=== PATIENT | male | born 1965 | race Caucasian/White ===

== ENCOUNTER → 2016-12-09 | Outpatient (CLI) | payer OTHER ==
[~2016-12-09] MED LIST: LISI-542 PO
--- NOTE | 2016-12-09 17:48 | REP ---
MAXILLOFACIAL CT WITHOUT CONTRAST: HISTORY: Sinusitis. COMPARISON: 05/15/2014 A right Britt cell is present. Minimal mucosal thickening is present in the left maxillary sinus. The remaining sinuses are clear. The ostiomeatal units are patent. The middle and inferior nasal turbinates are partially paradoxical. There is minimal deviation of the nasal septum to the right. The cribriform plate, medial schroeder of the orbits and optic canals are intact. The carotid canals form a segment of the posterolateral schroeder of the sphenoid sinus. The sphenoid sinus septum inserts into the right internal carotid canal wall. IMPRESSION: Minimal left ethmoid sinus mucosal thickening. Signed by Jason Pinto MD 12/09/2016 05:52 P
== END ==
LOC: M RAD 16:49
PROVIDERS: ATTEND Otolaryngology
DX: J32.0 Chronic maxillary sinusitis (principal)

== ENCOUNTER 2020-05-18 07:58 | Emergency (ER) | payer OTHER ==
[~2020-05-18] VITALS: Ht 188 cm; Wt 110.2 kg
[2020-05-18] MEDS ORDERED: INDO50CA91 (08:06)
[2020-05-18] MEDS ORDERED: HEARTAB2 (08:06)
[2020-05-18] MEDS ORDERED: HYDR12CA (08:06)
[2020-05-18] MEDS ORDERED: DOXY100C (08:06)
[2020-05-18 09:19] LABS: BASO % 0.5 % (0.0-1.0); EOS # 0.2 10^3/uL (0.0-0.5); EOS % 2.6 % (0.0-3.0); HEMATOCRIT 44.6 % (42.0-52.0); HEMOGLOBIN 15.4 g/dl (13.5-17.5); LYMPH # 1.2 10^3/uL (1.5-5.0); MEAN CORPUSCULAR HEMOGLOBIN 29.7 pg (27.0-33.0); MEAN CORPUSCULAR HGB CONC 34.5 g/dl (32.0-36.5); MEAN CORPUSCULAR VOLUME 86.1 fl (80.0-96.0); MONO # 0.7 10^3/uL (0.0-0.8); MONO % 8.6 % (0.0-5.0); NEUTROPHILS # 5.6 10^3/uL (1.5-8.5); PLATELET COUNT, AUTOMATED 203 10^3/uL (150-450); RED BLOOD COUNT 5.18 10^6/uL (4.30-6.10); WHITE BLOOD COUNT 7.7 10^3/uL (4.0-10.0)
[2020-05-18 09:41] LABS: ALBUMIN 3.7 GM/DL (3.2-5.2); ALT/SGPT 119 U/L (12-78); BILIRUBIN,DIRECT 0.2 MG/DL (0.0-0.2); BILIRUBIN,TOTAL 0.6 MG/DL (0.2-1.0); BLOOD UREA NITROGEN 15 MG/DL (7-18); C REACTIVE PROTEIN QUANTITATIV 3.45 MG/DL (0.00-0.30); CARBON DIOXIDE LEVEL 26 MEQ/L (21-32); CHLORIDE LEVEL 105 MEQ/L (98-107); CREATININE FOR GFR 0.93 MG/DL (0.70-1.30); GLOMERULAR FILTRATION RATE > 60.0 (>56); GLUCOSE, FASTING 123 MG/DL (70-100); POTASSIUM SERUM 4.1 MEQ/L (3.5-5.1); SODIUM LEVEL 138 MEQ/L (136-145); TOTAL PROTEIN 7.1 GM/DL (6.4-8.2)
[2020-05-18 09:45] LABS: ERYTHROCYTE SEDIMENTATION RATE 28 mm/hr (0-20)
[2020-05-18 09:50] LABS: URIC ACID 7.1 MG/DL (3.5-7.2)
--- NOTE | 2020-05-18 10:08 | REPVR ---
PROCEDURE INFORMATION: Exam: XR Left Foot Complete Exam date and time: 05/18/2020 9:41 AM Age: 54 years old Clinical indication: Pain; Foot; Left; Additional info: Swelling pain, deformity of 2nd toe to metatarsal TECHNIQUE: Imaging protocol: XR Left foot. Views: 3 or more views. COMPARISON: No relevant prior studies available. FINDINGS: Bones/joints: Plantar spur. Soft tissues: Normal. IMPRESSION: No acute findings. Electronically signed by: Gabe Hairston On 05/18/2020 10:07:48 AM
--- NOTE | 2020-05-18 10:09 | REPVR ---
PROCEDURE INFORMATION: Exam: XR Right Foot Complete Exam date and time: 05/18/2020 9:41 AM Age: 54 years old Clinical indication: Pain; Foot; Right; Additional info: Swollen tender big toe, medial foot TECHNIQUE: Imaging protocol: XR Right foot. Views: 3 or more views. COMPARISON: No relevant prior studies available. FINDINGS: Bones/joints: Plantar spur. Soft tissues: Normal. IMPRESSION: No acute findings. Electronically signed by: Gabe Hairston On 05/18/2020 10:08:51 AM
[2020-05-18] MEDS ORDERED: COLC1TAB13 PO (10:28)
[2020-05-18 10:35] VITALS: BP 134/84
== END 2020-05-18 10:37 | disposition home or self-care (01) ==
LOC: M ED 07:58
DX: M10.9 Gout, unspecified (principal); M72.2 Plantar fascial fibromatosis; I10 Essential (primary) hypertension; E11.9 Type 2 diabetes mellitus without complications; E78.5 Hyperlipidemia, unspecified; Z79.899 Other long term (current) drug therapy; Z79.2 Long term (current) use of antibiotics; Z88.2 Allergy status to sulfonamides; Z88.8 Allergy status to other drugs, medicaments and biological substances

== ENCOUNTER → 2020-06-26 | Outpatient (CLI) | payer SELFPAY ==
[~2020-06-26] MED LIST changes: +ALEV220T22 PO; +COLC1TAB13 PO; +DOXY100C; +HEARTAB2; +HYDR12CA; +INDO50CA91; +LOSA25TA14 PO; +VIAG100T PO
== END ==
LOC: M LABSMTC 11:56
PROVIDERS: ATTEND Pediatrics
DX: Z20.828 Contact with and (suspected) exposure to other viral communicable diseases (principal)

== ENCOUNTER 2020-07-01 15:37 | Observation (INO) | payer OTHER, SELFPAY ==
[~2020-07-01] VITALS: Ht 188 cm; Wt 103.6 kg
[~2020-07-01 15:37] MED LIST changes: -ALEV220T22 PO; -LOSA25TA14 PO; -VIAG100T PO
[2020-07-01] MEDS ORDERED: LOSA25TA14 PO (15:47)
[2020-07-01] MEDS ORDERED: VIAG100T PO (17:00)
[2020-07-01] MEDS ORDERED: COLC1TAB13 PO (17:00)
[2020-07-01] MEDS ORDERED: ALEV220T22 PO (17:00)
[2020-07-01 17:13] LABS: BASO % 0.3 % (0.0-1.0); EOS # 0.3 10^3/uL (0.0-0.5); EOS % 4.3 % (0.0-3.0); HEMATOCRIT 43.4 % (42.0-52.0); HEMOGLOBIN 14.3 g/dl (13.5-17.5); LYMPH # 1.8 10^3/uL (1.5-5.0); LYMPH % 30.1 % (24.0-44.0); MEAN CORPUSCULAR HEMOGLOBIN 28.7 pg (27.0-33.0); MEAN CORPUSCULAR HGB CONC 32.9 g/dl (32.0-36.5); MONO # 0.5 10^3/uL (0.0-0.8); MONO % 8.9 % (0.0-5.0); NEUTROPHILS # 3.3 10^3/uL (1.5-8.5); NEUTROPHILS % 56.2 % (36.0-66.0); PLATELET COUNT, AUTOMATED 169 10^3/uL (150-450); RED BLOOD COUNT 4.99 10^6/uL (4.30-6.10); WHITE BLOOD COUNT 5.8 10^3/uL (4.0-10.0)
[2020-07-01 17:26] LABS: ALT/SGPT 33 U/L (12-78); BILIRUBIN,DIRECT 0.1 MG/DL (0.0-0.2); BILIRUBIN,TOTAL 0.7 MG/DL (0.2-1.0); BLOOD UREA NITROGEN 17 MG/DL (7-18); CALCIUM LEVEL 8.9 MG/DL (8.5-10.1); CARBON DIOXIDE LEVEL 28 MEQ/L (21-32); CHLORIDE LEVEL 106 MEQ/L (98-107); CREATININE FOR GFR 1.15 MG/DL (0.70-1.30); GLOMERULAR FILTRATION RATE > 60.0 (>56); GLUCOSE, FASTING 80 MG/DL (70-100); POTASSIUM SERUM 4.3 MEQ/L (3.5-5.1); SODIUM LEVEL 140 MEQ/L (136-145)
[2020-07-01 17:37] LABS: ERYTHROCYTE SEDIMENTATION RATE 6 mm/hr (0-20)
[2020-07-01] MEDS ORDERED: cefTRIAXone SOD 2 GM in D5W MINI-BAG PLUS 50 ML IV ONE (17:45)
[2020-07-01] MEDS ORDERED: VANCOMYCIN HCL 1,000 MG, VIAL MATE ADAPTER 1 EACH in D5W 250 ML IV ONE ×2 (17:45→19:45)
[2020-07-01] MEDS ORDERED: ACETAMINOPHEN TAB 650MG DOSE (2X325MG) PO PRN (18:15)
--- NOTE | 2020-07-01 19:11 | HPEPDOC ---
[facility] Medical History & Physical Date of Admission Jul 01, 2020 Date of Service: Jul 01, 2020 Attending Physician: Lucita Escobar MD History and Physical CHIEF COMPLAINT: Bilateral foot pain HISTORY OF PRESENT ILLNESS: Patient is a 54-year-old male with recent diagnosis of bilateral foot osteomye litis, hypertension, hyperlipidemia, prediabetes and questionable COPD who presented to [facility] emergency room with a new diagnosis of bilateral foot osteomyelitis, sent in from his primary care provider's office. Patient has had a complicated course leading up to today. 05/14/2020 the patient wore tight boots out hunting and shortly after that he developed painful right toe and second left toe swelling. He was seen by urgent care, diagnosed with cellulitis and sent home with antibiotics. He was later seen in our ED for continued pain and diagnosed with gout. No treatments helped pain and swelling. His primary care provider saw him in his office multiple times and tried aspirating the righ t foot joint as there was a concern for possible septic joint versus gout. There was nothing to aspirate and the patient was referred to podiatry on . He was later referred to orthopedic surgery to help manage this issue as there was a concern for something else going on. The patient has had multiple MRIs of the feet. The first one was done of an 06/26/2020 without contrast showing questionable osteomyelitis changes in the right large toe. He was later referred to [facility] radiology and they did in MRI with contrast of the right foot on 06/29/2020. This showed infected fluid/septic arthritis in the first metatarsalphalangeal joint decreased since 06/26/2020 exam, focal area of dest ruction change of cortical bone medial aspect of the distal first metatarsal and also distal plantar aspect is stable since the previous exam. He then went for a left foot MRI with contrast on 07/01/2020 at [facility] which showed osteomyelitis of the second proximal phalanx. Due to these findings he was advised by his provider to come to our emergency room to be further evaluated. Of note, his primary care provider has referred him to Dr. Cuevas, infectious disease with whom he was supposed to have a follow-up appointment with 07/02/2020. He states Dr. Cuevas was made aware of him coming to the emergency room today. In the ER, VS were stable. Inflammatory markers and all other labs were unremarkable, ESR pending. Right foot was noticeably more swollen than the left foot, he had limited ROM of right large toe. He states pain was 2/10 on exam;however, one month prior pain was 10/10 for several weeks. He was started on IV vancomycin. He was admitted for new diagnosis of bilateral osteomyelitis, r/o infectious cause with orthopedic surgery and ID to be consulted in the AM. REVIEW OF SYSTEMS: CONSTITUTIONAL: Denies lack of energy, unexplained weight gain or weight loss, loss of appetite, fever, night sweats EYES: Denies eye drainage, eye pain, visual changes, dry/irritated eye EARS, NOSE, MOUTH, THROAT: Denies difficulty hearing, ringing in ears, mouth sores, loose teeth, sore throat, facial numbness or pain NECK: Denies swollen glands CARDIOVASCULAR: Denies irregular heartbeat, racing heart, chest pains, swelling of feet or legs, pain in legs with walking RESPIRATORY: Denies shortness of breath, night sweats, wheezing, sputum production, oxygen at home, coughing up blood, cough lasting > 1 month GASTROINTESTINAL: Denies abdominal pain, constipation, bloody stool, diarrhea, heartburn, nausea, vomiting GENITOURINARY: Denies painful urination, bloody urine, frequent urination, urgency, leaking urine, impotence MUSCULOSKELETAL: Denies muscle pain INTEGUMENTARY: Denies rash, itching, new skin lesion, change in existing skin lesion, hair loss or increase, breast changes. NEUROLOGICAL: Denies headaches, dizziness, difficulty walking, numbness or tingling PSYCHIATRIC: Denies depression, anxiety, recurrent bad thoughts, mood swings, hallucinations PAST MEDICAL HISTORY: 1. HTN 2. HLD 3. prediabetes 4. COPD? 5. Tobacco use 6. Erectile dysfunction PAST SURGICAL HISTORY: 1. [place] teeth removal 2. Appendectomy 3. Tonsillectomy 4. Cyst removal of left finger FAMILY HISTORY: Father: sudden , cause unknown. at age 48 y/o Mother: DDD. Alive SOCIAL HISTORY: History of cigarette smoking, unknown amount. Quit 5 years ago. Uses chewing to bacco. Drinks alcohol socially. Denies drug use. Employed on [employer]. Lives with family in local area. Seen by [facility] Ortho: NOHEMY Waldron, PCP . [facility] ALLERGIES: Please see below. HOME MEDICATIONS: Please see below. PHYSICAL EXAMINATION: VS: see below CONSTITUTIONAL: No acute distress, resting comfortably, AAO x 3 EYES: PERRLA, EOM intact HENT, MOUTH: Normocephalic, atraumatic, moist mucous membranes, NECK: SUPPLE, no JVD, no lymphadenopathy, no carotid bruit CV: Regular rate and rhythm, S1S2 normal, no murmurs/rubs/gallops RESPIRATORY: Clear to auscultation bilaterally, no rales/rhonchi/wheezes GI: BS positive in 4 quadrants, soft, nontender, nondistended, no rebound or guarding, no organomegaly : Deferred MUSCULOSKELETAL: Right large toe and foot swelling >L. Decreased ROM of right great toe, no pain on palpation. Left 2nd digit has no pain on palpation, no bruising or swelling. INTEGUMENTARY: Intact, no rashes, no lesions, no erythema NEUROLOGIC: Cranial Nerves II-XII are intact, no focal deficits PSYCHIATRIC: Mood and affect are normal LABORATORY DATA: Please see below IMAGING (copies of MRI's in patient's chart): MRI of right lower extremity with contrast 06/29/2020 (Done at [facility]) : Infected fluid/septic arthritis first metatarsalphalangeal joint has decreased since 06/26/2020 exam. Focal area of destructive change of cortical bone medial aspect of the distal first metatarsal and also distal plantar aspect stable since the previous exam. Because there is bone loss this is consistent with focal areas of osteomyelitis. MRI of the left lower extremity with and without contrast 07/01/2020 (Done at [facility]) : osteomyelitis of the second proximal phalanx ASSESSMENT: 54-year-old male with recent diagnosis of bilateral foot osteomyelitis, hypertension, hyperlipidemia, prediabetes and questionable COPD admitted for further evaluation, treatment of bilateral foot osteomyelitis. PLAN: 1. Bilateral foot osteomyelitis, left foot second proximal phalanx and right distal 1st metatarsal, distal plantar aspect. Cause unknown -Hx of wearing tight fitting boots prior to this occuring, no other osteomy elitis risk factors aside from prediabetes. -MRI's above -WBC wnl, inflammatory markers wnl -Blood cultures ordered, ESR -Started on IV vancomycin -To consult orthopedic surgery and Dr. Cuevas in the AM to assess. 2. HTN -Stable -C/w home meds 3. Prediabetes -F/u lipid panel, HbA1c -holding off on ISS, FS BID 4. Erectile dysfunction -Holding home med 5. DVT px -Enoxaparin DISPOSITION: Admitted under observation status. Dr. Cuevas and orthopedic surgery to be consulted in the AM. Vital Signs Vital Signs Date Time Temp Pulse Resp B/P (MAP) Pulse Ox O2 Delivery O2 Flow Rate FiO2 07/01/20 17:06 07/01/20 15:38 97.4 71 18 100 Room Air Laboratory Data Labs 24H Laboratory Tests 2 07/01/20 16:44: Immature Granulocyte % (Auto) 0.2, Neutrophils (%) (Auto) 56.2, Lymphocytes (%) (Auto) 30.1, Monocytes (%) (Auto) 8.9H, Eosinophils (%) (Auto) 4.3H, Basophils (%) (Auto) 0.3, Neutrophils # (Auto) 3.3, Lymphocytes # (Auto) 1.8, Monocytes # (Auto) 0.5, Eosinophils # (Auto) 0.3, Basophils # (Auto) 0.0, Nucleated Red Blood Cells % (auto) 0.0, Erythrocyte Sedimentation Rate 6, Anion Gap 6L, Glomerular Filtration Rate > 60.0, Calcium Level 8.9, Total Bilirubin 0.7, Direct Bilirubin 0.1, Aspartate Amino Transf (AST/SGOT) 12, Alanine Aminotransferase (ALT/SGPT) 33, Alkaline Phosphatase 72, C-Reactive Protein, Quantitative 0.30, Total Protein 7.0, Albumin 4.0, Albumin/Globulin Ratio 1.3 CBC/BMP Laboratory Tests 07/01/20 16:44 Microbiology Microbiology 07/01/20 Blood Culture, Received Pending 07/01/20 Blood Culture, Received Pending Home Medications Scheduled Colchicine (Colchicine) 0.6 Mg Tablet, 0.6 MG PO DAILY Losartan Potassium (Losartan Potassium) 25 Mg Tablet, 25 MG PO DAILY Scheduled PRN Naproxen Sodium (Aleve) 220 Mg Tablet, 220 MG PO BID PRN for PAIN Sildenafil Citrate (Viagra) 100 Mg Tablet, 100 MG PO ASDIRECTED PRN for ERECTILE DYSFUNCTION Allergies Coded Allergies: bupropion (Verified Allergy, Unknown, HIVES, FLUSHING, 07/01/20) varenicline (Verified Allergy, Unknown, HIVES, FLUSHING, 07/01/20) Sulfa (Sulfonamide Antibiotics) (Verified Adverse Reaction, Unknown, DIZZINESS, 07/01/20) A-FIB/CHADSVASC A-FIB History Current/History of A-Fib/PAF?: No Current PO Anticoag Therapy: No Age/Risk Factor Scoring CHADSVASC: CHADSVASC Response (Comments) Value Age Risk Factor Age < 65 years old 0 Gender Risk Factor Male 0 Hx of CHF No 0 Hx of Stroke/TIA/or VTE No 0 Hx of Diabetes Yes 1 Hx of Vascular Disease No 0 Total 1 Treatment Treatment ordered: Other Other anticoagulant ordered: enoxaparin Lucita Escobar MD Jul 01, 2020 19:11
[2020-07-01 21:15] VITALS: BP 150/98
[2020-07-01] MEDS: NS 1,000 ML IV SCH (21:25)
[2020-07-02] MEDS: VANCOMYCIN HCL 1,000 MG, VIAL MATE ADAPTER 1 EACH in D5W 250 ML IV SCH ×2 (03:14→11:08)
[2020-07-02 06:00] VITALS: BP 121/75
[2020-07-02 06:03] LABS: HEMATOCRIT 40.1 % (42.0-52.0); HEMOGLOBIN 13.1 g/dl (13.5-17.5); MEAN CORPUSCULAR HEMOGLOBIN 28.7 pg (27.0-33.0); MEAN CORPUSCULAR HGB CONC 32.7 g/dl (32.0-36.5); MEAN CORPUSCULAR VOLUME 87.9 fl (80.0-96.0); PLATELET COUNT, AUTOMATED 157 10^3/uL (150-450); RED BLOOD COUNT 4.56 10^6/uL (4.30-6.10); WHITE BLOOD COUNT 5.4 10^3/uL (4.0-10.0)
[2020-07-02 06:21] LABS: ALBUMIN 3.3 GM/DL (3.2-5.2); ALT/SGPT 27 U/L (12-78); BILIRUBIN,TOTAL 0.7 MG/DL (0.2-1.0); BLOOD UREA NITROGEN 14 MG/DL (7-18); CALCIUM LEVEL 8.2 MG/DL (8.5-10.1); CARBON DIOXIDE LEVEL 27 MEQ/L (21-32); CHLORIDE LEVEL 107 MEQ/L (98-107); CHOLESTEROL LEVEL 184 MG/DL (<200); CREATININE FOR GFR 0.97 MG/DL (0.70-1.30); GLOMERULAR FILTRATION RATE > 60.0 (>56); GLUCOSE, FASTING 114 MG/DL (70-100); HDL CHOLESTEROL 32 MG/DL (>40); HEMOGLOBIN A1c 5.8 %; LDL CHOLESTEROL 117 MG/DL (<100); NON-HDL-C 152 MG/DL; SODIUM LEVEL 140 MEQ/L (136-145); TOTAL PROTEIN 5.8 GM/DL (6.4-8.2); TRIGLYCERIDES LEVEL 176 MG/DL (<150)
[2020-07-02 07:43] LABS: ERYTHROCYTE SEDIMENTATION RATE 6 mm/hr (0-20)
[2020-07-02 08:14] VITALS: BP 121/75
[2020-07-02] MEDS ORDERED: LOSARTAN 25 MG TAB PO SCH (09:00)
[2020-07-02] MEDS ORDERED: ENOXAPARIN 40MG/0.4ML SYRINGE (J1650 PER 10MG) SC SCH (09:00)
[2020-07-02] MEDS: NS 1,000 ML IV SCH (12:15)
--- NOTE | 2020-07-02 14:33 | IPNPDOC ---
Date Seen The patient was seen on 07/02/20. Progress Note SUBJECTIVE: No events overnight. Discussed case with Dr. Cuevas who is coming to see today, f/u recommendations. On IV vancomycin. Denies chest pain, n/v/d, fevers, chill, worsening. OBJECTIVE PHYSICAL EXAMINATION: VS: see below CONSTITUTIONAL: No acute distress, resting comfortably, AAO x 3 EYES: PERRLA, EOM intact HENT, MOUTH: Normocephalic, atraumatic, moist mucous membranes, NECK: SUPPLE, no JVD, no lymphadenopathy, no carotid bruit CV: Regular rate and rhythm, S1S2 normal, no murmurs/rubs/gallops RESPIRATORY: Clear to auscultation bilaterally, no rales/rhonchi/wheezes GI: BS positive in 4 quadrants, soft, nontender, nondistended, no rebound or guarding, no organomegaly : Deferred MUSCULOSKELETAL: Right large toe and foot swelling >L. Decreased ROM of right great toe, no pain on palpation. Left 2nd digit has no pain on palpation, no bruising or swelling. INTEGUMENTARY: Intact, no rashes, no lesions, no erythema NEUROLOGIC: Cranial Nerves II-XII are intact, no focal deficits PSYCHIATRIC: Mood and affect are normal LABORATORY DATA: Please see below IMAGING (copies of MRI's in patient's chart): MRI of right lower extremity with contrast 06/29/2020 (Done at [facility]) : Infected fluid/septic arthritis first metatarsalphalangeal joint has decreased since 06/26/2020 exam. Focal area of destructive change of cortical bone medial aspect of the distal first metatarsal and also distal plantar aspect stable since the previous exam. Because there is bone loss this is consistent with focal areas of osteomyelitis. MRI of the left lower extremity with and without contrast 07/01/2020 (Done at [facility]) : osteomyelitis of the second proximal phalanx ASSESSMENT: 54-year-old male with recent diagnosis of bilateral foot osteomyelitis, hypertension, hyperlipidemia, prediabetes and questionable COPD admitted for further evaluation, treatment of bilateral foot osteomyelitis. PLAN: 1. Bilateral foot osteomyelitis, left foot second proximal phalanx and right distal 1st metatarsal, distal plantar aspect. Cause unknown -WBC wnl, inflammatory markers wnl -Hx of wearing tight fitting boots prior to this occuring, no other oste omyelitis risk factors aside from prediabetes. -MRI's above -Blood cultures pending -ESR, CRP wnl -C/w IV vancomycin -F/u Dr. Cuevas, infectious disease, recommendations 2. HTN -Stable -C/w home meds 3. Prediabetes -Lipid panel minimally elevated -HbA1c 5.8 -holding off on ISS, FS BID 4. Erectile dysfunction -Holding home med 5. DVT px -Enoxaparin DISPOSITION: Admitted under observation status. Dr. Cuevas consulted, f/u recommendations. Plan is home when appropriate. VS, I&O, 24H, Fishbone Vital Signs/I&O Vital Signs Date Time Temp Pulse Resp B/P (MAP) Pulse Ox O2 Delivery O2 Flow Rate FiO2 07/02/20 08:14 121/75 07/02/20 06:00 97.8 50 16 98 Room Air I&O- Last 24 Hours up to 6 AM 07/02/20 05:59 Intake Total 30 ml Balance 30 ml Laboratory Data 24H LABS Laboratory Tests 2 07/01/20 16:44: Immature Granulocyte % (Auto) 0.2, Neutrophils (%) (Auto) 56.2, Lymphocytes (%) (Auto) 30.1, Monocytes (%) (Auto) 8.9H, Eosinophils (%) (Auto) 4.3H, Basophils (%) (Auto) 0.3, Neutrophils # (Auto) 3.3, Lymphocytes # (Auto) 1.8, Monocytes # (Auto) 0.5, Eosinophils # (Auto) 0.3, Basophils # (Auto) 0.0, Nucleated Red Blood Cells % (auto) 0.0, Erythrocyte Sedimentation Rate 6, Anion Gap 6L, Glomerular Filtration Rate > 60.0, Calcium Level 8.9, Total Bilirubin 0.7, Direct Bilirubin 0.1, Aspartate Amino Transf (AST/SGOT) 12, Alanine Aminotransferase (ALT/SGPT) 33, Alkaline Phosphatase 72, C-Reactive Protein, Quantitative 0.30, Total Protein 7.0, Albumin 4.0, Albumin/Globulin Ratio 1.3 07/01/20 18:56: Coronavirus (COVID-19)(PCR) NEGATIVE 07/01/20 20:05: Bedside Glucose (Misc Panel) 92 07/02/20 00:09: Bedside Glucose (Misc Panel) 89 07/02/20 05:14: Nucleated Red Blood Cells % (auto) 0.0, Erythrocyte Sedimentation Rate 6, Anion Gap 6L, Glomerular Filtration Rate > 60.0, Estimated Mean Plasma Glucose 120H, Hemoglobin A1c 5.8, Calcium Level 8.2L, Total Bilirubin 0.7, Aspartate Amino Transf (AST/SGOT) 12, Alanine Aminotransferase (ALT/SGPT) 27, Alkaline Phosphatase 62, Total Protein 5.8L, Albumin 3.3, Albumin/Globulin Ratio 1.3, T riglycerides Level 176H, Total Cholesterol 184, LDL Cholesterol 117H, Non-HDL Cholesterol (LDL + VLDL) 152, Total HDL Cholesterol 32L, Cholesterol/HDL Ratio 5.750H 07/02/20 06:04: Bedside Glucose (Misc Panel) 119H 07/02/20 11:42: Bedside Glucose (Misc Panel) 162H CBC/BMP Laboratory Tests 07/01/20 16:44 07/02/20 05:14 Microbiology Microbiology 07/01/20 Blood Culture, Received Pending 07/01/20 Blood Culture, Received Pending Current Medications Current Medications Medications (Trade) Dose Ordered Sig/Fidel Route PRN Reason Start Time Stop Time Status Last Admin Dose Admin Acetaminophen (Tylenol Tab) 650 mg Q4H PRN PO PAIN OR FEVER 07/01/20 18:15 07/01/20 18:44 Enoxaparin Sodium (Lovenox) 40 mg DAILY SC 07/02/20 09:00 07/02/20 08:14 Home Med (Med Rec Complete!) ASDIRECTED XX 07/01/20 17:00 07/01/20 17:02 DC Losartan Potassium (Cozaar) 25 mg DAILY PO 07/02/20 09:00 07/02/20 08:14 Sodium Chloride 1,000 ml @ 60 mls/hr [id number] IV 07/01/20 20:15 07/02/20 12:15 Vancomycin HCl 1000 mg/IV Miscellaneous Supplies 1 each/ Dextrose 270 ml @ 270 mls/hr Q8H IV 07/02/20 03:00 07/02/20 11:08 Allergies Coded Allergies: bupropion (Verified Allergy, Unknown, HIVES, FLUSHING, 07/01/20) varenicline (Verified Allergy, Unknown, HIVES, FLUSHING, 07/01/20) Sulfa (Sulfonamide Antibiotics) (Verified Adverse Reaction, Unknown, DIZZINESS, 07/01/20) Lucita Escobar MD Jul 02, 2020 14:33
[2020-07-02 14:47] VITALS: BP 140/80
--- NOTE | 2020-07-02 17:37 | DS.PDOC ---
Discharge Summary General Date of Admission Jul 01, 2020 at 15:38 Date of Discharge 07/02/20 Attending Physician: Lucita Escobar MD Discharge Summary HISTORY OF PRESENT ILLNESS: Patient is a 54-year-old male with recent diagnosis of bilateral foot osteomyelitis, hypertension, hyperlipidemia, prediabetes and questionable COPD who presented to [facility] emergency room with a new diagnosis of bilateral foot osteomyelitis, sent in from his primary care provider's office. Patient has had a complicated course leading up to today. 05/14/2020 the patient wore tight boots out hunting and shortly after that he developed painful right toe and second left toe swelling. He was seen by urgent care, diagnosed with cellulitis and sent home with antibiotics. He was later seen in our ED for continued pain and diagnosed with gout. No treatments helped pain and swelling. His primary care provider saw him in his office multiple times and tried aspirating the right foot joint as there was a concern for possible septic joint versus gout. There was nothing to aspirate and the patient was referred to podiatry on . He was later referred to orthopedic surgery to help manage this issue as there was a concern for something else going on. The patient has had multiple MRIs of the feet. The first one was done of an 06/26/2020 without contrast showing questionable osteomyelitis changes in the right large toe. He was later referred to [facility] radiology and they did in MRI with contrast of the right foot on 06/29/2020. This showed infected fluid/septic arthritis in the first metatarsalphalangeal joint decreased since 06/26/2020 exam, focal area of destruction change of cortical bone medial aspect of the distal first metatarsal and also distal plantar aspect is stable since the previous exam. He then went for a left foot MRI with contrast on 07/01/2020 at [facility] which showed osteomyelitis of the second proximal phalanx. Due to these findings he was advised by his provider to come to our emergency room to be further evaluated. Of note, his primary care provider has referred him to Dr. Cuevas, infectious disease with whom he was supposed to have a follow-up appointment with 07/02/2020. He states Dr. Cuevas was made aware of him coming to the emergency room today. In the ER, VS were stable. Inflammatory markers and all other labs were unremarkable, ESR pending. Right foot was noticeably more swollen than the left foot, he had limited ROM of right large toe. He states pain was 2/10 on exam;however, one month prior pain was 10/10 for several weeks. He was started on IV vancomycin. He was admitted for new diagnosis of bilateral osteomyelitis, r/o infectious cause with orthopedic surgery and ID to be consulted in the AM. HOSPITAL COURSE: WBC remained wnl, inflammatory markers remained wnl.VS stable. Dr. Cuevas, infectious disease saw patient on 07/02/20 and suggested outpatient follow up, no antibiotic treatment. Patient will consult services as o/p. At time of discharge, patient had no increased lower ext pain, n/v/d, fevers, chills, chest pain, shortness of breath. REVIEW OF SYSTEMS: CONSTITUTIONAL: Denies lack of energy, unexplained weight gain or weight loss, loss of appetite, fever, night sweats EYES: Denies eye drainage, eye pain, visual changes, dry/irritated eye EARS, NOSE, MOUTH, THROAT: Denies difficulty hearing, ringing in ears, mouth sores, loose teeth, sore throat, facial numbness or pain NECK: Denies swollen glands CARDIOVASCULAR: Denies irregular heartbeat, racing heart, chest pains, swelling of feet or legs, pain in legs with walking RESPIRATORY: Denies shortness of breath, night sweats, wheezing, sputum production, oxygen at home, coughing up blood, cough lasting > 1 month GASTROINTESTINAL: Denies abdominal pain, constipation, bloody stool, diarrhea, heartburn, nausea, vomiting GENITOURINARY: Denies painful urination, bloody urine, frequent urination, urgency, leaking urine, impotence MUSCULOSKELETAL: Denies muscle pain INTEGUMENTARY: Denies rash, itching, new skin lesion, change in existing skin lesion, hair loss or increase, breast changes. NEUROLOGICAL: Denies headaches, dizziness, difficulty walking, numbness or tingling PSYCHIATRIC: Denies depression, anxiety, recurrent bad thoughts, mood swings, hallucinations PAST MEDICAL HISTORY: 1. HTN 2. HLD 3. prediabetes 4. COPD? 5. Tobacco use 6. Erectile dysfunction PAST SURGICAL HISTORY: 1. [place] teeth removal 2. Appendectomy 3. Tonsillectomy 4. Cyst removal of left finger FAMILY HISTORY: Father: sudden , cause unknown. at age 48 y/o Mother: DDD. Alive SOCIAL HISTORY: History of cigarette smoking, unknown amount. Quit 5 years ago. Uses chewing tobacco. Drinks alcohol socially. Denies drug use. Employed on [employer]. Lives with family in local area. Seen by [facility] Ortho: NOHEMY Waldron, PCP [facility] ALLERGIES: Please see below. HOME MEDICATIONS: Please see below. PHYSICAL EXAMINATION: VS: see below CONSTITUTIONAL: No acute distress, resting comfortably, AAO x 3 EYES: PERRLA, EOM intact HENT, MOUTH: Normocephalic, atraumatic, moist mucous membranes, NECK: SUPPLE, no JVD, no lymphadenopathy, no carotid bruit CV: Regular rate and rhythm, S1S2 normal, no murmurs/rubs/gallops RESPIRATORY: Clear to auscultation bilaterally, no rales/rhonchi/wheezes GI: BS positive in 4 quadrants, soft, nontender, nondistended, no rebound or guarding, no organomegaly : Deferred MUSCULOSKELETAL: Right large toe and foot swelling >L. Decreased ROM of right great toe, no pain on palpation. Left 2nd digit has no pain on palpation, no bruising or swelling. INTEGUMENTARY: Intact, no rashes, no lesions, no erythema NEUROLOGIC: Cranial Nerves II-XII are intact, no focal deficits PSYCHIATRIC: Mood and affect are normal LABORATORY DATA: Please see below IMAGING (copies of MRI's in patient's chart): MRI of right lower extremity with contrast 06/29/2020 (Done at [facility]) : Infected fluid/septic arthritis first metatarsalphalangeal joint has decreased since 06/26/2020 exam. Focal area of destructive change of cortical bone medial aspect of the distal first metatarsal and also distal plantar aspect stable since the previous exam. Because there is bone loss this is consistent with focal areas of osteomyelitis. MRI of the left lower extremity with and without contrast 07/01/2020 (Done at [facility]) : osteomyelitis of the second proximal phalanx ASSESSMENT: 54-year-old male with recent diagnosis of bilateral foot osteomyelitis, hypertension, hyperlipidemia, prediabetes and questionable COPD admitted for further evaluation, treatment of bilateral foot osteomyelitis. PLAN: 1. Bilateral foot osteomyelitis, left foot second proximal phalanx and right distal 1st metatarsal, distal plantar aspect. Cause unknown -WBC wnl, inflammatory markers wnl -Hx of wearing tight fitting boots prior to this occuring, no other osteomyelitis risk factors aside from prediabetes. -MRI's above -Blood cultures: NG at 24 hours. -ESR, CRP wnl -Treated this stay with IV vancomycin. Per infectious disease, no need for abx treatment. -Will need autoimmune workup after discharge. 2. HTN -Stable -C/w home meds 3. Prediabetes -Lipid panel minimally elevated -HbA1c 5.8 -F/u with PCP 4. Erectile dysfunction -Resume home med DISPOSITION: Admitted under observation status. F/u with PCP, following recommendations per Dr. Cuevas TIME SPENT ON DISCHARGE: Greater than 30 minutes. Vital Signs/I&Os Vital Signs Date Time Temp Pulse Resp B/P (MAP) Pulse Ox O2 Delivery O2 Flow Rate FiO2 07/02/20 14:47 98.9 70 16 140/80 (100) 97 07/02/20 06:00 Room Air I&O- Last 24 Hours up to 6 AM 07/02/20 06:00 Intake Total 30 ml Balance 30 ml Laboratory Data Labs 24H Laboratory Tests 2 07/01/20 18:56: Coronavirus (COVID-19)(PCR) NEGATIVE 07/01/20 20:05: Bedside Glucose (Misc Panel) 92 07/02/20 00:09: Bedside Glucose (Misc Panel) 89 07/02/20 05:14: Nucleated Red Blood Cells % (auto) 0.0, Erythrocyte Sedimentation Rate 6, Anion Gap 6L, Glomerular Filtration Rate > 60.0, Estimated Mean Plasma Glucose 120H, Hemoglobin A1c 5.8, Calcium Level 8.2L, Total Bilirubin 0.7, Aspartate Amino Transf (AST/SGOT) 12, Alanine Aminotransferase (ALT/SGPT) 27, Alkaline Ph osphatase 62, Total Protein 5.8L, Albumin 3.3, Albumin/Globulin Ratio 1.3, Triglycerides Level 176H, Total Cholesterol 184, LDL Cholesterol 117H, Non-HDL Cholesterol (LDL + VLDL) 152, Total HDL Cholesterol 32L, Cholesterol/HDL Ratio 5.750H 07/02/20 06:04: Bedside Glucose (Misc Panel) 119H 07/02/20 11:42: Bedside Glucose (Misc Panel) 162H 07/02/20 17:04: Bedside Glucose (Misc Panel) 80 CBC/BMP Laboratory Tests 07/02/20 05:14 FSBS Laboratory Tests Test 07/01/20:05 07/02/20 00:09 07/02/20 06:04 07/02/20 11:42 Range/Units Bedside Glucose (Misc Panel) 92 89 119 162 70-105 MG/DL Test 07/02/20 17:04 Range/Units Bedside Glucose (Misc Panel) 80 70-105 MG/DL Microbiology Microbiology 07/01/20 Blood Culture - Preliminary, Resulted No growth after 24 hours . All specim... 07/01/20 Blood Culture - Preliminary, Resulted No growth after 24 hours . All specim... Discharge Medications Scheduled Colchicine (Colchicine) 0.6 Mg Tablet, 0.6 MG PO DAILY, (Reported) Losartan Potassium (Losartan Potassium) 25 Mg Tablet, 25 MG PO DAILY, (Reported) Scheduled PRN Naproxen Sodium (Aleve) 220 Mg Tablet, 220 MG PO BID PRN for PAIN, (Reported) Sildenafil Citrate (Viagra) 100 Mg Tablet, 100 MG PO ASDIRECTED PRN for ERECTILE DYSFUNCTION, (Reported) Allergies Coded Allergies: bupropion (Verified Allergy, Unknown, HIVES, FLUSHING, 07/01/20) varenicline (Verified Allergy, Unknown, HIVES, FLUSHING, 07/01/20) Sulfa (Sulfonamide Antibiotics) (Verified Adverse Reaction, Unknown, DIZZINESS, 07/01/20) Lucita Escobar MD Jul 02, 2020 17:37
== END 2020-07-02 19:15 | disposition home or self-care (01) ==
LOC: M ED 15:37 → M ED INP 15:38 → ENRESERV 20:26 → M MS5PR 21:15
PROVIDERS: ADMIT Internal Medicine; ATTEND Internal Medicine
DX: M86.179 Other acute osteomyelitis, unspecified ankle and foot (principal); I10 Essential (primary) hypertension; E78.49 Other hyperlipidemia; R73.03 Prediabetes; J44.9 Chronic obstructive pulmonary disease, unspecified; N52.9 Male erectile dysfunction, unspecified; F17.220 Nicotine dependence, chewing tobacco, uncomplicated; Z79.899 Other long term (current) drug therapy; Z88.2 Allergy status to sulfonamides; Z88.8 Allergy status to other drugs, medicaments and biological substances
CPT/HCPCS: 36415; 80048; 80053; 80061; 80076; 83036; 85025; 85027; 85652; 86140; 87040; 96361; 96365; 96366; 96367; 96372; 99284; J0696; J1650; J3370; U0002

== ENCOUNTER → 2020-07-24 | Outpatient (REF) | payer OTHER ==
[~2020-07-24] MED LIST changes: +ALEV220T22 PO; +COLC0.6T47 PO; -COLC1TAB13 PO; +LOSA25TA14 PO; +VIAG100T PO
[2020-07-24 12:41] LABS: ALT/SGPT 29 U/L (12-78); BILIRUBIN,TOTAL 0.3 MG/DL (0.2-1.0); BLOOD UREA NITROGEN 13 MG/DL (7-18); CALCIUM LEVEL 9.5 MG/DL (8.5-10.1); CARBON DIOXIDE LEVEL 28 MEQ/L (21-32); CHLORIDE LEVEL 108 MEQ/L (98-107); CREATININE FOR GFR 0.99 MG/DL (0.70-1.30); GLOMERULAR FILTRATION RATE > 60.0 (>56); GLUCOSE, FASTING 91 MG/DL (70-100); POTASSIUM SERUM 4.4 MEQ/L (3.5-5.1); RHEUMATOID FACTOR QUANT < 10.0 IU/ML (<15.0); SODIUM LEVEL 139 MEQ/L (136-145); URIC ACID 7.2 MG/DL (3.5-7.2)
[2020-07-27 15:07] LABS: ANGIOTENSIN 1 CONVERTING ENZYM 32 U/L (14-82); CYCLIC CITRULLINATED PEPTIDE 5 units (0-19); IgG P18 AB Absent (.); IgG P23 AB Absent (.); IgG P28 AB Absent (.); IgG P30 AB Absent (.); IgG P39 AB Absent (.); IgG P41 AB Absent (.); IgG P45 AB Absent (.); IgG P66 AB Absent (.); IgG P93 AB Absent (.); IgM P23 AB Absent (.); IgM P39 AB Absent (.); IgM P41 AB Absent (.); LYME IgG WB INTERPRETATION Negative (.); LYME IgM WB INTERPRETATION Negative (.)
== END ==
LOC: M SFHCRHEU 09:47
PROVIDERS: ATTEND Internal Medicine
DX: M06.4 Inflammatory polyarthropathy (principal)
CPT/HCPCS: 80053; 82164; 84550; 85652; 86140; 86200; 86431; 86617; G0463

== ENCOUNTER → 2020-08-18 | Outpatient (CLI) | payer SELFPAY | LOC: M LABSMTC 14:13 | PROVIDERS: ATTEND Pediatrics | DX: Z20.822 Contact with and (suspected) exposure to COVID-19 (principal) ==

== ENCOUNTER 2020-09-24 21:41 | Inpatient (IN) | payer OTHER ==
[~2020-09-24] VITALS: Ht 188 cm; Wt 105.8 kg
[~2020-09-24 21:41] MED LIST changes: -LISI-542 PO; +LISI-898 PO
[2020-09-24 23:43] VITALS: BP 135/83
--- OUTSIDE RECORDS SUMMARY | 2020-09-24 23:50 | CCD ---
Author Author [facility] Organization [facility] Address Unknown Phone Unavailable Care Team Providers Care Development Manager Name Role Phone Karla Ritchie Unavailable PROBLEMS Type Condition ICD9-CM Code [id number] Code Onset Dates Condition S tatus SNOMED Code Notes Problem Inflammatory polyarthritis M06.4 Active 57408 3000 Problem Inflammatory arthritis M19.90 Active 8802696 Problem Erectile dysfunction due to diseases classified elsewhere N52.1 Active 892915814 Problem Essential hypertension I10 Active 61231294 Problem Plantar fascial fibromatosis M72.2 Active 133 51457 Problem Gouty arthritis of both feet M10.9 Active 160 [id number] ALLERGIES Allergen (clinical drug ingredient) Drug/Non Drug Allergy do cumented on EMR Reaction Allergy Type Onset Date Status Wellbutrin Rash/sob Drug Allergy Active Sulfa (for allergy use only) Rash/sob Drug Allergy Active ENCOUNTERS from 1965 to 2020-09-06 Encounter Location Date Provider Diagnosis [facility] Rheumatology [address] [place] [address] 15 Aug, 2020 Karla Ritchie IMMUNIZATIONS No Information SOCIAL HISTORY Tobacco Use: Social History Observation Description Date Details (start date - stop date) Never Smoker Sex Assigned At : Social History Observation Description Sex Assigned At Unknown Education: Question Answer Notes Level of Education: Finished College Language: Question Answer Notes Languages spoken: Burkinan Yazidism: Question Answer Notes Yazidism No restorationism beliefs that would impact health care. Sexual Hx: Question Answer Notes Had sex in the last 12 months (vaginal, oral, or anal)? Yes Have you ever had an STD? No Prevention Strategies discussed: Other with Women only Use protection? No Alcohol Screening: Question Answer Notes Did you have a drink containing alcohol in the past year? Ye s Points 3 Interpretation Negative How often did you have six or more drinks on one occas ion in the past year? Never (0 points) How many drinks did you have on a typica l day when you were drinking in the past year? 1 or 2 (0 points) How often did you have a drink containing alcohol in t he past year? Two to three times per week (3 points) Tobacco Use: Question Answer Notes Are you a: never smoker chews some now. has not smoke in over 30 years REASON FOR REFERRAL No Information VITAL SIGNS No information MEDICATIONS Medication SIG (Take, Route, Frequency, Duration) Notes Start Da te End Date Status Losartan Potassium 50 MG 1 tablet Orally Once a day Active Medrol 4 MG as directed Orally Daily for 6 days for 6 days Jul, Not-Taking Fluticasone Propionate 50 MCG/ACT 1 spray in each nost ril Nasally Once a day for 30 day(s) Active Medrol 4 MG as directed Orally Daily for 6 days for 6 days Aug, Active Meloxicam 15 MG (Prior Auth#:[id number]) Oral for 30 Not-Taking Viagra 100 MG 1 tablet as needed Orally as directed for 30 day (s) May, Active Plaquenil 200 MG 1 tab Orally twice daily for 30 days 2020 Active Zyrtec Allergy 10 MG 1 tablet Orally Once a day for 30 day(s) Active Heartburn Relief 10 MG 1 tablet as needed Oral Twice a day Active PROCEDURES No Information RESULTS No Results REASON FOR VISIT gout flare up MEDICAL (GENERAL) HISTORY Type Description Date Medical History HTN Medical History hyperlipidemia Medical History frequent sinus congestion Medical History tinnitus Medical History L1 and L2 DDD Medical History ED Surgical History colonoscopy Surgical History cyst removed from index finger 04/13/2016 Surgical History wisdom teeth Hospitalization History pneumonia Hospitalization History ([facility]) bilat foot infections 2020 Goals Section No Information Health Concerns No Information MEDICAL EQUIPMENT No Information MENTAL STATUS No Information FUNCTIONAL STATUS No Information ASSESSMENTS No Information PLAN OF TREATMENT Medication Medication Name Sig Start Date Stop Date Medrol 4 MG as directed Orally Daily for 6 days for 6 days 2 Aug, Plaquenil 200 MG 1 tab Orally twice daily for 30 days Aug, Next Appt Details Provider Name:Karla Ritchie, 2020-10 02:45:00 PM, [address] [place] [address], [id number], Insurance Providers Payer Name Payer Address Payer Phone Insured Name Patient Relati onship to Insured Coverage Start Date Coverage End Date [facility] [employer] [id number] [facility] [id number] DIANA BONILLA
--- OUTSIDE RECORDS SUMMARY | 2020-09-24 23:50 | CCD ---
Author Author [facility] Organization [facility] Address Unknown Phone Unavailable Care Team Providers Care Cell Liner Name Role Phone Tommy Noble Unavailable PROBLEMS Type Condition ICD9-CM Code [id number] Code Onset Dates Condition S tatus SNOMED Code Notes Problem Erectile dysfunction due to diseases classified elsewhere N52.1 Active 546905700 ALLERGIES Allergen (clinical drug ingredient) Drug/Non Drug Allergy do cumented on EMR Reaction Allergy Type Onset Date Status Wellbutrin Rash/sob Drug Allergy Active Sulfa (for allergy use only) Rash/sob Drug Allergy Active ENCOUNTERS from 1965 to 2020-07-14 Encounter Location Date Provider Diagnosis [facility] Urology [address] [place] [address] Jun Tommy Noble IMMUNIZATIONS No Information SOCIAL HISTORY Tobacco Use: Social History Observation Description Date Details (start date - stop date) Never Smoker Sex Assigned At : Social History Observation Description Sex Assigned At Unknown Language: Question Answer Notes Languages spoken: Venezuelan Jew: Question Answer Notes Jew No denominational beliefs that would impact health care. Sexual Hx: Question Answer Notes Had sex in the last 12 months (vaginal, oral, or anal)? Yes Have you ever had an STD? No Prevention Strategies discussed: Other with Women only Use protection? No Alcohol Screening: Question Answer Notes Did you have a drink containing alcohol in the past year? Ye s Points 2 Interpretation Negative How often did you have six or more drinks on one occas ion in the past year? Never (0 points) How many drinks did you have on a typica l day when you were drinking in the past year? 1 or 2 (0 points) How often did you have a drink containing alcohol in t he past year? Two to four times a month (2 points) Tobacco Use: Question Answer Notes Are you a: never smoker chews some now. has not smoke in over 30 years REASON FOR REFERRAL No Information VITAL SIGNS No information MEDICATIONS Medication SIG (Take, Route, Frequency, Duration) Notes Start Da te End Date Status PredniSONE 20 MG 1 tablet Orally bid Active Indomethacin 50 MG 1 capsule with food or milk Orally Twice a day for 30 day(s) Active Viagra 100 MG 1 tablet as needed Orally as directed for 30 day (s) May, Active Zyrtec Allergy 10 MG 1 tablet Orally Once a day for 30 day(s) Active Hydrochlorothiazide 12.5 MG 1 capsule in the morning Orally bid Not-Taking Losartan Potassium 25 MG 1 tablet Orally Once a day for 30 day(s) Active Meloxicam 15 MG 1 tablet Orally Once a day for 30 day(s) 2 3 Jun, 2020 Active Fluticasone Propionate 50 MCG/ACT 1 spray in each nost ril Nasally Once a day for 30 day(s) Active Colchicine 0.6 MG 1 tablet Orally Once a day for 30 day(s) Active PROCEDURES No Information RESULTS No Results REASON FOR VISIT appt MEDICAL (GENERAL) HISTORY Type Description Date Medical History HTN Medical History hyperlipidemia Medical History frequent sinus congestion Medical History tinnitus Medical History L1 and L2 DDD Medical History ED Surgical History colonoscopy Surgical History cyst removed from index finger 04/13/2016 Surgical History wisdom teeth Hospitalization History pneumonia Goals Section No Information Health Concerns No Information MEDICAL EQUIPMENT No Information MENTAL STATUS No Information FUNCTIONAL STATUS No Information ASSESSMENTS No Information PLAN OF TREATMENT Medication Medication Name Sig Start Date Stop Date Viagra 100 MG 1 tablet as needed Orally as directed for 30 day (s) May, Meloxicam 15 MG 1 tablet Orally Once a day for 30 day(s) Jun, Next Appt Details Provider Name:Eb Cuevas, 2019-12-0 7 11:00:00 AM, [address] [place] [address], [phone], Insurance Providers Payer Name Payer Address Payer Phone Insured Name Patient Relati onship to Insured Coverage Start Date Coverage End Date [facility] [employer] [id number] [place] [id number] DIANA BONILLA
--- OUTSIDE RECORDS SUMMARY | 2020-09-24 23:50 | CCD ---
Author Author [facility] Organization [facility] Address Unknown Phone Unavailable Care Team Providers Care Salesperson Handbags Name Role Phone Karla Ritchie Unavailable PROBLEMS Type Condition ICD9-CM Code [id number] Code Onset Dates Condition S tatus SNOMED Code Notes Problem Inflammatory polyarthritis M06.4 Active 98576 3000 Problem Inflammatory arthritis M19.90 Active 5632027 Problem Erectile dysfunction due to diseases classified elsewhere N52.1 Active 565194324 Problem Essential hypertension I10 Active 65500492 Problem Plantar fascial fibromatosis M72.2 Active 133 21833 Problem Gouty arthritis of both feet M10.9 Active 160 [id number] ALLERGIES Allergen (clinical drug ingredient) Drug/Non Drug Allergy do cumented on EMR Reaction Allergy Type Onset Date Status Wellbutrin Rash/sob Drug Allergy Active Sulfa (for allergy use only) Rash/sob Drug Allergy Active ENCOUNTERS from 1965 to 2020-08-28 Encounter Location Date Provider Diagnosis [facility] Rheumatology [address] [place] [address] Jul, Karla Chau IMMUNIZATIONS No Information SOCIAL HISTORY Tobacco Use: Social History Observation Description Date Details (start date - stop date) Never Smoker Sex Assigned At : Social History Observation Description Sex Assigned At Unknown Education: Question Answer Notes Level of Education: Finished College Language: Question Answer Notes Languages spoken: Samoan Methodist: Question Answer Notes Methodist No anabaptism beliefs that would impact health care. Sexual [...] Notes Start Da te End Date Status Medrol 4 MG as directed Orally Daily for 6 days for 6 days Jul, Not-Taking Fluticasone Propionate 50 MCG/ACT 1 spray in each nost ril Nasally Once a day for 30 day(s) Active Zyrtec Allergy 10 MG 1 tablet Orally Once a day for 30 day(s) Active Losartan Potassium 50 MG 1 tablet Orally Once a day Active Meloxicam 15 MG (Prior Auth#:[id number]) Oral for 30 Not-Taking Viagra 100 MG 1 tablet as needed Orally as directed for 30 day (s) May, Active PROCEDURES No Information RESULTS No Results REASON FOR VISIT PA Dual energy CT Feet MEDICAL (GENERAL) HISTORY Type Description Date Medical History HTN Medical History hyperlipidemia Medical History frequent sinus congestion Medical History tinnitus Medical History L1 and L2 DDD Medical History ED Surgical History colonoscopy Surgical History cyst removed from index finger 04/13/2016 Surgical History wisdom teeth Hospitalization History pneumonia Hospitalization History ([facility]) bilat foot infections 2019 Goals Section No Information Health Concerns No Information MEDICAL EQUIPMENT No Information MENTAL STATUS No Information FUNCTIONAL STATUS No Information ASSESSMENTS No Information PLAN OF TREATMENT No Information Insurance Providers Payer Name Payer Address Payer Phone Insured Name Patient Relati onship to Insured Coverage Start Date Coverage End Date [facility] [address] [facility] [id number] DIA[place] BONILLA
--- OUTSIDE RECORDS SUMMARY | 2020-09-24 23:50 | CCD ---
Author Author [facility] ems Organization [facility] ems Address Unknown Phone Unavailable Care Team Providers Care Electric Solderer Name Role Phone Karla Ritchie Unavailable PROBLEMS Type Condition ICD9-CM Code [id number] Code Onset Dates Condition S tatus W/U Status Risk SNOMED Code Notes Problem Inflammatory polyarthritis M06.4 Active confirmed 606256500 Problem Inflammatory arthritis M19.90 Active confirmed 7551649 Problem Erectile dysfunction due to diseases classified elsewhere N52.1 Active confirmed 338690634 Problem Essential hypertension I10 Active confirmed 04901568 Problem Plantar fascial fibromatosis M72.2 Active confirme d 09264902 Problem Gouty arthritis of both feet M10.9 Active con firmed [id number] ALLERGIES Allergen (clinical drug ingredient) Drug/Non Drug Allergy do cumented on EMR Reaction Allergy Type Onset Date Status Wellbutrin Rash/sob Drug Allergy Active Sulfa (for allergy use only) Rash/sob Drug Allergy Active ENCOUNTERS from 1965 to 2020-09-16 Encounter Location Date Provider Diagnosis [facility] Rheumatology [address] [place] [address] Aug, Karla Ritchie IMMUNIZATIONS No Information SOCIAL HISTORY Tobacco Use: Social History Observation Description Date Details (start date - stop date) Never Smoker Sex Assigned At : Social History Observation Description Sex Assigned At Unknown Education: Question Answer Notes Level of Education: Finished College Language: Question Answer Notes Languages spoken: Libyan Rastafari: Question Answer Notes Rastafari No taoist beliefs that would impact health care. Sexual [...] days Aug, Active Meloxicam 15 MG (Prior Auth#:[id number]) Oral for 30 Not-Taking Viagra 100 MG [...] Information RESULTS No Results REASON FOR VISIT No Information MEDICAL (GENERAL) HISTORY Type Description Date Medical History HTN Medical History hyperlipidemia Medical History frequent sinus congestion Medical History tinnitus Medical History L1 and L2 DDD Medical History ED Surgical History colonoscopy Surgical History cyst removed from index finger 04/13/2016 Surgical History wisdom teeth Hospitalization History pneumonia Hospitalization History ([facility]) bilat foot infections 2020 Goals Section No [...] Details Provider Name:Karla Ritchie, 2020-10 02:45:00 PM, [address] [place] [address], [id number], Insurance Providers Payer Name Payer Address Payer Phone Insured Name Patient Relati onship to Insured Coverage Start Date Coverage End Date [facility] [address] [facility] [id number] DIANA BONILLA
--- OUTSIDE RECORDS SUMMARY | 2020-09-24 23:50 | CCD ---
Author Author [facility]st ems Organization [facility] ems Address Unknown Phone Unavailable Care Team Providers Care Pool Player Name Role Phone Eb Cuevas Unavailable PROBLEMS Type Condition ICD9-CM Code [id number] Code Onset Dates Condition S tatus SNOMED Code Notes Problem Gouty arthritis of both feet M10.9 Active 160 [id number] Problem Inflammatory polyarthritis M06.4 Active 29631 3000 Problem Erectile dysfunction due to diseases classified elsewhere N52.1 Active 681319373 Problem Essential hypertension I10 Active 18602318 Problem Plantar fascial fibromatosis M72.2 Active 133 82882 ALLERGIES Allergen (clinical drug ingredient) Drug/Non Drug Allergy do cumented on EMR Reaction Allergy Type Onset Date Status Wellbutrin Rash/sob Drug Allergy Active Sulfa (for allergy use only) Rash/sob Drug Allergy Active ENCOUNTERS from 1965 to 2020-07-27 Encounter Location Date Provider Diagnosis [address] [address] Jul, Eb Cuevas Gouty arthritis of both feet M10.9 ; Ess ential hypertension I10 and Plantar fascial fibromatosis M72.2 IMMUNIZATIONS No Information SOCIAL HISTORY Tobacco Use: Social History Observation Description Date Details (start date - stop date) Never Smoker Sex Assigned At : Social History Observation Description Sex Assigned At Unknown Education: Question Answer Notes Level of Education: Finished College Language: Question Answer Notes Languages spoken: Finnish Episcopalian: Question Answer Notes Episcopalian No adventism beliefs that would impact health care. Sexual [...] REASON FOR REFERRAL No Information VITAL SIGNS Weight 235 lbs Jul, Height 74 in Jul, BMI 30.17 kg/m2 Jul, Heart Rate 70 /min Jul, Respiratory Rate 18 /min Jul, Temperature 97.3 degrees Fahrenheit Jul, Oximetry 99% Jul, Blood pressure systolic 136 mm Hg Jul, Blood pressure diastolic 84 mm Hg Jul, MEDICATIONS Medication SIG (Take, Route, Frequency, Duration) Notes Start Da te End Date Status Viagra 100 MG 1 tablet as needed Orally as directed for 30 day (s) May, Active Fluticasone Propionate 50 MCG/ACT 1 spray in each nost ril Nasally Once a day for 30 day(s) Active Losartan Potassium 50 MG 1 tablet Orally Once a day Active Zyrtec Allergy 10 MG 1 tablet Orally Once a day for 30 day(s) Active Medrol 4 MG as directed Orally Daily for 6 days for 6 days Jul, Active Meloxicam 15 MG (Prior Auth#:[id number]) Oral for 30 Not-Taking PROCEDURES No Information RESULTS No Results REASON FOR VISIT No Information MEDICAL (GENERAL) HISTORY Type Description Date Medical History HTN Medical History hyperlipidemia Medical History frequent sinus congestion Medical History tinnitus Medical History L1 and L2 DDD Medical History ED Surgical History colonoscopy Surgical History cyst removed from index finger 04/13/2016 Surgical History wisdom teeth Hospitalization History pneumonia Hospitalization History ([facility]) bilat foot infections 2020 Goals Section No Information Health Concerns No Information MEDICAL EQUIPMENT No Information MENTAL STATUS No Information FUNCTIONAL STATUS No Information ASSESSMENTS Encounter Date Diagnosis Assessment Notes Treatment Notes Treatm ent Clinical Notes Jul, Gouty arthritis of both feet (ICD-10 - M10.9) 05/18/20 ER x-ray of right foot shows no acute findings MRI of both feet showed.disruptive changes traumatic consistent with osteomyelitis versus gouty arthritis all would be in the differential clinically patient did not have osteomyelitis during his hospital stay his ESR and CRP were normal after he was treated with a tapering dose of prednisone for gouty arthritis. He has not been on antibiotics and there is no worsening changes. I would recommend referral to rheumatology. My suspicion frosty myelitis is very unlikely even with atypicals there should be a portal of entry patient denies any trauma to both feet except for wearing tight boots hunting. He had elevated uric acid initially why he was on hydrochlorothiazide which was discontinued . He also used meloxicam for 10 days and now has stopped using it it did help somewhat with the swelling. He is more concerned that he does not know what is the reason for his abnormal MRI finding and persistent discomfort in toes. at [facility] 05/29/2020 ESR 26 Crp 0.78 06/18/20 HLA-B27 negative uric acid 6.9 Lyme serology negative RF less than 10, Jul, Essential hypertension (ICD-10 - I10) Jul, Plantar fascial fibromatosis (ICD-10 - M72.2) Right foot x-ray consistent with inferior posterior calcaneal entesophytesno acute fractures PLAN OF TREATMENT Medication Medication Name Sig Start Date Stop Date Medrol 4 MG as directed Orally Daily for 6 days for 6 days 1 Jul, Treatment Notes Assessment Notes Clinical Notes Gouty arthritis of both feet 05/18/20 ER x-ray of right foot shows no acute findingsMRI of both feet showed.disruptive changes traumatic consistent with osteomyelitis versus gouty arthritis all would be in the differential clinically patient did not have osteomyelitis during his hospital stay his ESR and CRP were normal after he was treated with a tapering dose of prednisone for gouty arthritis.He has not been on antibiotics and there is no worsening changes. I would recommend referral to rheumatology. My suspicion frosty myelitis is very unlikely even with atypicals there should be a portal of entry patient denies any trauma to both feet except for wearing tight boots hunting.He had elevated uric acid initially why he was on hydrochlorothiazide which was discontinued .He also used meloxicam for 10 days and now has stopped using it it did help somewhat with the swelling. He is more concerned that he does not know what is the reason for his abnormal MRI finding and persistent discomfort in toes.at [facility] 05/29/2020 ESR 26 Crp 0.78 06/18/20 HLA-B27 negative uric acid 6.9 Lyme serology negative RF less than 10, Plantar fascial fibromatosis Right foot x-ray consistent with inferior posterior calcaneal entesophytesno acute fractures Next Appt Details prn Reason: Provider Name:Karla Ritchie, 2020-07 01:45:00 PM, [address] [place] [address], [id number], Insurance Providers Payer Name Payer Address Payer Phone Insured Name Patient Relati onship to Insured Coverage Start Date Coverage End Date [facility] [address] [facility] [id number] DIANA BONILLA self
--- OUTSIDE RECORDS SUMMARY | 2020-09-24 23:50 | CCD ---
Author Author [facility] ems Organization [facility] ems Address Unknown Phone Unavailable Care Team Providers Care Order Entry Technician Name Role Phone Karla Ritchie Unavailable PROBLEMS Type Condition ICD9-CM Code [id number] Code Onset Dates Condition S tatus SNOMED Code Notes Problem Inflammatory polyarthritis M06.4 Active 96210 3000 Problem Inflammatory arthritis M19.90 Active 2716884 Problem Erectile dysfunction due to diseases classified elsewhere N52.1 Active 272033647 Problem Essential hypertension I10 Active 41781700 Problem Plantar fascial fibromatosis M72.2 Active 133 70569 Problem Gouty arthritis of both feet M10.9 Active 160 16254484106834 ALLERGIES Allergen (clinical drug ingredient) Drug/Non Drug Allergy do cumented on EMR Reaction Allergy Type Onset Date Status Wellbutrin Rash/sob Drug Allergy Active Sulfa (for allergy use only) Rash/sob Drug Allergy Active ENCOUNTERS from 1965 to 2020-09-09 Encounter Location Date Provider Diagnosis [facility] Rheumatology [address] [place] [address] Aug, Karla Ritchie Inflammatory polyarthritis M06.[address] ess fracture of right calcaneus with routine healing, subsequent encounter M84.374D IMMUNIZATIONS No Information SOCIAL HISTORY Tobacco Use: Social History Observation Description Date Details (start date - stop date) Never Smoker Sex Assigned At : Social History Observation Description Sex Assigned At Unknown Education: Question Answer Notes Level of Education: Finished College Language: Question Answer Notes Languages spoken: Polish Christian: Question Answer Notes Christian No quaker beliefs that would impact health care. Sexual [...] FOR REFERRAL No Information VITAL SIGNS Weight 243.6 lbs Aug, Weight-kg 110.5 kg Aug, Height 74 in Aug, BMI 31.27 kg/m2 Aug, Heart Rate 67 /min Aug, Respiratory Rate 18 /min Aug, Temperature 97.6 degrees Fahrenheit Aug, Oximetry 98% Aug, Blood pressure systolic 132 mm Hg Aug, Blood pressure diastolic 64 mm Hg Aug, MEDICATIONS Medication SIG (Take, Route, Frequency, Duration) [...] days Aug, Active Meloxicam 15 MG (Prior Auth#:[id number]) Oral for 30 Not-Taking Viagra 100 MG [...] Information RESULTS No Results REASON FOR VISIT Follow CT results MEDICAL (GENERAL) HISTORY Type Description Date Medical History HTN Medical History hyperlipidemia Medical History frequent sinus congestion Medical History tinnitus Medical History L1 and L2 DDD Medical History ED Surgical History colonoscopy Surgical History cyst removed from index finger 04/13/2016 Surgical History wisdom teeth Hospitalization History pneumonia Hospitalization History ([facility]) bilat foot infections 2020 Goals Section No Information Health Concerns No Information MEDICAL EQUIPMENT No Information MENTAL STATUS No Information FUNCTIONAL STATUS No Information ASSESSMENTS Encounter Date Diagnosis Assessment Notes Treatment Notes Treatm ent Clinical Notes Aug, Inflammatory polyarthritis (ICD-10 - M06.4) I reviewed the dual-energy CT findings with the patient, based on the fact that there is no monosodium urate crystal deposition, I don't think his ongoing foot pain is related to gout. I can't state that he never had gout, but I don't think that is an ongoing problem. My suspicion is that he has an inflammatory arthritis, likely reactive arthritis but I can't rule out seronegative RA. I suggested that he try treating that with regular therapy i.e. a disease modifying drug. He is sulfa allergic therefore cannot take sulfasalazine. We reviewed Plaquenil versus methotrexate, and he is willing to try Plaquenil. We discussed risks, benefits, side effects of Plaquenil including the need for an eye exam if he stays on this medication. He will start taking 200 mg twice a day. He can keep a Medrol pack at home to use on an as-needed basis for flares. Follow-up visit in early October. Aug, Stress fracture of right anton caneus with routine healing, subsequent encounter (ICD-10 - M84.374D) We reviewed the issue of possible prior stress fracture. The history of jumping off a truck and then experiencing acute onset heel pain sounds consistent with that. I gave him a copy of the dual-energy CT in case he wants to discuss that further with podiatry. Aug, Other Patient instructions : Start Plaquenil 200 mg twice daily Keep Medrol nell on hand for flares Follow up second week october PLAN OF TREATMENT Medication Medication Name Sig Start Date Stop Date Medrol 4 MG as directed Orally Daily for 6 days for 6 days 2 2 Aug, 2020 Plaquenil 200 MG 1 tab Orally twice daily for 30 days Aug, Treatment Notes Assessment Notes Clinical Notes Inflammatory polyarthritis I reviewed the dual-energy CT findings with the patient, based on the fact that there is no monosodium urate crystal deposition, I don't think his ongoing foot pain is related to gout.I can't state that he never had gout, but I don't think that is an ongoing problem.My suspicion is that he has an inflammatory arthritis, likely reactive arthritis but I can't rule out seronegative RA.I suggested that he try treating that with regular therapy i.e. a disease modifying drug.He is sulfa allergic therefore cannot take sulfasalazine.We reviewed Plaquenil versus methotrexate, and he is willing to try Plaquenil.We discussed risks, benefits, side effects of Plaquenil including the need for an eye exam if he stays on this medication.He will start taking 200 mg twice a day.He can keep a Medrol pack at home to use on an as-needed basis for flares.Follow-up visit in early October. Stress fracture of right calcaneus with routine healin g, subsequent encounter We reviewed the issue of possible prior stress fracture.The history of jumping off a truck and then experiencing acute onset heel pain sounds consistent with that.I gave him a copy of the dual-energy CT in case he wants to discuss that further with podiatry. Next Appt Details early October Reason: Provider Name:Karla Ritchie, 2020-10 02:45:00 PM, [address] [place] [address], [address], Insurance Providers Payer Name Payer Address Payer Phone Insured Name Patient Relati onship to Insured Coverage Start Date Coverage End Date [facility] [address] [facility] [id number] DIANA BONILLA
--- OUTSIDE RECORDS SUMMARY | 2020-09-24 23:50 | CCD ---
Author Author [facility] Syst ems Organization [facility] ems Address Unknown Phone Unavailable Care Team Providers Care Social And Human Services Assistant Name Role Phone Eb Cuevas Unavailable PROBLEMS Type Condition ICD9-CM Code [id number] Code Onset Dates Condition S tatus SNOMED Code Notes Problem Erectile dysfunction due to diseases classified elsewhere N52.1 Active 999227914 ALLERGIES Allergen (clinical drug ingredient) Drug/Non Drug Allergy do cumented on EMR Reaction Allergy Type Onset Date Status Wellbutrin Rash/sob Drug Allergy Active Sulfa (for allergy use only) Rash/sob Drug Allergy Active ENCOUNTERS from 1965 to 2020-07-06 Encounter Location Date Provider Diagnosis [address] [address] Jun, Eb Cuevas IMMUNIZATIONS No Information SOCIAL HISTORY Tobacco Use: Social History Observation Description Date Details (start date - stop date) Never Smoker Sex Assigned At : Social History Observation Description Sex Assigned At Unknown Language: Question Answer Notes Languages spoken: Italian Adventism: Question Answer Notes Adventism No orthodox beliefs that would impact health care. Sexual [...] 30 day(s) Jun, Next Appt Details Provider Name:Tommy Noble, 2020-07-13 02:00:00 PM, [address], [place], [address], Provider Name:Eb Cuevas, 7 11:00:00 AM, [address] [place], [address], Insurance Providers Payer Name Payer Address Payer Phone Insured Name Patient Relati onship to Insured Coverage Start Date Coverage End Date [facility] INS[facility] [address] [place] [address] DIANA BONILLA
--- OUTSIDE RECORDS SUMMARY | 2020-09-24 23:50 | CCD | Continuity of Care Document ---
Author Author [facility] Organization Unknown Address [address] [place] [address], [facility] [address] [place] [address] Phone [phone] Care Team Providers Care Boxing Instructor Name Role Phone Kennedy Fitzgerald DO AUTM [phone] Problems Active Problems Provider Date Essential hypertension RAQUEL Barroso Onset: 06/30/2020 Pure hypercholesterolemia RAQUEL Barroso Onset: 020 Social History Type Date Description Comments Sex Unknown ETOH Use Occasionally consumes alcohol Tobacco Use Start: Unknown End: Unknown Patient is a former smoker 1 pack a day. Allergies, Adverse Reactions, Alerts Active Allergies Reaction Severity Comments Date sulfa drugs 06/30/2020 Wellbutrin 06/30/2020 Medications Active Medications SIG Qnty Indications Ordering Provide r Date Colchicine 0.6mg Tablets Unknown Losartan Potassium 25mg Tablets Unknown Immunizations Description No Information Available Vital Signs Date Vital Result Comment 06/30/2020 1:39pm Body Temperature 96.9 F Height 74 inches 6'2" Weight 235.00 lb BMI (Body Mass Index) 30.2 kg/m2 Results Description No Information Available Procedures Description No Information Available Medical Devices Description No Information Available Encounters Type Date Location Provider Dx Diagnosis Office Visit 06/30/2020 1:30p [place] RAQUEL Barroso M25.571 Pain in right ankle and joints of right foot Assessments Date Code Description Provider 06/30/2020 M25.571 Pain in right ankle and joints o f right foot RAQUEL Barroso 06/30/2020 M25.571 Pain in right ankle and joints o f right foot RAQUEL Barroso Plan of Treatment 06/30/2020 - RAQUEL Barroso* M25.571 Pain in right ankle and joints of right foot* New Orders:* Referral, Ordered: 06/30/20 * Follow up:* prn. * M25.571 Pain in right ankle and joints of right foot* New Orders:* Referral, Ordered: 06/30/20 * Follow up:* prn. Functional Status Description No Information Available Mental Status Description No Information Available Referrals Refer to Dr Reason for Referral Status Appt Date Winston Waldron [employer], Pac DME PER [employer] NO AUTH R EQUIRED FOR JOAN [employer] ([id number]) TO SANG NT Created [address] [place] [phone] Winston Waldron [facility], [facility] PAIN IN RIGHT FOOT Created [address] [place] [phone] Winston Waldron I Pac PAIN IN RIGHT FOOT Created [address] [place] [phone]
--- OUTSIDE RECORDS SUMMARY | 2020-09-24 23:50 | CCD ---
Author Author [facility] Sy[facility] ems Organization [facility] ems Address Unknown Phone Unavailable Care Team Providers Care Lace Pinner Name Role Phone Karla Ritchie Unavailable PROBLEMS Type Condition ICD9-CM Code [id number] Code Onset Dates Condition S tatus SNOMED Code Notes Problem Inflammatory polyarthritis M06.4 Active 57223 3000 Problem Inflammatory arthritis M19.90 Active 8204715 Problem Erectile dysfunction due to diseases classified elsewhere N52.1 Active 958840907 Problem Essential hypertension I10 Active 58067935 Problem Plantar fascial fibromatosis M72.2 Active 133 37722 Problem Gouty arthritis of both feet M10.9 Active 160 12889800545603 ALLERGIES Allergen (clinical drug ingredient) Drug/Non Drug Allergy do cumented on EMR Reaction Allergy Type Onset Date Status Wellbutrin Rash/sob Drug Allergy Active Sulfa (for allergy use only) Rash/sob Drug Allergy Active ENCOUNTERS from 1965 to 2020-09-04 Encounter Location Date Provider Diagnosis [facility] Rheumatology [address] [place] [address] Aug, Karla Ritchie IMMUNIZATIONS No Information SOCIAL HISTORY Tobacco Use: Social History Observation Description Date Details (start date - stop date) Never Smoker Sex Assigned At : Social History Observation Description Sex Assigned At Unknown Education: Question Answer Notes Level of Education: Finished College Language: Question Answer Notes Languages spoken: Icelandic Druze: Question Answer Notes Druze No buddhist beliefs that would impact health care. Sexual [...] days Aug, Active Meloxicam 15 MG (Prior Auth#:[id number]) Oral for 30 Not-Taking Viagra 100 MG [...] wisdom teeth Hospitalization History pneumonia Hospitalization History ([facility]) bilat foot infections 2020 Goals Section [...] Details Provider Name:Karla Ritchie, 2020-10 02:45:00 PM, [address] [place] [address], [id number], Insurance Providers Payer Name Payer Address Payer Phone Insured Name Patient Relati onship to Insured Coverage Start Date Coverage End Date [facility] [address] [facility] [address] DIANA BONILLA self
--- OUTSIDE RECORDS SUMMARY | 2020-09-24 23:50 | CCD ---
Author Author [facility] Organization [facility] Address Unknown Phone Unavailable Care Team Providers Care Burr Sander Name Role Phone Karla Ritchie Unavailable PROBLEMS Type Condition ICD9-CM Code [id number] Code Onset Dates Condition S tatus SNOMED Code Notes Problem Inflammatory polyarthritis M06.4 Active 04512 3000 Problem Inflammatory arthritis M19.90 Active 8695989 Problem Erectile dysfunction due to diseases classified elsewhere N52.1 Active 179583991 Problem Essential hypertension I10 Active 05044718 Problem Plantar fascial fibromatosis M72.2 Active 133 89648 Problem Gouty arthritis of both feet M10.9 Active 160 39863731130075 ALLERGIES Allergen (clinical drug ingredient) Drug/Non Drug Allergy do cumented on EMR Reaction Allergy Type Onset Date Status Wellbutrin Rash/sob Drug Allergy Active Sulfa (for allergy use only) Rash/sob Drug Allergy Active ENCOUNTERS from 1965 to 2020-08-12 Encounter Location Date Provider Diagnosis [facility] Rheumatology [address] [place] [address] Jul, Karla Ritchie Inflammatory polyarthritis M06.4 IMMUNIZATIONS No Information SOCIAL HISTORY Tobacco Use: Social History Observation Description Date Details (start date - stop date) Never Smoker Sex Assigned At : Social History Observation Description Sex Assigned At Unknown Education: Question Answer Notes Level of Education: Finished College Language: Question Answer Notes Languages spoken: Paraguayan Tenriism: Question Answer Notes Tenriism No zoroastrian beliefs that would impact health care. Sexual [...] FOR REFERRAL No Information VITAL SIGNS Weight 244.6 lbs Jul, Weight-kg 110.9 kg Jul, Height 74 in Jul, BMI 31.40 kg/m2 Jul, Heart Rate 66 /min Jul, Respiratory Rate 18 /min Jul, Temperature 97.4 degrees Fahrenheit Jul, Oximetry 100% Jul, Blood pressure systolic 122 mm Hg Jul, Blood pressure diastolic 66 mm Hg Jul, MEDICATIONS Medication SIG (Take, [...] a day Active Meloxicam 15 MG (Prior Auth#:[id number]) Oral for 30 Not-Taking Viagra 100 MG 1 tablet as needed Orally as directed for 30 day (s) May, Active PROCEDURES No Information RESULTS No Results REASON FOR VISIT 7-10 day follow up MEDICAL (GENERAL) HISTORY Type Description Date Medical History HTN Medical History hyperlipidemia Medical History frequent sinus congestion Medical History tinnitus Medical History L1 and L2 DDD Medical History ED Surgical History colonoscopy Surgical History cyst removed from index finger 04/13/2016 Surgical History wisdom teeth Hospitalization History pneumonia Hospitalization History ([facility]) bilat foot infections 2020 Goals Section No Information Health Concerns No Information MEDICAL EQUIPMENT No Information MENTAL STATUS No Information FUNCTIONAL STATUS No Information ASSESSMENTS Encounter Date Diagnosis Assessment Notes Treatment Notes Treatm ent Clinical Notes Jul, Inflammatory polyarthritis (ICD-10 - M06.4) We had an extensive discussion about his joint symptoms. I tend to favor a diagnosis of reactive arthritis but I can't rule out chronic gout in multiple areas. He would be reluctant to empirically take medication for reactive arthritis without being more certain of the diagnosis. I suggested that we could try to get a dual energy CT scan of both feet, but he would have to go to [place] to have that done. This test would be important to see if there is any monosodium urate crystal deposition in his tissues which would suggest that this is a chronic gouty arthritis issue. He will follow-up after the study or sooner if needed. Jul, Other Patient instructions : We will try to get Dual Energy CT of the feet in [place]. Follow up after to review results. If you don't hear anything about the test in 2 weeks - call us. PLAN OF TREATMENT Treatment Notes Assessment Notes Clinical Notes Inflammatory polyarthritis We had an extensive discuss ion about his joint symptoms.I tend to favor a diagnosis of reactive arthritis but I can't rule out chronic gout in multiple areas.He would be reluctant to empirically take me dication for reactive arthritis without being more certain of the diagnosis.I suggested that we could try to get a dual energy CT scan of both feet, but he would have to go to [place] to have that done. This test would be important to see if there is any monosodium urate crystal deposition in his tissues which would suggest that this is a chronic gouty arthritis issue.He will follow-up after the study or sooner if needed. Next Appt Details after dual-energy CT scan of the feet. Vlad mendoza: Insurance Providers Payer Name Payer Address Payer Phone Insured Name Patient Relati onship to Insured Coverage Start Date Coverage End Date [facility] [address] [facility] [id number] DIANA BONILLA
--- OUTSIDE RECORDS SUMMARY | 2020-09-24 23:50 | CCD | Continuity of Care Document ---
Author Author Everett WALDRON Organization Unknown Address [address] [place] [address], [facility] [address] [place] [address] Phone [phone] Care Team Providers Care Senior Mainframe Programmer Analyst Name Role Phone Kennedy Fitzgerald DO AUTM [phone] Problems Active Problems Provider Date Essential hypertension [...] Provider Dx Diagnosis Office Visit 06/30/2020 1:30p [place] RAQUEL Barroso M25.571 Pain in right ankle [...] Date Winston Waldron I, Pac DME PER [employer] WEB NO AUTH R EQUIRED FOR JOAN SHELL AIR WALKER ([id number]) TO SANG NT Created [address] [place] [phone] Winston Waldron I, Pac PAIN IN RIGHT FOOT Created [address] [place] [phone] Winston Waldron I Pac PAIN IN RIGHT FOOT Created [address] [place] [phone]
--- OUTSIDE RECORDS SUMMARY | 2020-09-24 23:50 | CCD ---
Author Author [facility] Organization [facility] Address Unknown Phone Unavailable Care Team Providers Care Tube Washer Name Role Phone Karla Ritchie Unavailable PROBLEMS Type Condition ICD9-CM Code [id number] Code Onset Dates Condition S tatus SNOMED Code Notes Problem Gouty arthritis of both feet M10.9 Active 160 24901480473505 Problem Inflammatory polyarthritis M06.4 Active 67542 3000 Problem Erectile dysfunction due to diseases classified elsewhere N52.1 Active 950658257 Problem Essential hypertension I10 Active 87197695 Problem Plantar fascial fibromatosis M72.2 Active 133 02149 ALLERGIES Allergen (clinical drug ingredient) Drug/Non Drug Allergy do cumented on EMR Reaction Allergy Type Onset Date Status Wellbutrin Rash/sob Drug Allergy Active Sulfa (for allergy use only) Rash/sob Drug Allergy Active ENCOUNTERS from 1965 to 2020-07-28 Encounter Location Date Provider Diagnosis [facility] Rheumatology [address] [place] [address] Jul, Karla Ritchie Inflammatory polyarthritis M06.4 IMMUNIZATIONS No Information SOCIAL HISTORY Tobacco Use: Social History Observation Description Date Details (start date - stop date) Never Smoker Sex Assigned At : Social History Observation Description Sex Assigned At Unknown Education: Question Answer Notes Level of Education: Finished College Language: Question Answer Notes Languages spoken: Syriac Rastafarian: Question Answer Notes Rastafarian No buddhist beliefs that would impact health [...] FOR REFERRAL No Information VITAL SIGNS Weight 238.6 lbs Jul, Weight-kg 108.2 kg Jul, Height 74 in Jul, BMI 30.63 kg/m2 Jul, Heart Rate 67 /min Jul, Respiratory Rate 18 /min Jul, Temperature 97.3 degrees Fahrenheit Jul, Oximetry 97% Jul, Blood pressure systolic 142 mm Hg Jul, Blood pressure diastolic 78 mm Hg Jul, MEDICATIONS Medication SIG (Take, [...] days Jul, Active Meloxicam 15 MG (Prior Auth#:[id number]) Oral for 30 Not-Taking PROCEDURES No Information RESULTS Component Value Reference Range Comprehensive Metabolic Profile (CMP) Reviewed date:07/24/2020 13:54:26 Interpretation: Performing Lab:[facility], [facility] [address] [facility] [id number] , ,[place] [id number] GLUCOSE, FASTING 91 70-100 BLOOD UREA NITROGEN 13 7-18 CREATININE FOR GFR 0.99 0.70-1.30 GLOMERULAR FILTRATION RATE > 60.0 >56 SODIUM LEVEL 139 136-145 POTASSIUM SERUM 4.4 3.5-5.1 CHLORIDE LEVEL 108 98-107 CARBON DIOXIDE LEVEL 28 21-32 CALCIUM LEVEL 9.5 8.5-10.1 AST/SGOT 14 7-37 ALT/SGPT 29 12-78 ALKALINE PHOSPHATASE 73 45-117 BILIRUBIN,TOTAL 0.3 0.2-1.0 TOTAL PROTEIN 7.0 6.4-8.2 ALBUMIN 4.0 3.2-5.2 ALBUMIN/GLOBULIN RATIO 1.3 C REACTIVE PROTEIN QUANTITATIV (At [facility] L ab) Reviewed date:07/24/2020 13:54:26 Interpretation: Performing Lab:[facility] [address] [facility] [address] , ,[place] [address] C REACTIVE PROTEIN QUANTITATIV 0.30 0.00-0.30 ERYTHROCYTE SEDIMENTATION RATE Reviewed date:07/24/2020 13:54:26 Interpretation: Performing Lab:[facility] [address] [facility] [address] , ,[place] [address] ERYTHROCYTE SEDIMENTATION RATE 5 0-20 URIC ACID Reviewed date:07/24/2020 13:54:26 Interpretation: Performing Lab:[facility] [address] [facility] [address] , ,[place] [address] URIC ACID 7.2 3.5-7.2 RHEUMATOID FACTOR QUANT Reviewed date:07/24/2020 13:54:26 Interpretation: Performing Lab:[facility] [address] [facility] [address] , ,[place] [address] RHEUMATOID FACTOR QUANT < 10.0 <15.0 ANGIOTENSIN 1 CONVERTING ENZYM Reviewed date:07/28/2020 10:59:20 Interpretation: Performing Lab:[facility], [facility] [address] [place] [address] , ,[place] [address] ANGIOTENSIN 1 CONVERTING ENZYM 32 14-82 LYME WESTERN BLOT SERUM Reviewed date:07/28/2020 10:59:20 Interpretation: Performing Lab:[facility], [facility] [address] [place] [address] , ,[place] [address] CYCLIC CITRULLINATED PEPTIDE Reviewed date:07/28/2020 10:59:20 Interpretation: Performing Lab:[facility], [facility] [address] [place] [address] , ,[place] [address] CYCLIC CITRULLINATED PEPTIDE 5 0-19 REASON FOR VISIT Unspecified foot pain MEDICAL (GENERAL) HISTORY Type Description Date Medical History HTN Medical History hyperlipidemia Medical History frequent sinus congestion Medical History tinnitus Medical History L1 and L2 DDD Medical History ED Surgical History colonoscopy Surgical History cyst removed from index finger 04/13/2016 Surgical History wisdom teeth Hospitalization History pneumonia Hospitalization History ([facility]) bilat foot infections 2019 Goals Section No Information Health Concerns No Information MEDICAL EQUIPMENT No Information MENTAL STATUS No Information FUNCTIONAL STATUS No Information ASSESSMENTS Encounter Date Diagnosis Assessment Notes Treatment Notes Treatm ent Clinical Notes Jul, Inflammatory polyarthritis (ICD-10 - M06.4) This patient has an inflammatory polyarthritis; this may be polyarticular gout, but I also wonder about other inflammatory diseases like rheumatoid arthritis or reactive arthritis. I agree with Dr. Cuevas that the clinical picture is not consistent with osteomyelitis. To evaluate further, I need to obtain a few additional lab tests today. If there is any concern about whether or not this represents polyarticular gout, I might try to refer him for a dual energy CT scan. Unfortunately, the nearest machine is in [place] and when I previously tried to get this set up for another patient there were many logistic hurdles. Hopefully the laboratory results will be informative and will point the way forward to whether this patient needs a urate lowering agent versus a DMARD. Clinically, I'm inclined to think that this is not gout. Would be rather unusual for gout to involve so many joints with a relatively low uric acid level of around 7. His clinical picture including plantar fasciitis sounds more consistent with reactive arthritis. I'm giving him a Medrol pack to hold onto in case he has a significant flare that worsens his symptoms. I don't think he needs to use this now and he agrees. He will follow up in 7-10 days to review lab results. Jul, Other Patient instructions: You have an inflammatory polyarthritis, but at this time I'm not certain if this is related to gout or a different autoimmune disorder. I think both issues will be treatable. I don't have any concerns about this being an issue with infection. Lab tests today. If you have a severe flare, try Medrol Ant for 6 days. Follow-up visit in 7-10 days to review test results and determine additional treatment. PLAN OF TREATMENT Medication Medication Name Sig Start Date Stop Date Medrol 4 MG as directed Orally Daily for 6 days for 6 days 1 Jul, Treatment Notes Assessment Notes Clinical Notes Inflammatory polyarthritis This patient has an inflamm atory polyarthritis; this may be polyarticular gout, but I also wonder about other inflammatory diseases like rheumatoid arthritis or reactive arthritis.I agree with Dr. Cuevas that the clinical picture is not consistent with osteomyelitis.To evaluate further, I need to obtain a few additional lab tests today.If there is any concern about whether or not this represents polyarticular gout, I might try to refer him for a dual energy CT scan. Unfortunately, the nearest machine is in [place] and when I previously tried to get this set up for another patient there were many l ogistic hurdles.Hopefully the laboratory results will be informative and will point the way forward to whether this patient needs a urate lowering agent versus a DMARD.Clinically, I'm inclined to think that this is not gout. Would be rather unusual for gout to involve so many joints with a relatively low uric acid level of around 7. His clinical picture including plantar fasciitis sounds more consistent with reactive arthritis.I'm giving him a Medrol pack to hold onto in case he has a significant flare that worsens his symptoms. I don't think he needs to use this now and he agrees.He will follow up in 7-10 days to review lab results. Next Appt Details 7-10 days Reason: Provider Name:Karla Ritchie, 2020-07 01:45:00 PM, [address] [place] [address], [id number], Insurance Providers Payer Name Payer Address Payer Phone Insured Name Patient Relati onship to Insured Coverage Start Date Coverage End Date [facility] [address] [facility] [id number] DIANA BONILLA
--- OUTSIDE RECORDS SUMMARY | 2020-09-24 23:50 | CCD ---
Author Author [facility] Organization [facility] Address Unknown Phone Unavailable Care Team Providers Care Supervisor Maintenance And Custodians Name Role Phone Karla Ritchie Unavailable PROBLEMS Type Condition ICD9-CM Code [id number] Code Onset Dates Condition S tatus SNOMED Code Notes Problem Essential hypertension I10 Active 38324482 Problem Plantar fascial fibromatosis M72.2 Active 133 32335 Problem Erectile dysfunction due to diseases classified elsewhere N52.1 Active 986412888 Problem Gouty arthritis of both feet M10.9 Active 160 36856713883228 ALLERGIES Allergen (clinical drug ingredient) Drug/Non Drug Allergy do cumented on EMR Reaction Allergy Type Onset Date Status Wellbutrin Rash/sob Drug Allergy Active Sulfa (for allergy use only) Rash/sob Drug Allergy Active ENCOUNTERS from 1965 to 2020-07-23 Encounter Location Date Provider Diagnosis [address] [address] Jul, Karla Ritchie IMMUNIZATIONS No Information SOCIAL HISTORY Tobacco Use: Social History Observation Description Date Details (start date - stop date) Never Smoker Sex Assigned At : Social History Observation Description Sex Assigned At Unknown Education: Question Answer Notes Level of Education: Finished College Language: Question Answer Notes Languages spoken: Mohawk Cheondoism: Question Answer Notes Cheondoism No zoroastrian beliefs that would impact health [...] Once a day for 30 day(s) Active Viagra [...] wisdom teeth Hospitalization History pneumonia Hospitalization History bilat foor infections 2020 Goals Section No Information Health Concerns No Information MEDICAL EQUIPMENT No Information MENTAL STATUS No Information FUNCTIONAL STATUS No Information ASSESSMENTS No Information PLAN OF TREATMENT Medication Medication Name Sig Start Date Stop Date Losartan Potassium 50 MG 1 tablet Orally Once a day Next Appt Details Provider Name:Karla Ritcihe, 2020-07 09:00:00 AM, [address] [place] [address], [id number], Insurance Providers Payer Name Payer Address Payer Phone Insured Name Patient Relati onship to Insured Coverage Start Date Coverage End Date [facility] INSURANCE [address] [place] [id number] DIANA BONILLA
--- OUTSIDE RECORDS SUMMARY | 2020-09-24 23:50 | CCD ---
Author Author [facility] Organization [facility] Address Unknown Phone Unavailable Care Team Providers Care Attendant Coin Operated Laundry Name Role Phone Karla Ritchie Unavailable PROBLEMS Type Condition ICD9-CM Code [id number] Code Onset Dates Condition S tatus SNOMED Code Notes Problem Gouty arthritis of both feet M10.9 Active 160 70697083268882 Problem Inflammatory polyarthritis M06.4 Active 81862 3000 Problem Erectile dysfunction due to diseases classified elsewhere N52.1 Active 762013295 Problem Essential hypertension I10 Active 38591425 Problem Plantar fascial fibromatosis M72.2 Active 133 88540 ALLERGIES Allergen (clinical drug ingredient) Drug/Non Drug Allergy do cumented on EMR Reaction Allergy Type Onset Date Status Wellbutrin Rash/sob Drug Allergy Active Sulfa (for allergy use only) Rash/sob Drug Allergy Active ENCOUNTERS from 1965 to 2020-07-28 Encounter Location Date Provider Diagnosis [facility] Rheumatology [address] [place] [address] Jul, Karla Chau IMMUNIZATIONS No Information SOCIAL HISTORY Tobacco Use: Social History Observation Description Date Details (start date - stop date) Never Smoker Sex Assigned At : Social History Observation Description Sex Assigned At Unknown Education: Question Answer Notes Level of Education: Finished College Language: Question Answer Notes Languages spoken: South African Yarsanism: Question Answer Notes Yarsanism No uatsdin beliefs that would impact health care. Sexual [...] days Jul, Active Meloxicam 15 MG (Prior Auth#:[id number]) Oral for 30 Not-Taking PROCEDURES No Information [...] wisdom teeth Hospitalization History pneumonia Hospitalization History ([facility]) bilat foot infections 2019 Goals Section No Information Health Concerns No Information MEDICAL EQUIPMENT No Information MENTAL STATUS No Information FUNCTIONAL STATUS No Information ASSESSMENTS No Information PLAN OF TREATMENT Medication Medication Name Sig Start Date Stop Date Medrol 4 MG as directed Orally Daily for 6 days for 6 days 1 Jul, Next Appt Details Provider Name:Kalra Ritchie, 2020-07 01:45:00 PM, [address] [place] [address], [id number], Insurance Providers Payer Name Payer Address Payer Phone Insured Name Patient Relati onship to Insured Coverage Start Date Coverage End Date [facility] [address] [place] [id number] DIANA BONILLA
--- OUTSIDE RECORDS SUMMARY | 2020-09-24 23:51 | CCD | Continuity of Care Document ---
Author Author Everett WALDRON Organization Unknown Address [address] [place] [address], [facility] [address] [place] [address] Phone [phone] Care Team Providers Care Air Defense Specialist Name Role Phone Kennedy Fitzgerald DO AUTM [phone] Problems Active Problems Provider Date Essential hypertension [...] Medical Devices Description No Information Available Encounters Description No Information Available Assessments Date Code Description Provider 06/30/2020 G04.91 Myelitis, unspecified RAQUEL [address] Dr 06/30/2020 M79.671 Pain in right foot RAQUEL Rain Plan of Treatment 06/30/2020 - RAQUEL Barroso* G04.91 Myelitis, unspecified* New Orders:* Referral, Ordered: 06/30/20 * Follow up:* prn. * M79.671 Pain in right foot Functional Status Description No Information Available Mental Status Description No Information Available Referrals Refer to Dr Reason for Referral Status Appt Date Winston Waldron I, Pac DME PER [employer] WEB NO AUTH R EQUIRED FOR JOAN SHELL AIR WALKER ([id number]) TO SANG NT Created [address] [place] [address] [phone] Winston Waldron I, Pac PAIN IN RIGHT FOOT Created [address] [place] [phone] Winston Waldron I, Pac PAIN IN RIGHT FOOT Created [address] [place] [phone]
--- OUTSIDE RECORDS SUMMARY | 2020-09-24 23:51 | CCD ---
Author Author [facility] Organization [facility] Address Unknown Phone Unavailable Care Team Providers Care Center Consultant Name Role Phone RAQUELJOHN Unavailable Unavailable Shalonda PEDROZA MD Unavailable Unavailable Shalonda PEDROZA MD Unavailable Unavailable Shalonda PEDROZA MD Unavailable Unavailable Shalonda PEDROZA MD Unavailable Unavailable Shalonda PEDROZA MD Unavailable Unavailable Shalonda PEDROZA MD Unavailable Unavailable Shalonda PEDROZA MD Unavailable Unavailable Shalonda PEDROZA MD Unavailable Unavailable Shalonda PEDROZA MD Unavailable Unavailable Shalonda PEDROZA MD Unavailable Unavailable Shalonda PEDROZA MD Unavailable Unavailable Shalonda PEDROZA MD Unavailable Unavailable Shalonda PEDROZA MD Unavailable Unavailable Shalonda PEDROZA MD Unavailable Unavailable Shalonda PEDROZA MD Unavailable Unavailable Shalonda PEDROZA MD Unavailable Unavailable Shalonda PEDROZA MD Unavailable Unavailable Shalonda PEDROZA MD Unavailable Unavailable Shalonda PEDROZA MD Unavailable Unavailable Shalonda PEDROZA MD Unavailable Unavailable Shalonda PEDROZA MD Unavailable Unavailable Shalonda PEDROZA MD Unavailable Unavailable Shalonda PEDROZA MD Unavailable Unavailable Shalonda PEDROZA MD Unavailable Unavailable Shalonda PEDROZA MD Unavailable Unavailable Shalonda PEDROZA MD Unavailable Unavailable Shalonda PEDROZA MD Unavailable Unavailable Shalonda PEDROZA MD Unavailable Unavailable Shalonda PEDROZA MD Unavailable Unavailable Shalonda PEDROZA MD Unavailable Unavailable Shalonda PEDROZA MD Unavailable Unavailable Shalonda PEDROZA MD Unavailable Unavailable Shalonda PEDROZA MD Unavailable Unavailable Shalonda PEDROZA MD Unavailable Unavailable Shalonda PEDROZA MD Unavailable Unavailable Shalonda PEDROZA MD Unavailable Unavailable Shalonda PEDROZA MD Unavailable Unavailable UNKNOWN, [facility] Unavailable Unavailable Kermit VILLALBA PA Unavailable Unavailable Kermit VILLALBA PA Unavailable Unavailable DRAZEK, I DEWAYNE PA Unavailable Unavailable DRAZEK, I DEWAYNE PA Unavailable Unavailable DRAZEK, I DEWAYNE PA Unavailable Unavailable DRAZEK, I DEWAYNE PA Unavailable Unavailable DRAZEK, I DEWAYNE PA Unavailable Unavailable DRAZEK, I DEWAYNE PA Unavailable Unavailable DRAZEK, I DEWAYNE PA Unavailable Unavailable DRAZEK, I DEWAYNE PA Unavailable Unavailable DRAZEK, I DEWAYNE PA Unavailable Unavailable DRAZEK, I DEWAYNE PA Unavailable Unavailable DRAZEK, I DEWAYNE PA Unavailable Unavailable DRAZEK, I DEWAYNE PA Unavailable Unavailable DRAZEK, I DEWAYNE PA Unavailable Unavailable DRAZEK, I DEWAYNE PA Unavailable Unavailable DRAZEK, I DEWAYNE PA Unavailable Unavailable DRAZEK, I DEWAYNE PA Unavailable Unavailable DRAZEK, I DEWAYNE PA Unavailable Unavailable DRAZEK, I DEWAYNE PA Unavailable Unavailable DRAZEK, I DEWAYNE PA Unavailable Unavailable DRAZEK, I DEWAYNE PA Unavailable Unavailable DRAZEK, I DEWAYNE PA Unavailable Unavailable DRAZEK, I DEWAYNE PA Unavailable Unavailable DRAZEK, I DEWAYNE PA Unavailable Unavailable DRAZEK, I DEWAYNE PA Unavailable Unavailable DRAZEK, I DEWAYNE PA Unavailable Unavailable DRAZEK, I DEWAYNE PA Unavailable Unavailable DRAZEK, I DEWAYNE PA Unavailable Unavailable DRAZEK, I DEWAYNE PA Unavailable Unavailable SONAM HUGHES Unavailable Unavailable Meng CONRAD MD Unavailable Unavailable Meng CONRAD MD Unavailable Unavailable Meng CONRAD MD Unavailable Unavailable Meng CONRAD MD Unavailable Unavailable Meng CONRAD MD Unavailable Unavailable Meng CONRAD MD Unavailable Unavailable Meng CONRAD MD Unavailable Unavailable Meng CONRAD MD Unavailable Unavailable Meng CONRAD MD Unavailable Unavailable Meng CONRAD MD Unavailable Unavailable Meng CONRAD MD Unavailable Unavailable Meng CONRAD MD Unavailable Unavailable Meng CONRAD MD Unavailable Unavailable Meng CONRAD MD Unavailable Unavailable Meng CONRAD MD Unavailable Unavailable Meng CONRAD MD Unavailable Unavailable Meng CONRAD MD Unavailable Unavailable Meng CONRAD MD Unavailable Unavailable Meng CONRAD MD Unavailable Unavailable Meng CONRAD MD Unavailable Unavailable Meng CONRAD MD Unavailable Unavailable Meng CONRAD MD Unavailable Unavailable Meng CONRAD MD Unavailable Unavailable Re-disclosure Warning The records that you are about to access may contain information from federally-assisted alcohol or drug abuse programs. If such information is present, then the following federally mandated warning applies: This information has been disclosed to you from records protected by federal confidentiality rules (42 CFR part 2). The federal rules prohibit you from making any further disclosure of this information unless further disclosure is expressly permitted by the written consent of the person to whom it pertains or as otherwise permitted by 42 CFR part 2. A general authorization for the release of medical or other information is NOT sufficient for this purpose. The Federal rules restrict any use of the information to criminally investigate or prosecute any alcohol or drug abuse patient.The records that you are about to access may contain highly sensitive health information, the redisclosure of which is protected by Article 27-F of the [facility] Public Health law. If you continue you may have access to information: Regarding HIV / AIDS; Provided by facilities licensed or operated by the [facility] Office of Mental Health; or Provided by the [facility] Office for People With Developmental Disabilities. If such information is present, then the following [facility] mandated warning applies: This information has been disclosed to you from confidential records which are protected by state law. State law prohibits you from making any further disclosure of this information without the specific written consent of the person to whom it pertains, or as otherwise permitted by law. Any unauthorized further disclosure in violation of state law may result in a fine or half-way sentence or both. A general authorization for the release of medical or other information is NOT sufficient authorization for further disc losure. Family History Family Member Name Family Member Gender Family Member Status Date o f Status Description Data Source(s) Unknown Male Problem MEDENT ([facility]) Unknown Unknown Problem [facility] ([facility] Unknown Unknown Problem [facility] ([facility]) Unknown Unknown Problem [facility] ([facility] Encounters Encounter Providers Location Date Indications Data Source(s ) Emergency Attender: THEO ALCANTARAonsultant: EMILOI MANDUJANO NOWN 09/24/2020 07:05:00 PM EST - 09/24/2020 11:01:00 PM [facility] Patient discharged. Outpatient Attender: SONAM Ramsayultant: EMILIO KINGSTON 09/24/2020 03:58:00 PM EST - 09/24/2020 04:58:00 PM EST [facility] [place] [address] [facility] [address] 09/04/2020 12:00:00 AM EST eCW1 ([facility]) [place] [address] [facility] [address] 09/04/2020 12:00:00 AM EST eCW1 ([facility]) [place] [address] [facility] [address] 09/02/2020 12:00:00 AM EST eCW1 ([facility]) [place] [address] [facility] [address] 08/28/2020 12:00:00 AM EST eCW1 ([facility]) [place] [address] [facility] [address] 08/11/2020 12:00:00 AM EST eCW1 ([facility]) [place] [address] [facility] [address] 08/11/2020 12:00:00 AM EST eCW1 ([facility]) [place] [address] [facility] [address] 07/24/2020 12:00:00 AM EST eCW1 ([facility]) [place] [address] [facility] [address] 07/24/2020 12:00:00 AM EST eCW1 ([facility]) [place] [address] [facility] [address] 07/20/2020 12:00:00 AM EST eCW1 ([facility]) [place] [address] [facility] [address] 07/20/2020 12:00:00 AM EST eCW1 ([facility]) [place] [address] [facility] [address] 07/13/2020 12:00:00 AM EST eCW1 ([facility]) [place] [address] [facility] [place] [address] 07/06/2020 12:00:00 AM EST eCW1 ([facility]) Outpatient Attender: JOHN Hernandezender: SHAW PEDROZA MD 07/01/2020 10:56:00 AM EST - 07/01/2020 11:56:00 AM EST [facility] Outpatient Attender: DEWAYNE GARCÍA Physical Therapy 06/30/2020 1 2:30:00 PM EST MED[facility] ([facility]) [place] [address] [facility] [address] 06/30/2020 12:00:00 AM EST eCW1 ([facility]) Out[place] [address] [facility] [address] 06/11/2020 12:00:00 AM EDT eCW1 ([facility]) Medications Medication Brand Name Start Date Product Form Dose Route Admi nistrative Instructions Pharmacy Instructions Status Indications Reaction Description Data Source(s) Medrol 4 MG Medrol 4 MG 09/04/2020 12:00:00 AM EST active Medrol 4 MG eCW1 ([facility]) Hydroxychloroquine Sulfate 200 MG Oral Tablet [Plaquen il] Plaquenil 200 MG Plaquenil 200 MG 09/04/2020 12:00:00 AM EST a ctive Plaquenil 200 MG eCW1 ([facility]) Medrol 4 MG Medrol 4 MG 09/04/2020 12:00:00 AM EST active Medrol 4 MG eCW1 ([facility]) Hydroxychloroquine Sulfate 200 MG Oral Tablet [Plaquen il] Plaquenil 200 MG Plaquenil 200 MG 09/04/2020 12:00:00 AM EST a ctive Plaquenil 200 MG eCW1 ([facility]) Hydroxychloroquine Sulfate 200 MG Oral Tablet [Plaquen il] Plaquenil 200 MG Plaquenil 200 MG 09/04/2020 12:00:00 AM EST a ctive Plaquenil 200 MG eCW1 ([facility]) Medrol 4 MG Medrol 4 MG 09/04/2020 12:00:00 AM EST active Medrol 4 MG eCW1 ([facility]) Hydroxychloroquine Sulfate 200 MG Oral Tablet [Plaquen il] Plaquenil 200 MG Plaquenil 200 MG 09/04/2020 12:00:00 AM EST a ctive Plaquenil 200 MG eCW1 ([facility]) Medrol 4 MG Medrol 4 MG 09/04/2020 12:00:00 AM EST active Medrol 4 MG eCW1 ([facility]) Medrol 4 MG Medrol 4 MG 07/24/2020 12:00:00 AM EST suspended Medrol 4 MG eCW1 ([facility]) Medrol 4 MG Medrol 4 MG 07/24/2020 12:00:00 AM EST active Medrol 4 MG eCW1 ([facility]) Medrol 4 MG Medrol 4 MG 07/24/2020 12:00:00 AM EST suspended Medrol 4 MG eCW1 ([facility]) Medrol 4 MG Medrol 4 MG 07/24/2020 12:00:00 AM EST suspended Medrol 4 MG eCW1 ([facility]) Medrol 4 MG Medrol 4 MG 07/24/2020 12:00:00 AM EST suspended Medrol 4 MG eCW1 ([facility]) Medrol 4 MG Medrol 4 MG 07/24/2020 12:00:00 AM EST active Medrol 4 MG eCW1 ([facility]) Medrol 4 MG Medrol 4 MG 07/24/2020 12:00:00 AM EST suspended Medrol 4 MG eCW1 ([facility]) Medrol 4 MG Medrol 4 MG 07/24/2020 12:00:00 AM EST active Medrol 4 MG eCW1 ([facility]) Medrol 4 MG Medrol 4 MG 07/24/2020 12:00:00 AM EST suspended Medrol 4 MG eCW1 ([facility]) meloxicam 15 MG Oral Tablet Meloxicam 15 MG Meloxicam 15 MG 07/06/2020 12:00:00 AM EST 1.0 {tablet} active Meloxicam 1 5 MG eCW1 ([facility]) meloxicam 15 MG Oral Tablet Meloxicam 15 MG Meloxicam 15 MG 07/06/2020 12:00:00 AM EST 1.0 {tablet} active Meloxicam 1 5 MG eCW1 ([facility]) sildenafil 100 MG Oral Tablet [Viagra] Viagra 100 MG Viagra 100 MG 06/11/2020 12:00:00 AM EDT 1.0 {tablet_as_needed} active Viagra 100 MG eCW1 ([facility]) sildenafil 100 MG Oral Tablet [Viagra] Viagra 100 MG Viagra 100 MG 06/11/2020 12:00:00 AM EDT 1.0 {tablet_as_needed} active Viagra 100 MG eCW1 ([facility]) sildenafil 100 MG Oral Tablet [Viagra] Viagra 100 MG Viagra 100 MG 06/11/2020 12:00:00 AM EDT 1.0 {tablet_as_needed} active Viagra 100 MG eCW1 ([facility]) sildenafil 100 MG Oral Tablet [Viagra] Viagra 100 MG Viagra 100 MG 06/11/2020 12:00:00 AM EDT 1.0 {tablet_as_needed} active Viagra 100 MG eCW1 ([facility]) sildenafil 100 MG Oral Tablet [Viagra] Viagra 100 MG Viagra 100 MG 06/11/2020 12:00:00 AM EDT 1.0 {tablet_as_needed} active Viagra 100 MG eCW1 ([facility]) sildenafil 100 MG Oral Tablet [Viagra] Viagra 100 MG Viagra 100 MG 06/11/2020 12:00:00 AM EDT 1.0 {tablet_as_needed} active Viagra 100 MG eCW1 ([facility]) sildenafil 100 MG Oral Tablet [Viagra] Viagra 100 MG Viagra 100 MG 06/11/2020 12:00:00 AM EDT 1.0 {tablet_as_needed} active Viagra 100 MG eCW1 ([facility]) sildenafil 100 MG Oral Tablet [Viagra] Viagra 100 MG Viagra 100 MG 06/11/2020 12:00:00 AM EDT 1.0 {tablet_as_needed} active Viagra 100 MG eCW1 ([facility]) sildenafil 100 MG Oral Tablet [Viagra] Viagra 100 MG Viagra 100 MG 06/11/2020 12:00:00 AM EDT 1.0 {tablet_as_needed} active Viagra 100 MG eCW1 ([facility]) sildenafil 100 MG Oral Tablet [Viagra] Viagra 100 MG Viagra 100 MG 06/11/2020 12:00:00 AM EDT 1.0 {tablet_as_needed} active Viagra 100 MG eCW1 ([facility]) sildenafil 100 MG Oral Tablet [Viagra] Viagra 100 MG Viagra 100 MG 06/11/2020 12:00:00 AM EDT 1.0 {tablet_as_needed} active Viagra 100 MG eCW1 ([facility]) sildenafil 100 MG Oral Tablet [Viagra] Viagra 100 MG Viagra 100 MG 06/11/2020 12:00:00 AM EDT 1.0 {tablet_as_needed} active Viagra 100 MG eCW1 ([facility]) sildenafil 100 MG Oral Tablet [Viagra] Viagra 100 MG Viagra 100 MG 06/11/2020 12:00:00 AM EDT 1.0 {tablet_as_needed} active Viagra 100 MG eCW1 ([facility]) sildenafil 100 MG Oral Tablet [Viagra] Viagra 100 MG Viagra 100 MG 06/11/2020 12:00:00 AM EDT 1.0 {tablet_as_needed} active Viagra 100 MG eCW1 ([facility]) 0.6 mg 05/18/2020 12:00:00 AM EDT tablet 30 TAKE ONE TABLET BY MOUTH EVERY DAY FOR GOUT PAIN TAKE ONE TABLET BY MOUTH EVERY DAY FOR GOUT PAIN SOLD: 05/18/2020 [facility] 50 mg 05/15/2020 12:00:00 AM EDT capsule 15 TAKE ONE CAPSULE BY MOUTH THREE TIMES A DAY FOR 5 DAYS TAKE ONE CAPSULE BY MOUTH THREE TIMES A DAY FOR 5 DAYS SOLD: 05/15/2020 [facility] doxycycline hyclate 100 MG Oral Capsule DOXYCYCLINE HYCLATE 05/15/2020 12:00:00 AM EDT capsule 20 TAKE ONE CAPSULE BY MOUTH TW ICE A DAY FOR 10 DAYS TAKE ONE CAPSULE BY MOUTH TWICE A DAY FOR 10 DAYS SOLD: 05/15/2020 [facility] Insurance Providers Payer name Policy type / Coverage type Policy ID Covered green party ID Covered green party's relationship to guy Policy Guy Plan Information [employer] [id number] SP [id number] [employer] - O/P [id number] 18 [id number] SELF PAY ONLY [id number] SP [id number] [employer] [id number] SP [id number] [employer] O [id number] S [id number] [facility] [id number] SP [id number] [employer] Health Maintenance Organization (HMO) [id number] Self [id number] [employer] Health Maintenance Organization (HMO) [id number] Self [id number] [facility] Commercial [id number] Self [id number] [facility] [id number] SP [id number] [place] [facility] Prime Commercial Self [employer] Commercial Self ACTIVE DUTY [id number] SP [id number] Problems, Conditions, and Diagnoses Code Display Name Description Problem Type Effective Dates Data Source(s) M19.90 [id number] Inflammatory arthritis Problem 08/12/2020 12 :00:00 AM EST eCW1 ([facility]) M06.4 [id number] Inflammatory polyarthritis Problem 0 12:00:00 AM EST eCW1 ([facility]) M10.9 [id number] Gouty arthritis of both feet Problem 07/20/2020 12:00:00 AM EST eCW1 ([facility]) M72.2 [id number] Plantar fascial fibromatosis Problem 020 12:00:00 AM EST eCW1 ([facility]) I10 [id number] Essential hypertension Problem 07/20/2020 12 :00:00 AM EST eCW1 ([facility]) [id number] Pure hypercholesterolemia Pure hypercholesterolemia Pr oblem 06/30/2020 12:00:00 AM EST MEDENT ([facility]) [id number] Essential hypertension Essential hypertension Problem 06/30/2020 12:00:00 AM EST MEDENT ([facility]) 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 Problem 06/11/2020 12:00:00 AM EDT eCW1 ([facility]) R936 Abnormal findings on diagnostic imaging of limbs Abnormal findings on diagnostic imaging of limbs Diagnosis 07/01/2020 10:56:00 AM [facility] R2232 Localized swelling, mass and lump, left upper limb Localized swelling, mass and lump, left upper limb Diagnosis 07/01/2020 10:56:00 AM [facility] [id number] Pain in left toe(s) Pain in left toe(s) Diagnosis 1 08/31/2019 10:56:00 AM [facility] Results ID Date Data Source [id number] 09/24/2020 08:38:00 PM [facility] NOT DETECTEDNOT DETECTED{ PROC EDURAL CONTROL VALID KIT LOT # _[id number] 09/24/20.KIM. KIT EXP DATE _05-98-25 09/24/20.KIM. NORMAL RANGE IS NOT DETECTEDNEGATIVE RESULTS SHOULD BE TREATED PRESUMPTIVE AND, IF INCONSISTENT WITHCLINICAL SIGNS AND SYMPTOMS OR NECESSARY FOR PATIENT MANAGEMENT, SHOULD BETESTED WITH DIFFERENT AUTHORIZED OR CLEARED MOLECULAR TESTS. NEGATIVE RESULTSDO NOT PRECLUDE SARS-CoV-2 INFECTION AND SHOULD NOT BE USED THE SOLE BASISFOR PATIENT MANAGEMENT DECISIONS. Name Value Range Interpretation Code Description Data [facility] rce(s) Supporting Document(s) ID Date Data Source [id number] 09/24/2020 08:27:00 PM [facility] Name Value Range Interpretation Code Description Data [facility] rce(s) Supporting Document(s) Prothrombin time (PT) 13.7 SECONDS 11.0 - 15.5 [facility] INR in Platelet poor plasma by Coagulation assay 1.00 0.93 - 1. 23 [facility] aPTT in Blood by Coagulation assay 25.5 SECONDS 24.8 - 36.7 [facility] \\BLDo\\INR INTERPRETATION\\BLDx\\ Therapeutic range for Coumadin and related oral anticoagulants. - International Normalized Ratio (INR): 2.0 - 3.0 for Venous Thrombosis, Pulmonary Embolus, Tissue heart valves, Acute HI Atrial Fibrillation, Valvular heart disease and recurrent Systemic Embolism. - International Normalized Ratio (INR): 2.5 - 3.5 for Mechanical Prosthetic valve. ID Date Data Source [id number] 09/24/2020 08:18:00 PM [facility] Name Value Range Interpretation Code Description Data [facility] rce(s) Supporting Document(s) TROPONIN T <0.01 NG/ML 0.00 - 0.10 [facility] ospital TROPONIN T0.1 ng/ml Recommended as the c linical threshold value forTroponin T. ID Date Data Source [id number] 09/24/2020 08:11:00 PM [facility] Name Value Range Interpretation Code Description Data [facility] rce(s) Supporting Document(s) Magnesium [Mass/volume] in Serum or Plasma 2.2 MG/DL 1.7 - 2.2 [facility] ID Date Data Source [id number] 09/24/2020 08:11:00 PM [facility] Name Value Range Interpretation Code Description Data [facility] rce(s) Supporting Document(s) COMPREHENSIVE METABOLIC PANEL [facility] COMPREHENSIVE METABOLIC PANEL Sodium [Moles/volume] in Serum or Plasma 137 mEq/L 134 - 153 [facility] Potassium [Moles/volume] in Serum or Plasma 4.4 mEq/L 3.6 - 5.0 [facility] Chloride [Moles/volume] in Serum or Plasma 102 mEq/L 98 - 107 [facility] Carbon dioxide, total [Moles/volume] in Serum or Plasma 25 MEQ/L 22 - 30 [facility] Glucose [Mass/volume] in Serum or Plasma 86 MG/DL 70 - 99 [facility] BUN 15 MG/DL 7 - 21 [facility] Creatinine [Mass/volume] in Serum or Plasma 1.0 MG/DL 0.7 - 1.5 [facility] BUN/CREAT 15 8 - 27 [facility] Protein [Mass/volume] in Serum or Plasma 7.0 G/DL 6.3 - 8.2 [facility] Albumin [Mass/volume] in Serum or Plasma 4.3 G/DL 3.9 - 5.0 [facility] Globulin [Mass/volume] in Serum by calculation 2.7 GM/DL 2.4 - 3.2 [facility] A/G RATIO 1.6 0.8 - 2.0 [facility] Calcium [Mass/volume] in Serum or Plasma 9.0 MG/DL 8.4 - 10.2 [facility] Bilirubin.total [Mass/volume] in Serum or Plasma <0.7 MG/DL 0.2 - 1.3 [facility] Alkaline phosphatase [Enzymatic activity/volume] in Serum or Plasma 73 U/L 38 - 126 [facility] Aspartate aminotransferase [Enzymatic activity/volume] in Serum or Plasma 18 U/L 5 - 40 [facility] Alanine aminotransferase [Enzymatic activity/volume] in Seru m or Plasma 19 U/L 7 - 56 [facility] Anion gap 3 in Serum or Plasma 10.0 mmol/L 8.0 - 16.0 [facility] AGE 54 yrs [facility] NON-AA GFR >60 mL/min [facility] ital AFR AMER GFR >60 mL/min [facility] spital Male GFR In terprentation 20-49 yrs >60 mL/min Normal 50-59 yrs >56 mL/min Normal 60-69 yrs >49 mL/min Normal 70-79yrs >42 mL/min Normal 80 and above >35 mL/min Normal Female GFR Interpretation 20-39 yrs >60 mL/min Normal 40-49 yrs >58 mL/min Normal 50-59 yrs >51 mL/min Normal 60-69 yrs >45 mL/min Normal 70-79 yrs >39 mL/min Normal 80 and above >32 mL/min Normal ID Date Data Source [id number] 09/24/2020 08:05:00 PM EST [facility] Name Value Range Interpretation Code Description Data [facility] rce(s) Supporting Document(s) CBC W/AUTOMATED DIFF [facility] COMPLETE BLOOD COUNT Leukocytes [#/volume] in Blood by Automated count 7.0 10^3/uL 4.2 - 1 1.0 [facility] Erythrocytes [#/volume] in Blood by Automated count 5.10 10^6/uL 4. 50 - 6.30 [facility] Hemoglobin [Mass/volume] in Blood 15.1 g/dL 14.0 - 16.0 [facility] Hematocrit [Volume Fraction] of Blood by Automated count 44.1 % 4 1.0 - 51.0 [facility] Erythrocyte mean corpuscular volume [Entitic volume] by Auto mated count 86.5 fL 80.0 - 94.0 [facility] Erythrocyte mean corpuscular hemoglobin [Entitic mass] by Automated count 29.6 pg 27.0 - 34.0 [facility] Erythrocyte mean corpuscular hemoglobin concentration [Mass/volume] by Automated count 34.2 g/dL 31.0 - 36.0 [facility] Erythrocyte distribution width [Ratio] by Automated count 12.8 % 11.5 - 14.8 [facility] Platelets [#/volume] in Blood by Automated count 130 10^3/uL 150 - 45 0 L [facility] Platelet mean volume [Entitic volume] in Blood by Automated count 11.0 fL 7.4 - 10.4 H [facility] Neutrophils/100 leukocytes in Blood by Automated count 57.1 % 37. 0 - 80.0 [facility] Lymphocytes/100 leukocytes in Blood by Manual count 30.5 % 25.0 - 40.0 [facility] Monocytes/100 leukocytes in Blood by Automated count 8.1 % 3.0 - 8.0 H [facility] Eosinophils/100 leukocytes in Blood by Automated count 3.6 % 0.0 - 7.0 [facility] Basophils/100 leukocytes in Blood by Automated count 0.6 % 0.0 - 2.0 [facility] %IG 0.1 % 0.0 - [facility].0 [facility] 0.0 % 0.0 - 0.0 [facility] Neutrophils [#/volume] in Blood by Automated count 4.02 10^3/uL 2.00 - 6.90 [facility] Lymphocytes [#/volume] in Blood by Automated count 2.15 10^3/uL 0.60 - 3.40 [facility] Monocytes [#/volume] in Blood by Automated count 0.57 10^3/uL 0.00 - 0.90 [facility] Eosinophils [#/volume] in Blood by Automated count 0.25 10^3/uL 0.00 - 0.70 [facility] Basophils [#/volume] in Blood by Automated count 0.04 10^3/uL 0.00 - 0.20 [facility] #IG 0.01 10^3/uL 0.00 - 0.10 [facility] #NRBC 0.00 10^3/uL 0.00 - 0.00 [facility] MANUAL DIFF NOT INDICATED [facility] RBC MORPH NOT INDICATED [facility] spital ID Date Data Source [id number] 09/24/2020 06:02:00 PM EST [facility] Name Value Range Interpretation Code Description Data Princess rce(s) Supporting Document(s) COMPREHENSIVE METABOLIC PANEL [facility] COMPREHENSIVE METABOLIC PANEL Sodium [Moles/volume] in Serum or Plasma 138 mEq/L 134 - 153 [facility] Potassium [Moles/volume] in Serum or Plasma 4.9 mEq/L 3.6 - 5.0 [facility] Chloride [Moles/volume] in Serum or Plasma 103 mEq/L 98 - 107 [facility] Carbon dioxide, total [Moles/volume] in Serum or Plasma 22 MEQ/L 22 - 30 [facility] Glucose [Mass/volume] in Serum or Plasma 86 MG/DL 70 - 99 [facility] BUN 15 MG/DL 7 - 21 [facility] Creatinine [Mass/volume] in Serum or Plasma 1.0 MG/DL 0.7 - 1.5 [facility] BUN/CREAT 15 8 - 27 [facility] Protein [Mass/volume] in Serum or Plasma 7.5 G/DL 6.3 - 8.2 [facility] Albumin [Mass/volume] in Serum or Plasma 4.6 G/DL 3.9 - 5.0 [facility] Globulin [Mass/volume] in Serum by calculation 2.9 GM/DL 2.4 - 3.2 [facility] A/G RATIO 1.6 0.8 - 2.0 [facility] Calcium [Mass/volume] in Serum or Plasma 9.2 MG/DL 8.4 - 10.2 [facility] Bilirubin.total [Mass/volume] in Serum or Plasma <0.7 MG/DL 0.2 - 1.3 [facility] Alkaline phosphatase [Enzymatic activity/volume] in Serum or Plasma 80 U/L 38 - 126 [facility] Aspartate aminotransferase [Enzymatic activity/volume] in Serum or Plasma 23 U/L 5 - 40 [facility] Alanine aminotransferase [Enzymatic activity/volume] in Seru m or Plasma 22 U/L 7 - 56 [facility] Anion gap 3 in Serum or Plasma 13.0 mmol/L 8.0 - 16.0 [facility] AGE 54 yrs [facility] NON-AA GFR >60 mL/min [facility] AFR AMER GFR >60 mL/min [facility] Male GFR In terprentation 20-49 yrs >60 mL/min Normal 50-59 yrs >56 mL/min Normal 60-69 yrs >49 mL/min Normal 70-79yrs >42 mL/min Normal 80 and above >35 mL/min Normal Female GFR Interpretation 20-39 yrs >60 mL/min Normal 40-49 yrs >58 mL/min Normal 50-59 yrs >51 mL/min Normal 60-69 yrs >45 mL/min Normal 70-79 yrs >39 mL/min Normal 80 and above >32 mL/min Normal ID Date Data Source [id number] 08/18/2020 12:00:00 AM EST [facility] Name Value Range Interpretation Code Description Data Princess rce(s) Supporting Document(s) SARS-CoV-2 (COVID-19) RNA [Presence] in Respiratory specimen by KALEN with probe detection Not Detected [facility] This lab was ordered by [facility] and reported by [employer] ID Date Data Source CYCLIC CITRULLINATED PEPTIDE 07/24/2020 12:00:00 AM EST eCW1 ([facility]) Name Value Range Interpretation Code Description Data Princess rce(s) Supporting Document(s) 5 0-19 CYCLIC CITRULLINATED PEPTIDE e CW1 ([facility]) ID Date Data Source LYME WESTERN BLOT SERUM 07/24/2020 12:00:00 AM EST eCW1 ([facility]) Name Value Range Interpretation Code Description Data Princess rce(s) Supporting Document(s) LYME WESTERN BLOT SERUM eCW1 ( [facility]) ID Date Data Source ANGIOTENSIN 1 CONVERTING ENZYM 07/24/2020 12:00:00 AM EST eC W1 ([facility]) Name Value Range Interpretation Code Description Data Princess rce(s) Supporting Document(s) 32 14-82 ANGIOTENSIN 1 CONVERTING ENZYM eCW1 ([facility]) ID Date Data Source RHEUMATOID FACTOR QUANT 07/24/2020 12:00:00 AM EST eCW1 ([facility]) Name Value Range Interpretation Code Description Data Princess rce(s) Supporting Document(s) < 10.0 <15.0 RHEUMATOID FACTOR QUANT eCW1 ( [facility]) ID Date Data Source URIC ACID 07/24/2020 12:00:00 AM EST eCW1 ([facility]) Name Value Range Interpretation Code Description Data Princess rce(s) Supporting Document(s) 7.2 3.5-7.2 URIC ACID eCW1 ([facility]) ID Date Data Source ERYTHROCYTE SEDIMENTATION RATE 07/24/2020 12:00:00 AM EST eC W1 ([facility]) Name Value Range Interpretation Code Description Data Princess rce(s) Supporting Document(s) 5 0-20 ERYTHROCYTE SEDIMENTATION RATE eCW1 ([facility]) ID Date Data Source C REACTIVE PROTEIN QUANTITATIV (At [facility]) 07/24/2020 12:00 :00 AM EST eCW1 ([facility]) Name Value Range Interpretation Code Description Data Princess rce(s) Supporting Document(s) 0.30 0.00-0.30 C REACTIVE PROTEIN QUANTI TATIV eCW1 ([facility]) ID Date Data Source Comprehensive Metabolic Profile (CMP) 07/24/2020 12:00:00 AM EST eCW1 ([facility]) Name Value Range Interpretation Code Description Data Princess rce(s) Supporting Document(s) 91 70-100 GLUCOSE, FASTING eCW1 ([facility]) 13 7-18 BLOOD UREA NITROGEN eCW1 ([facility]) 0.99 0.70-1.30 CREATININE FOR GFR eCW1 ([facility]) > 60.0 >56 GLOMERULAR FILTRATION RATE eCW 1 ([facility]) 139 136-145 SODIUM LEVEL eCW1 ([facility]) 4.4 3.5-5.1 POTASSIUM SERUM eCW1 ([facility]) 108 98-107 CHLORIDE LEVEL eCW1 ([facility]) 28 21-32 CARBON DIOXIDE LEVEL eCW1 ([facility]) 9.5 8.5-10.1 CALCIUM LEVEL eCW1 ([facility]) 14 7-37 AST/SGOT eCW1 ([facility]) 73 45-117 ALKALINE PHOSPHATASE eCW1 ([facility]) 29 12-78 ALT/SGPT eCW1 ([facility]) 0.3 0.2-1.0 BILIRUBIN,TOTAL eCW1 ([facility]) 7.0 6.4-8.2 TOTAL PROTEIN eCW1 ([facility]) 4.0 3.2-5.2 ALBUMIN eCW1 ([facility]) 1.3 ALBUMIN/GLOBULIN RATIO eCW1 ([facility]) ID Date Data Source [id number] 07/02/2020 01:55:00 PM [facility] [address] [place] [address] PHONE: [phone] FAX: [phone] Name .................. : BONILLAFADI ORTIZ Acct Number.................. : [id number] ROOM. ................. : Number ................... : [id number] Stay type ............. : O/P Discharge Date......... ... : 07/01/20 Admit Date ......... : 07/01/20 Admit Phys .................... : RAQUEL GUERRERO Date of ....... : 1965 Family Phys ................... : UNKNOWN Phone .................. : [phone] Age ................................ : 54 Film# .................. .:[id number] Sex ................................. : M Unsigned transcriptions are preliminary reports and do not represent a medical or legal document MRI LOW EXT NO JT W/WO CON LT [id number] COMPLETE:07/01/20 12:05 [facility] [id number] (REASON FOR PROCESS: OSTEOMYELITIS SECOND DIGIT, MRI OF THE LEFT FOOT WITH AND WITHOUT CONTRAST: TECHNIQUE: Imaging was performed prior to and following intravenous Gadolinium administration. FINDINGS: Extensive edematous changes are noted in the left second proximal phalanx with adjacent soft tissue edema that is most suggestive of osteomyelitis. A less likely differential consideration would be a stress fracture, however cortical disruption typically seen with stress fracture is not identified. There is no harleen abscess collection. The remaining osseous structures are unremarkable. Solid or cystic mass is not identified. IMPRESSION : Marked edematous changes left second proximal phalanx most consistent with osteomyelitis. Soft tissue edema adjacent to suspected osteomyelitis is likely cellulitis. Stress fracture of the left second proximal phalanx is a differential consideration that cannot be definitively excluded. Electronically Reviewed and Signed By Madie Farias MD , 07/02/20 13:55, KGAndriy Transcribe Initials: ISELA , Transcribe Date: 07/02/20 01:10, Dictation Date: Copy for: RAQUEL LOPEZ via fax Copy for: [address] [place] [address] REC Page 1 of 1 Name Value Range Interpretation Code Description Data Princess rce(s) Supporting Document(s) ID Date Data Source [id number] 06/29/2020 12:00:00 AM EST [facility] John Aranda Patient Name: DIANA BONILLA[address] [place] [address] [facility] Date [facility] : 1965[facility] ADELINA Esparza [address]- Date of Exam: 06/29/2020#: Fax: [phone] EXAM: MRI FOOT WITH CONTRASTAddendum created by Jamaal Moreno MD on 07/01/2020 6:07 PM Eastern Time ([place]& [place]): Since the areas of destructive change of bone distal 1stmetatarsal are focal the possibility of gouty arthritis with focal areas oferosion would be a definite consideration. Edema/reactive change of boneinvolves the distal 1st metatarsal very similar to the exam of 06/26/2020.Because there are areas of focal loss of bone distal 1st metatarsal thepossibility of osteomyelitis continues to be a concern. However, withosteomyelitis the destructive change of bone is generally more diffuse thanfocal. These areas as mentioned are more focal and this is why erosivechange with gouty arthritis or focal areas of osteomyelitis are bothdifferential considerations. Initial Report created on 07/01/2020 5:49 PMEastern Time ([place] & [place]):PROCEDURE INFORMATION:Exam: MR Right Lower Extremity With Contrast; Forefoot Exam date and time:06/29/2020 11:42 AM Age: 54 years old Clinical indication: Pain; Foot; LeftTECHNIQUE: Imaging protocol: MR of the Right lower extremity with contrast.Exam focused on the forefoot. Contrast material: PROHANCE; Contrast volume:21 ml; Contrast route: INTRAVENOUS (IV); COMPARISON: MRI, FOOT (RT) WO GAD06/26/2020 2:04 PMFINDINGS:Bones and cartilage: There is a focal area of destructive change of bonealong the medial side of the distal 1st metatarsal and also a focal area ofdestructive change of bone plantar surface near the sesamoids. This isstable since previous examination but consistent with changes ofosteomyelitis. There is severe sclerosis of the medial sesamoid which isprobably the result of chronic changes of osteomyelitis or arthriticchange.Joint spaces: Fluid within the 1st metatarsal phalangeal joint hasdecreased since 06/26/2020 exam. Soft tissues: There is soft tissueswelling of the 1st digit but especially at the 1st metatarsophalangealjoint.IMPRESSION:Infected fluid/septic arthritis 1st metatarsal-phalangeal joint hasdecreased since 06/26/2020 exam. Focal area of destructive change ofcortical bone medial aspect of the distal 1st metatarsal and also distalplantar aspect stable since the previous exam. Because there is bone lossthis is consistent with focal areas of osteomyelitis.Thank you for allowing us to participate in the care of your patient.Dictated and Authenticated by: Jamaal Moreno MD 07/01/2020 5:49 PM [place] ([place])VradV/jmAshlyn you for referring DIANA BONILLA to our office. Electronically Signed - ELANA 07/02/20 16:04 Name Value Range Interpretation Code Description Data Princess rce(s) Supporting Document(s) ID Date Data Source [id number] 06/26/2020 12:00:00 AM EST [facility] Name Value Range Interpretation Code Description Data Princess rce(s) Supporting Document(s) 2019-nCoV RNA XXX KALEN+probe-Imp [facility] This lab was ordered by [facility] and reported by [employer] Procedure Social History Code Duration Value Status Description Data Source(s ) Smoking 09/04/2020 12:00:00 AM EST Never Smoker completed Never S moker eCW1 ([facility]) Smoking 09/04/2020 12:00:00 AM EST Never Smoker completed Never S moker eCW1 ([facility]) Smoking 09/04/2020 12:00:00 AM EST Never Smoker completed Never S moker eCW1 ([facility]) Smoking 09/04/2020 12:00:00 AM EST Never Smoker completed Never S moker eCW1 ([facility]) Smoking 08/11/2020 12:00:00 AM EST Never Smoker completed Never S moker eCW1 ([facility]) Smoking 08/11/2020 12:00:00 AM EST Never Smoker completed Never S moker eCW1 ([facility]) Smoking 07/24/2020 12:00:00 AM EST Never Smoker completed Never S moker eCW1 ([facility]) Smoking 07/24/2020 12:00:00 AM EST Never Smoker completed Never S moker eCW1 ([facility]) Smoking 07/24/2020 12:00:00 AM EST Never Smoker completed Never S moker eCW1 ([facility]) Smoking 07/20/2020 12:00:00 AM EST Never Smoker completed Never S moker eCW1 ([facility]) Smoking 06/11/2020 12:00:00 AM EDT Never Smoker completed Never S moker eCW1 ([facility]) Smoking 06/11/2020 12:00:00 AM EDT Never Smoker completed Never S moker eCW1 ([facility]) Smoking 06/11/2020 12:00:00 AM EDT Never Smoker completed Never S moker eCW1 ([facility]) Smoking 06/11/2020 12:00:00 AM EDT Never Smoker completed Never S moker eCW1 ([facility]) Vital Signs ID Date Data Source UNK Name Value Range Interpretation Code Description Data Source(s) Diastolic blood pressure 64 mm[Hg] 64 mm[Hg] eCW1 ([facility]) Systolic blood pressure 132 mm[Hg] 132 mm[Hg] e CW1 ([facility]) Body temperature 97.6 [degF] 97.6 [degF] eCW1 ( [facility]) Respiratory rate 18 /min 18 /min eCW1 ([facility]) Heart rate 67 /min 67 /min eCW1 ([facility]) Body mass index (BMI) [Ratio] 31.27 kg/m2 31.27 kg/m2 eCW1 ([facility]) Body height 74 [in_i] 74 [in_i] eCW1 ([facility]) Body weight 110.5 kg 110.5 kg eCW1 ([facility]) Body weight 243.6 [lb_av] 243.6 [lb_av] eCW1 ([facility]) Body height 74 [in_i] 74 [in_i] eCW1 ([facility]) Body weight 110.9 kg 110.9 kg eCW1 ([facility]) Body weight 244.6 [lb_av] 244.6 [lb_av] eCW1 ([facility]) Diastolic blood pressure 66 mm[Hg] 66 mm[Hg] eCW1 ([facility]) Systolic blood pressure 122 mm[Hg] 122 mm[Hg] e CW1 ([facility]) Body temperature 97.4 [degF] 97.4 [degF] eCW1 ( [facility]) Respiratory rate 18 /min 18 /min eCW1 ([facility]) Heart rate 66 /min 66 /min eCW1 ([facility]) Body mass index (BMI) [Ratio] 31.40 kg/m2 31.40 kg/m2 eCW1 ([facility]) Diastolic blood pressure 78 mm[Hg] 78 mm[Hg] eCW1 ([facility]) Systolic blood pressure 142 mm[Hg] 142 mm[Hg] e CW1 ([facility]) Body temperature 97.3 [degF] 97.3 [degF] eCW1 ( [facility]) Respiratory rate 18 /min 18 /min eCW1 ([facility]) Heart rate 67 /min 67 /min eCW1 ([facility]) Body mass index (BMI) [Ratio] 30.63 kg/m2 30.63 kg/m2 eCW1 ([facility]) Body height 74 [in_i] 74 [in_i] eCW1 ([facility]) Body weight 108.2 kg 108.2 kg eCW1 ([facility]) Body weight 238.6 [lb_av] 238.6 [lb_av] eCW1 ([facility]) Diastolic blood pressure 84 mm[Hg] 84 mm[Hg] eCW1 ([facility]) Systolic blood pressure 136 mm[Hg] 136 mm[Hg] e CW1 ([facility]) Body temperature 97.3 [degF] 97.3 [degF] eCW1 ( [facility]) Respiratory rate 18 /min 18 /min eCW1 ([facility]) Heart rate 70 /min 70 /min eCW1 ([facility]) Body mass index (BMI) [Ratio] 30.17 kg/m2 30.17 kg/m2 W1 ([facility]) Body height 74 [in_i] 74 [in_i] eCW1 ([facility]) Body weight 235 [lb_av] 235 [lb_av] eCW1 ([facility]) Body height 74 [in_i] 74 [in_i] MEDENT ([facility]) 6'2" Body temperature 96.9 [degF] 96.9 [degF] MEDENT ([facility]) Body mass index (BMI) [Ratio] 30.2 kg/m2 30.2 k g/m2 MEDENT ([facility]) Body weight 235.00 [lb_av] 235.00 [lb_av] MEDEN T ([facility]) Diastolic blood pressure 84 mm[Hg] 84 mm[Hg] eCW1 ([facility]) Systolic blood pressure 132 mm[Hg] 132 mm[Hg] e CW1 ([facility]) Body temperature 95.4 [degF] 95.4 [degF] eCW1 ( [facility]) Respiratory rate 18 /min 18 /min eCW1 ([facility]) Heart rate 78 /min 78 /min eCW1 ([facility]) Body mass index (BMI) [Ratio] 30.81 kg/m2 30.81 kg/m2 eCW1 ([facility]) Body height 74 [in_i] 74 [in_i] eCW1 ([facility]) Body weight 240 [lb_av] 240 [lb_av] eCW1 ([facility]) Patient Treatment Plan of Care Planned Activity Planned Date Details Description Data Source (s) Hydroxychloroquine Sulfate 200 MG Oral Tablet [[place]] 09/04/2020 12:00:00 AM EST eCW1 ([facility]) Medrol 4 MG 09/04/2020 12:00:00 AM EST e CW1 ([facility]) Hydroxychloroquine Sulfate 200 MG Oral Tablet [[place]] 09/04/2020 12:00:00 AM EST eCW1 ([facility]) Medrol 4 MG 09/04/2020 12:00:00 AM EST e CW1 ([facility]) Hydroxychloroquine Sulfate 200 MG Oral Tablet [[place]] 09/04/2020 12:00:00 AM EST eCW1 ([facility]) Medrol 4 MG 09/04/2020 12:00:00 AM EST e CW1 ([facility]) Hydroxychloroquine Sulfate 200 MG Oral Tablet [[place]] 09/04/2020 12:00:00 AM EST eCW1 ([facility]) Medrol 4 MG 09/04/2020 12:00:00 AM EST e CW1 ([facility]) Medrol 4 MG 07/24/2020 12:00:00 AM EST e CW1 ([facility]) Medrol 4 MG 07/24/2020 12:00:00 AM EST e CW1 ([facility]) Medrol 4 MG 07/24/2020 12:00:00 AM EST e CW1 ([facility]) meloxicam 15 MG Oral Tablet 07/06/2020 12:00:00 AM EST eCW1 ([facility]) meloxicam 15 MG Oral Tablet 07/06/2020 12:00:00 AM EST eCW1 ([facility]) sildenafil 100 MG Oral Tablet [Viagra] 06/11/2020 12:00:00 AM EDT eCW1 ([facility]) sildenafil 100 MG Oral Tablet [Viagra] 06/11/2020 12:00:00 AM EDT eCW1 ([facility]) sildenafil 100 MG Oral Tablet [Viagra] 06/11/2020 12:00:00 AM EDT eCW1 ([facility]) sildenafil 100 MG Oral Tablet [Viagra] 06/11/2020 12:00:00 AM EDT eCW1 ([facility])
--- OUTSIDE RECORDS SUMMARY | 2020-09-24 23:51 | CCD ---
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 Name Role Phone Eb Cuevas Unavailable PROBLEMS Type Condition ICD9-CM Code [id number] Code Onset Dates Condition S tatus SNOMED Code Notes Problem Erectile dysfunction due to diseases classified elsewhere N52.1 Active 546207113 ALLERGIES Allergen (clinical drug ingredient) Drug/Non Drug Allergy do cumented on EMR Reaction Allergy Type Onset Date Status Wellbutrin Rash/sob Drug Allergy Active Sulfa (for allergy use only) Rash/sob Drug Allergy Active ENCOUNTERS from 1965 to 2020-07-01 Encounter Location Date Provider Diagnosis [address] [address] Jun, Eb Cuevas IMMUNIZATIONS No Information SOCIAL HISTORY Tobacco Use: Social History Observation Description Date Details (start date - stop date) Never Smoker Sex Assigned At : Social History Observation Description Sex Assigned At Unknown Language: Question Answer Notes Languages spoken: Maori Gnosticist: Question Answer Notes Gnosticist No adventist beliefs that would impact health care. Sexual [...] Da te End Date Status Losartan Potassium 25 MG 1 tablet Orally Once a day for 30 day(s) Active Colchicine 0.6 MG 1 tablet Orally Once a day for 30 day(s) Active Viagra 100 MG 1 tablet as needed Orally as directed for 30 day (s) May, Active Indomethacin 50 MG 1 capsule with food or milk Orally Twice a day for 30 day(s) Active Fluticasone Propionate 50 MCG/ACT 1 spray in each nost ril Nasally Once a day for 30 day(s) Active PredniSONE 20 MG 1 tablet Orally bid Active Zyrtec Allergy 10 MG 1 tablet Orally Once a day for 30 day(s) Active Hydrochlorothiazide 12.5 MG 1 capsule in the morning Orally bid Not-Taking PROCEDURES No Information RESULTS No Results REASON FOR VISIT [facility] referral MEDICAL (GENERAL) HISTORY Type Description Date Medical [...] as directed for 30 day (s) May, Next Appt Details Provider Name:Lynncalinladonna Shalonda Cuevas, 2020-06-14 9 08:00:00 AM, [address] [place], [address], Provider Name:Tommy Noble, 2020-07-13 02:00:00 PM, [address], [place], [address], Insurance Providers Payer Name Payer Address Payer Phone Insured Name Patient Relati onship to Insured Coverage Start Date Coverage End Date [facility] [employer] [address] [place] [address] DIANA BONILLA
[2020-09-24] MEDS ORDERED: LOSA50TA88 PO (23:54)
[2020-09-24] MEDS ORDERED: HEARTAB2 PO (23:54)
[2020-09-25] MEDS ORDERED: HEPARIN SOD (PORCINE) 5000UNITS/ML 1ML VIAL/SYRINGE IV PRN (00:30)
[2020-09-25 00:36] LABS: HEMATOCRIT 42.4 % (42.0-52.0); MEAN CORPUSCULAR HEMOGLOBIN 28.6 pg (27.0-33.0); MEAN CORPUSCULAR VOLUME 86.7 fl (80.0-96.0); PLATELET COUNT, AUTOMATED 124 10^3/uL (150-450); RED BLOOD COUNT 4.89 10^6/uL (4.30-6.10); WHITE BLOOD COUNT 6.1 10^3/uL (4.0-10.0)
[2020-09-25 00:48] LABS: INR 1.07; PROTHROMBIN TIME 14.1 SECONDS (12.5-14.3)
[2020-09-25 00:49] LABS: PARTIAL THROMBOPLASTIN TIME 39.3 SECONDS (24.2-38.5)
[2020-09-25 01:09] LABS: ALBUMIN 3.5 GM/DL (3.2-5.2); ALT/SGPT 27 U/L (12-78); BILIRUBIN,TOTAL 0.4 MG/DL (0.2-1.0); BLOOD UREA NITROGEN 15 MG/DL (7-18); CALCIUM LEVEL 8.8 MG/DL (8.5-10.1); CARBON DIOXIDE LEVEL 28 MEQ/L (21-32); CHLORIDE LEVEL 106 MEQ/L (98-107); CREATININE FOR GFR 1.17 MG/DL (0.70-1.30); GLOMERULAR FILTRATION RATE > 60.0 (>56); GLUCOSE, FASTING 137 MG/DL (70-100); POTASSIUM SERUM 3.9 MEQ/L (3.5-5.1); SODIUM LEVEL 141 MEQ/L (136-145); TOTAL PROTEIN 6.3 GM/DL (6.4-8.2)
[2020-09-25] MEDS: HEPARIN DRIP 25,000 UNITS in IV 1 EA IV SCH ×2 (01:46→15:16)
[2020-09-25 06:00] VITALS: BP 130/73
--- NOTE | 2020-09-25 06:30 | HPEPDOC ---
General Date of Admission Sep 25, 2020 Date of Service: Sep 25, 2020 Chief Complaint The patient is a 54-year-old male admitted with a reason for visit of Pulmonary Embolism. Source: Patient History of Present Illness is a 54 year old male with hypertension who was transferred here from [place] for acute saddle pulmonary embolus. At the time of transfer [place] was on divergence. 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 About 3 months ago, he was having on and off dyspnea. About a week ago, he noted a worsening of dyspnea. When he climbed the stairs or exerted himself, he would become dyspneic. He would recover with rest. His PCP ordered him a CT chest with angio which was positive for saddle embolus. While at [place], his vitals were stable. Blood pressure was 143/92 and pulse ox 99% at room air. I spoke with IR, Dr. Soni. She recommended heparin drip and echocardiogram. Patient will be admitted for acute saddle pulmonary embolus. Home Medications Scheduled Losartan Potassium (Losartan Potassium) 50 Mg Tablet, 50 MG PO DAILY, (Reported) Allergies Coded Allergies: bupropion (Verified Allergy, Unknown, HIVES, FLUSHING, 07/01/20) varenicline (Verified Allergy, Unknown, HIVES, FLUSHING, 07/01/20) Sulfa (Sulfonamide Antibiotics) (Verified Adverse Reaction, Unknown, DIZ ZINESS, 07/01/20) Past Medical History Medical History 1. Hypertension 2. HLD 3. Prediabetes 4. History of tobacco use 5. Erectile dysfunction Surgical History 1. Stanley teeth removal 2. Appendectomy 3. Tonsillectomy 4. Cyst removal of left finger Family History Father: at 48 years old. Sudden , suspected to be from [place] Mother: alive at 74 years old. DDD Social History * Smoker: former Smoker (Quit 9 years ago, smoked for 30 years 1ppd) Alcohol: occationally Drugs: denies A-FIB/CHADSVASC A-FIB History Current/History of A-Fib/PAF?: No Review of Systems Constitutional: Denies: Chills, Fever Eyes: Denies: Vision change ENT: Denies: Sore Throat Skin: Denies: Rash Pulmonary: Reports: Dyspnea (on exertion) Cardiovascular: Reports: Chest Pain (Occasional chest twinges) Gastrointestinal: Denies: Nausea, Abdominal Pain Genitourinary: Denies: Dysuria Hematologic: Denies: Bruising Musculoskeletal: Reports: Leg Pain (left leg) Neurological: Reports: Other Symptoms (Paresthesia in left leg) Psych: Denies: Anxiety, Depression Physical Examination General Exam: Positive: Alert, Cooperative Eye Exam: Positive: EOMI; Negative: Sclera icteric ENT Exam: Positive: Atraumatic Neck Exam: Positive: Supple Chest Exam: Positive: Clear to auscultation; Negative: Rales, Rhonchi, Wheezing Heart Exam: Positive: Rate Normal, Regular Rhythm Abdomen Exam: Positive: Normal bowel sounds, Soft; Negative: Tenderness Extremity Exam: Positive: Edema (bilateral pitting) Neuro Exam: Negative: Cranial Nerves 3-12 NL Psych Exam: Positive: Mental status NL, Mood NL Vital Signs Vital Signs Date Time Temp Pulse Resp B/P (MAP) Pulse Ox O2 Delivery O2 Flow Rate FiO2 09/25/20 06:00 98.0 68 18 130/73 (92) 97 Room Air Laboratory Data Labs 24H Laboratory Tests 2 09/25/20 00:27: Nucleated Red Blood Cells % (auto) 0.0, Prothrombin Time 14.1H, Prothromb Time International Ratio 1.07, Activated Partial Thromboplast Time 39.3H, Anion Gap 7L, Glomerular Filtration Rate > 60.0, Calcium Level 8.8, Total Bilirubin 0.4, Aspartate Amino Transf (AST/SGOT) 14, Alanine Aminotransferase (ALT/SGPT) 27, Alkaline Phosphatase 74, Total Protein 6.3L, Albumin 3.5, Albumin/Globulin Ratio 1.3 CBC/BMP Laboratory Tests 09/25/20 00:27 Assessment/Plan is a 54 year old male with hypertension who was transferred here from [place] for acute saddle pulmonary embolus. Patient is hemodynamically stable and not hypoxic. Only has dyspnea on exertion. Spoke with IR, recommending heparin drip and echocardiogram. Also had ordered for US LE for DVT Plan / VTE VTE Prophylaxis Ordered?: Yes Plan Plan 1. Saddle pulmonary embolus -Dyspnea on exertion -Otherwise, hemodynamically stable without hypoxia -Possibly provoked from sedentary job. He reports having problems with left leg since last year -Heparin drip -Echocardiogram -US LE for DVT 2. Hypertension -Continue losartan 3. DVT ppx -On heparin drip for PE ALDO JARRELL DO Sep 25, 2020 06:30
--- NOTE | 2020-09-25 07:14 | REPVR ---
PROCEDURE INFORMATION: Exam: US Duplex Lower Extremity Veins, Bilateral Exam date and time: 09/25/2020 6:51 AM Age: 54 years old Clinical indication: Edema, localized and other: Pe; Lower extremity, bilateral; Additional info: Pulmonary embolus TECHNIQUE: Imaging protocol: Real-time duplex ultrasound of the extremities with 2-D cardona scale, color Doppler flow and spectral waveform analysis with image documentation. Complete exam focused on the bilateral lower extremity veins. COMPARISON: No relevant prior studies available. FINDINGS: Right deep veins: Unremarkable. The common femoral, duplicated femoral, proximal profunda femoral and popliteal veins are patent without thrombus. Normal Doppler waveforms. Normal compressibility and/or augmentation response. Right superficial veins: Saphenofemoral junction is patent without thrombus. Left deep veins: Unremarkable. The common femoral, femoral and proximal profunda femoral veins are patent without thrombus. Normal Doppler waveforms. Normal compressibility and/or augmentation response. There is occlusive, noncompressible thrombus in the popliteal vein extending to the trifurcation in the calf. Left superficial veins: Saphenofemoral junction is patent without thrombus. Soft tissues: Unremarkable. IMPRESSION: 1. No deep venous thrombus demonstrated in the right lower extremity. 2. Occlusive deep venous thrombus in the left popliteal vein. Electronically signed by: Familia Martin On 09/25/2020 07:13:47 AM
[2020-09-25 09:05] VITALS: BP 111/72
[2020-09-25] MEDS: LOSARTAN 50MG TABLET PO SCH (09:11)
[2020-09-25 14:00] VITALS: BP 136/80
[2020-09-25 21:45] VITALS: BP 124/83
[2020-09-25 22:00] VITALS: BP 122/82
[2020-09-26] MEDS: HEPARIN DRIP 25,000 UNITS in IV 1 EA IV SCH (05:43)
[2020-09-26 06:00] VITALS: BP 114/65
[2020-09-26 06:29] LABS: HEMATOCRIT 41.6 % (42.0-52.0); HEMOGLOBIN 13.9 g/dl (13.5-17.5); MEAN CORPUSCULAR HEMOGLOBIN 28.8 pg (27.0-33.0); MEAN CORPUSCULAR HGB CONC 33.4 g/dl (32.0-36.5); MEAN CORPUSCULAR VOLUME 86.3 fl (80.0-96.0); PLATELET COUNT, AUTOMATED 122 10^3/uL (150-450); RED BLOOD COUNT 4.82 10^6/uL (4.30-6.10); WHITE BLOOD COUNT 5.5 10^3/uL (4.0-10.0)
[2020-09-26 06:49] LABS: BLOOD UREA NITROGEN 14 MG/DL (7-18); CALCIUM LEVEL 8.3 MG/DL (8.5-10.1); CARBON DIOXIDE LEVEL 24 MEQ/L (21-32); CHLORIDE LEVEL 108 MEQ/L (98-107); GLOMERULAR FILTRATION RATE > 60.0 (>56); GLUCOSE, FASTING 114 MG/DL (70-100); POTASSIUM SERUM 4.1 MEQ/L (3.5-5.1); SODIUM LEVEL 140 MEQ/L (136-145)
[2020-09-26 08:25] VITALS: BP 128/85
[2020-09-26] MEDS: LOSARTAN 50MG TABLET PO SCH (08:25)
[2020-09-26 14:00] VITALS: BP 135/76
--- NOTE | 2020-09-26 14:35 | DS.PDOC ---
Discharge Summary General Date of Admission Sep 24, 2020 at 23:43 Date of Discharge 09/26/2020 Discharge Summary PROCEDURES PERFORMED DURING STAY: [None]. ADMITTING DIAGNOSES: 1. Saddle pulmonary embolism DISCHARGE DIAGNOSES: 1. Saddle pulmonary embolism 2. Left lower extremity DVT 3. Right heart strain with elevated troponin COMPLICATIONS/CHIEF COMPLAINT: Pulmonary Embolism. HISTORY OF PRESENT ILLNESS: From admitting attending H&P: is a 54 year old male with hypertension who was transferred here from [place] for acute saddle pulmonary embolus. At the time of transfer [place] was on divergence. 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 About 3 months ago, he was having on and off dyspnea. About a week ago, he noted a worsening of dyspnea. When he climbed the stairs or exerted himself, he would become dyspneic. He would recover with rest. His PCP ordered him a CT chest with angio which was positive for saddle embolus. While at [place], his vitals were stable. Blood pressure was 143/92 and pulse ox 99% at room air. I spoke with IR, Dr. Soni. She recommended heparin drip and echocardiogram. Patient admitted for acute saddle pulmonary embolus. HOSPITAL COURSE: Patient was transferred to us from [facility] for saddle pulmonary embolism patient was on a heparin drip during his hospital stay. Patient complained of dyspnea on exertion but was hemodynamically stable on room oxygen without hypoxia. It is suspected that patient incurred this due to his sedentary lifestyle. Duplex lower extremities revealed a left occlusive popliteal DVT. Patient is otherwise relatively healthy was just a history of hypertension on losartan. A stat echo was ordered I discussed the results with her learning developer Dr. Bautista, it reveals mild right heart strain. Patient also did complain to me of chest discomfort overnight and a troponin was measured to be elevated at 0.15. I discussed these results with our critical care attending Dr. Box who recommended patient might be a good candidate for catheter directe d thrombolysis given his elevated troponin and right heart strain. Unfortunately we did not have vascular surgery at a hospital to consult and I reached out to [facility] and was able to speak with Dr. Briceno vascular surgeon who reviewed the CT chest angiography results from [facility] and agreed to accept the patient for further workup and evaluation. Patient was transferred to [facility] on 09/26/2020. I communicated all results and findings as well as plan with the patient who agrees for possible procedure and agrees to be transferred. DISCHARGE MEDICATIONS: Please see below. ALLERGIES: Please see below. PHYSICAL EXAMINATION ON DISCHARGE: At bedside this morning patient reports to me that overnight he was having chest discomfort. Troponin was slightly elevated 0.15. VITAL SIGNS: Please see below. Constitutional: Awake and alert, in no apparent distress ENT: Sclera are clear. Mucosa is moist. Respiratory: Lungs CTA bilaterally. No respiratory distress. No use of accessory muscles. On room air Cardiovascular: regular rhythm, rate 56. S1 and S2 are normal, no murmur Gastrointestinal: Abdomen is soft, non distended, non tender, BS present. Musculoskeletal: No peripheral edema. No joint deformities. RUE 5/5, LUE 5/5, BLE 5/5 Neurologic: No focal neurological deficit. Mental Status: A&O x3, normal affect Skin: Warm, dry LABORATORY DATA: Please see below. IMAGING: CT done at [facility] showing saddle pulmonary embolism. Lower extremity duplex showing left complete occlusion of the popliteal vein PROGNOSIS: Fair ACTIVITY: [As tolerated]. DIET: Nothing by mouth for possible procedure at transfer hospital DISCHARGE PLAN: Transfer to [facility] by ambulance while on heparin drip DISPOSITION: Transfer to [facility] for evaluation by vascular surgery. DISCHARGE CONDITION: [Stable]. TIME SPENT ON DISCHARGE: 45 minutes. Vital Signs/I&Os Vital Signs Date Time Temp Pulse Resp B/P (MAP) Pulse Ox O2 Delivery O2 Flow Rate FiO2 09/26/20 08:25 128/85 09/26/20 06:00 97.5 60 17 97 09/25/20 22:00 Room Air 09/25/20 14:00 95 I&O- Last 24 Hours up to 6 AM 09/26/20 06:00 Intake Total 3761 ml Output Total 575 ml Balance 3186 ml Laboratory Data Labs 24H Laboratory Tests 2 09/25/20 15:11: Activated Partial Thromboplast Time 99.7H 09/25/20 21:12: Activated Partial Thromboplast Time 74.8H 09/26/20 06:08: Activated Partial Thromboplast Time 76.5H, Nucleated Red Blood Cells % (auto) 0.0, Anion Gap 8, Glomerular Filtration Rate > 60.0, Calcium Level 8.3L 09/26/20 10:40: Troponin I 0.15H CBC/BMP Laboratory Tests 09/26/20 06:08 Microbiology Microbiology 09/26/20 Stool Occult Blood (QUANG) - Final, Complete 09/25/20 Stool Occult Blood (QUANG) - Final, Complete Discharge Medications Scheduled Losartan Potassium (Losartan Potassium) 50 Mg Tablet, 50 MG PO DAILY, (Reported) Allergies Coded Allergies: bupropion (Verified Allergy, Unknown, HIVES, FLUSHING, 07/01/20) varenicline (Verified Allergy, Unknown, HIVES, FLUSHING, 07/01/20) Sulfa (Sulfonamide Antibiotics) (Verified Adverse Reaction, Unknown, DIZZINESS, 07/01/20) ANTHONY HENDRICKSON MD Sep 26, 2020 14:26
[2020-09-26 16:19] VITALS: BP 149/91
--- NOTE | 2020-09-27 12:46 | ECGEPIP ---
[facility] Test Date: 2020-09-26 Pat Name: DIANA BONILLA Department: Room: [place] [address] Gender: Male Drafter Structural: SERAFIN : 1965 Requested By: ANTHONY Dawson Order Number: [id number] Reading MD: Elliott Randall Measurements Intervals [place] Rate: 56 P: 62 SD: 176 QRS: -37 QRSD: 94 T: 22 QT: 456 QTc: 440 Interpretive Statements Sinus bradycardia Left axis deviation Comparison tracing not on file Electronically Signed on 09-27-2020 12:46:45 EST by Elliott Randall
--- NOTE | 2020-09-28 10:56 | ECHO ---
DATE OF PROCEDURE: 09/25/2020 Age: 54 Gender: Male Height: 188 cm Weight: 101 kg REFERRING PHYSICIAN: Doyle Moralez MD INDICATION: Pulmonary embolism (saddle embolism). MEASUREMENTS: 2D Measurements: Left atrium 4.1 cm Aortic root 3.7 cm Intraventricular septum 1.34 cm Posterior wall 1.35 cm Left ventricle diastole 4.5 cm Inferior vena cava 1.9 cm with normal respiratory variation suggestive of normal CVP. Doppler Measurements: No aortic stenosis No aortic regurgitation Aortic valve velocity 129 cm/s LVOT velocity 78.3 cm/s LVOT VTI 16.7 cm No mitral stenosis No mitral regurgitation Mitral E velocity 50.1 cm/s Mitral A velocity 60.8 cm/s Mitral deceleration time 357 msec Trace tricuspid regurgitation Trace pulmonic regurgitation Pulmonary artery acceleration time 90 msec Pulmonary artery systolic pressure 39 mmHg MITRAL ANNULAR TISSUE DOPPLER E prime septal 5.2 cm/s, E prime lateral 11.5 cm/s DESCRIPTION: Rhythm was sinus. Image quality was adequate. No pericardial effusion. This was a 2D, M-mode, color flow Doppler, and pulsed wave Doppler examination including mitral annular tissue Doppler. CONCLUSIONS: 1. Suggestive of mild elevation of pulmonary artery systolic pressure (39 mmHg). Normal right ventricle size and systolic function. Suggestive of normal central venous pressure. 2. Mild concentric left ventricular hypertrophy. Normal regional LV wall motion and wall thickening. Normal LV systolic function. LVEF 60% by visual estimate. Grade 1 LV diastolic dysfunction (impaired relaxation filling pattern). 3. Mild left atrial dilatation. 4. Mild aortic valve sclerosis of a 3-cuspid aortic valve. No aortic regurgitation. 5. Otherwise normal appearing echocardiogram Doppler findings. [facility]
== END 2020-09-26 16:26 | disposition short-term general hospital (02) | DRG 176 ==
LOC: M MSPAV 23:43
PROVIDERS: ADMIT Internal Medicine; ATTEND Family Medicine
DX: I26.92 Saddle embolus of pulmonary artery without acute cor pulmonale (principal); I82.432 Acute embolism and thrombosis of left popliteal vein; I11.9 Hypertensive heart disease without heart failure; E78.5 Hyperlipidemia, unspecified; R73.03 Prediabetes; R77.8 Other specified abnormalities of plasma proteins; N52.9 Male erectile dysfunction, unspecified; Z87.891 Personal history of nicotine dependence; Z90.49 Acquired absence of other specified parts of digestive tract; Z79.899 Other long term (current) drug therapy; Z88.2 Allergy status to sulfonamides; Z88.8 Allergy status to other drugs, medicaments and biological substances

== ENCOUNTER 2020-09-30 18:34 | Observation (INO) | payer OTHER ==
[~2020-09-30] VITALS: Ht 188 cm; Wt 108.1 kg
[~2020-09-30 18:34] MED LIST changes: +HEARTAB2 PO; +LOSA50TA88 PO
--- OUTSIDE RECORDS SUMMARY | 2020-09-30 18:39 | CCD | Summary of Care ---
Author Author [facility] Organization [facility] Address Unknown Phone Unavailable Care Team Providers Care Dust Mill Operator Name Role Phone Mini Mccullough PCP Reason for Visit * Auth/Cert Referred By Contact Referred To Contact Status Reason Specialty Diagnoses / Procedures Diagnoses Bilateral pulmonary embolism PE (pulmonary thromboembolism) saddle PE, LLE DVT Encounter Details Care Team Description Date Type Department Familia Briceno MD [address] [facility] [address] [place], [place] [id number] Clot 09/26/2020 Hospital 10G GENERAL MEDICIN E - Encounter [address] 09/28/2020 [facility] [place], [place] [address] Allergies Comments Active Allergy Reactions Severity Noted Date Sulfa Antibiotics Hives High 09/26/2020 Bupropion Rash High 09/26/2020 documented as of this encounter (statuses as of 09/28/2020) Medications End Date Status Medication Sig Dispensed Refills Start Date 10/08/2020 Active Acetaminophen 325 MG Oral Take 2 30 tablet 0 Tablet tablets by 1 mouth every 4 (four) hours as needed for up to 10 days 10/08/2020 Active Docusate Sodium 100 MG Take 1 20 capsule 0 Oral Capsule (COLACE) capsule by 1 mouth Two Times Daily for 10 days 09/28/2021 Active Losartan Potassium 50 MG Take 1 tablet 30 tablet 0 Oral Tablet (COZAAR) by mouth 1 daily 10/26/2020 Active Xarelto Starter Pack 15 & Take 15 mg by 1 each 0 20 MG Oral Tablet Therapy mouth Two 1 Pack (Rivaroxaban) Times Daily for 21 days, THEN 20 mg every evening for 7 days.. 11/25/2020 Active Rivaroxaban 20 MG Oral Take 1 tablet 30 tablet 0 0 Tablet (Xarelto) by mouth 1 daily with dinner 09/28/2020 Discontinued (Reorder) Xarelto Starter Pack 15 & Take 15 mg by 1 each 0 20 MG Oral Tablet Therapy mouth Two 1 Pack (Rivaroxaban) Times Daily for 21 days, THEN 20 mg every evening for 7 days.. 09/28/2020 Discontinued (Stop Taking at Discharge) Rivaroxaban 15 MG Oral Take 1 tablet 60 tablet 11 0 Tablet (XARELTO) by mouth Two 1 Times Daily 09/28/2020 Discontinued (Stop Taking at Discharge) Rivaroxaban 20 MG Oral Take 1 tablet 30 tablet 11 0 Tablet (XARELTO) by mouth 1 daily with dinner 09/28/2020 Discontinued (Reorder) Losartan Potassium 50 MG Take 1 tablet 30 tablet 11 Oral Tablet (COZAAR) by mouth 1 daily documented as of this encounter (statuses as of 09/28/2020) Active Problems Problem Noted Date Bilateral pulmonary embolism 09/26/2020 PE (pulmonary thromboembolism) 09/26/2020 documented as of this encounter (statuses as of 09/28/2020) Social History Date Tobacco Use Types Packs/Day Years Used Quit: 09/26/2011 Former Smoker Drinks/Week oz/Week Comments Alcohol Use 5 Glasses of wine 5.0 Yes Social Isolation Answer Date Recorded In a typical week, how many times do you talk on More than three times a week 09/26/2020 the phone with family, friends, or neig hbors? How often do you get together with friends or Not as ked relatives? How often do you attend hinduism or yazidi Not aske d services? Do you belong to any clubs or organizations such Not asked as hinduism groups, unions, fraternal or athletic groups, or school groups? How often do you attend meetings of the clubs or Not asked organizations you belong to? Are you now , , , , N ot asked never or living with a partner? Physical Activity Answer Date Recorded On average, how many days per week do you engage 4 days 09/26/2020 in moderate to strenuous exercise (like walking fast, running, jogging, dancing, swimmi ng, biking, or other activities that cause a light or heavy sweat)? On average, how many minutes do you engage in 30 min 09/26/2020 exercise at this level? Stress Answer Date Recorded Do you feel stress - tense, restless, nervous, or Not at a ll 09/26/2020 anxious, or unable to sleep at night be cause your mind is troubled all the time - these d ays? Financial Resource Strain Answer Date Recorde d How hard is it for you to pay for the very basics Not hard at all 09/26/2020 like food, housing, medical care, and h eating? Food Insecurity Answer Date Recorded Within the past 12 months, you worried that your Never azul e 09/26/2020 food would run out before you got money to buy more. Within the past 12 months, the food you bought Never true 09/26/2020 just didn't last and you didn't have mo giuliano to get more. Transportation Needs Answer Date Recorded In the past 12 months, has lack of transportation No 09/26/2020 kept you from medical appointments or f rom getting medications? In the past 12 months, has lack of transportation No 09/26/2020 kept you from meetings, work, or gettin g things needed for daily living? Sex Assigned at Date Recorded Not on file Date Recorded COVID-19 Exposure Response 09/26/2020 6:13 PM EST In the last month, have you been in contact with No / Unsure someone who was confirmed or suspected to have Coronavirus / COVID-19? documented as of this encounter Last Filed Vital Signs Reading Time Taken Comments Vital Sign 120/74 09/28/2020 12:16 PM EST Blood Pressure 69 09/28/2020 12:16 PM EST Pulse 36.8 C (98.2 F) 09/28/2020 12:16 PM EST Temperature 18 09/28/2020 12:16 PM EST Respiratory Rate 98% 09/28/2020 12:16 PM EST Oxygen Saturation - - Inhaled Oxygen Concentration 106.6 kg (235 lb) 09/27/2020 8:00 AM EST Weight 188 cm (6' 2") 09/26/2020 7:00 PM EST Height 30.17 09/26/2020 7:00 PM EST Body Mass Index documented in this encounter Discharge Instructions * Instructions* Jerilyn James NP - 09/28/2020 9:26 AM EST Follow up with Dr. Briceno on: 10/20/2020 10:45 Monday at 10:[address], [facility] [phone] Please Call your PCP for a follow up appointment in 1-2 weeks Mechanical Embolectomy home instructions: 1. NO driving for one day. 2. Relax and take it easy for the next 3 days. No heavy lifting (more than a gal mercedes of milk), straining, or yard work (mowing, plowing, shoveling, snow blowing etc.) for 5 days. Do not begin/resume an exercise program for at least 7 days. 3. Remove and replace the bandaid daily for 3 days. Use Tylenol for discomfort a s directed and an ice pack over the puncture site 3-5 times daily for 30 minutes each time for discomfort over the next 3-4 days. 4. Shower and wash the puncture sites with soap and water daily. (with the myles id off) 5. It is normal to have some swelling, tenderness and bruising at the puncture sites. 6. If you notice an enlarging lump where the puncture site is please call the of lauren to be examined. 7. If you begin to bleed from the puncture site lay down and have a friend or fa marcelo member apply finger pressure directly over the bandaid with two hands for t en full minutes without breaks. If the bleeding has stopped after 10 minutes lie still for an hour then take it easy for the rest of the day. Call the office to be examined or 911 if the bleeding doesn't stop. If you are alone call 911 and lie down and apply pressure to the area yourself. 8. Do not strain when you have a bowel movement. This may cause bleeding from th e area where you had the embolectomy. Ask your healthcare provider if you need m edicine to help make your bowel movements easier. 9. Resume your pre -embolectomy diet and continue taking your Medications as you did before -- see 10 10. Drink plenty of fluids at least 40 ounces over the next 24 hours (five 8-oun ce glasses of water, milk, juice or soda). This is to help flush the contrast dy e through your kidneys. If you are a dialysis patient drink only your normal france unt. 11. Call the office if you develop a fever greater than 102 degrees, a rash, hiv es or itching or you cannot keep down solid food. 12. If you have questions or problems at home or you need to make or change a fo llow up appointment: [facility] [phone] [facility] [phone] Any satellite office: [phone] ([place], [facility], [facility], [place]) Rivaroxaban Pronunciation (herman a FRANKLIN a ban) Brand Names: [place] Xarelto; Xarelto Starter Pack Brand Names: Fatuma Xarelto; Xarelto Starter Pack [DSC] Warning Do not stop taking this drug without talking to your doctor. Stopping this drug before you are supposed to may raise the chance of blood clots. If you need to s top this drug, your doctor will tell you how. People who have any type of spinal or epidural procedure are more likely to have bleeding problems around the spine when already on this drug. This bleeding rar jaymie happens, but can lead to not being able to move body (paralysis) long-term o r paralysis that will not go away. The risk is raised in people who have problem s with their spine, a certain type of epidural catheter, or have had spinal surg bella. The risk is also raised in people who take any other drugs that may affect blood clotting, like blood-thinner drugs (like warfarin), aspirin, or nonsteroid al anti-inflammatory drugs (NSAIDs) like ibuprofen or naproxen. Tell your doctor you use this drug before you have a spinal or epidural procedur e. Call your doctor right away if you have any signs of nerve problems like back pain, numbness or tingling, muscle weakness, paralysis, or loss of bladder or b owel control. Talk with your doctor if you have recently had or will be having a spinal or epi dural procedure. Some time may need to pass between the use of this drug and you r procedure. Talk with your doctor. What is this drug used for? It is used to thin the blood so that clots will not form. It is used to treat blood clots. It is used to lower the chance of heart attack, stroke, and in some people . What do I need to tell my doctor BEFORE I take this drug? If you are allergic to this drug; any part of this drug; or any other drugs, aviva ds, or substances. Tell your doctor about the allergy and what signs you had. If you have bleeding problems. If you have any of these health problems: Kidney disease or liver disease. If you have had a heart valve replaced. If you have antiphospholipid syndrome (APS). If you take any drugs (prescription or OTC, natural products, vitamins) that mus t not be taken with this drug, like certain drugs that are used for HIV, infecti ons, or seizures. There are many drugs that must not be taken with this drug. This is not a list of all drugs or health problems that interact with this drug. Tell your doctor and pharmacist about all of your drugs (prescription or OTC, na tural products, vitamins) and health problems. You must check to make sure that it is safe for you to take this drug with all of your drugs and health problems. Do not start, stop, or change the dose of any drug without checking with your d octor. What are some things I need to know or do while I take this drug? Tell all of your health care providers that you take this drug. This includes yo doctors, nurses, pharmacists, and dentists. This drug may need to be stopped before certain types of surgery as your doctor has told you. If this drug is sto pped, your doctor will tell you when to start taking this drug again after your surgery or procedure. You may bleed more easily. Be careful and avoid injury. Use a soft toothbrush an d an electric razor. Rarely, some bleeding problems have been deadly. If you fall or hurt yourself, or if you hit your head, call your doctor right aw ay. Talk with your doctor even if you feel fine. Have blood work checked as you have been told by the doctor. Talk with the docto r. If you are 65 or older, use this drug with care. You could have more side effect s. Tell your doctor if you are , plan on getting , or are breast-fe eding. You will need to talk about the benefits and risks to you and the baby. What are some side effects that I need to call my doctor about right away? WARNING/CAUTION: Even though it may be rare, some people may have very bad and s ometimes deadly side effects when taking a drug. Tell your doctor or get medical help right away if you have any of the following signs or symptoms that may be related to a very bad side effect: Signs of an allergic reaction, like rash; hives; itching; red, swollen, blistere d, or peeling skin with or without fever; wheezing; tightness in the chest or th roat; trouble breathing, swallowing, or talking; unusual hoarseness; or swelling of the mouth, face, lips, tongue, or throat. Signs of bleeding like throwing up or coughing up blood; vomit that looks like c offee grounds; blood in the urine; black, red, or tarry stools; bleeding from th e gums; abnormal vaginal bleeding; bruises without a cause or that get bigger; o r bleeding you cannot stop. Weakness on 1 side of the body, trouble speaking or thinking, change in balance, drooping on one side of the face, or blurred eyesight. Dizziness or passing out. Very bad headache. Feeling very tired or weak. Pain, swelling, or new drainage at wound sites. What are some other side effects of this drug? All drugs may cause side effects. However, many people have no side effects or o nly have minor side effects. Call your doctor or get medical help if you have an y side effects that bother you or do not go away. These are not all of the side effects that may occur. If you have questions abou t side effects, call your doctor. Call your doctor for medical advice about side effects. You may report side effects to your national health agency. How is this drug best taken? Use this drug as ordered by your doctor. Read all information given to you. Foll ow all instructions closely. 2.5 mg and 10 mg doses: Take with or without food. 15 mg and 20 mg doses: Take with food. All doses: Keep taking this drug as you have been told by your doctor or other health care provider, even if you feel well. If you cannot swallow tablets, the tablet may be crushed and mixed with applesau ce. Take within 4 hours of mixing. If your dose is 15 mg or 20 mg, eat some food right after taking a crushed table t. Those who have feeding tubes may use this drug. Use as you have been told. Flush the feeding tube after this drug is given. What do I do if I miss a dose? 15 mg twice daily dosing: Take missed dose right away to make sure you get 30 mg in one day. You may take 2 tablets at the same time. Then go back to your normal times the next day. If you do not think about the missed dose until the next day, skip the missed do se and go back to your normal time. 2.5 mg twice daily dosing: Skip the missed dose and go back to your normal time. Do not take 2 doses at the same time or extra doses. All other dosing: Take a missed dose as soon as you think about it on the same day you missed the dose. If you do not think about the missed dose until the next day, skip the missed do se and go back to your normal time. Do not take 2 doses at the same time or extra doses. For all patients taking this drug: If you are not sure what to do if you miss a dose, call your doctor. How do I store and/or throw out this drug? Store at room temperature in a dry place. Do not store in a bathroom. Keep all drugs in a safe place. Keep all drugs out of the reach of children and pets. Throw away unused or drugs. Do not flush down a toilet or pour down a dr ain unless you are told to do so. Check with your pharmacist if you have questio ns about the best way to throw out drugs. There may be drug take-back programs i n your area. General drug facts If your symptoms or health problems do not get better or if they become worse, c all your doctor. Do not share your drugs with others and do not take anyone else's drugs. Some drugs may have another patient information leaflet. If you have any questio ns about this drug, please talk with your doctor, nurse, pharmacist, or other [facility] care provider. If you think there has been an overdose, call your poison control center or get medical care right away. Be ready to tell or show what was taken, how much, and when it happened. Consumer Information Use and Disclaimer: This information should not be used to decide whether or not to take this medicine or any other medicine. Only the [facility] provider has the knowledge and training to decide which medicines are rig ht for a specific patient. This information does not endorse any medicine as saf e, effective, or approved for treating any patient or health condition. This is only a brief summary of general information about this medicine. It does NOT inc lude all information about the possible uses, directions, warnings, precautions, interactions, adverse effects, or risks that may apply to this medicine. This i nformation is not specific medical advice and does not replace information you r eceive from the healthcare provider. You must talk with the healthcare provider for complete information about the risks and benefits of using this medicine. documented in this encounter Progress Notes * Zoey Gong RN - 09/28/2020 1:33 PM EST Read and reviewed discharge teaching and paperwork with patient. Patient has no questions or concerns at this time. Awaiting meds to beds to be delivered. * Delores Mullen RN - 09/28/2020 11:21 AM EST Case Management Screen & Assessment Patient Name: Everett Hanna Gender: male Date of : 1965 Admission Dx: Bilateral pulmonary embolism [I26.99] PE (pulmonary thromboembolism) [I26.99] Age: 54 y.o. Admission: 09/26/2020 5:48 PM Attending Provider: Familia Briceno MD High Risk Criteria - Prior to Admission/Upon Arrival BOILER/CHILLER TECHNICIAN-Type of Residence: Private Residence BOILER/CHILLER TECHNICIAN- Home Care Services: No Limited Home Supports/Lives Alone?: No Multi trauma/Critical care/Step down admit?: No Head/Spinal cord injury?: No Self Pay: No Multiple ED visits?: No Related/Unplanned readmission within 30 days?: No Complex/New medical issues: saddle PE, DVT Relevant comorbidities: HTN Screening Outcome Social Work Consult Needed?: No Further Case Management Needs?: No Case Management Needs Chart Review PCP Verified?: Patient has PCP Prior to Admission: Functional/Environmental Assessment Bathing: Independent Dressing: Independent Toileting: Independent Medication administration: Independent Transfers: Independent Ambulation: Independent Meal preparation: Independent Durable Medical Equipment (DME): (none) Case Management Re-Review Case Management Re-Review Needed?: Yes Discharge Planning Living Arrangements: Spouse/significant other Support Systems: Spouse/significant other Type of Residence: Private residence Is this patient appropriate [facility] to [facility] No Patient/family informed of need for discharge planning?: Yes Patient expects to be discharged to:: home Patient/Agent informed of choice and given written list?: Patient/agent declined list Does the patient need discharge transport arranged?: No Note: Pt is s/p pulmonary angiogram with mechanical embolectomy. DX DVT and PE. Pt will be dc today on xaralto, used the coupon for starter pack. [facility]. Case managment role explained. Patient was independe nt in their care prior to admission. Supportive family at home. No anticipated s killed needs at time of discharge. Pt in agreement with d/c plan to home with [facility] supports once medically ready. CM available if discharge needs arise. Delores Mullen * Leda Dean RN - 09/28/2020 11:19 AM EST Patient noted to farzad down to 40s on personnel monitor. When in to assess pt wh o was alert and oriented, vital signs obtained and WNL. Bedside RN notified. * Da Briones MD - 09/27/2020 9:35 PM EST Brief Progress Note Patient was seen and examined to follow-up on right thigh bruising/ecchymosis. Upon my encounter with Mr. Hanna, he still reported minimal shortness of breat h that is improving but no longer has blood in sputum. Patient was started on X arelto. In regards to his right thigh, he states the bruising/ecchymosis starte d around 1 PM. The stopcock was removed around around 10 AM but the bruising on ly started after patient went for a walk. As noted in image below, the area was delineated and since has not grown much in size. Patient has minimal pain arou nd the area, which has not increased in intensity and has been tolerable. On ex am, the bruising seemed well delineated, without much increase in size since ear lier today. There is no extension of the bruising in the groin. Vitals signs ar e stable. Visit Vitals BP 127/81 Pulse 65 Temp 36.9 C (98.4 F) Resp 18 Ht 1.88 m Wt 106.6 kg (235 lb) SpO2 95% BMI 30.17 kg/m Da Briones MD * Eleazar Meek RN - 09/27/2020 5:23 PM EST Patient at 17:00 stated to this screenplay writer that right groin procedure site feels mor e swollen and has increased bruising. Bilat lower extremities equally warm to to uch with equal pedal pulses. 2x2 dressing to site intact but bruising noted medi ally and laterally to 2x2. Vascular surgery MD made aware and assessed patient s hortly after. Bedside CHEYANNE Escalante made aware. * Daniel Sanchez RN - 09/27/2020 2:54 AM EST Pt HR rate is between 43-51 on the heart monitor. Pt asymptomatic at this time. Otherwise VSS, see (flow sheet). Pt Rt groin surgical dsg is dry, and intact. Shalonda Harmon MD aware. Will continue to monitor. * Da Briones MD - 09/27/2020 2:32 AM EST Vascular Surgery Post-op Check Subjective: Everett Hanna was seen and examined at the bedside after undergoing thr ombectomy for pulmonary embolism. The patient states that they are not short of breath and are saturating well (95 %) on room air.The patient denies fever, chills, lightheadedness, dizziness, charlene st pain, nausea, vomiting, or abdominal pain. Objective: Vitals: 09/26/20 1912 09/26/20 2222 09/26/20 2325 09/27/20 0000 BP: (!) 165/102 121/73 113/74 Pulse: 62 (!) 54 (!) 53 Resp: 18 18 18 Temp: 37 C (98.6 F) 36.9 C (98.4 F) 36.5 C (97.7 F) SpO2: 97% 96% 96% 96% Physical Exam Gen: Patient is lying comfortably in bed in no acute distress. CV: hemodynamically stable, bradycardic ~50s (at baseline) Resp: breathing comfortably Abd: Soft, non-distended, appropriately tender to palpation in all 4 abdominal q uadrants. Extremities: Warm and well perfused x4. Right groin dressed. Stopcock in place. Neuro: Grossly intact to motor and sensory in the upper and lower extremities bi laterally. Recent Labs 09/26/20 1905 WBC 5.3 HGB 14.1 HCT 40.4* PLT 118* No results for input(s): NA, K, CL, BICARBONATE, BUN, CREATININE, GLUCOSE in the last 72 hours. I/O this shift: In: 146.3 [I.V.:146.3] Out: - Assessment: Everett Hanna is a 54 y.o. male who is status post Procedure(s): PULMONARY ANGIOGRAM WITH LYSIS AND/OR MECHANICAL EMBOLECTOMY for PE Plan: - Pain control with acetaminophen - Diet: regular - On heparin drip for PE management, monitoring with antiXa levels - GI: colace, dulcolax, senna PRN. Zofran PRN - To remove catheter later today Da Briones MD PGY1, Department of Surgery * Daniel Sanchez RN - 09/26/2020 10:35 PM EST Associated attestation - Familia Briceno MD - 09/27/2020 8:36 AM EST . * Cyndie Edwards RN - 09/26/2020 6:31 PM EST If wound was present on admission, this documentation was sent to attending prov ider for cosignature. documented in this encounter H&P Notes * Siddhartha Stratton MD - 09/26/2020 6:05 PM EST Vascular Surgery H&P Subjective: History of Present Illness: Everett Hanna is a 54 y.o. male with hypertension who was transferred t [facility] from [place] due to saddle pulmonary embolism. About 3 months ago he was having on and off dyspnea. About a week ago, he noted worsening of dyspnea. When he climbed the stairs or exerted himself, he would b ecome dyspneic, but would recover with rest. His PCP ordered a CT Thorax angiog kayla 09/24 which was positive for saddle pulmonary embolism, so he was told to go to the Hospital. His vital signs remained within normal limits and he was satura ting 99% on room air. He was started on a heparin drip which reached therapeutic levels and echocardiogram was obtained. At [facility], 09/25 duplex lower extremities revealed left occlusi ve popliteal DVT. A stat echocardiogram was ordered. The results were not avail able for our review, but reportedly revealed mild heart right heart strain. He d id report chest discomfort overnight and troponin was elevated at 0.15. Decision was made to contact vascular surgery at [facility] for possible surgical intervent ion and the patient was subsequently transferred to [facility] for further manageme nt. At time of bedside examination, patient was resting comfortably and saturating 9 9% on room air. He did report chest discomfort which remained stable from the pa st several days. He had bilateral left lower extremity swelling, left > right, which had improved as compared to a few days ago. He otherwise denied any recent fevers, chills, abdominal pain, constipation, or dysuria. Patient is a former smoker, 30 pack year smoking history, but quit in 2011. He d rinks 5 to 6 glasses of wine a week with 1 drink per night. He otherwise denied any other drug use. 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 He does have a sedentary job. However, he reports occasional exercise with stationary bike. Patient believes that he was infected with Covid in September 2019, but he was ne steven formally diagnosed with COVID. He denied any recent travel or hospitalizatio ns. He has no known family history of clotting disorders. His father when he was 47 from heart failure, but reportedly had a hard partying lifestyle. He h as no known trauma to his lower extremities. He has no known personal history of malignancy. He stated that he had a colonoscopy several years ago which identi fied polyps that were removed and pathology was benign. These records were not a vailable for our review. Surgical consent was obtained for mechanical thrombectomy, possible thrombolysis catheter placement. Indication, risks, benefits and alternatives for this proce dure were discussed including but not limited to infection, bleeding, injury to other structures, risk of re-operation, and serious complications such as stroke , heart attack, or . Less common complications were also discussed. Blood c onsent was also obtained. All questions were answered. Past Medical History: Past Medical History: Diagnosis Date Hypertension Past Surgical History: Patient denied any abdominal surgeries. Allergies: Allergies Allergen Reactions Sulfa Antibiotics Hives Wellbutrin [Bupropion] Rash Current Medications: Current Facility-Administered Medications Medication Dose Route Frequency Provider Last Rate Last Admin heparin in NaCl 0.45 % HIGH DOSE WITH BOLUS infusion 50 units/mL 700-3,0 00 Units/hr Intravenous Continuous Siddhartha Stratton MD And heparin (porcine) BOLUS ORDER HIGH DOSE 1000 units/mL injection 2,650 Uni ts 25 Units/kg Intravenous PRN Siddhartha Stratton MD Family History: Father of heart failure at age 47, reportedly hard partying lifestyle. Social History: Social History Socioeconomic History Marital status: Spouse name: Not on file Number of children: 1 Years of education: Not on file Highest education level: Not on file Occupational History Not on file Social Needs Financial resource strain: Not hard at all Food insecurity Worry: Never true Inability: Never true Transportation needs Medical: No Non-medical: No Tobacco Use Smoking status: Former Smoker Quit date: 09/26/2011 Years since quittin.0 Substance and Sexual Activity Alcohol use: Yes Alcohol/week: 5.0 standard drinks Types: 5 Glasses of wine per week Drug use: Never Sexual activity: Yes Lifestyle Physical activity Days per week: 4 days Minutes per session: 30 min Stress: Not at all Relationships Social connections Talks on phone: More than three times a week Gets together: Not on file Attends yazidi service: Not on file Active member of club or organization: Not on file Attends meetings of clubs or organizations: Not on file Relationship status: Not on file Intimate partner violence Fear of current or ex partner: Not on file Emotionally abused: Not on file Physically abused: Not on file Forced sexual activity: Not on file Other Topics Concern Not on file Social History Narrative Not on file REVIEW OF SYSTEMS Complete ROS performed. Pertinent positives in HPI. Objective: Vitals: 09/26/20 1754 09/26/20 1900 09/26/20 1912 BP: (!) 159/92 (!) 165/102 BP Location: Right arm Patient Position: Sitting Pulse: 67 62 Resp: 18 18 Temp: 36.8 C (98.2 F) 37 C (98.6 F) TempSrc: Oral SpO2: 99% 97% Weight: 106.9 kg (235 lb 9.6 oz) Height: 1.88 m General: Alert, cooperative, no distress Head: Normocephalic, atraumatic Neck: Supple, symmetrical, trachea midline Lungs: Breathing comfortably on room air Heart: Regular rate Abdomen: Soft, non-tender, non-distended Neurologic: Extremities: Grossly intact, no focal deficits Palpable femoral, popliteal, DP/PT pulses bilaterally. Bilateral lower extremi ty pitting edema. LLE > RLE. Diagnostic Data Review/Ordered: IMAGING 09/25/2020 Venous Duplex BLE 09/25/2020 CTA Thorax INDICATION: Elevated D-dimer. FINDINGS: The neck base is clear. The lungs demonstrate mild dependent atelectasis. There is extensive pulmonary embolism with saddle pulmonary embolism and severe bilateral main stem and segme ntal pulmonary emboli. Mild right heart strain is noted. The visualized upper ab domen demonstrates no acute abnormality. No acute osseous abnormality. IMPRESSION: There is extensive pulmonary embolism with mild right heart strain. Findings are discussed with Lyle Mendez. This patient is an outpatient and wi ll be immediately transferred to the emergency room. Assessment: Everett Hanna is a 54 y.o. male with hypertension who was transferred [facility] from [place] due to saddle pulmonary embolism. Plan: - Surgical and blood consent obtained - Plan for OR tonight for mechanical thrombectomy, possible thrombolysis cathete r placement - COVID swab obtained, results pending Patient examined with fellow Dr. Colmenares and discussed with attending. Please r efer to any addendums for final plan/recommendation. Siddhartha Stratton, PGY-2 Department of Surgery Pager: [phone] Associated attestation - Familia Briceno MD - 09/26/2020 7:36 PM EST Vascular Surgery Attending: I saw and evaluated the patient. I discussed with e resident and agree with the resident's findings and plans as written, along wi any supplemental dictated and/or attending documentation in the patient recor d by myself. Saddle pulmonary embolism with evidence of right heart strain. Plan for percutaneous mechanical pulmonary artery thrombectomy. documented in this encounter Miscellaneous Notes * Plan of Care - Daniel Sanchez RN - 09/27/2020 9:03 PM EST Problem: Risk for Falls Goal: No falls during hospitalization Description: Patient will not fall during hospitalization. Outcome: Progressing Problem: Knowledge Deficit Goal: Knowledge - personal safety Description: Patient will verbalize understanding of fall prevention. Outcome: Progressing Problem: Hemodynamic Status Goal: Patient will remain hemodynamically stable Description: Patient's vital signs, oxygenation, and labs will be monitored and deviations addressed. Outcome: Progressing Problem: Pain Goal: Pain is controlled to patient's desired goal Outcome: Progressing Problem: Risk for impaired skin integrity Goal: Skin integrity is maintained or improved Outcome: Progressing Problem: Fall Prevention Goal: No fall during Hospitalization Outcome: Progressing Problem: Impaired Physical Mobility Goal: Patient will maintain maximum physical mobility within prescribed activity and weight bearing restrictions Outcome: Progressing Problem: Risk for Infection Goal: The patient will receive immunization screening as indicated Outcome: Progressing Goal: Patient will remain free of infection in operative site Outcome: Progressing Goal: The patient will not develop pneumonia post-operatively Outcome: Progressing Goal: The patient will not develop Catheter Acquired Urinary Tract Infection (CA UTI) Outcome: Progressing Problem: Risk for DVT/PE Goal: Patient will not develop a DVT/PE Outcome: Progressing Problem: Risk for Gastrointestinal Complications Goal: Patient will not develop gastrointestinal complications Description: Nausea/vomiting, constipation, dehydration Outcome: Progressing Problem: Self Care Deficit Goal: Patient will perform Activities of Daily Living at optimal level Outcome: Progressing Problem: Psychosocial Needs Goal: Psychosocial needs will be met during this hospitalization Outcome: Progressing Problem: Discharge Needs Goal: Patient discharge needs are met Description: Collaborate with interdisciplinary team and initiate plans and inte rventions as needed Outcome: Progressing * Plan of Care - Daniel Sanchez RN - 09/27/2020 2:51 AM EST Problem: Risk for Falls Goal: No falls during hospitalization Description: Patient will not fall during hospitalization. Outcome: Progressing Problem: Knowledge Deficit Goal: Knowledge - personal safety Description: Patient will verbalize understanding of fall prevention. Outcome: Progressing Problem: Hemodynamic Status Goal: Patient will remain hemodynamically stable Description: Patient's vital signs, oxygenation, and labs will be monitored and deviations addressed. Outcome: Progressing Problem: Pain Goal: Pain is controlled to patient's desired goal Outcome: Progressing Problem: Risk for impaired skin integrity Goal: Skin integrity is maintained or improved Outcome: Progressing Problem: Fall Prevention Goal: No fall during Hospitalization Outcome: Progressing Problem: Impaired Physical Mobility Goal: Patient will maintain maximum physical mobility within prescribed activity and weight bearing restrictions Outcome: Progressing Problem: Risk for Infection Goal: The patient will receive immunization screening as indicated Outcome: Progressing Goal: Patient will remain free of infection in operative site Outcome: Progressing Goal: The patient will not develop pneumonia post-operatively Outcome: Progressing Goal: The patient will not develop Catheter Acquired Urinary Tract Infection (CA UTI) Outcome: Progressing Problem: Risk for DVT/PE Goal: Patient will not develop a DVT/PE Outcome: Progressing Problem: Risk for Gastrointestinal Complications Goal: Patient will not develop gastrointestinal complications Description: Nausea/vomiting, constipation, dehydration Outcome: Progressing Problem: Self Care Deficit Goal: Patient will perform Activities of Daily Living at optimal level Outcome: Progressing Problem: Psychosocial Needs Goal: Psychosocial needs will be met during this hospitalization Outcome: Progressing Problem: Discharge Needs Goal: Patient discharge needs are met Description: Collaborate with interdisciplinary team and initiate plans and inte rventions as needed Outcome: Progressing * Brief Op Note - Shravan Colmenares MD - 09/26/2020 10:15 PM EST Brief Procedure/Operative Note Date of operation/procedure: 09/26/2020 Surgical Lo Pre-Op Diagnosis: PE Post-Op Diagnosis: PE Procedure(s): PULMONARY ANGIOGRAM WITH LYSIS AND/OR MECHANICAL EMBOLECTOMY Surgeon(s): MD Shravan Peña MD Primary: Familia Briceno MD Assisting: Shravan Colmenares MD Anesthesia Type: Moderate Sedation No anesthesia staff entered. Procedure Start and End Times: For time of surgery refer to operative nursing te mplate. Est. Blood loss: 300 Blood Administered: none Fluids Given: 700mL Grafts / Implants: * No implants in log * Specimens Removed: * No orders in the log * Comments: minimal PE removed. No obvious large filling defects noted on pulmonar y angiogram. Complications: None Noted Cancer staging: N/A documented in this encounter Plan of Treatment Order Schedule Name Type Priority Associated Diag noses Continuous for only 4 [address] arting 09/26/2020 until 09/30/2020 Oximetry Continuous Respiratory Routine Care Respiratory use only - Every 2 hours whi le awake for 4 Days starting 09/27/2020 until 09/30/2020 Incentive Spirometry RT Respiratory Routine Teach Care AM Draw for 30 Occurrences starting 09/14 until 10/26/2020, 2 completed Phosphorus Level Lab Routine Health Maintenance Due Date Last Done Comments MMR Vaccines (1 of - 1966 Standard series) Varicella Vaccines (1 of 1966 2 - 2-dose childhood series) DTaP,Tdap,and Td Vaccines 1972 (1 - Tdap) HIV Screening 1978 Colon Cancer Screening 10 10/18/2015 yrs Influenza Vaccine 05/14/2020 Pneumococcal Vaccine: 65+ 2030 Years (1 of 1 - PPSV23) HIB Vaccines Aged Out No longer eligible based on patient's age to complete this topic Hepatitis A Vaccines Aged Out No longer eligibl e based on patient's age to complete this topic Hepatitis B Vaccines Aged Out No longer eligibl e based on patient's age to complete this topic IPV Vaccines Aged Out No longer eligible based on patient's age to complete this topic Pneumococcal Vaccine: Aged Out No longer eligib le based on patient's age to Pediatrics (0 to 5 Years) complete this topic and At-Risk Patients (6 to 64 Years) documented as of this encounter Procedures Comments Procedure Name Priority Date/Time Associated Diag nosis CBC AND DIFFERENTIAL Routine 09/28/2020 4:06 AM EST PHOSPHORUS LEVEL Routine 09/28/2020 4:06 AM EST BASIC METABOLIC PANEL Routine 09/28/2020 4:06 AM EST EKG 12-LEAD - CMAXX 09/27/2020 REPORT 12:26 PM EST EKG 12-LEAD - CMAXX 09/27/2020 REPORT 12:26 PM EST EKG 12-LEAD Routine 09/27/2020 12:26 PM EST TROPONIN T Routine 09/27/2020 11:46 AM EST ANTI-XA UNFRACTIONATED Routine 09/27/2020 HEPARIN LEVEL 8:30 AM EST ANTI-XA UNFRACTIONATED Routine 09/27/2020 HEPARIN LEVEL 3:55 AM EST PROTIME INR Routine 09/27/2020 3:55 AM EST CBC Routine 09/27/2020 3:55 AM EST PHOSPHORUS LEVEL Routine 09/27/2020 3:55 AM EST MAGNESIUM LEVEL Routine 09/27/2020 3:55 AM EST IR PULMONARY ARTERIOGRAM Routine 09/26/2020 Clot 10:01 PM EST POCT ISTAT ACT Routine 09/26/2020 9:54 PM EST POCT ISTAT ACT Routine 09/26/2020 8:37 PM EST PULMONARY ANGIOGRAM WITH 09/26/2020 PE LYSIS AND/OR MECHANICAL 8:03 PM EST EMBOLECTOMY TYPE AND SCREEN STAT 09/26/2020 7:57 PM EST OPERATIVE AND PROCEDURE 09/26/2020 NOTE 7:39 PM EST ANTI-XA UNFRACTIONATED Routine 09/26/2020 HEPARIN LEVEL 7:05 PM EST PROTIME INR Routine 09/26/2020 7:05 PM EST CBC Timed 09/26/2020 7:05 PM EST RESPIRATORY PATHOGEN Routine 09/26/2020 PANEL 7:03 PM EST COVID-19 PCR Routine 09/26/2020 7:03 PM EST documented in this encounter Results * CBC and Differential (09/28/2020 4:06 AM EST) White Blood 5.4 4 - 10 10*3/uL [facility] Clin Pathology Red Blood Cell 4.27 (L) 4.6 - 6.1 10*6/uL [facility] Clin Pathology Hemoglobin 12.8 (L) 13.5 - 18 g/dL [facility]ology Hematocrit 37.0 (L) 41 - 53 % [facility] Clin Pathology Mean Cell 86.8 80 - 96 fL [facility] Volume [facility] Clin Pathology Mean Cell 29.9 27 - 33 pg [facility] Clin Pathology Mean Cell Hgb 34.5 32.0 - 36.0 g/dL [facility] Univ Clin Pathology Red Cell Dist 13.1 11.5 - 14.5 % [facility] Width [facility] Clin Pathology Platelet Count 125 (L) 150 - 400 10*3/uL [facility] Clin Pathology Differential Automated Diff [facility] Type [facility] Clin Pathology Neutrophil 55 % [facility] Clin Pathology Lymphocyte 30 % [facility] Clin Pathology Monocyte 9 % [facility] Clin Pathology Eosinophil 5 % [facility] Clin Pathology Basophil 1 % [facility]ology Abs Neutrophil 3.03 1.8 - 7.0 10*3/uL [facility] Pathology Abs Lymphocyte 1.61 1.2 - 4.0 10*3/uL [facility] Pathology Abs Monocyte 0.49 0 - 0.8 10*3/uL [facility]ology Abs Eosinophil 0.25 0 - 0.5 10*3/uL [facility] Pathology Abs Basophil 0.03 0 - 0.2 10*3/uL [facility] Clin Pathology Nucleated Red 0 0 - 0 /100{WBCs} [facility] Blood Cells [facility] Clin Pathology Specimen EDTA Whole Blood Performing Organization Address [facility] one Number [facility] [address], [place] [address] [address] Clin Pathology * Phosphorus Level (09/28/2020 4:06 AM EST) Phosphorus 3.8 2.5 - 4.5 mg/dL [facility] Clin Pathology Specimen Plasma Performing Organization Address [facility] one Number [facility] [address], [place] [address] [address] Clin Pathology * Basic Metabolic Panel (09/28/2020 4:06 AM EST) Bicarbonate 21 (L) 22 - 29 mmol/L [facility]ology Chloride 104 98 - 107 mmol/L [facility]ology Creatinine 0.93 0.70 - 1.20 mg/dL [facility]ology Glucose 93 70 - 140 mg/dL [facility]ology Potassium 4.2Comment: Hemolyzed 3.4 - 5.1 mmol/L [facility] Clin Pathology Sodium 137 136 - 145 mmol/L [facility] Pathology Blood Urea 12 6 - 20 mg/dL [facility] Clin Pathology Anion Gap 12 8 - 15 mmol/L [facility] Pathology Osmolality, Randall 284 275 - 300 mosm/kg [facility] Clin Pathology BUN/Cre Ratio 13 [facility] Pathology Calcium 8.8 8.6 - 10.0 mg/dL [facility] Clin Pathology GFR Non >90 >60 mL/min/1.73m2 [facility] 2008 Med [facility] Clin CDK-EPI Pathology GFR >90 >60 mL/min/1.73m2 [facility] 2008 Med [facility] Clin CKD-EPI Pathology Specimen Plasma Performing Organization Address [facility] one Number [facility] [address], [place] [address] [address] Clin Pathology * EKG 12-LEAD - CMAXX REPORT (09/27/2020 12:26 PM EST) Narrative Performed At This result has an attachment that is n ot available. * EKG 12-LEAD - CMAXX REPORT (09/27/2020 12:26 PM EST) Narrative Performed At This result has an attachment that is n ot available. * EKG 12 Lead (09/27/2020 12:26 PM EST) Specimen Narrative Performed At Ventricular Rate: [facility] EKG 58 BPM Atrial Rate: 58 BPM P-R Interval: 154 ms QRS Duration: 90 ms Q-T Interval: 444 ms QTC Calculation(Bazett): 435 ms P [place]: 47 degrees R [place]: -17 degrees T [place]: 6 degrees : POOR DATA QUALITY, INTERPRETATION MAY BE ADVERSELY : AFFECTED : SINUS BRADYCARDIA WITH SINUS ARRHYTHM IA : NONSPECIFIC T WAVE ABNORMALITY : NO PREVIOUS ECGS AVAILABLE : Confirmed by Eleazar Taylor ([id number]) on 09/28/2020 7:55:22 AM Procedure Note Interface, Received Via [employer] - 09/28/2020 7:55 AM EST Ventricular Rate: 58 BPM Atrial Rate: 58 BPM P-R Interval: 154 ms QRS Duration: 90 ms Q-T Interval: 444 ms QTC Calculation(Bazett): 435 ms P [place]: 47 degrees R [place]: -17 degrees T [place]: 6 degrees : POOR DATA QUALITY, INTERPRETATION MAY BE ADVERSELY : AFFECTED : SINUS BRADYCARDIA WITH SINUS ARRHYTHMIA : NONSPECIFIC T WAVE ABNORMALITY : NO PREVIOUS ECGS AVAILABLE : Confirmed by Eleazar Taylor ([id number]) on 09/28/2020 7:55:22 AM Performing Organization Address City/State/[facility] one Number [facility] EKG * Troponin T (09/27/2020 11:46 AM EST) Troponin T 0.03 (H) <0.01 ng/mL [facility] Clin Pathology Specimen Plasma Performing Organization Address City/[facility] Ph one Number [facility] [address], [place] [address] PATHOLOGY [facility] [address] [place], [place] [address] Clin Pathology * anti-Xa unfractionated heparin level (09/27/2020 8:30 AM EST) Heparin 0.25 U/ml [facility] Unfractionated [facility] Clin Pathology Specimen Plasma Performing Organization Address [facility] one Number [facility] [address], [place] [address] [address] Clin Pathology * Protime-INR (09/27/2020 3:55 AM EST) PT Patient 14.7 12.5 - 14.9 s [facility] Clin Pathology Int'l 1.14Comment: Routine intensity TASIA U pstate Normalized oral anticoagulation INR is [facility] Clin Ratio typically 2.0-3.0. Target INR Patholo gy must be clinically individualized. Specimen Plasma Performing Organization Address [facility] one Number [address] [address] Clin Pathology * anti-Xa unfractionated heparin level (09/27/2020 3:55 AM EST) Heparin 1.52 (HH) U/ml [facility] Unfractionated Comment: [facility] Clin Confirmed Pathology Called to and read back by Cristopher James RN ON 10G AT 0545 BY 2050 Specimen Plasma Performing Organization Address [facility] one Number [address] [address] Clin Pathology * Phosphorus Level (09/27/2020 3:55 AM EST) Phosphorus 4.2 2.5 - 4.5 mg/dL [facility] Clin Pathology Specimen Plasma Performing Organization Address [facility] one Number [address] [address] Clin Pathology * CBC (09/27/2020 3:55 AM EST) White Blood 5.6 4 - 10 10*3/uL [facility] Clin Pathology Red Blood Cell 4.27 (L) 4.6 - 6.1 10*6/uL [facility] Clin Pathology Hemoglobin 12.4 (L) 13.5 - 18 g/dL [facility] Clin Pathology Hematocrit 37.3 (L) 41 - 53 % [facility] Clin Pathology Mean Cell 87.3 80 - 96 fL [facility] Volume [facility] Clin Pathology Mean Cell 29.0 27 - 33 pg [facility] Hemoglobin [facility] Clin Pathology Mean Cell Hgb 33.2 32.0 - 36.0 g/dL [facility] Clin Pathology Red Cell Dist 13.4 11.5 - 14.5 % [facility] Width [facility] Clin Pathology Platelet Count 121 (L) 150 - 400 10*3/uL [facility] Clin Pathology Specimen EDTA Whole Blood Performing Organization Address [facility] Ph one Number [facility] [address] [place] [address] [address] [address] Clin Pathology * Magnesium Level (09/27/2020 3:55 AM EST) Magnesium 2.0 1.6 - 2.6 mg/dL [facility] Clin Pathology Specimen Plasma Performing Organization Address [facility] Ph one Number [address] [address] Clin Pathology * IR Arteriogram Pulmonary (09/26/2020 10:01 PM EST) Specimen Impressions Performed At IMPRESSION: Bilateral pulmonary emboli. Successful percutaneous pulmonary artery [facility] thrombectomy. SEDATION: The patient received Versed a nd fentanyl as part of his moderate sedation. He was sedated for approximat jaymie 1.5 hours. Narrative Performed At 1. Pulmonary arteriogram [facility] 2. Percutaneous pulmonary artery thromb ectomy PREPROCEDURE DIAGNOSIS: Acute pulmonary embolism POSTPROCEDURE DIAGNOSIS: Acute pulmonar y embolism HISTORY AND INDICATIONS: This is a 54-y ear-old man who has acute bilateral pulmonary emboli. He has significant pu lmonary compromise and evidence of right heart strain on echocardiogram and CT s can. He now presents for a pulmonary arteriogram and possible pulmonary ronald ry thrombectomy. The risks, benefits, and complications of the procedure were exp lained to the patient. He expressed understanding and agreed to proceed. PROCEDURE: The patient's right groin wa s prepped and draped in usual sterile fashion. A micropuncture needle was use d to cannulate the right common femoral vein under ultrasound guidance. This wa s exchanged over a wire for an 8 Stateless sheath. An inferior venacavogram was th en performed. The 7 Stateless [place] catheter was then used to selectively c annulate the main pulmonary artery. Pulmonary artery pressures were also me asured. The 8 Stateless sheath was then exchanged over wire for a 24 Stateless coa xial sheath. This was placed in the superior part of the inferior vena cava . The wire was then advanced into the right lower pulmonary artery. The flowt reiver 24 thrombectomy catheter was then advanced over the wire. A percutaneous thrombectomy of the right main pulmonary artery was then performed. The catheter was then redirected into the right middle and upper pulmonary artery. A pe rcutaneous thrombectomy of the right middle and upper pulmonary arteries was then performed. The wire was then redirected to the left main pulmonary a rtery. A percutaneous thrombectomy of the left upper and lower pulmonary arteries was then performed. A completion pulmonary arteriogram was then performe d which was satisfactory. The pulmonary artery pressures were then recheck. FINDINGS: The initial pulmonary artery pressure was 43 mmHg. The final pulmonary artery pressure was 38 mmHg. A small am ount of clot was retrieved from the right pulmonary mechanical thrombectomy. The completion pulmonary arteriogram did not show any obvious filling defects. Procedure Note Interface, Received Via [employer] System - 09/26/2020 10:10 PM EST 1. Pulmonary arteriogram 2. Percutaneous pulmonary artery thrombe ctomy PREPROCEDURE DIAGNOSIS: Acute pulmonary embolism POSTPROCEDURE DIAGNOSIS: Acute pulmonary embolism HISTORY AND INDICATIONS: This is a 54-year-old man who has acute bilateral pulmonary emboli. He has significant pulmonary compromise and evidence of right heart strain on echocardiogram and CT scan. He now presents for a pulmonary arteriogram and possible pulmonary artery thrombectomy. The risks, benefits, and complications of the procedure were explained to the patient. He expressed understanding and agreed to proceed. PROCEDURE: The patient's right groin was prepped and draped in usual sterile fashion. A micropuncture needle was used to cannulate the right common femoral vein under ultrasound guidance. This was exchanged over a wire for an 8 Stateless sheath. An inferior venacavogram was then performed. The 7 Stateless [place] catheter was then used to selectively cannulate the main pulmonary artery. Pulmonary artery pressures were also measured. The 8 Stateless sheath was then exchanged over wire for a 24 Stateless coaxial sheath. This was placed in the superior part of the inferior vena cava. The wire was then advanced into the right lower pulmonary artery. The flowtreiver 24 thrombectomy catheter was then advanced over the wire. A percutaneous thrombectomy of the right main pulmonary artery was then performed. The catheter was then redirected into the right middle and upper pulmonary artery. A percutaneous thrombectomy of the right middle and upper pulmonary arteries was then performed. The wire was then redirected to the left main pulmonary artery. A percutaneous thrombectomy of the left upper and lower pulmonary arteries was then performed. A completion pulmonary arteriogram was then performed which was satisfactory. The pulmonary artery pressures were then recheck. FINDINGS: The initial pulmonary artery pressure was 43 mmHg. The final pulmonary artery pressure was 38 mmHg. A small amount of clot was retrieved from the right pulmonary mechanical thrombectomy. The completion pulmonary arteriogram did not show any obvious filling defects. IMPRESSION: Bilateral pulmonary emboli. Successful percutaneous pulmonary artery thrombectomy. SEDATION: The patient received Versed and fentanyl as part of his moderate sedation. He was sedated for approximately 1.5 hours. Performing Organization Address [facility] Ph one Number [facility] [address] [place] [address] * POCT i-STAT ACT (09/26/2020 9:54 PM EST) i-Stat ACT 208 [facility] POC Specimen Whole Blood Performing Organization Address [facility] Ph one Number POINT OF CARE TEST [address] [place], [place] [id number] [place] [address] POC [address] [place] [address] * POCT i-STAT ACT (09/26/2020 8:37 PM EST) i-Stat ACT 136 [facility] POC Specimen Whole Blood Performing Organization Address [facility] Ph one Number POINT OF CARE TEST [address] [place] [address] [facility] POC [address] [place] [address] * Type and Screen (09/26/2020 7:57 PM EST) ABO/RH(D) A POS [facility] Clin Pathology Gel Antibody NEG [facility] Screen [facility] Pathology Site Performed at [facility] Clin Pathology Specimen EDTA Whole Blood Performing Organization Address [facility] Ph one Number [facility] [address] [place], [place] [address] [address] Clin Pathology * Protime-INR (09/26/2020 7:05 PM EST) PT Patient 13.6 12.5 - 14.9 s [facility] Pathology Int'l 1.03Comment: Routine intensity TASIA U pstate Normalized oral anticoagulation INR is Med Univ Clin Ratio typically 2.0-3.0. Target INR Patholo gy must be clinically individualized. Specimen Plasma Performing Organization Address [facility] Ph one Number [facility] [address] [place], [place] [address] [address] Clin Pathology * CBC (09/26/2020 7:05 PM EST) White Blood 5.3 4 - 10 10*3/uL [facility] Clin Pathology Red Blood Cell 4.68 4.6 - 6.1 10*6/uL [facility] Clin Pathology Hemoglobin 14.1 13.5 - 18 g/dL [facility] Pathology Hematocrit 40.4 (L) 41 - 53 % [facility] Clin Pathology Mean Cell 86.2 80 - 96 fL [facility] Volume [facility] Clin Pathology Mean Cell 30.1 27 - 33 pg [facility] Hemoglobin [facility] Clin Pathology Mean Cell Hgb 34.9 32.0 - 36.0 g/dL [facility] Clin Pathology Red Cell Dist 13.6 11.5 - 14.5 % [facility] Width [facility] Clin Pathology Platelet Count 118 (L) 150 - 400 10*3/uL [facility] Pathology Specimen EDTA Whole Blood Performing Organization Address [facility] Ph one Number [facility] [address] [place], [place] [address] PATHOLOGY [facility] [address] [place], [place] [address] Clin Pathology * anti-Xa unfractionated heparin level (09/26/2020 7:05 PM EST) Heparin 0.39 U/ml [facility] Unfractionated [facility] Clin Pathology Specimen Plasma Performing Organization Address [facility] Ph one Number [facility] [address] [place], [place] [address] PATHOLOGY [facility] [address] [place], [place] [address] Clin Pathology * Respiratory Pathogen Panel (09/26/2020 7:03 PM EST) Special Request None [facility] Pathology Respiratory PCR PCR Results [facility] Clin Pathology Culture/Results See Labs Tab for 2019 nCoV [facility] te RT-PCR results [facility] Pathology Adenovirus Not Detected [facility] Clin Pathology Coronavirus Not Detected [facility] [address] [facility] Clin Pathology Coronavirus Not Detected [facility] HKU1 [facility] Pathology Coronavirus Not Detected [facility] NL63 [facility] Pathology Coronavirus Not Detected [facility] OC43 [facility] Clin Pathology Human Not Detected [facility] Metapneumovirus [facility] Pathology Rhinovirus/ Not Detected [facility] Enterovirus [facility] Pathology Influenza A Not Detected [facility] Pathology Influenza B Not Detected [facility] Pathology Parainfluenza Not Detected [facility] virus 1 [facility] Pathology Parainfluenza Not Detected [facility] virus 2 [facility] Pathology Parainfluenza Not Detected [facility] virus 3 [facility] Pathology Parainfluenza Not Detected [facility] virus 4 [facility] Pathology RSV Not Detected [facility] Pathology Bordetella Not Detected [facility] pertussis [facility] Pathology Chlamydia Not Detected [facility] pneumoniae [facility] Pathology Mycoplasma Not Detected [facility] pneumoniae [facility] Clin Pathology Bordetella Not Detected [facility] parapertussis [facility] Pathology Specimen Nasopharyngeal Swab Performing Organization Address [facility] Ph [facility] Number [facility] [address] [place], [place] [address] PATHOLOGY [facility] [address] [place], [place] [address] Clin Pathology * COVID-19 PCR (09/26/2020 7:03 PM EST) Specimen Nasopharyngeal Swab [facility] Description CLINICAL PATHOLOGY SARS CoV-2 2019 nCoV Real-Time RT-PCR: 2019 nCoV Real-G[facility] NOT DETECTED RT-PCR: NOT DETECTED [facility] Clin Pathology Assay performed Test performed using Smart [employer] Respiratory Panel. This test [facility] is only for use under Food and Pathology Drug Administration's Emergency Use Authorization. Additional information is available on the following FDA websites for healthcare providers and patients. https://www.fda.gov/media/2362 20/download, https://www.fda.gov/media/8225 21/download First COVID-19 UNKNOWN [facility] Test? CLINICAL PATHOLOGY Employed in [facility] CLINICAL setting? PATHOLOGY Symptomatic for NO [facility] COVID-19 as CLINICAL defined by CDC? PATHOLOGY Date of symptom UNKNOWN [facility] onset? CLINICAL ([id number]) PATHOLOGY Hospitalized UNKNOWN [facility] for COVID-19? CLINICAL PATHOLOGY Admitted to ICU UNKNOWN [facility] for COVID-19? CLINICAL PATHOLOGY Resident in a [facility] CLINICAL (group) care PATHOLOGY setting? ? UNKNOWN [facility] CLINICAL PATHOLOGY Specimen Nasopharyngeal Swab Performing Organization Address [facility] Ph one Number [facility] [address] [place], [place] [address] PATHOLOGY [facility] [address] [place], [place] [address] Clin Pathology documented in this encounter Visit Diagnoses Diagnosis Clot Embolism and thrombosis of unspecified site Bilateral pulmonary embolism Other pulmonary embolism and infarction PE (pulmonary thromboembolism) Chronic pulmonary embolism documented in this encounter Administered Medications Action Date Dose Rate Site Medication Order MAR Action 09/27/2020 8:41 PM EST 100 mg docusate sodium (COLACE) capsule 100 mg Given 100 mg, Oral, 2 Times Daily, First dose on 09/27/20 at 0900, For 30 days 09/28/2020 9:19 AM EST 50 mg losartan (COZAAR) tablet 50 mg Given 50 mg, Oral, Daily Standard, First dos e on 09/28/20 at 0900, For 30 days, Check vital signs before administering, ondansetron (ZOFRAN) injection 4 mg 4 mg, Intravenous, Every 8 hours PRN, Nausea, Vomiting, Starting 09/26/20 at 2306, For 7 days, Administer if unable to tolerate PO., ondansetron (ZOFRAN) tablet 4 mg 4 mg, Oral, Every 8 hours PRN, Nausea , Vomiting, Starting 09/26/20 at 2306, For 7 days, Administer if able to tolerate PO., 09/28/2020 9:19 AM EST 15 mg rivaroxaban (XARELTO) tablet 15 mg Given 15 mg, Oral, 2 Times Daily, First dose on 09/27/20 at 1030, For 21 days 15 mg Given 09/27/2020 8:41 PM EST 15 mg Given 09/27/2020 11:36 AM EST rivaroxaban (XARELTO) tablet 20 mg 20 mg, Oral, Daily with Dinner, First dose on 10/18/20 at 1800, For 30 days senna (SENOKOT) syrup 10 mL 10 mL, Oral, Nightly PRN, Constipation , Starting 09/26/20 at 2305, For 30 days, Use NG tube nightly as needed if no BM on the third day., senna tablet 2 tablet 2 tablet, Oral, Nightly PRN, Constipation, Starting 09/26/20 at 2305, For 30 days Action Date Dose Rate Site Medication Order MAR Action 09/27/2020 2:00 AM EST 1,800 Units/hr 36 mL/hr heparin in NaCl 0.45 % HIGH DOSE WITH Rate/Dose BOLUS infusion 50 units/mL Verify 700-3,000 Units/hr (14-60 mL/hr), Intravenous, at 14-60 mL/hr, Continuous , Starting 09/26/20 at 1900, For 30 days, MUST Maintain current rate from Outside Facility. Adult Transfer to [facility] h Dose With Bolus Heparin Protocol., Patient Weight for Order: 107, High Dos e Initial Dose (units/kg/hr): 15, High Dose Maximum Initial Dose (units/hr): 1800, High Dose Initial Bolus Dose (units/kg): 60, High Dose Maximum Bolus Dose (units): 83569, High Dose Anti-Xa <0.20 Maintenance Dose Adjustment (units/hr): 250, High Dose Anti-Xa <0.2 0 Bolus Dose (units/kg): 25, High Dose Anti-Xa <0.20 Additional Instructions: 25 units/kg bolus (Comment: then increase by 5 mL/hr (250 units/hr)), High Dose Anti-Xa <0.20 Instructions (cont.): Next anti-Xa unfractionated heparin level 6 hrs after dose adjustment, High Dose Anti-Xa 0.20-0.29 Maintenance Dose Adjustment (units/hr): 150, High Dose Anti-Xa 0.20-0.29 Bolus Dose (units/kg): 0, High Dose Anti-Xa 0.20-0.29 Additional Instructions: Increase by 3 mL/hr (150 units/hr), Hig h Dose Anti-Xa 0.20-0.29 Instructions (cont.): Next anti-Xa unfractionated heparin level 6 hrs after dose adjustment, High Dose Anti-Xa 0.3-0.7 Maintenance Dose Adjustment (units/hr): 0, High Dose Anti-Xa 0.3-0.7 Bolus Dose (units/kg): 0, High Dose Anti-Xa 0.3-0. 7 Additional Instructions: Next anti-Xa unfractionated heparin level 6 hrs afte r dose adjustment for 2 measurements, Hig h Dose Anti-Xa 0.3-0.7 Instructions (cont.): then monitor every morning if still in target range, High Dose Anti-X a 0.71-0.80 Maintenance Dose Adjustment (units/hr): -100, High Dose Anti-Xa 0.71-0.80 Bolus Dose (units/kg): 0, Hig h Dose Anti-Xa 0.71-0.80 Additional Instructions: Decrease by 2 mL/hr (100 units/hr), High Dose Anti-Xa 0.71-0.80 Instructions (cont.): Next anti-Xa unfractionated heparin level 6 hrs afte r dose adjustment, High Dose Anti-Xa 0.81-0.99 Maintenance Dose Adjustment (units/hr): -150, High Dose Anti-Xa 0.81-0.99 Bolus Dose (units/kg): 0, Hig h Dose Anti-Xa 0.81-0.99 Additional Instructions: Decrease by 3 mL/hr (150 units/hr), High Dose Anti-Xa 0.81-0.99 Instructions (cont.): Next anti-Xa unfractionated heparin level 6 hrs afte r dose adjustment, High Dose Anti-Xa 1.0-1.40 Maintenance Dose Adjustment (units/hr): -200, High Dose Anti-Xa 1.0-1.40 Bolus Dose (units/kg): 0, High Dose Anti-Xa 1.0-1.40 Additional Instructions: Stop infusion for 1 hour (Comment: then decrease by 4 mL/hr (200 units/hr)), High Dose Anti-Xa 1.0-1.40 Instructions (cont.): Next anti-Xa unfractionated heparin level 6 hrs afte r dose adjustment, High Dose Anti-Xa >1.4 0 Maintenance Dose Adjustment (units/hr): -300, High Dose Anti-Xa >1.40 Bolus Dos e (units/kg): 0, High Dose Anti-Xa >1.40 Additional Instructions: Stop infusion for at least 2 hours and notify HO. Obtain Heparin AntiXa level every 2 hours until level is less than 0.70, High Dose Anti-Xa >1.40 Instructions (cont.): Resume infusion after decreasing the dose by 6 mL/hr (300 units/hr) 1,800 Units/hr 36 mL/hr Rate/Dose Verify 09/27/2020 12:00 AM EST 1,800 Units/hr 36 mL/hr Rate/Dose Verify 09/26/2020 10:01 PM EST documented in this encounter Additional Health Concerns Last Indicated Resolved Time Infection Onset Date 09/26/2020 09/26/2020 8:48 PM EST Respiratory Rule-Out 09/26/2020 documented as of this encounter
--- OUTSIDE RECORDS SUMMARY | 2020-09-30 18:39 | CCD ---
Author Author [facility] Organization [facility] Address Unknown Phone Unavailable Care Team Providers [employer] Fabricator Name Role Phone RAQUELDAMIAN Unavailable Unavailable Shalonda PEDROZA MD Unavailable Unavailable [...] Unavailable Unavailable Shalonda PEDROZA MD Unavailable Unavailable Shalnoda PEDROZA MD Unavailable Unavailable Shalonda PEDROZA MD [...] PA Unavailable Unavailable SONAM HUGHES Unavailable Unavailable Shalonda PHIPPS MD Unavailable Unavailable Shalonda PHIPPS MD Unavailable Unavailable Shalonda PHIPPS MD Unavailable Unavailable Shalonda PHIPPS MD Unavailable Unavailable Shalonda PHIPPS MD Unavailable Unavailable Shalonda PHIPPS MD Unavailable Unavailable Shalonda PHIPPS MD Unavailable Unavailable Shalonda PHIPPS MD Unavailable Unavailable Shalonda PHIPPS MD Unavailable Unavailable Shalonda PHIPPS MD Unavailable Unavailable Shalonda PHIPPS MD Unavailable Unavailable Shalonda PHIPPS MD Unavailable Unavailable Shalonda PHIPPS MD Unavailable Unavailable Shalonda PHIPPS MD Unavailable Unavailable Shalonda PHIPPS MD Unavailable Unavailable Shalonda PHIPPS MD Unavailable Unavailable Shalonda PHIPPS MD Unavailable Unavailable Shalonda PHIPPS MD Unavailable Unavailable Shalonda PHIPPS MD Unavailable Unavailable Shalonda PHIPPS MD Unavailable Unavailable Shalonda PHIPPS MD Unavailable Unavailable Shalonda PHIPPS MD Unavailable Unavailable Shalonda PHIPPS MD Unavailable Unavailable Shalonda PHIPPS MD Unavailable Unavailable Shalonda PHIPPS MD Unavailable Unavailable Shalonda PHIPPS MD Unavailable Unavailable Shalonda PHIPPS MD Unavailable Unavailable Shalonda PHIPPS MD Unavailable Unavailable Shalonda PHIPPS MD Unavailable Unavailable Shalonda PHIPPS MD Unavailable Unavailable Shalonda PHIPPS MD Unavailable Unavailable Shalonda PHIPPS MD Unavailable Unavailable Shalonda PHIPPS MD Unavailable Unavailable Shalonda PHIPPS MD Unavailable Unavailable Shalonda PHIPPS MD Unavailable Unavailable Shalonda PHIPPS MD Unavailable Unavailable Shalonda PHIPPS MD Unavailable Unavailable Shalonda PHIPPS MD Unavailable Unavailable Shalonda PHIPPS MD Unavailable Unavailable Shalonda PHIPPS MD Unavailable Unavailable Shalonda PHIPPS MD Unavailable Unavailable Shalonda PHIPPS MD Unavailable Unavailable Shalonda PHIPPS MD Unavailable Unavailable Shalonda PHIPPS MD Unavailable Unavailable Shalonda PHIPPS MD Unavailable Unavailable Shalonda PHIPPS MD Unavailable Unavailable Shalonda PHIPPS MD Unavailable Unavailable Shalonda PHIPPS MD Unavailable Unavailable Shalonda PHIPPS MD Unavailable Unavailable Shalonda PHIPPS MD Unavailable Unavailable Shalonda PHIPPS MD Unavailable Unavailable Shalonda PHIPPS MD Unavailable Unavailable Shalonda PHIPPS MD Unavailable Unavailable Shalonda PHIPPS MD Unavailable Unavailable Shalonda PHIPPS MD Unavailable Unavailable Shalonda PHIPPS MD Unavailable Unavailable Shalonda PHIPPS MD Unavailable Unavailable Shalonda PHIPPS MD Unavailable Unavailable Shalonda PHIPPS MD Unavailable Unavailable Shalonda PHIPPS MD Unavailable Unavailable Shalonda PHIPPS MD Unavailable Unavailable Shalonda PHIPPS MD Unavailable Unavailable Shalonda PHIPPS MD Unavailable Unavailable Shalonda PHIPPS MD Unavailable Unavailable Shalonda PHIPPS MD Unavailable Unavailable Shalonda PHIPPS MD Unavailable Unavailable Meng CONRAD MD Unavailable [...] Unavailable Unavailable Meng CONRAD MD Unavailable Unavailable MELISSA, L EVITA MD Unavailable Unavailable MELISSA, L EVITA MD Unavailable Unavailable MELISSA, L EVITA MD Unavailable Unavailable MELISSA, L EVITA MD Unavailable Unavailable MELISSA, L EVITA MD Unavailable Unavailable MELISSA, L EVITA MD Unavailable Unavailable MELISSA, L EVITA MD Unavailable Unavailable MELISSA, L EVITA MD Unavailable Unavailable MELISSA, L EVITA MD Unavailable Unavailable MELISSA, L EVITA MD Unavailable Unavailable SYSTEM IN, NOT IN PROVIDER Unavailable Unavailable Re-disclosure Warning The records that [...] is protected by Article 27-F of the [facility] Public Health law. If you continue you may have access to information: Regarding HIV / AIDS; Provided by facilities licensed or operated by the [facility] Office of Mental Health; or Provided by the [facility] Office for People With Developmental Disabilities. If such information is present, then the following [facility] mandated warning applies: This information has been [...] law may result in a fine or care home sentence or both. A general authorization for the release of medical or other information is NOT sufficient authorization for further disc losure. Allergies and Adverse Reactions Type Description Substance Reaction Status Data Source(s ) DRUG INGREDI BUPROPION BUPROPION Rash [facility] Drug Class SULFA ANTIBIOTICS SULFA ANTIBIOTICS Hives [facility] Family History Family Member Name Family Member Gender Family Member Status Date o f Status Description Data Source(s) Unknown Male Problem [facility] ([facility]) Unknown Unknown Problem MED[facility] ([facility]) Unknown Unknown Problem [facility] ([facility]) Unknown Unknown Problem [facility]ENT ([facility] Encounters Encounter Providers Location Date Indications Data Source(s ) Inpatient Attender: RACHEL Roberson DAdmitter: RACHEL PHIPPS MDReferrer: PROVIDER SYSTEM IN 09/26/2020 05:48:00 PM EST - 09/28/2020 02:37:00 PM EST Acute embolism and thrombosis of unspecified vein [facility] Acute embolism and thrombosis of unspeci fied vein Patient discharged. Emergency Attender: EVITA CONRAD MDConsultant: EMILIO MANDUJANO NOWN 09/24/2020 07:05:00 PM EST - 09/24/2020 11:01:00 PM EST [facility] Patient discharged. Outpatient Attender: SONAM Ramsayultant: EMILIO UNKNOWN 09/24/2020 03:58:00 PM EST - 09/24/2020 04:58:00 PM EST [facility] [place] [address] [facility] [address] 09/04/2020 12:00:00 AM EST [facility] [place] [address] [facility] [address] 09/04/2020 12:00:00 AM EST [facility] [place] [address] [facility] [place] [address] 09/02/2020 12:00:00 AM EST eCW1 ([facility]) [place] [address] [facility] [address] 08/28/2020 12:00:00 AM EST eCW1 ([facility]) [place] [address] [facility] [address] 08/11/2020 12:00:00 AM EST eCW1 ([facility]) [place]patient [address] [facility] [address] 08/11/2020 12:00:00 AM EST eCW1 ([facility]placed by [facility]) [place] [address] [facility] [address] 07/24/2020 12:00:00 AM EST eCW1 (Replaced by [facility]) [place] [address] [facility] [address] 07/24/2020 12:00:00 AM EST eCW1 (Replaced by [facility]) [place] [address] [facility] [address] 07/20/2020 12:00:00 AM EST eCW1 (Replaced by [facility]) Unknown [address] [facility] [place] [address] 07/20/2020 12:00:00 AM EST eCW1 (Replaced by [facility]) Unknown [address] [facility] [address] 07/13/2020 12:00:00 AM EST eCW1 (Replaced by [facility]) Unknown [address] [facility] [address] 07/06/2020 12:00:00 AM EST eCW1 (Replaced by [facility]) Outpatient Attender: DAMIAN ARANDAAttender: SHAW PEDROZA MD 07/01/2020 10:56:00 AM EST - 07/01/2020 11:56:00 AM EST [facility] Outpatient Attender: DEWAYNE GARCÍA Physical Therapy 06/30/2020 1 2:30:00 PM EST [facility]ENT ([facility]) [place] [address] [facility] [address] 06/30/2020 12:00:00 AM EST eCW1 (Replaced by [facility]) Outpatient [address] [facility] [place] [address] 06/11/2020 12:00:00 AM EDT eCW1 (Replaced by [facility]) Medications Medication Brand Name Start Date Product Form Dose Route Admi nistrative Instructions Pharmacy Instructions Status Indications Reaction Description Data Source(s) rivaroxaban 20 MG Oral Tablet Rivaroxaban 20 MG Oral T ablet (XARELTO) Rivaroxaban 20 MG Oral Tablet (XARELTO) 10/18/2020 12:00:00 AM EST 20 mg Oral aborted Take 1 tablet by mouth jocelin urrutia with dinner [facility] Losartan Potassium 50 MG Oral Tablet [place] Potassium 50 MG Oral Tablet (COZAAR) Losartan Potassium 50 MG Oral Tablet (COZAAR) 09/29/19 12:00:00 AM EST 50 mg Oral active Take 1 tablet by mouth daily [facility] Losartan Potassium 50 MG Oral Tablet [place] Potassium 50 MG Oral Tablet (COZAAR) Losartan Potassium 50 MG Oral Tablet (COZAAR) 09/29/19 12:00:00 AM EST 50 mg Oral aborted Take 1 tablet by mouth daily [facility] Losartan Potassium 50 MG Oral Tablet losartan (COZAAR) tablet 50 mg losartan (COZAAR) tablet 50 mg 09/28/2020 09:00:00 AM EST 50 mg Oral active 50 mg, Oral, Daily Standard, First dose on Mon09/28/20 at 0900, For 30 days
Check vital signs before administering
[facility] Medication administered onsite Docusate Sodium 100 MG Oral Capsule Docu sate Sodium 100 MG Oral Capsule (COLACE) Docusate Sodium 100 MG Oral Capsule (COLACE) 09/28/2020 12:00:00 AM EST 100 mg Oral active Take 1 capsule by mouth Two Times Daily for 10 days [facility] rivaroxaban 15 MG Oral Tablet Rivaroxaban 15 MG Oral T ablet (XARELTO) Rivaroxaban 15 MG Oral Tablet (XARELTO) 09/28/2020 12:00:00 AM EST 15 mg Oral aborted Take 1 tablet by mouth Tw o Times Daily [facility] Acetaminophen 325 MG Oral Tablet Acetaminophen 325 MG Oral T ablet 09/28/2020 12:00:00 AM EST 650 mg Oral active Take 2 tablets by mouth every 4 (four) hours as needed for up to 10 days [facility] Xarelto Starter Pack 15 & 20 MG Oral Tablet [facility] (Rivaroxaban) 11435-493-45 09/28/2020 12:00:00 AM EST Oral activ e Take 15 mg by mouth Two Times Daily for 21 days, THEN 20 mg every evening for 7 days.. [facility] rivaroxaban (XARELTO) tablet 15 mg 09/27/2020 10:30:00 AM EST 15 mg Oral active [Order 1 Start] Name: rivaroxaban (XARELTO) tablet 15 mg Signed Summary: 15 mg, Oral, 2 Times Daily, First dose on 09/27/20 at 1030, For 21 days [Order 1 End] [Order 2 Start] Name: rivaroxaban (XARELTO) tablet 20 mg Signed Summary: 20 mg, Oral, Daily with Dinner, First dose on 10/18/20 at 1800, For 30 days [Order 2 End] [facility] Medication administered onsite Docusate Sodium 100 MG Oral Capsule docusate sodium (C OLACE) capsule 100 mg docusate sodium (COLACE) capsule 100 mg 09/27/2020 09:00:00 AM EST 100 mg Oral active 100 mg, Oral, 2 Times Daily, First dose on 09/27/20 at 0900, For 30 days [facility] Medication administered onsite Xarelto Starter Pack 15 & 20 MG Oral Tablet [facility] (Rivaroxaban) 16090-528-23 09/27/2020 12:00:00 AM EST Oral abort ed Take 15 mg by mouth Two Times Daily for 21 days, THEN 20 mg every evening for 7 days.. [facility] ondansetron (ZOFRAN) injection 4 mg 09/26/2020 11:06:35 PM EST 4 mg Intravenous active [Order 1 Star t] Name: ondansetron (ZOFRAN) injection 4 mg Signed Summary: 4 mg, Intravenous, Every 8 hours PRN, Nausea, Vomiting, Starting 09/26/20 at 2306, For 7 days
Administer if unable to tolerate PO.
[Order 1 End] [Order 2 Start] Name: ondansetron (ZOFRAN) tablet 4 mg Signed Summary: 4 mg, Oral, Every 8 hours PRN, Nausea, Vomiting, Starting 09/26/20 at 2306, For 7 days
Administer if able to tolerate PO.
[Order 2 End] [facility] Medication administered onsite Acetaminophen 325 MG Oral Tablet acetaminophen (TYLENO L) tablet 650 mg acetaminophen (TYLENOL) tablet 650 mg 09/26/2020 11:06:34 PM EST 65 0 mg Oral active 650 mg, Oral, E very 4 hours PRN, Mild Pain (Pain Scale Score 1- 3), Starting 09/26/20 at 2306, For 30 days
Maximum daily dose of acetaminophen is 3,000 mg from all sources in 24 hours.
[facility] Medication administered onsite senna tablet 2 tablet 09/26/2020 11:05:33 PM EST 2 {tbl} Oral active [Order 1 Start] Name: senna tablet 2 tab let Signed Summary: 2 tablet, Oral, Nightly PRN, Constipation, Starting 09/26/20 at 2305, For 30 days [Order 1 End] [Order 2 Start] Name: senna (SENOKOT) syrup 10 mL Signed Summary: 10 mL, Oral, Nightly PRN, Constipation, Starting 09/26/20 at 2305, For 30 days
Use NG tube nightly as needed if no BM on the third day.
[Order 2 End] [facility] Medication administered onsite Bisacodyl 10 MG Rectal Suppository bisacodyl (DULCOLAX ) suppository 10 mg bisacodyl (DULCOLAX) suppository 10 mg 09/26/2020 11:05:32 PM EST 10 mg Rectal active 10 mg, Rectal, Every 72 hours PRN, Constipation, Starting 09/26/20 at 2305, For 30 days
Hold if patient has had BM within the past 2 days.
[facility] Medication administered onsite Medrol 4 MG Medrol 4 MG 09/04/2020 12:00:00 AM EST active Medrol 4 MG [facility] Hydroxychloroquine Sulfate 200 MG Oral Tablet [Plaquen il] Plaquenil 200 MG Plaquenil 200 MG 09/04/2020 12:00:00 AM EST a ctive Plaquenil 200 MG eCW1 ([facility]) Medrol 4 MG Medrol 4 MG 09/04/2020 12:00:00 AM EST active Medrol 4 MG eCW1 ([facility]) Hydroxychloroquine Sulfate 200 MG Oral Tablet [Plaquen il] Plaquenil 200 MG Plaquenil 200 MG 09/04/2020 12:00:00 AM EST a ctive Plaquenil 200 MG eCW1 ([facility]) Medrol 4 MG Medrol 4 MG 09/04/2020 12:00:00 AM EST active Medrol 4 MG eCW1 ([facility]) Medrol 4 MG Medrol 4 MG 09/04/2020 12:00:00 AM EST active Medrol 4 MG eCW1 ([facility]) Hydroxychloroquine Sulfate 200 MG Oral Tablet [Plaquen il] Plaquenil 200 MG Plaquenil 200 MG 09/04/2020 12:00:00 AM EST a ctive Plaquenil 200 MG eCW1 ([facility]) Hydroxychloroquine Sulfate 200 MG Oral Tablet [Plaquen il] Plaquenil 200 MG Plaquenil 200 MG 09/04/2020 12:00:00 AM EST a ctive Plaquenil 200 MG eCW1 ([facility]) Medrol 4 MG Medrol 4 MG 07/24/2020 12:00:00 AM EST suspended Medrol 4 MG eCW1 ([facility]) Medrol 4 MG Medrol 4 MG 07/24/2020 12:00:00 AM EST suspended Medrol 4 MG eCW1 ([facility]) Medrol 4 MG Medrol 4 MG 07/24/2020 12:00:00 AM EST active Medrol 4 MG eCW1 ([facility]) Medrol 4 MG Medrol 4 MG 07/24/2020 12:00:00 AM EST suspended Medrol 4 MG eCW1 ([facility]) Medrol 4 MG Medrol 4 MG 07/24/2020 12:00:00 AM EST suspended Medrol 4 MG eCW1 ([facility]) Medrol 4 MG Medrol 4 MG 07/24/2020 12:00:00 AM EST active Medrol 4 MG eCW1 ([facility]) Medrol 4 MG Medrol 4 MG 07/24/2020 12:00:00 AM EST suspended Medrol 4 MG eCW1 ([facility]) Medrol 4 MG Medrol 4 MG 07/24/2020 12:00:00 AM EST active Medrol 4 MG eCW1 ([facility]) Medrol 4 MG Medrol 4 MG 07/24/2020 12:00:00 AM EST suspended Medrol 4 MG eCW1 ([facility]) meloxicam 15 MG Oral Tablet Meloxicam 15 MG Meloxicam 15 MG 07/06/2020 12:00:00 AM EST 1.0 {tablet} active Meloxicam 1 5 MG eCW1 ([facility]) meloxicam 15 MG Oral Tablet Meloxicam 15 MG Meloxicam 15 MG 07/06/2020 12:00:00 AM EST 1.0 {tablet} active Meloxicam 1 5 MG eCW1 ([facility]) sildenafil 100 MG Oral Tablet [Viagra] Viagra 100 MG Viagra 100 MG 06/11/2020 12:00:00 AM EDT 1.0 {tablet_as_needed} active Viagra 100 MG eCW1 ([facility]) sildenafil 100 MG Oral Tablet [Viagra] Viagra 100 MG Viagra 100 MG 06/11/2020 12:00:00 AM EDT 1.0 {tablet_as_needed} active Viagra 100 MG eCW1 ([facility]) sildenafil 100 MG Oral Tablet [Viagra] Viagra 100 MG Viagra 100 MG 06/11/2020 12:00:00 AM EDT 1.0 {tablet_as_needed} active Viagra 100 MG eCW1 ([facility]) sildenafil 100 MG Oral Tablet [Viagra] Viagra 100 MG Viagra 100 MG 06/11/2020 12:00:00 AM EDT 1.0 {tablet_as_needed} active Viagra 100 MG eCW1 ([facility]) sildenafil 100 MG Oral Tablet [Viagra] Viagra 100 MG Viagra 100 MG 06/11/2020 12:00:00 AM EDT 1.0 {tablet_as_needed} active Viagra 100 MG eCW1 ([facility]) sildenafil 100 MG Oral Tablet [Viagra] Viagra 100 MG Viagra 100 MG 06/11/2020 12:00:00 AM EDT 1.0 {tablet_as_needed} active Viagra 100 MG eCW1 ([facility]) sildenafil 100 MG Oral Tablet [Viagra] Viagra 100 MG Viagra 100 MG 06/11/2020 12:00:00 AM EDT 1.0 {tablet_as_needed} active Viagra 100 MG eCW1 ([facility]) sildenafil 100 MG Oral Tablet [Viagra] Viagra 100 MG Viagra 100 MG 06/11/2020 12:00:00 AM EDT 1.0 {tablet_as_needed} active Viagra 100 MG eCW1 ([facility]) sildenafil 100 MG Oral Tablet [Viagra] Viagra 100 MG Viagra 100 MG 06/11/2020 12:00:00 AM EDT 1.0 {tablet_as_needed} active Viagra 100 MG eCW1 ([facility]) sildenafil 100 MG Oral Tablet [Viagra] Viagra 100 MG Viagra 100 MG 06/11/2020 12:00:00 AM EDT 1.0 {tablet_as_needed} active Viagra 100 MG eCW1 ([facility]) sildenafil 100 MG Oral Tablet [Viagra] Viagra 100 MG Viagra 100 MG 06/11/2020 12:00:00 AM EDT 1.0 {tablet_as_needed} active Viagra 100 MG eCW1 ([facility]) sildenafil 100 MG Oral Tablet [Viagra] Viagra 100 MG Viagra 100 MG 06/11/2020 12:00:00 AM EDT 1.0 {tablet_as_needed} active Viagra 100 MG eCW1 ([facility]) sildenafil 100 MG Oral Tablet [Viagra] Viagra 100 MG Viagra 100 MG 06/11/2020 12:00:00 AM EDT 1.0 {tablet_as_needed} active Viagra 100 MG eCW1 ([facility]) sildenafil 100 MG Oral Tablet [Viagra] Viagra 100 MG Viagra 100 MG 06/11/2020 12:00:00 AM EDT 1.0 {tablet_as_needed} active Viagra 100 MG eCW1 [facility]) 0.6 mg 05/18/2020 12:00:00 AM EDT tablet 30 TAKE ONE TABLET BY MOUTH EVERY DAY FOR GOUT PAIN TAKE ONE TABLET BY MOUTH EVERY DAY FOR GOUT PAIN SOLD: 05/18/2020 [facility] doxycycline hyclate 100 MG Oral Capsule DOXYCYCLINE HYCLATE 05/15/2020 12:00:00 AM EDT capsule 20 TAKE ONE CAPSULE BY MOUTH TW ICE A DAY FOR 10 DAYS TAKE ONE CAPSULE BY MOUTH TWICE A DAY FOR 10 DAYS SOLD: 05/15/2020 [facility] 50 mg 05/15/2020 12:00:00 AM EDT capsule 15 TAKE ONE CAPSULE BY MOUTH THREE TIMES A DAY FOR 5 DAYS TAKE ONE CAPSULE BY MOUTH THREE TIMES A DAY FOR 5 DAYS SOLD: 05/15/2020 [facility] Insurance Providers Payer name Policy type / Coverage type Policy ID Covered alliance party ID Covered alliance party's relationship to guy Policy Guy Plan Information [facility] [id number] SP [id number] [facility] HUMANA - O/P [id number] 18 [id number] U [id number] Self [id number] Self [id number] SELF PAY ONLY [id number] SP [id number] [facility] [id number] SP [id number] [facility] O [id number] S [id number] [facility] [id number] SP [id number] Prime - [employer] (HMO) [id number] Self [id number] [employer] (HMO) [id number] Self [id number] [facility] [id number] Self [id number] [facility] [id number] SP [id number] Region 1 Prime Commercial Self [employer] Commercial Self ACTIVE DUTY [id number] SP [id number] Problems, Conditions, and Diagnoses Code Display Name Description Problem Type Effective Dates Data Source(s) M19.90 [id number] Inflammatory arthritis Problem 08/12/2020 12 :00:00 AM EST [facility] M06.4 [id number] Inflammatory polyarthritis Problem 0 12:00:00 AM EST eCW1 ([facility]) M10.9 [id number] Gouty arthritis of both feet Problem 07/20/2020 12:00:00 AM EST eCW1 [facility]) M72.2 [id number] Plantar fascial fibromatosis Problem 020 12:00:00 AM EST eCW1 ([facility]) I10 [id number] Essential hypertension Problem 07/20/2020 12 :00:00 AM EST eCW1 ([facility]) [id number] Pure hypercholesterolemia Pure hypercholesterolemia Pr oblem 06/30/2020 12:00:00 AM EST [facility] ([facility]) [id number] Essential hypertension Essential hypertension Problem 06/30/2020 12:00:00 AM EST [facility] ([facility]) 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 Problem 06/11/2020 12:00:00 AM EDT eCW1 ([facility]) I82.90 Acute embolism and thrombosis of unspeci fied vein Acute embolism and thrombosis of unspecified vein Diagnosis 09/26/2020 05:48:00 PM EST [facility] saddle PE, LLE DVT saddle PE, LLE DVT Diagnosis 05:48:00 PM [facility] [id number] CONTACT WITH AND SUSPECTED EXPOSURE TO C OVID-19 CONTACT WITH AND SUSPECTED EXPOSURE TO COVID-19 Diagnosis 09/24/2020 07:05:00 PM EST [facility] I10 Essential (primary) hypertension Essential (primary) h ypertension Diagnosis 09/24/2020 07:05:00 PM [facility] I2692 Saddle embolus of pulmonary artery witho ut acute cor pulmonale Saddle embolus of pulmonary artery without acute cor pulmonale Diagnosis 09/24/2020 07:05:00 PM [facility] R0600 Dyspnea, unspecified Dyspnea, unspecified Diagnosis 09/24/2020 07:05:00 PM [facility] [id number] Nicotine dependence, cigarettes, uncompl icated Nicotine dependence, cigarettes, uncomplicated Diagnosis 09/24/2020 03:58:00 PM [facility] I2699 Other pulmonary embolism without acute c or pulmonale Other pulmonary embolism without acute cor pulmonale Diagnosis 09/24/2020 03:58:00 PM [facility] R936 Abnormal findings on diagnostic imaging of limbs Abnormal findings on diagnostic imaging of limbs Diagnosis 07/01/2020 10:56:00 AM [facility] R2232 Localized swelling, mass and lump, left upper limb Localized swelling, mass and lump, left upper limb Diagnosis 07/01/2020 10:56:00 AM [facility] [id number] Pain in left toe(s) Pain in left toe(s) Diagnosis 1 08/31/2019 10:56:00 AM [facility] Surgeries/Procedures Procedure Description Date Indications Data Source(s) BLOOD COUNT COMPLETE AUTO&AUTO DIFRNTL WBC COUNT CBC AND DIFFER ENTIAL Routine 09/28/2020 4:06 AM EST 09/28/2020 04:06:00 AM [facility] PHOSPHORUS INORGANIC PHOSPHORUS LEVEL Routine 09/28/2020 4:[address] 09/28/2020 04:06:00 AM [facility] BASIC METABOLIC PANEL CALCIUM TOTAL BASIC METABOLIC PANEL Routi ne 09/28/2020 4:06 AM EST 09/28/2020 04:06:00 AM [facility] EKG 12-LEAD - CMAXX REPORT EKG 12-LEAD - CMAXX REPORT 09/27/2020 12:26 PM EST 09/27/2020 12:26:07 PM [facility] EKG 12-LEAD - CMAXX REPORT EKG 12-LEAD - CMAXX REPORT 09/27/2020 12:26 PM EST 09/27/2020 12:26:07 PM [facility] EKG 12-LEAD EKG 12-LEAD Routine 09/27/2020 12:26 PM EST 09/27/2020 12:26:07 PM [facility] TROPONIN QUANTITATIVE TROPONIN T Routine 09/27/2020 11:46 AM EST 09/27/2020 11:46:00 AM [facility] HEPARIN ASSAY ANTI-XA UNFRACTIONATED HEPARIN LEVEL Routine 09/27/2020 8:30 AM EST 09/27/2020 08:30:00 AM [facility] HEPARIN ASSAY ANTI-XA UNFRACTIONATED HEPARIN LEVEL Routine 09/27/2020 3:55 AM EST 09/27/2020 03:55:00 AM [facility] PROTHROMBIN TIME PROTIME INR Routine 09/27/2020 3:55 AM EST 09/27/2020 03:55:00 AM [facility] BLOOD COUNT COMPLETE AUTOMATED CBC Routine 09/27/2020 3:55 A M EST 09/27/2020 03:55:00 AM [facility] PHOSPHORUS INORGANIC PHOSPHORUS LEVEL Routine 09/27/2020 3:[address] 09/27/2020 03:55:00 AM [facility] MAGNESIUM MAGNESIUM LEVEL Routine 09/27/2020 3:55 AM EST 09/27/2020 03:55:00 AM [facility] ANGIOGRAPHY PULMONARY BILATERAL SLCTV RS&I IR PULMONARY ARTERIO GRAM Routine 09/26/2020 10:01 PM EST Clot 09/26/2020 10:01:23 PM [facility] COAGULATION TIME ACTIVATED POCT ISTAT ACT Routine 09/26/2020 9:54 PM EST 09/26/2020 09:54:00 PM [facility] COAGULATION TIME ACTIVATED POCT ISTAT ACT Routine 09/26/2020 8:37 PM EST 09/26/2020 08:37:00 PM [facility] PULMONARY ANGIOGRAM WITH LYSIS AND/OR MECHANICAL EMBOL ECTOMY PULMONARY ANGIOGRAM WITH LYSIS AND/OR MECHANICAL EMBOLECTOMY 8:03 PM EST PE 09/26/2020 08:03:00 PM EST - 09/26/2020 10:24:00 PM [facility] BLOOD TYPING ABO TYPE AND SCREEN STAT 09/26/2020 7:57 PM EST 09/26/2020 07:57:00 PM [facility] OPERATIVE AND PROCEDURE NOTE OPERATIVE AND PROCEDURE NOTE 09/26/2020 7:39 PM EST 09/26/2020 07:39:16 PM [facility] HEPARIN ASSAY ANTI-XA UNFRACTIONATED HEPARIN LEVEL Routine 09/26/2020 7:05 PM EST 09/26/2020 07:05:00 PM [facility] PROTHROMBIN TIME PROTIME INR Routine 09/26/2020 7:05 PM EST 09/26/2020 07:05:00 PM [facility] BLOOD COUNT COMPLETE AUTOMATED CBC Timed 09/26/2020 7:05 P M EST 09/26/2020 07:05:00 PM [facility] RESPIRATORY PATHOGEN PANEL RESPIRATORY PATHOGEN PANEL Routine 09/26/2020 7:03 PM EST 09/26/2020 07:03:00 PM [facility] COVID-19 PCR COVID-19 PCR Routine 09/26/2020 7:03 PM EST 09/26/2020 07:03:00 PM [facility] Results ID Date Data Source [id number] 09/28/2020 06:05:11 PM [facility] Name Value Range Interpretation Code Description Data Princess rce(s) Supporting Document(s) Discharge Summary [facility] YBWWSd6mUfGVLaYm96/BPOghCKFxm2ZySUhaNHj2ACrlASKjK3VvRIQ3gK1bSCF8VXrPKbKnZzZsQcW5 lbm [file] Je0eDPXTYb2+DFkhqVFxtCdyKLVOGjDwGCzeRVufPDEQOf3D ID Date Data Source [id number] 09/28/2020 07:55:28 AM [facility] Name Value Range Interpretation Code Description Data Princess e(s) Supporting Document(s) [facility] TQQRVs1pXhCHPtHvb9LpLvDaSJCgUG4xqpo0Q8E9dMSzO8LkkMAtf5viQ7UiJ5IrOUQtEKHWVL5WlQEy jb2 [file] b1+9+93bp+/f3n1+1+I7c392x/dP//T+s4/curb setter helper/8vcr6/0bfTZ6e090/yXt2q1jOxgfrsn+thyQx9di6+ /votkt99+RTx59908AbruSziipjjrb+/+frb37z/7I t/+yTnw95j//Ufj3yOSu45pf1w3Ca+/KLf7lshtPzM/jrkwsoR4R6d//2z9wi8A8d75uOg8/4LH10X7m 7osz//+O9/+Epmdtx4f//xn2/f/eGPf/z+L3/54fs//sPb59//+Icf/vj2r/+t2b/+5mtux0yml6kgx/ 9d3VQPT9q/e/fV3+h+nz+6c+3ypz/14e9GdTmtkO7k +E/fAR+2tPB5/fr/Atw/SA/o/7q5F3dSIj1KEotvo7LPD22S6Znc2bc1qdUHb68p/frt+rz4umwf+4YP P/z7Dy/97Ph78T3u5A++++Lz9x/lgy8ior/ff/KF5q7nRWfj/vR+HRNe0mec+0a2xgCGo7GCu8lLCeMr dihLQy0fOm/+9R/f/vL9X3/4Se6vT+ZbRQ06i/oTX9 JOLazJ/HnuB/zNh7c//PjXH/7yv/+z4hI8YjkVb4+6P+/x+nnuB/vnD9++/dv/etX9D3/+0tfMl4trX9 s+sniwf/74q3/++Hu+vo698Cfmh13W/Ys128iKw2B8KXp2v/7DNtmp47/kLASn/rxWB/vNLz/88uPb9/ /nh//426HzvLdr/fKrdx9+dQy7yR1+V87/+Zd//buf 8V0sm5aw//En79d/gn72/f/6/ff/8Yfvf/wV08mAGt/w48+pf0kNwU/+u6803uGbbf//+U+ftOvq/rNb Tnu//GJfR7bk/Wrtv8wKA/cNH3/4/f/88Q+/c4Wxo0fro66E/+grKeLa2k6Bv0120n070b2p/+cPf/nb Fbp43E7+5quv3n/98dtP+P26P4r//8rin0F2LRFg/c 33/88Pb+3tz//+1qiebTR/5otv7/ltW8Pc250Wc0y1h416eVL4KIwpfm8Q65f2QXRbVyhpef++/v7fff bZN7/9+eYwnXY0F7kw/vb/HvppE16WPT1ax7TwHSIqNfMyEF9bmhggQLJnSW8mqup2V4DyfZxhUGiBHS XvDs8fnFBwZQ5ZPWN1NJaeXJDaDBYhQ3SrqU5iE09w nFErSqWkUUQAGF7HokL8MYO0SER2PPQmPjAbEWGlOI96MKBsQKPARr0nxuNzUlpIEyRqJB6tggi8O9Y9 hOUuJ574yIkyjtZwJD4Ei3YocKIkYP6QxBDmaLLxBZKhFZLkP6eyz4MzETlbXQFREm3uncFsAbmNOjBv SA9khji4O9B1zMbmneWgMIWBFRsrVnnsGL8mqQgyqj lqM5CwhTHkDXMhC1CmHELbx14DFQSnKMgQYzOwItQdOwE0ROy7YZroPdOfZBTvRCLqSHOmJU2SbHWvBT CqLBQAGQiwOhonFGByaG8bsFFGt8PgPlTXYXaONgwnNv5SVPCHJHZ9GOjkGBtbMT1IpOLoUUX9UVpBPA ADOFrFXFzbYeHmw7Q8LVQsU6WgYMTsrlUeCVRPMXpo GtzfAY8yzKwhrenbB1QygMEtRCFCBWUhTIDfFFAkKMNnA6Ehp3V8I5SxZDmBQPDGPPvXACnlTcS2u78a ayBTZXJpZXMpID4+OO6dz0NnDl7TPQYqQI3ydau1ZH0YeGNeMV4HNDebmoJnO3ebivYuFlOsLCVUNP5l J7YbuK05WDT+WwXqMD6ysap5qfHoOaZtABWcNWVnYN YdYMisYHBnWGVvZEYbRYI4EOO2UWWhQlPjZQVaNtX3VzsuRRBfSVJcpsMCWLPnBYT6FsFsAsYpNZAcNQ YiTPcpVSBqEUD8KErvHDZrCMYiFL1pMzVmYRVbECUpTYFwGoU8UdBkIoZFKRDbDYEyAAQkCzMuJVByGO BaVGooVZCkSKPjBJt5GLGoDFPcBP6kFvHcHQEgTHYt XNGwMZThRDSgiwRKIJEhCPDjJTD2ECTwPALlAKKvSUroZLPhJNYcYOM0XHOcBVYoIZ1mHhOmGPKkCMF4 KgDcWDNtAGRlrwHRRXZcWYRaBSZ9PVPfYCGpAFUtGLmbFOHgPTRxYbE9CORaMKDfHB6eTcAeANEqMKR8 IMKjXVDvKOOaqmMLRCNcPMKlUOx7XqZjOFLwQPHrVG wlMBEyQSZaVDxbLVZeOJOhWX2iMyCfTTFqHIDqLIMzYXHhHGOikuJYZUGgRJItJVN6BzIsFNRuJWXuOJ hpNLOqAOQzAVC6MJDkKFAuVI0lBuAoLUKaYpLcYJLgAUEsIIQiwqTLBKRaYIZpHTAuCOOfVKUwTWCmTO olRYXlOYNsDzW7LESlTZKpBD3uWnLaJTYhFAW1BFQi JERyOUAavuNHHANlWILpBSBuREM3PWGwNNNrJMu8glVcdIVeEsq7We0OaHaiOJM0Vj0LsiSnABAkQWLV Bs0Gn459BCNpPNQDKwb+NdxpbNQqjWmzEOEKUmL4ZXPAKODOJ6W= ID Date Data Source [id number] 09/28/2020 05:39:45 AM [facility] Name Value Range Interpretation Code Description Data Princess rce(s) Supporting Document(s) Leukocytes [#/volume] in Blood by Automated count 5.4 10*3/uL 4-10 [facility] Erythrocytes [#/volume] in Blood by Automated count 4.27 10*6/uL 4.6- 6.1 L [facility] Hemoglobin [Mass/volume] in Blood 12.8 g/dL 13.5-18 L [facility] Hematocrit [Volume Fraction] of Blood by Automated count 37.0 % 4 1-53 L [facility] Erythrocyte mean corpuscular volume [Entitic volume] by Auto mated count 86.8 fL 80-96 [facility] Erythrocyte mean corpuscular hemoglobin [Entitic mass] by Automated count 29.9 pg 27-33 [facility] Erythrocyte mean corpuscular hemoglobin concentration [Mass/volume] by Automated count 34.5 g/dL 32.0-[facility] width [Ratio] by Automated count 13.1 % 11.5-14.5 [facility] Platelets [#/volume] in Blood by Automated count 125 10*3/uL 150-400 L [facility] Differential cell count method - Blood [facility] Neutrophils/100 leukocytes in Blood by Automated count 55 % [facility] Lymphocytes/100 leukocytes in Blood by Automated count 30 % [facility] Monocytes/100 leukocytes in Blood by Automated count 9 % [facility] Eosinophils/100 leukocytes in Blood by Automated count 5 % [facility] Basophils/100 leukocytes in Blood by Automated count 1 % [facility] Neutrophils [#/volume] in Blood by Automated count 3.03 10*3/uL 1.8-7 .0 [facility] Lymphocytes [#/volume] in Blood by Automated count 1.61 10*3/uL 1.2-4 .0 [facility] Monocytes [#/volume] in Blood by Automated count 0.49 10*3/uL 0-0.8 [facility] Eosinophils [#/volume] in Blood by Automated count 0.25 10*3/uL 0-0.5 [facility] Basophils [#/volume] in Blood by Automated count 0.03 10*3/uL 0-0.2 [facility] Nucleated erythrocytes/100 leukocytes [Ratio] in Blood by Automated count 0 /100{WBCs} 0-0 [facility] ID Date Data Source [id number] 09/28/2020 06:02:02 AM [facility] Name Value Range Interpretation Code Description Data Princess rce(s) Supporting Document(s) Bicarbonate [Moles/volume] in Serum 21 mmol/L 22-29 L [facility] Chloride [Moles/volume] in Serum or Plasma 104 mmol/L 98-107 [facility] Creatinine [Mass/volume] in Serum or Plasma 0.93 mg/dL 0.70-1.20 [facility] Glucose [Mass/volume] in Serum or Plasma 93 mg/dL 70-140 [facility] Potassium [Moles/volume] in Serum or Plasma 4.2 mmol/L 3.4-5.1 [facility] Hemolyzed Sodium [Moles/volume] in Serum or Plasma 137 mmol/L 136-145 [facility] Urea nitrogen [Mass/volume] in Serum or Plasma 12 mg/dL 6-20 [facility] Anion gap 3 in Serum or Plasma 12 mmol/L 8-15 [facility] Osmolality of Serum or Plasma by calculation 284 mosm/kg 275-300 [facility] Creatinine/Urea nitrogen [Mass Ratio] in Serum or Plasma 13 [facility] Calcium [Mass/volume] in Serum or Plasma 8.8 mg/dL 8.6-10.0 [facility] Glomerular filtration rate/1.73 sq M pre dicted among non-blacks [Volume Rate/Area] in Serum or Plasma by Creatinine-based formula (MDRD) >6 0 [facility] Glomerular filtration rate/1.73 sq M pre dicted among blacks [Volume Rate/Area] in Serum or Plasma by Creatinine-based formula (MDRD) >60 [facility] ID Date Data Source [id number] 09/28/2020 06:02:02 AM [facility] Name Value Range Interpretation Code Description Data Princess rce(s) Supporting Document(s) Phosphate [Mass/volume] in Serum or Plasma 3.8 mg/dL 2.5-4.5 [facility] ID Date Data Source [id number] 09/27/2020 12:25:59 PM [facility] Value Range Interpretation Code Description Data Princess rce(s) Supporting Document(s) Troponin T.cardiac [Mass/volume] in Serum or Plasma 0.03 ng/mL <0.01 H [facility] ID Date Data Source [id number] 09/27/2020 09:10:41 AM [facility] Value Range Interpretation Code Description Data Princess rce(s) Supporting Document(s) Heparin unfractionated [Units/volume] in Platelet poor plasma by Chromogenic method 0.25 U/ml [facility] ID Date Data Source [id number] 09/27/2020 07:55:23 AM [facility] PULMONARY ARTERIOGRAMFINAL RESULTInte rpreted by:Rachel Phipps MD1. Pulmonary arteriogram2. Percutaneous pulmonary artery thrombectomyPREPROCEDURE DIAGNOSIS: Acute pulmonary embolismPOSTPROCEDURE DIAGNOSIS: Acute pulmonary embolismHISTORY AND INDICATIONS: This is a 54-year-old man who has acute bilateral pulmonary emboli. He has significant pulmonary compromise and evidence of right heart strain on echocardiogram and CT scan. He now presents for a pulmonary arteriogram and possible pulmonary artery thrombectomy. The risks, benefits, and complications of the procedure were explained to the patient. He expressed understanding and agreed to proceed.PROCEDURE: The patient's right groin was prepped and draped in usual sterile fashion. A micropuncture needle was used to cannulate the right common femoral vein under ultrasound guidance. This was exchanged over a wire for an 8 Ecuadorean sheath. An inferior venacavogram was then performed. The 7 Ecuadorean [place] catheter was then used to selectively cannulate the main pulmonary artery. Pulmonary artery pressures were also measured. The 8 Ecuadorean sheath was then exchanged over wire for a 24 Ecuadorean coaxial sheath. This was placed in the [...] of the right middle and upper pulmonary ar teries was then performed. The wire was then redirected to the left main pulmonary artery. A percutaneous thrombectomy of the left upper and lower pulmonary arteries was then performed. A completion pulmonary arteriogram was then performed which was satisfactory. The pulmonary artery pressures were then recheck.FINDINGS: The initial pulmonary artery pressure was 43 mmHg. The final pulmonary artery pressure was 38 mmHg. A small amount of clot was retrieved from the right pulmonary mechanical thrombectomy. The completion pulmonary arteriogram did not show any obvious filling defects.IMPRESSION: Bilateral pulmonary emboli. Successful percutaneous pulmonary artery thrombectomy.SEDATION: The patient received Versed and fentanyl as part of his moderate sedation. He was sedated for approximately 1.5 hours.This document has been electronically signed by Rachel Phipps MD on 09/26/2020 10:08 PM Name Value Range Interpretation Code Description Data Princess rce(s) Supporting Document(s) ID Date Data Source [id number] 09/27/2020 05:16:26 AM [facility] Value Range Interpretation Code Description Data Princess rce(s) Supporting Document(s) Leukocytes [#/volume] in Blood by Automated count 5.6 10*3/uL 4-10 [facility] Erythrocytes [#/volume] in Blood by Automated count 4.27 10*6/uL 4.6- 6.1 L [facility] Hemoglobin [Mass/volume] in Blood 12.4 g/dL 13.5-18 L [facility] Hematocrit [Volume Fraction] of Blood by Automated count 37.3 % 4 1-53 L [facility] Erythrocyte mean corpuscular volume [Entitic volume] by Auto mated count 87.3 fL 80-96 [facility] Erythrocyte mean corpuscular hemoglobin [Entitic mass] by Automated count 29.0 pg 27-33 [facility] Erythrocyte mean corpuscular hemoglobin concentration [Mass/volume] by Automated count 33.2 g/dL 32.0-36.0 [facility] Erythrocyte distribution width [Ratio] by Automated count 13.4 % 11.5-14.5 [facility] Platelets [#/volume] in Blood by Automated count 121 10*3/uL 150-400 L [facility] ID Date Data Source [id number] 09/27/2020 05:31:31 AM [facility] Name Value Range Interpretation Code Description Data Princess rce(s) Supporting Document(s) Prothrombin time (PT) 14.7 s 12.5-14.9 [facility] INR in Platelet poor plasma by Coagulation assay 1.14 [facility] Routine intensity oral anticoagulation I NR is typically 2.0-3.0. Target INR must be clinically individualized. ID Date Data Source [id number] 09/27/2020 05:47:25 AM [facility] Value Range Interpretation Code Description Data Princess rce(s) Supporting Document(s) Heparin unfractionated [Units/volume] in Platelet poor plasma by Chromogenic method 1.52 U/ml [facility] al ConfirmedCalled to and read back byCristopher Burns RN ON 10G AT 0545 BY 2050 ID Date Data Source [id number] 09/27/2020 05:53:34 AM [facility] Value Range Interpretation Code Description Data Princess rce(s) Supporting Document(s) Phosphate [Mass/volume] in Serum or Plasma 4.2 mg/dL 2.5-4.5 [facility] ID Date Data Source [id number] 09/27/2020 05:53:34 AM [facility] Value Range Interpretation Code Description Data Princess rce(s) Supporting Document(s) Magnesium [Mass/volume] in Serum or Plasma 2.0 mg/dL 1.6-2.6 [facility] ID Date Data Source [id number] 09/26/2020 10:05:41 PM [facility] Value Range Interpretation Code Description Data Princess rce(s) Supporting Document(s) Kaolin activated time [Units/volume] in Blood 208 [facility] ID Date Data Source [id number] 09/26/2020 09:03:53 PM [facility] Value Range Interpretation Code Description Data Princess rce(s) Supporting Document(s) Kaolin activated time [Units/volume] in Blood 136 [facility] ID Date Data Source [id number] 09/26/2020 08:39:07 PM [facility] Value Range Interpretation Code Description Data Princess rce(s) Supporting Document(s) ABO and Rh group [Type] in Blood [facility] Blood group antibody screen [Presence] in Serum or Plasma [facility] Blood bank comment [facility] ID Date Data Source [id number] 09/26/2020 07:36:21 PM [facility] Value Range Interpretation Code Description Data Princess rce(s) Supporting Document(s) History and Physical [facility] BFALVf9iZzQCKzKb52/XXBhlWXAlu3OaAEowBAa0FHyeUYPrR1QmZYP8iC6zWRI9JQkPJfQpNxRdYdIk lbm [file] [id number]zHJYmCmIH3GMNf= ID Date Data Source [id number] 09/26/2020 07:24:01 PM [facility] Name Value Range Interpretation Code Description Data Princess rce(s) Supporting Document(s) Leukocytes [#/volume] in Blood by Automated count 5.3 10*3/uL 4-10 [facility] Erythrocytes [#/volume] in Blood by Automated count 4.68 10*6/uL 4.6- 6.1 [facility] Hemoglobin [Mass/volume] in Blood 14.1 g/dL 13.5-18 [facility] Hematocrit [Volume Fraction] of Blood by Automated count 40.4 % 4 1-53 L [facility] Erythrocyte mean corpuscular volume [Entitic volume] by Auto mated count 86.2 fL 80-96 [facility] Erythrocyte mean corpuscular hemoglobin [Entitic mass] by Automated count 30.1 pg 27-33 [facility] Erythrocyte mean corpuscular hemoglobin concentration [Mass/volume] by Automated count 34.9 g/dL 32.0-36.0 [facility] distribution width [Ratio] by Automated count 13.6 % 11.5-14.5 [facility] Platelets [#/volume] in Blood by Automated count 118 10*3/uL 150-400 L [facility] ID Date Data Source [id number] 09/26/2020 07:36:07 PM [facility] Name Value Range Interpretation Code Description Data Princess rce(s) Supporting Document(s) Heparin unfractionated [Units/volume] in Platelet poor plasma by Chromogenic method 0.39 U/ml [facility] al ID Date Data Source [id number] 09/26/2020 07:36:07 PM [facility] Name Value Range Interpretation Code Description Data Princess rce(s) Supporting Document(s) Prothrombin time (PT) 13.6 s 12.5-14.9 [facility] INR in Platelet poor plasma by Coagulation assay 1.03 [facility] Routine intensity oral anticoagulation I NR is typically 2.0-3.0. Target INR must be clinically individualized. ID Date Data Source [id number] 09/26/2020 07:03:00 PM EST [facility] Name Value Range Interpretation Code Description Data Princess rce(s) Supporting Document(s) SARS-CoV-2 RNA 2019 nCoV Real-Time RT-PCR: NOT DETECTED [facility] This lab was ordered by [facility] and reported by [facility]. ID Date Data Source [id number] 09/26/2020 08:48:45 PM [facility] Name Value Range Interpretation Code Description Data Princess rce(s) Supporting Document(s) Specimen source [Identifier] of Unspecified specimen [facility] SARS-CoV-2 RNA 2019 nCoV Real-Time RT-PCR: NOT DETECTED [facility] Assay Performed [facility] Patients first test for 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 When did you start to experience these symptoms [Date and time] [Phen X] [facility] Patient was hospitalized because of this condition [facility] patient was admitted to ICU for [facility] Patient resides in a congregate care setting [facility] status [facility] ID Date Data Source [id number] 09/26/2020 08:48:13 PM [facility] Service Cmnt XXX-Imp : NoneRespiratory P CR Panel : PCR ResultsMicroorganism XXX Cult : See Labs Tab for 2019 nCoV RT-PCR resultsHAdV DNA QI KALEN+non-probe : Not DetectedHCoV 229ERNA Nph QI KALEN+non-probe : Not DetectedHCoV ZMB8THQ Nph QI KALEN+non-probe : Not RmbagbdgHMzVYH45 RNA Nph QI KALEN+non-probe : Not WgtvvhbkWKgJFU42 RNA Upper resp QI KALEN+probe : Not DetectedhMPV RNA Nph QINAA+non-probe : Not DetectedRV+EV RNA Nph QI KALEN+non-probe : Not DetectedFLUAV RNA Nph QI KALEN+ non-probe : Not DetectedFLUBV RNA Nph QI KALEN+non-probe : Not DetectedHPIV1 RNA NphQINAA+non-probe : Not DetectedHPIV2 RNA Nph QINAA+non-probe : Not DetectedHPVI3 RNA Nph KALEN+non-probe : Not DetectedHPIV4 RNA Nph Q KALEN+non-probe : Not DetectedRSV RNA Nph Q KALEN+non-probe : Not DetectedB pert.PT PrmtNph Q KALEN+non-probe : Not DetectedC pneum DNA Nph Q KALEN+non-probe : Not DetectedM pneum DNA Nph Q KALEN+non-probe : Not DetectedB sbwkyDO878 DNA Nph KALEN+non-probe : Not Detected Name Value Range Interpretation Code Description Data Princess rce(s) Supporting Document(s) ID Date Data Source [id number] 09/25/2020 01:08:00 PM [facility] [address] [place] [address] RESPIRATORY CARE REPORT ==== ---------NAME------- NUMBER SEX AGE ADMIT DISC. XRAY# F/C LUZ DIANA [id number] M 54 09/24/20 09/24/20 [id number] SB4 E/R DATE OF : 1965 M/R# [id number] #: [id number] TR-07 LOCATION: EMERGENCY DEPT EKG [id number] COMP LETE:09/25/20 01:01 T [id number] PHYSICIAN: SEA MABRY Name Value Range Interpretation Code Description Data Princess rce(s) Supporting Document(s) ID Date Data Source [id number] 09/25/2020 10:02:00 AM EST [facility] [address] [place] [address] PHONE: [phone] FAX: [phone] Name .................. : CHAD ORTIZ Acct Number.................. : [id number] ROOM. ................. : Number ................... : [id number] Stay type ............. : O/P Discharge Date......... ... : 09/24/20 Admit Date ......... : 09/24/20 Admit Phys .................... : HUGHES ISAA Date of ....... : 1965 Family Phys ................... : UNKNOWN Phone .................. : [phone] Age ................................ : 54 Film# .................. .:[id number] Sex ................................. : M Unsigned transcriptions are preliminary reports and do not represent a medical or legal document CT CTA CHEST NON-CORONARY W [place]iko 82929 COMPLETE:09/24/20 19:35 EMMANUEL 4169 (REASON FOR EXAM: ELEVATED D-DIMER CTA OF THE CHEST WITH CONTRAST: INDICATION: Elevated D-dimer. FINDINGS: The neck base is clear. The lungs demonstrate mild dependent atelectasis. There is extensive pulmonary embolism with saddle pulmonary embolism and severe bilateral main stem and segmental pulmonary emboli. Mild right heart strain is noted. The visualized upper abdomen demonstrates no acute abnormality. No acute osseous abnormality. IMPRESSION: There is extensive pulmonary embolism with mild right heart strain. Findings are discussed with Lyle Mendez. This patient is an outpatient and will be immediately transferred to the emergency room. While performing the above CT examination, radiation dose reduction was accomplished utilizing automated exposure control, adjusting of the mA and kV based on the patient's body size and/or the use of imperative reconstructive techniques. CT dose: 476.6 mGycm Contrast agent in mL: 75 Isovue 370 Method of administration: Intravenous Electronically Reviewed and Signed By Jose Christie M.D. , 09/25/20 10:02, [facility] [address] [place] [address] PHONE: [phone] FAX: [phone] Name .................. : CHAD ORTIZ Acct Number.................. : [id number] ROOM. ............ ..... : MR Number ................... : [id number] Stay type ............. : O/P Discharge Date......... ... : 09/24/20 Admit Date ......... : 09/24/20 Admit Phys .................... : ELLEN ISDALE Date of ....... : 1965 Family Phys ................... : UNKNOWN Phone .................. : [phone] Age ................................ : 54 Film# .................. .:[id number] Sex ................................. : M Unsigned transcriptions are preliminary r eports and do not represent a medical or legal document CT CTA CHEST NON- CORONARY W C 31951 COMPLETE:09/24/20 19:35 EMMANUEL 4169 (REASON FOR EXAM: ELEVATED D-DIMER Transcribe Initials: DZ , Transcribe Date: 09/25/20 01:57, Dictation Date: Copy for: ELLEN MASTERS Copy for: 710 MED REC Page 2 of 2 Name Value Range Interpretation Code Description Data Princess rce(s) Supporting Document(s) ID Date Data Source [id number] 09/24/2020 07:05:00 PM EST [facility] 1 OrderSheet [facility] Emergency Department [address] [place] [address] Phone #: ext- [phone] 09/24/2020 19:05 Patient: DIANA BONILLA Sex: M : 1965 Age: 54yWEIGHT:106.5 kg (S)ALLERGIES: Chantix, Sulfa Antibiotics, WellbutrinCHIEF COMPLAINT: dyspneaDIAGNOSIS: Pulmonary embolismLAB ORDERSOrder Description Priority Entered Acknowledged [facility]edAL[facility] 19:19 09/24/2020 19:39 Melissa Zayas Norma MD; KatelynCMP STAT 19:19 09/24/2020 19:39 Melissa Zayas Norma MD; KatelynPT/INR STAT 19:19 09/24/2020 19:39 Melissa Zayas Norma MD; KatelynPT/PTT STAT 19:19 09/24/2020 19:39 Melissa Zayas Norma MD; KatelynMagnesium STAT 19:19 09/24/2020 19:39 Melissa Zayas Norma MD; KatelynTropo romina-T STAT 19:19 09/24/2020 19:39 Melissa Zayas Norma MD; KatelynCOVID-19 CAH (Not STAT 19:53 09/24/2020 Ack'd: 19:55 19:58 Marquez,Symptomatic as Evita Conrad MD; Irma Zayasefined by [facility])(09/24/20) (Not FirstTest) (NotHospitalized) (Not) (NotResident inCongregate CareSetting) (NotEmployed inHealthcare Setting)DIAGNOSTIC STUDY ORDERSOrder Description Priority Entered Acknowledged InitialedMED ICATION/IV/DRIP/FLUID ORDERSOrder Description Priority Entered Acknowledged InitialedHeparin Drip IV : STAT 19:19 09/24/2020 Ack'd: 19:36 19:41 Shannon Zayas OrderSheet [facility] Emergency Department [address] [place] [address] Phone #: ext- [phone] 09/24/2020 19:05 Patient: DIANA BONILLA Sex: M : 1965 Age: 54yBolus 5,000 units, Evita Conrad MD; Irma Zayas 10 units/kg/hr(NOW x1, VerifyStrength inOmnicell, HIGHALERTMEDICATION)GENERAL ORDERSOrder Description Priority Entered Acknowledged InitialedEKG 19:19 09/24/2020 19:27 Melissa Zayas Norma MD; Irma[Electronically signed by Irma Zayas (23:09/24/2020)][Electronically signed by Evita Conrad MD (00:54 09/25/2020)][Electronically locked by Irma Zayas (23:09/24/2020)] Name Value Range Interpretation Code Description Data Princess rce(s) Supporting Document(s) ID Date Data Source [id number] 09/24/2020 07:05:00 PM [facility] 1 Medication Reconciliation Report [facility] Emergency Department [address] [place] [address] Phone #: ext- [phone] 09/24/2020 19:05 Patient: DIANA BONILLA Sex: M : 1965 Age: 54yWeight: 106.5 kgHeight/Length: 74 in.BMI: 30.2ALLERGIES: Chantix, Sulfa Antibiotics, WellbutrinThe patient's Home Medications are listed below:THE FOLLOWING MEDICATIONS NEED TO BE RECONCILED: Lisinopril Oral 50mg, dailyThe source(s) of the original Home Medication information:patientThe following Medications were given to the patient in the Emergency Department:Heparin [IV Drip] Drip IV bolus 0, then 64363 unit 1000 unit/hr, administered: 19:41 09/24/2020The following Medications were prescribed to the patient:None. Name Value Range Interpretation Code Description Data Princess rce(s) Supporting Document(s) ID Date Data Source [id number] 09/24/2020 07:05:00 PM [facility] 1 Medication Administration Record [facility] Emergency Department [address] [place] [address] Phone #: ext [phone] 09/24/2020 19:05 Patient: DIANA BONILLA Sex: M : 1965 Age: 54yWeight: 106.5 kgHeight/Length: 74 inBMI: 30.2ALLERGIES: Chantix, Wellbutrin, Sulfa Antibiotics Date/Time Medication Administered Medication OrderedStart HEPARIN [IV DRIP] Heparin Drip IV : Bolus 5,74471:41 09/24/2020 Dose: 96681 unit Drip IV units, then 10 units/kg/hr (Irma Harvey, Rate: 1000 unit/hr x1, Verify Strength in Omnicell,---- Dispensed: 500 mL bag HIGH ALERT MEDICATION); StatContinued Upon Transfer Site: #2 left :59 09/24/2020Irma catalan, Name Value Range Interpretation Code Description Data Princess rce(s) Supporting Document(s) ID Date Data Source [id number] 09/24/2020 07:05:00 PM [facility] 1 General Instructions [facility] Emergency Department [address] [place] [address] Phone #: ext- [phone] 09/24/2020 19:05 Patient: DIANA BONILLA Sex: M : 1965 Age: 54yAcute pulmonary embolism (saddle embolims).(Electronically signed by Evita Conrad MD 09/25/2020 00:54) Name Value Range Interpretation Code Description Data Princess rce(s) Supporting Document(s) ID Date Data Source [id number] 09/24/2020 07:05:00 PM [facility] 1 Clinical Report - Nurses [facility] Emergency Department [address] [place] [address] Phone #: ext- [phone] 09/24/2020 19:05 Patient: DIANA BONILLA Sex: M : 1965 Age: 54yTRIAGEArrived by private vehicle. Historian: patient.Triage time: 19:09/24/2020. Acuity: LEVEL 3.Chief Complaint: SHORTNESS OF BREATH.Onset was gradual. Symptoms are constant and still present (3 months). 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 SEPSIS SCREEN NEGATIVE. No suspected or confirmedsigns of infection present. --19:18 09/24/20 Zev Mello RN19:09/24/20. BP: 153/96 (regular adult cuff) taken on the left arm, via an automated monitor, whilelying. MAP: 115. HR: 58 (regular, normal rat e and strong). RR: 19 (regular, unlabored and normal). [id number]: 100%. Temp: 98 F (oral). Pain level now: 0/10. --19:18 09/24/20 Zev Mello RN.Weight: 106.5 kg stated. Height/Length: 74 inches Per Patient. BMI: 30.2. --19:16 09/24/20 Zev Mello RN.MedicationsLisinopril Oral 50mg, daily. --19:13 09/24/20 Zev Mello RN.AllergiesSulfa Antibiotics. Side-Effect(dizziness, hives) --19:13 09/24/20 Zev Mello RNWellbutrin. --19:13 09/24/20 Zev Mello RNChantix. --19:14 09/24/20 Zev Mello RN.PROBLEMS:Hypertension. --19:14 09/24/20 Zev Mello RN.Medication/allergy information source: the patient. --19:18 09/24/20 Zev Mello RN.HistoryPAST MEDICAL HX: Immunizations: up-to-date.SURGERY HX: No history of previous surgery.SOCIAL HX: Former smoker, end date 2012. Occasional alcohol use; consumes five beers and wine. 2 Clinical Report - Nurses [facility] Emergency Department [address] [place] [address] Phone #: ext- [phone] 09/24/2020 19:05 Patient: DIANA BONILLA Sex: M : 1965 Age: 54y No drug use. He was offered HIV testing but declined and hepatitis C testing but declined. He has not traveled outside the [place] Infectious disease exposure: No infectious disease exposure. SELF HARM ASSESSMENT: Self harm assessment was performed. The patient answered "no" to the question(s) "Have you recently felt down, depressed, or hopeless?", "Do you have thoughts of harming or killing yourself?", "Do you have a plan for harming or killing yourself?", "Have you recently had thoughts about harming or killing others?", "Do you have any dangerous items in your possession?", "Have you noticed less interest or pleasure in doing things?", "Are you here because you tried to hurt yourself?" and "Have you ever tried to hurt yourself before today?". ABUSE ASSESSMENT: No report of abuse. FALL RISK ASSESSMENT: Fall risk assessment completed. No risk factors identified. --19:18 09/24/20 Zev Mello RN. Assessment The patient states feels the same. --19:18 09/24/20 Zev Mello RN.PHYSICAL ASSESSMENTAmbulatory to room.GENERAL / NEURO / PSYCH: Alert. Oriented X 4. Appears in no acute distress.HEENT: Mucous membranes are pink.RESPIRATORY: Mild respiratory distress. The patient can speak in full sentences. Chest nontender.Decreased breath sounds in the bases bilaterally.CVS: Normal sinus rhythm noted. Capillary refill less than 2 seconds.GI / : Bowel sounds within normal limits.SKIN: Skin is warm and dry. Normal skin turgor. --19:19 09/24/20 Zev Mello RN.NURSING PROGRESS NOTESCardiac rhythm: normal sinus rhythm. workforce development assistant, NIBP monitor and pulse oximeter placed onpatient; upstream biomanufacturing technician- Lead II. EKG time: (19:09/24/2020). Patient gowned. Head of bed [id number] degrees. Reassurance given to the patient. Call light placed in reach of patient. Bed placed inlowest position. Brakes of bed on. Patient ready for evaluation- ED physician notified. --19:20 09/24/20kay Mello RN 19:26 09/24/2020 Site #1 started via IV in the left antecubital space with an 18g angiocath, with aseptic technique and good blood return; one attempt. Saline lock flushed with saline. --19:41 09/24/20 Irma Zayas 19:36 09/24/2020 Site #2 started via IV in the left forearm with an 20g angiocath, with aseptic technique and good blood return; one attempt. Saline lock flushed with saline. --19:41 09/24/20 Irma Zayas 19:41 09/24/2020 Started 40625 unit of Heparin Drip IV in bag #1 500 mL; at 1000 unit/hr via site #2. via IV 3 Clinical Report - Nurses [facility] Emergency Department [address] [place] [address] Phone #: ext- [phone] 09/24/2020 19:05 Patient: DIANA BONILLA Sex: M : 1965 Age: 54ypump. Allergies verified and confirmed 5 rights. IV patency established. IV site checked: no pain, redness,or swelling. IV flushed thoroughly pre- and post- medication administration. Information reviewed withpatient including reason for taking this medication, signs of allergic reaction, precautions and anticoagulantdrug warnings. Verbalizes understanding. --19:41 09/24/20 Oneil Zayas ID band checked for patient name and birthdate: patient confirmed. COVID-19 specimen obtainedby RN via nasopharyngeal swab. Labeled in the presence of the patient. --19:58 09/24/20 Margarita Zayasn20:02 09/24/20. BP: 144/106. MAP: 118. HR: 63. RR: 14. O2 saturation: 100%. --20:02 09/24/20 Miriam Pina ER [id number] entry - 20:07 09/24/20. Reassurance given.Rounding: Pain: denies pain. Position: states comfortable. Personal care / toileting: denies toileting needs.Proximity of possessions / care items: call light within easy reach. Plug ins: assured IV pump plugged in;checked status of equipment in use; located all cords, tubes, and lines to prevent fall hazard. --20:172 Myranda Zayas0:31 09/24/20. BP: 134/87. MAP: 102. HR: 60. RR: 18. O2 saturation: 98%. --20:31 09/24/20 Miriam Pina ER [id number] entry - 21:05 09/24/20. Reassurance given.Rounding: Pain: assessed pain level. Position: states comfortable. Personal care / toileting: denies toiletingneeds. Proximity of possessions / care items: call light within easy reach. Plug ins: assured IV pumpplugged in; checked status of equipment in use; located all cords, tubes, and lines to prevent fall hazard.--21:20 09/24/20 Myranda Zayas1: 00 09/24/20. BP: 98/86. MAP: 90. HR: 0. RR: 28. O2 saturation: 97%. --21:43 09/24/20 Myranda Zayas1:30 09/24/20. BP: 129/80. MAP: 96. HR: 70. RR: 20. O2 saturation: 97%. --21:43 09/24/20 Margarita ZayasnReassurance given.Rounding: Pain: assessed pain level. Position: states comfortable. --22:46 09/24/20 Anneliese Zayas:00 09/24/20. BP: 130/83. MAP: 98. HR: 61. RR: 19. O2 saturation: 97%. --22:48 09/24/20 Myranda Zayas2:30 09/24/20. BP: 149/90. MAP: 109. HR: 68. RR: 22. O2 saturation: 98%. --22:49 09/24/20 Myranda Zayas2:59 09/24/2020 Heparin Drip IV via IV site #2 Continued: upon transfer at the rate of 1000 unit/hr. IV 4 Clinical Report - Nurses [facility] Emergency Department [address] [place] [address] Phone #: ext- [phone] 09/24/2020 19:05 Patient: DIANA BONILLA Sex: M : 1965 Age: 54y patency established. IV site checked: no pain, redness, or swelling. IV flushed thoroughly. --22:59 09/24/20 Irma Zayas.DISPOSITION / DISCHARGE Report was given to a nurse via a phone call and visit overview. Report included patient's care, condition, vital signs, labs, medications and IV's. All questions were answered. Report was acknowledged. (Shirley Vo RN). Bed obtained and ready. --21:20 09/24/20 Irma Zayas 22:47 09/24/20. BP: 139/93. HR: 64. RR: 19. O2 saturation: 100%. Temp: 98.4 F. Pain level now 0/10. --22:48 09/24/20 Irma Zayas Transported via stretcher by EMS with monitor and mask. Patient's personal items; items were transported with the patient. --22:48 09/24/20 Irma Zayas 23:00 09/24/2020 Site #[address] upon transfer; patent, no pain and no signs of infection or infiltration. --23:00 09/24/20 Irma Zayas 23:00 09/24/2020 Site #[address] upon transfer; patent, no pain and no signs of infection or infiltration. --23:00 09/24/20 Irma Zayas Departure time: 23:00 09/24/2020. --23:00 09/24/20 Irma Zayas.Locked/Released at 09/24/2020 23:01 by Irma Zayas Name Value Range Interpretation Code Description Data Princess rce(s) Supporting Document(s) ID Date Data Source [id number] 09/24/2020 07:05:00 PM [facility] 1 Clinical Report - Physicians/Mid Levels [facility] Emergency Department [address] [place] [address] Phone #: ext- [phone] 09/24/2020 19:05 [id number] Sex[facility] M : 1965 Age: 54y Arrived- By private vehicle. Historian- patient. Disposition decision: 19:58 09/24/2020.HISTORY OF PRESENT ILLNESS Chief Complaint: DYSPNEA. This started 3 months and is still present. The dyspnea is described as mild. No cough, sputum production, sweating episodes, wheezing or chills. No chest pain or discomfort, calf pain, foot swelling or anxiety. No dizziness, tingling, numbness or palpitations. The patient has had fever, dyspnea on exertion and orthopnea. (Symptoms are constant and still present (3 months). ( ongoing however this weekend went ice fishing and could barely walk off the ice without becoming short of breath).). Similar symptoms previously. None. Recent medical care: Not recently seen/assessed.REVIEW OF SYSTEMSThe patient has had difficulty breathing but not had weight loss. No muscle aches, eye irritation or sorethroat or t hroat. No nasal discharge or congestion, sinus drainage, nausea or vomiting. No abdominalpain or pain, diarrhea, black stools or bloody stools. No headache, fainting episodes, blurred vision ordifficulty with urination or urination. No excessive urination, skin rash or rash, enlarged lymph nodes orjoint pain. No chills, fever, double vision, ear pain or epistaxis. No runny nose, cough, diarrhea, nauseaor vomiting. No urinary frequency, hematuria, back pain, neck pain or headache. No easy bruising.PAST HISTORYSee nurses notes. Problems: Hypertension. Additional Surgeries: no known surgeries. Medications: Lisinopril Oral 50mg, daily. Allergies: Chantix. Sulfa Antibiotics. Side-Effect(dizziness, hives) Wellbutrin.SOCIAL HISTORY 2 Clinical Report - Physicians/[facility] Emergency Department [address] [place] [address] Phone #: ext- [phone] 09/24/2020 19:05 Patient: DIANA BONILLA Sex: M : 1965 Age: 54y No drug use.ADDITIONAL NOTESThe nursing notes have been reviewed.PHYSICAL EXAMVital Signs: 09/24/2020 22:47 BP: 139/93. MAP: 108. HR: 64. RR: 19. O2 saturation: 100%. Temp: 98.4F.09/24/2020 22:30 BP: 149/90. MAP: 109. HR: 68. RR: 22. O2 saturation: 98%.09/24/2020 22:00 BP: 130/83. MAP: 98. HR: 61. RR: 19. O2 saturation: 97%.09/24/2020 21:30 BP: 129/80. MAP: 96. HR: 70. RR: 20. O2 saturation: 97%.09/24/2020 21:00 BP: 98/86. MAP: 90. HR: 0. RR: 28. O2 saturation: 97%.09/24/2020 20:31 BP: 134/87. MAP: 102. HR: 60. RR: 18. O2 s aturation: 98%.09/24/2020 20:02 BP: 144/106. MAP: 118. HR: 63. RR: 14. O2 saturation: 100%.09/24/2020 19:29 BP: 143/92. MAP: 109. HR: 60. RR: 15. O2 saturation: 99%.09/24/2020 19:09 BP: lying 153/96. MAP: 115. HR: 58. RR: 19. O2 saturation: 100%. Temp: 98 F. Painlevel now: 0/10. Have been reviewed and appear to be correct. Blood pressure normal. Mean arterialpressure- high. Heart rate normal. Respiratory rate normal. Temperature normal. Oxygen saturationnormal.Appearance: Alert. No acute distress.Eyes: Pupils equal, round and reactive to light. Eyes normal inspection.ENT: Nose normal. Pharynx normal .Neck: Normal inspection. No jugular venous distention. Neck supple.CVS: Normal heart rate and rhythm. Heart sounds normal. Pulses normal.Respiratory: No respiratory distress. Painless inspiration. Breath sounds normal.Abdomen: Soft and nontender.Back: Normal inspection. No CVA tenderness.Skin: Skin warm and dry. Normal skin color. No rash. Normal skin turgor.Extremities: Extremities exhibit normal ROM. No lower extremity edema.Neuro: Oriented X 3. No motor deficit. No sensory deficit.LABS, X-RAYS, AND EKGLaboratory Tests: COVID-19 CAH: (MANSI: 09/24/2020 19:57) ( MsgRcvd 09/24/2020 20:39) Final results Test Result Flag Units (Reference) COVID-19 NOT DETECTED COVID-19 REENTER NOT DETECTED { PROCEDURAL CONTROL VALID KIT LOT # _[id number] 09/24/20.KIM. KIT EXP DATE _10-36-43 09/24.KIM. NORMAL RANGE IS NOT DETECTEDNEGATIVE RESULTS SHOULD BE TREATED PRESUMPTIVE AND, IF INCONSISTENT WITHCLINICAL SIGNS AND SYMPTOMS OR NECESSARY FOR PATIENT MANAGEMENT, SHOULD BETESTED WITH DIFFERENT AUTHORIZED OR CLEARED MOLECULAR TESTS. NEGATIVE RESULTSDO NOT PRECLUDE SARS-CoV-2 INFECTION AND SHOULD NOT BE USED THE SOLE BASISFOR PATIENT MANAGEMENT DECISIONS. CBC w Diff: (MANSI: 09/24/2020 19:38) ( MsgRcvd 09/24/2020 20:05) Final results Test Result Flag Units (Reference) 3 Clinical Report - Physicians/Mid Levels [facility] Emergency Department [address] [place] [address] Phone #: ext- [phone] 09/24/2020 19:05 Patient: DIANA BONILLA Sex: M : 1965 Age: 54y CBC W/AUTOMATED DIFF COMPLETE BLOOD COUNT WBC 7.0 10/uL (4.2 - 11.0) RBC 5.10 10/uL (4.50 - 6.30) HEMOGLOBIN 15.1 g/dL (14.0 - 16.0) HEMATOCRIT 44.1 % (41.0 - 51.0) MCV 86.5 fL (80.0 - 94.0) MCH 29.6 pg (27.0 - 34.0) MCHC 34.2 g/dL (31.0 - 36.0) RDW 12.8 % (11.5 - 14.8) PLATELETS 130 L 10/uL (150 - 450) MPV 11.0 H fL (7.4 - 10.4) NEUT 57.1 % (37.0 - 80.0) LYMPH 30.5 % (25.0 - 40.0) MONO 8.1 H % (3.0 - 8.0) EOS 3.6 % (0.0 - 7.0) BASO 0.6 % (0.0 - 2.0) %IG 0.1 H % (0.0 - 0.0) %NRBC 0.0 % (0.0 - 0.0) #NEUT 4.02 10/uL (2.00 - 6.90) #LYMPH 2.15 10/uL (0.60 - 3.40) #MONO 0.57 10/uL (0.00 - 0.90) #EOS 0.25 10/uL (0.00 - 0.70) #BASO 0.04 10/uL (0.00 - 0.20) #IG 0.01 10/uL (0.00 - 0.10) #NRBC 0.00 10/uL (0.00 - 0.00) MANUAL DIFF NOT INDICATED RBC MORPH NOT INDICATEDCMP: (MANSI: 09/24/2020 19:38) ( MsgRcvd 09/24/2020 20:11) Final results Test Result Flag Units (Reference) COMPREHENSIVE METABOLIC PANEL COMPREHENSIVE METABOLIC PANEL SODIUM 137 mEq/L (134 - 153) POTASSIUM 4.4 mEq/L (3.6 - 5.0) CHLORIDE 102 mEq/L (98 - 107) CO2 25 MEQ/L (22 - 30) GLUCOSE 86 MG/DL (70 - 99) BUN 15 MG/DL (7 - 21) CREATININE 1.0 MG/DL (0.7 - 1.5) BUN/CREAT 15 (8 - 27) TOTAL PROTEIN 7.0 G/DL (6.3 - 8.2) ALBUMIN 4.3 G/DL (3.9 - 5.0) GLOBULIN 2.7 GM/DL (2.4 - 3. 2) A/G RATIO 1.6 (0.8 - 2.0) CALCIUM 9.0 MG/DL (8.4 - 10.2) TOTAL BILI <0.7 MG/DL (0.2 - 1.3) ALKALINE PHOS 73 U/L (38 - 126) SGOT/AST 18 U/L (5 - 40) SGPT/ALT 19 U/L (7 - 56) ANION GAP 10.0 mmol/L (8.0 - 16.0) AGE 54 yrs NON-AA GFR >60 mL/min AFR AMER GFR >60 mL/min Male GFR Interprentation 20-49 yrs >60 mL/min Rmtnuq48-58 yrs >56 mL/min Normal 60-69 yrs >49 mL/min Normal 70-79yrs>42 mL/min Normal 80 and above >35 mL/min Normal Female GFRInterpretation 20-39 yrs >60 mL/min Normal 40-49 yrs >58 mL/minNormal 50-59 yrs >51 mL/min Normal 60-69 yrs >45 mL/min Normal 4 Clinical Report - Physicians/Mid Levels [facility] Emergency Department [address] [place] [address] Phone #: ext- [phone] 09/24/2020 19:05 Patient: DIANA BONILLA Sex: M : 1965 Age: 54y 70-79 yrs >39 mL/min Normal 80 and above > 32 mL/min Normal PT/INR: (MANSI: 09/24/2020 19:19) ( MsgRcvd 09/24/2020 19:41) Canceled PT/PTT: (MANSI: 09/24/2020 19:38) ( MsgRcvd 09/24/2020 20:27) Final results Test Result Flag Units (Reference) PROTIME 13.7 SECONDS ( 11.0 - 15.5) INR 1.00 (0.93 - 1.23) PTT 25.5 SECONDS (24.8 - 36.7) \\BLDo\\INR INTERPRETATION\\BLDx\\ Therapeutic range for Coumadin and related oral anticoagulants. -International Normal ized Ratio (INR): 2.0 - 3.0 for Venous Thrombosis, Pulmonary Embolus, Tissue heart valves, Acute [place] Atrial Fibrillation, Valvular heart disease and recurrent Systemic Embolism. -International Normalized Ratio (INR): 2.5 - 3.5 for Mechanical Prosthetic valve. Magnesium: (MANSI: 09/24/2020 19:38) ( MsgRcvd 09/24/2020 20:11) Final results Test Result Flag Units (Reference) MAGNESIUM 2.2 MG/DL (1.7 - 2.2) Troponin-T: (MANSI: 09/24/2020 19:38) ( MsgRcvd 09/24/2020 20:18) Final results Test Result Flag Units (Reference) TROPONIN T <0.01 NG/ML (0.00 - 0.10) TROPONIN T0.1 ng/ml Recommended as the clinical threshold value Brody Kilgore.PROGRESS AND PROCEDURESCourse of Care: 19:59 09/24/20. Pt is a 54 year old male who presented to the ED as a referral from thebase for evaluation and treatment of his saddle embolism PE. pt has been short of breath for weeks butbecame worse recently. he states he nearly passed out several days ago after walking up the stairs. [facility] CTA-chest. A saddle embolism was found and he was sent tot ED immediately. On evaluation, pt is non-toxic and conversive. I ordered labs including coagulationstudies. I ordered heparin bolus and iv drip. I immediately called [facility] for transfer. pt'svital signs are stable. I spoke to Dr. Hargrove at [facility]. He agreed to accept the patient. all labs arepending at this time. Will give him a courtesy call when labs are back to help him determine placement.covid-19 nasal swab ordered as well. labs resulted. coags grossly nl. covid swab is negative. I calledDr. Hargrove. He agreed to accept to [facility]. pt comfortable with the transer. cobra paperwork completed. Critical care performed. Time is exclusive of separately billable procedures. Time includes: direct patient care, patient reassessment, interpretation of data (laboratory data) and medical consultation- see progress notes. Procedures included in critical care time: peripheral IV placement. Patient/family counseled. Disposition: Benefits, risks and alternatives to donnelly sfer explained to patient. Transferred to [facility]. Condition: stable. 5 Clinical Report - Physicians/Mid Levels [facility] Emergency Department [address] [place] [address] Phone #: ext- [phone] 09/24/2020 19:05 Patient: DIANA BONILLA Sex: M : 1965 Age: 54yCLINICAL IMPRESSION Acute pulmonary embolism (saddle embolims).(Electronically signed by Evita Conrad MD 09/25/2020 00:54) Name Value Range Interpretation Code Description Data Princess rce(s) Supporting Document(s) ID Date Data Source [id number] 09/24/2020 07:57:00 PM EST [facility] Name Value Range Interpretation Code Description Data Princess rce(s) Supporting Document(s) COVID19 Case rprt NOT DETECTED [facility] This lab was ordered by [facility] and reported by [facility]. ID Date Data Source [id number] 09/24/2020 08:38:00 PM EST [facility] NOT DETECTEDNOT DETECTED{ PROC EDURAL CONTROL VALID KIT LOT # _[id number] 09/24/20.KIM. KIT EXP DATE _78-48-37 09/24/20.KIM. NORMAL RANGE IS NOT DETECTEDNEGATIVE RESULTS [...] rce(s) Supporting Document(s) ID Date Data Source [id number] 09/24/2020 08:27:00 PM EST [facility] Name Value Range Interpretation Code Description Data Princess rce(s) Supporting Document(s) Prothrombin time (PT) 13.7 SECONDS 11.0 - 15.5 [facility] INR in Platelet poor plasma by Coagulation assay 1.00 0.93 - 1. 23 [facility] aPTT in Blood by Coagulation assay 25.5 SECONDS 24.8 - 36.7 [facility] \\BLDo\\INR INTERPRETATION\\BLDx\\ Therapeutic range for Coumadin and related oral anticoagulants. - International Normalized Ratio (INR): 2.0 - 3.0 for Venous Thrombosis, Pulmonary Embolus, Tissue heart valves, Acute [place] Atrial Fibrillation, Valvular heart disease and recurrent Systemic Embolism. - International Normalized Ratio (INR): 2.5 - 3.5 for Mechanical Prosthetic valve. ID Date Data Source [id number] 09/24/2020 08:18:00 PM [facility] Name Value Range Interpretation Code Description Data Princess rce(s) Supporting Document(s) TROPONIN T <0.01 NG/ML 0.00 - 0.10 [facility] TROPONIN T0.1 ng/ml Recommended as the c linical threshold value forTroponin T. ID Date Data Source [id number] 09/24/2020 08:11:00 PM [facility] Name Value Range Interpretation Code Description Data Princess rce(s) Supporting Document(s) Magnesium [Mass/volume] in Serum or Plasma 2.2 MG/DL 1.7 - 2.2 [facility] ID Date Data Source [id number] 09/24/2020 08:11:00 PM [facility] Name Value Range Interpretation Code Description Data Princess rce(s) Supporting Document(s) COMPREHENSIVE METABOLIC PANEL [facility] COMPREHENSIVE METABOLIC PANEL Sodium [Moles/volume] in Serum or Plasma 137 mEq/L 134 - 153 [facility] Potassium [Moles/volume] in Serum or Plasma 4.4 mEq/L 3.6 - 5.0 [facility] Chloride [Moles/volume] in Serum or Plasma 102 mEq/L 98 - 107 [facility] Carbon dioxide, total [Moles/volume] in Serum or Plasma 25 MEQ/L 22 - 30 [facility] Glucose [Mass/volume] in Serum or Plasma 86 MG/DL 70 - 99 [facility] BUN 15 MG/DL 7 - 21 [facility] al Creatinine [Mass/volume] in Serum or Plasma 1.0 MG/DL 0.7 - 1.5 [facility] BUN/CREAT 15 8 - 27 [facility] al Protein [Mass/volume] in Serum or Plasma 7.0 G/DL 6.3 - 8.2 [facility] Albumin [Mass/volume] in Serum or Plasma 4.3 G/DL 3.9 - 5.0 [facility] Globulin [Mass/volume] in Serum by calculation 2.7 GM/DL 2.4 - 3.2 [facility] A/G RATIO 1.6 0.8 - 2.0 [facility] Calcium [Mass/volume] in Serum or Plasma 9.0 MG/DL 8.4 - 10.2 [facility] Bilirubin.total [Mass/volume] in Serum or Plasma <0.7 MG/DL 0.2 - 1.3 [facility] Alkaline phosphatase [Enzymatic activity/volume] in Serum or Plasma 73 U/L 38 - 126 [facility] Aspartate aminotransferase [Enzymatic activity/volume] in Serum or Plasma 18 U/L 5 - 40 [facility] Alanine aminotransferase [Enzymatic activity/volume] in Seru m or Plasma 19 U/L 7 - 56 [facility] Anion gap 3 in Serum or Plasma 10.0 mmol/L 8.0 - 16.0 [facility] AGE 54 yrs [facility] al NON-AA GFR >60 mL/min [facility] ital AFR AMER GFR >60 mL/min [facility] Male GFR In terprentation 20-49 [...] >32 mL/min Normal ID Date Data Source [id number] 09/24/2020 08:05:00 PM EST [facility] Name Value Range Interpretation Code Description Data Princess rce(s) Supporting Document(s) CBC W/AUTOMATED DIFF [facility] COMPLETE BLOOD COUNT Leukocytes [#/volume] in Blood by Automated count 7.0 10^3/uL 4.2 - 1 1.0 [facility] Erythrocytes [#/volume] in Blood by Automated count 5.10 10^6/uL 4. 50 - 6.30 [facility] Hemoglobin [Mass/volume] in Blood 15.1 g/dL 14.0 - 16.0 [facility] Hematocrit [Volume Fraction] of Blood by Automated count 44.1 % 4 1.0 - 51.0 [facility] Erythrocyte mean corpuscular volume [Entitic volume] by Auto mated count 86.5 fL 80.0 - 94.0 [facility] Erythrocyte mean corpuscular hemoglobin [Entitic mass] by Automated count 29.6 pg 27.0 - 34.0 [facility] Erythrocyte mean corpuscular hemoglobin concentration [Mass/volume] by Automated count 34.2 g/dL 31.0 - 36.0 [facility] Erythrocyte distribution width [Ratio] by Automated count 12.8 % 11.5 - 14.8 [facility] Platelets [#/volume] in Blood by Automated count 130 10^3/uL 150 - 45 0 L [facility] Platelet mean volume [Entitic volume] in Blood by Automated count 11.0 fL 7.4 - 10.4 H [facility] Neutrophils/100 leukocytes in Blood by Automated count 57.1 % 37. 0 - 80.0 [facility] Lymphocytes/100 leukocytes in Blood by Manual count 30.5 % 25.0 - 40.0 [facility] Monocytes/100 leukocytes in Blood by Automated count 8.1 % 3.0 - 8.0 H [facility] Eosinophils/100 leukocytes in Blood by Automated count 3.6 % 0.0 - 7.0 [facility] Basophils/100 leukocytes in Blood by Automated count 0.6 % 0.0 - 2.0 [facility] %IG 0.1 % 0.0 - 0.0 [facility] %NRBC 0.0 % 0.0 - 0.0 [facility] Neutrophils [#/volume] in Blood by Automated count 4.02 10^3/uL 2.00 - 6.90 [facility] Lymphocytes [#/volume] in Blood by Automated count 2.15 10^3/uL 0.60 - 3.40 [facility] Monocytes [#/volume] in Blood by Automated count 0.57 10^3/uL 0.00 - 0.90 [facility] Eosinophils [#/volume] in Blood by Automated count 0.25 10^3/uL 0.00 - 0.70 [facility] Basophils [#/volume] in Blood by Automated count 0.04 10^3/uL 0.00 - 0.20 [facility] #IG 0.01 10^3/uL 0.00 - 0.10 [facility] #NRBC 0.00 10^3/uL 0.00 - 0.00 [facility] ospital MANUAL DIFF NOT INDICATED [facility] RBC MORPH NOT INDICATED [facility] spital ID Date Data Source [id number] 09/24/2020 06:02:00 PM EST [facility] Name Value Range Interpretation Code Description Data Princess rce(s) Supporting Document(s) COMPREHENSIVE METABOLIC PANEL [facility] COMPREHENSIVE METABOLIC PANEL Sodium [Moles/volume] in Serum or Plasma 138 mEq/L 134 - 153 [facility] Potassium [Moles/volume] in Serum or Plasma 4.9 mEq/L 3.6 - 5.0 [facility] Chloride [Moles/volume] in Serum or Plasma 103 mEq/L 98 - 107 [facility] Carbon dioxide, total [Moles/volume] in Serum or Plasma 22 MEQ/L 22 - 30 [facility] Glucose [Mass/volume] in Serum or Plasma 86 MG/DL 70 - 99 [facility] BUN 15 MG/DL 7 - 21 [facility] Creatinine [Mass/volume] in Serum or Plasma 1.0 MG/DL 0.7 - 1.5 [facility] BUN/CREAT 15 8 - 27 [facility] Protein [Mass/volume] in Serum or Plasma 7.5 G/DL 6.3 - 8.2 [facility] Albumin [Mass/volume] in Serum or Plasma 4.6 G/DL 3.9 - 5.0 [facility] Globulin [Mass/volume] in Serum by calculation 2.9 GM/DL 2.4 - 3.2 [facility] A/G RATIO 1.6 0.8 - 2.0 [facility] Calcium [Mass/volume] in Serum or Plasma 9.2 MG/DL 8.4 - 10.2 [facility] Bilirubin.total [Mass/volume] in Serum or Plasma <0.7 MG/DL 0.2 - 1.3 [facility] Alkaline phosphatase [Enzymatic activity/volume] in Serum or Plasma 80 U/L 38 - 126 [facility] Aspartate aminotransferase [Enzymatic activity/volume] in Serum or Plasma 23 U/L 5 - 40 [facility] Alanine aminotransferase [Enzymatic activity/volume] in Seru m or Plasma 22 U/L 7 - 56 [facility] Anion gap 3 in Serum or Plasma 13.0 mmol/L 8.0 - 16.0 [facility] AGE 54 yrs [facility] al NON-AA GFR >60 mL/min [facility] ital AFR AMER GFR >60 mL/min [facility] Male GFR In terprentation 20-49 [...] >32 mL/min Normal ID Date Data Source [id number] 08/18/2020 12:00:00 AM EST [facility] Name Value Range Interpretation Code Description Data Princess rce(s) Supporting Document(s) SARS-CoV-2 (COVID-19) RNA [Presence] in Respiratory specimen by KALEN with probe detection Not Detected [facility] This lab was ordered by [facility] and reported by [employer] ID Date Data Source CYCLIC CITRULLINATED PEPTIDE 07/24/2020 12:00:00 AM EST [facility] Name Value Range Interpretation Code Description Data Princess rce(s) Supporting Document(s) 5 0-19 CYCLIC CITRULLINATED PEPTIDE e CW1 ([facility]) ID Date Data Source LYME WESTERN BLOT SERUM 07/24/2020 12:00:00 AM EST eCW1 ([facility]) Name Value Range Interpretation Code Description Data Princess rce(s) Supporting Document(s) LYME WESTERN BLOT SERUM eCW1 [facility]) ID Date Data Source ANGIOTENSIN 1 CONVERTING ENZYM 07/24/2020 12:00:00 AM EST eC W1 ([facility]) Name Value Range Interpretation Code Description Data Princess rce(s) Supporting Document(s) 32 14-82 ANGIOTENSIN 1 CONVERTING ENZYM eCW1 ([facility]) ID Date Data Source RHEUMATOID FACTOR QUANT 07/24/2020 12:00:00 AM EST eCW1 ([facility]) Name Value Range Interpretation Code Description Data Princess rce(s) Supporting Document(s) < 10.0 <15.0 RHEUMATOID FACTOR QUANT eCW1 ( [facility]) ID Date Data Source URIC ACID 07/24/2020 12:00:00 AM EST eCW1 ([facility]) Name Value Range Interpretation Code Description Data Princess rce(s) Supporting Document(s) 7.2 3.5-7.2 URIC ACID eCW1 ([facility]) ID Date Data Source ERYTHROCYTE SEDIMENTATION RATE 07/24/2020 12:00:00 AM EST eC W1 [facility]) Name Value Range Interpretation Code Description Data Princess rce(s) Supporting Document(s) 5 0-20 ERYTHROCYTE SEDIMENTATION RATE eCW1 ([facility]) ID Date Data Source C REACTIVE PROTEIN QUANTITATIV (At [facility]) 07/24/2020 12:00 :00 AM EST eCW1 ([facility]) Name Value Range Interpretation Code Description Data Princess rce(s) Supporting Document(s) 0.30 0.00-0.30 C REACTIVE PROTEIN QUANTI TATIV eCW1 ([facility]) ID Date Data Source Comprehensive Metabolic Profile (CMP) 07/24/2020 12:00:00 AM EST eCW1 ([facility]) Name Value Range Interpretation Code Description Data Princess rce(s) Supporting Document(s) 91 70-100 GLUCOSE, FASTING eCW1 ([facility]) 13 7-18 BLOOD UREA NITROGEN eCW1 ([facility]) 0.99 0.70-1.30 CREATININE FOR GFR eCW1 ([facility]) > 60.0 >56 GLOMERULAR FILTRATION RATE eCW 1 ([facility]) 139 136-145 SODIUM LEVEL eCW1 ([facility]) 4.4 3.5-5.1 POTASSIUM SERUM eCW1 ([facility]) 108 98-107 CHLORIDE LEVEL eCW1 ([facility]) 28 21-32 CARBON DIOXIDE LEVEL eCW1 ([facility]) 9.5 8.5-10.1 CALCIUM LEVEL eCW1 ([facility]) 14 7-37 AST/SGOT eCW1 ([facility]) 73 45-117 ALKALINE PHOSPHATASE eCW1 ([facility]) 29 12-78 ALT/SGPT eCW1 ([facility]) 0.3 0.2-1.0 BILIRUBIN,TOTAL eCW1 ([facility]) 7.0 6.4-8.2 TOTAL PROTEIN eCW1 ([facility]) 4.0 3.2-5.2 ALBUMIN eCW1 ([facility]) 1.3 ALBUMIN/GLOBULIN RATIO eCW1 ([facility]) ID Date Data Source [id number] 07/02/2020 01:55:00 PM [facility] [address] [place] [address] PHONE: [phone] FAX: [phone] Name .................. : CHAD ORTIZ Acct Number.................. : [id number] ROOM. ................. : MR Number ................... : [id number] Stay type ............. : O/P Discharge Date......... ... : 07/01/20 Admit Date ......... : 07/01/20 Admit Phys .................... : RAQUEL GUERRERO Date of ....... : 1965 Family Phys ................... : UNKNOWN Phone .................. : [phone] Age ................................ : 54 Film# .................. .:[id number] Sex ................................. : M Unsigned transcriptions are preliminary reports and do not represent a medical or legal document MRI LOW EXT NO JT W/WO CON LT [id number] COMPLETE:07/01/20 12:05 [facility] [id number] (REASON FOR PROCESS: OSTEOMYELITIS SECOND DIGIT, MRI [...] By Madie Farias MD , 07/02/20 13:55, KGG Transcribe Initials: DZ , Transcribe Date: 07/02/20 01:10, Dictation Date: Copy for: RAQUEL LOPEZ via fax Copy for: [address] [place] [address] Page 1 of 1 Name Value Range Interpretation Code Description Data Princess rce(s) Supporting Document(s) ID Date Data Source [id number] 06/29/2020 12:00:00 AM EST [facility] Imaging Damian Aranda Patient Name: DIANA [id number] [facility] Date of : 1965[facility] ADELINA Esparza [address]- Date of Exam: 06/29/2020PH#: Fax: [phone] EXAM: MRI FOOT WITH CONTRASTAddendum [...] by: Jamaal Moreno MD 07/01/2020 5:49 PM [facility] [facility] [place]MarioV/Simone you for referring DIANA BONILLA to our office. Electronically Signed - MARIO 07/02/20 16:04 Name Value Range Interpretation Code Description Data Princess rce(s) Supporting Document(s) ID Date Data Source [id number] 06/26/2020 12:00:00 AM EST [facility] Name Value Range Interpretation Code Description Data Princess rce(s) Supporting Document(s) 2019-nCoV RNA XXX KALNE+probe-Imp [facility] This lab was ordered by [facility] and reported by [employer]. Procedure Social History Code Duration Value Status Description Data Source(s ) Alcohol intake 09/26/2020 12:00:00 AM EST Current drinker of al cohol (finding) completed Current drinker of alcohol (finding) [facility] Smoking 09/26/2020 12:00:00 AM EST Former smoker completed Former smoker [facility] Smoking 09/04/2020 12:00:00 AM EST Never Smoker completed Never S moker [facility] ([facility] Smoking 09/04/2020 12:00:00 AM EST Never Smoker completed Never S moker eCW1 ([facility]) Smoking 09/04/2020 12:00:00 AM EST Never Smoker completed Never S moker eCW1 ([facility]) Smoking 09/04/2020 12:00:00 AM EST Never Smoker completed Never S moker eCW1 ([facility]) Smoking 08/11/2020 12:00:00 AM EST Never Smoker completed Never S moker eCW1 ([facility]) Smoking 08/11/2020 12:00:00 AM EST Never Smoker completed Never S moker eCW1 ([facility]) Smoking 07/24/2020 12:00:00 AM EST Never Smoker completed Never S moker eCW1 ([facility]) Smoking 07/24/2020 12:00:00 AM EST Never Smoker completed Never S moker eCW1 ([facility]) Smoking 07/24/2020 12:00:00 AM EST Never Smoker completed Never S moker eCW1 ([facility]) Smoking 07/20/2020 12:00:00 AM EST Never Smoker completed Never S moker eCW1 ([facility]) Smoking 06/11/2020 12:00:00 AM EDT Never Smoker completed Never S moker eCW1 ([facility]) Smoking 06/11/2020 12:00:00 AM EDT Never Smoker completed Never S moker eCW1 ([facility]) Smoking 06/11/2020 12:00:00 AM EDT Never Smoker completed Never S moker eCW1 ([facility]) Smoking 06/11/2020 12:00:00 AM EDT Never Smoker completed Never S jaker eCW1 ([facility]) Vital Signs ID Date Data Source UNK Name Value Range Interpretation Code Description Data Source(s) Diastolic blood pressure 64 mm[Hg] 64 mm[Hg] eCW1 ([facility]) Systolic blood pressure 132 mm[Hg] 132 mm[Hg] e CW1 ([facility]) Body temperature 97.6 [degF] 97.6 [degF] eCW1 ( [facility]) Respiratory rate 18 /min 18 /min eCW1 ([facility]) Heart rate 67 /min 67 /min eCW1 ([facility]) Body mass index (BMI) [Ratio] 31.27 kg/m2 31.27 kg/m2 W1 ([facility]) Body height 74 [in_i] 74 [in_i] eCW1 ([facility]) Body weight 110.5 kg 110.5 kg W1 ([facility]) Body weight 243.6 [lb_av] 243.6 [lb_av] eCW1 ([facility]) Body height 74 [in_i] 74 [in_i] eCW1 ([facility]) Body weight 110.9 kg 110.9 kg W1 ([facility]) Body weight 244.6 [lb_av] 244.6 [lb_av] eCW1 ([facility]) Diastolic blood pressure 66 mm[Hg] 66 mm[Hg] eCW1 ([facility]) Systolic blood pressure 122 mm[Hg] 122 mm[Hg] e CW1 ([facility]) Body temperature 97.4 [degF] 97.4 [degF] eCW1 ( [facility]) Respiratory rate 18 /min 18 /min eCW1 ([facility]) Heart rate 66 /min 66 /min eCW1 ([facility]) Body mass index (BMI) [Ratio] 31.40 kg/m2 31.40 kg/m2 eCW1 ([facility]) Diastolic blood pressure 78 mm[Hg] 78 mm[Hg] eCW1 ([facility]) Systolic blood pressure 142 mm[Hg] 142 mm[Hg] e CW1 ([facility]) Body temperature 97.3 [degF] 97.3 [degF] eCW1 ( [facility]) Respiratory rate 18 /min 18 /min eCW1 ([facility]) Heart rate 67 /min 67 /min eCW1 ([facility]) Body mass index (BMI) [Ratio] 30.63 kg/m2 30.63 kg/m2 eCW1 ([facility]) Body height 74 [in_i] 74 [in_i] eCW1 ([facility]) Body weight 108.2 kg 108.2 kg eCW1 ([facility]) Body weight 238.6 [lb_av] 238.6 [lb_av] eCW1 ([facility]) Diastolic blood pressure 84 mm[Hg] 84 mm[Hg] eCW1 ([facility]) Systolic blood pressure 136 mm[Hg] 136 mm[Hg] e CW1 ([facility]) Body temperature 97.3 [degF] 97.3 [degF] eCW1 ( [facility]) Respiratory rate 18 /min 18 /min eCW1 ([facility]) Heart rate 70 /min 70 /min eCW1 ([facility]) Body mass index (BMI) [Ratio] 30.17 kg/m2 30.17 kg/m2 eCW1 ([facility]) Body height 74 [in_i] 74 [in_i] eCW1 ([facility]) Body weight 235 [lb_av] 235 [lb_av] eCW1 ([facility]) Body height 74 [in_i] 74 [in_i] MEDENT ([facility]) 6'2" Body temperature 96.9 [degF] 96.9 [degF] MEDENT ([facility] Body mass index (BMI) [Ratio] 30.2 kg/m2 30.2 k g/m2 MEDENT ([facility]) Body weight 235.00 [lb_av] 235.00 [lb_av] MEDEN T ([facility]) Diastolic blood pressure 84 mm[Hg] 84 mm[Hg] eCW1 [facility] Systolic blood pressure 132 mm[Hg] 132 mm[Hg] e CW1 ([facility]) Body temperature 95.4 [degF] 95.4 [degF] eCW1 ( [facility]) Respiratory rate 18 /min 18 /min eCW1 ([facility]) Heart rate 78 /min 78 /min eCW1 ([facility]) Body mass index (BMI) [Ratio] 30.81 kg/m2 30.81 kg/m2 eCW1 ([facility]) Body height 74 [in_i] 74 [in_i] eCW1 ([facility]) Body weight 240 [lb_av] 240 [lb_av] eCW1 ([facility]) ID Date Data Source [id number] 09/28/2020 06:05:11 PM [facility] Name Value Range Interpretation Code Description Data Source(s) WEIGHT RECORDED 235 lb 235 lb [facility] WEIGHT RECORDED 239.8 lb 239.8 lb [facility] WEIGHT RECORDED 235.6 lb 235.6 lb [facility] Body height Measured 74 in 74 in [facility] TRANSFER FROM [facility] Patient Treatment Plan of Care Planned Activity Planned Date Details Description Data Source (s) rivaroxaban 20 MG Oral Tablet 10/18/2020 12:00:00 AM [facility] Losartan Potassium 50 MG Oral Tablet 09/29/2020 12:00:00 AM [facility] Losartan Potassium 50 MG Oral Tablet 09/29/2020 12:00:00 AM [facility] Xarelto Starter Pack 15 & 20 MG Oral Tablet Therapy Pa ck (Rivaroxaban) 09/28/2020 12:00:00 AM [facility] Docusate Sodium 100 MG Oral Capsule 09/28/2020 12:00:00 AM [facility] rivaroxaban 15 MG Oral Tablet 09/28/2020 12:00:00 AM [facility] Acetaminophen 325 MG Oral Tablet 09/28/2020 12:00:00 AM [facility] Xarelto Starter Pack 15 & 20 MG Oral Tablet Therapy Pa ck (Rivaroxaban) 09/27/2020 12:00:00 AM [facility] ondansetron (ZOFRAN) injection 4 mg 09/26/2020 11:06:35 PM [facility] Acetaminophen 325 MG Oral Tablet 09/26/2020 11:06:34 PM [facility] senna tablet 2 tablet 09/26/2020 11:05:33 PM [facility] Bisacodyl 10 MG Rectal Suppository 09/26/2020 11:05:32 PM [facility] Hydroxychloroquine Sulfate 200 MG Oral Tablet [[place]] 09/04/2020 12:00:00 AM EST eCW1 ([facility]) Medrol 4 MG 09/04/2020 12:00:00 AM EST e CW1 [facility] Hydroxychloroquine Sulfate 200 MG Oral Tablet [[place]] 09/04/2020 12:00:00 AM EST eCW1 ([facility]) Medrol 4 MG 09/04/2020 12:00:00 AM EST e CW1 ([facility]) Hydroxychloroquine Sulfate 200 MG Oral Tablet [[place]] 09/04/2020 12:00:00 AM EST eCW1 ([facility]) Medrol 4 MG 09/04/2020 12:00:00 AM EST e CW1 ([facility]) Hydroxychloroquine Sulfate 200 MG Oral Tablet [[place]] 09/04/2020 12:00:00 AM EST eCW1 ([facility]) Medrol 4 MG 09/04/2020 12:00:00 AM EST e CW1 ([facility]) Medrol 4 MG 07/24/2020 12:00:00 AM EST e CW1 ([facility]) Medrol 4 MG 07/24/2020 12:00:00 AM EST e CW1 ([facility]) Medrol 4 MG 07/24/2020 12:00:00 AM EST e CW1 ([facility]) meloxicam 15 MG Oral Tablet 07/06/2020 12:00:00 AM EST eCW1 ([facility]) meloxicam 15 MG Oral Tablet 07/06/2020 12:00:00 AM EST eCW1 ([facility]) sildenafil 100 MG Oral Tablet [Viagra] 06/11/2020 12:00:00 AM EDT eCW1 ([facility]) sildenafil 100 MG Oral Tablet [Viagra] 06/11/2020 12:00:00 AM EDT eCW1 ([facility]) sildenafil 100 MG Oral Tablet [Viagra] 06/11/2020 12:00:00 AM EDT eCW1 ([facility]) sildenafil 100 MG Oral Tablet [Viagra] 06/11/2020 12:00:00 AM EDT eCW1 ([facility])
[2020-09-30 19:09] LABS: BASO # 0.1 10^3/uL (0.0-0.2); BASO % 0.8 % (0.0-1.0); EOS # 0.3 10^3/uL (0.0-0.5); EOS % 4.1 % (0.0-3.0); HEMATOCRIT 41.6 % (42.0-52.0); HEMOGLOBIN 13.9 g/dl (13.5-17.5); LYMPH # 1.8 10^3/uL (1.5-5.0); LYMPH % 28.4 % (24.0-44.0); MEAN CORPUSCULAR HGB CONC 33.4 g/dl (32.0-36.5); MEAN CORPUSCULAR VOLUME 86.8 fl (80.0-96.0); MONO # 0.6 10^3/uL (0.0-0.8); MONO % 9.3 % (2.0-8.0); NEUTROPHILS # 3.5 10^3/uL (1.5-8.5); NEUTROPHILS % 57.1 % (36.0-66.0); PLATELET COUNT, AUTOMATED 189 10^3/uL (150-450); RED BLOOD COUNT 4.79 10^6/uL (4.30-6.10); WHITE BLOOD COUNT 6.2 10^3/uL (4.0-10.0)
[2020-09-30 19:20] LABS: INR 2.16; PARTIAL THROMBOPLASTIN TIME 29.1 SECONDS (24.2-38.5); PROTHROMBIN TIME 24.6 SECONDS (12.5-14.3)
[2020-09-30 19:23] LABS: D-DIMER QUANT 2177.05 ng/ml (<500)
--- NOTE | 2020-09-30 19:27 | REP ---
INDICATION: CHEST PAIN. COMPARISON: Low-dose lung CT 11/24/2015 TECHNIQUE: Portable upright chest FINDINGS: Lung rush are well inflated. CP angles are sharply defined there is no lateral pleural thickening apical scarring or pneumothorax. The heart, mediastinal and hilar contours are normal. The aorta and airway are intact. There is no pneumothorax. Bones grossly intact without focal lesion. No free air under the diaphragm. IMPRESSION: No acute cardiopulmonary change. <Electronically signed by Paul Nance > 09/30/20 [id number]
[2020-09-30 19:50] LABS: ALBUMIN 4.2 GM/DL (3.2-5.2); ALT/SGPT 180 U/L (12-78); BILIRUBIN,DIRECT < 0.1 MG/DL (0.0-0.2); BILIRUBIN,TOTAL 0.3 MG/DL (0.2-1.0); BLOOD UREA NITROGEN 15 MG/DL (7-18); CALCIUM LEVEL 8.9 MG/DL (8.5-10.1); CARBON DIOXIDE LEVEL 28 MEQ/L (21-32); CHLORIDE LEVEL 104 MEQ/L (98-107); CK-MB VALUE MASS < 1.0 NG/ML (<3.6); CPK CREATINE PHOSPHOKINASE 58 U/L (39-308); CREATININE FOR GFR 1.06 MG/DL (0.70-1.30); GLOMERULAR FILTRATION RATE > 60.0 (>56); GLUCOSE, FASTING 101 MG/DL (70-100); LIPASE 112 U/L (73-393); MB/CK RELATIVE INDEX 1.72 (< OR =4); POTASSIUM SERUM 3.9 MEQ/L (3.5-5.1); SODIUM LEVEL 139 MEQ/L (136-145); TOTAL PROTEIN 7.4 GM/DL (6.4-8.2); TROPONIN I 0.14 NG/ML (< 0.10)
[2020-09-30] MEDS ORDERED: ISOVUE-370 76% 100ML VIAL As Ordered ONE (20:36)
--- NOTE | 2020-09-30 20:38 | REPVR ---
PROCEDURE INFORMATION: Exam: US Duplex Right Lower Extremity Veins, Limited Exam date and time: 09/30/2020 8:30 PM Age: 54 years old Clinical indication: Pain; Leg, lower; Right; Additional info: Rle pain R/O dvt TECHNIQUE: Imaging protocol: Real-time Duplex ultrasound of the Right Lower Extremity with 2-D cardona scale, color Doppler flow and spectral waveform analysis with image documentation. Limited exam was focused on the right lower extremity veins. COMPARISON: US Duplex, Ext LOWER veins, bilat BILATERAL 09/25/2020 4:42 AM FINDINGS: Right deep veins: Unremarkable. The common femoral, femoral and popliteal veins are patent without thrombus. Normal Doppler waveforms. Normal compressibility and/or augmentation response. Right superficial veins: Unremarkable. Saphenofemoral junction is patent without thrombus. Soft tissues: Unremarkable. IMPRESSION: No sonographic evidence of deep vein thrombosis. Electronically signed by: Familia Walton On 09/30/2020 20:38:34 PM
[2020-09-30] MEDS ORDERED: COLA100C5 PO (20:59)
[2020-09-30] MEDS ORDERED: XARE15TA PO (20:59)
--- NOTE | 2020-09-30 21:02 | REPVR ---
PROCEDURE INFORMATION: Exam: CT Angiography Chest With Contrast Exam date and time: 09/30/2020 8:38 PM Age: 54 years old Clinical indication: Chest pain TECHNIQUE: Imaging protocol: Computed tomographic angiography of the chest with contrast. 3D rendering (Not supervised by radiologist): MIP and/or 3D reconstructed images were created by the technologist. Radiation optimization: All CT scans at this facility use at least one of these dose optimization techniques: automated exposure control; mA and/or kV adjustment per patient size (includes targeted exams where dose is matched to clinical indication); or iterative reconstruction. Contrast material: ISOVUE 370; Contrast volume: 75 ml; Contrast route: INTRAVENOUS (IV); COMPARISON: [facility] PORTABLE CHEST X-RAY 09/30/2020 7:12 PM FINDINGS: Pulmonary arteries: Contrast opacification satisfactory. Nonocclusive central pulmonary emboli, predominantly in the left main pulmonary artery, as well as the proximal lobar and segmental branches of the right lower lobe, left upper lobe, left lower lobe and lingula. Additional scattered subsegmental pulmonary emboli bilaterally. Aorta: Unremarkable. No aneurysm or dissection. Lungs: Mild central peribronchial thickening, suggestive of airway inflammation. Patchy areas of ground-glass infiltration with associated interstitial thickening, predominantly in the right upper and lobes. No consolidation. Pleural spaces: Unremarkable. No pneumothorax. No pleural effusion. Heart: Unremarkable. No cardiomegaly. No pericardial effusion. No right heart strain. Lymph nodes: No pathologically enlarged lymph nodes. Bones/joints: No acute osseous abnormality. Mild degenerative changes. Soft tissues: Unremarkable. IMPRESSION: 1. Bilateral pulmonary emboli, as described above. 2. Patchy areas of ground-glass infiltration with associated interstitial thickening, predominantly in the right upper and lobes, nonspecific in appearance. Infection cannot be excluded. Imaging features can be seen with COVID-19 pneumonia, though are nonspecific and can occur with a variety of infectious and noninfectious processes. (Reference: Stephane) 3. Additional findings, as above. REFERENCES: Stephane Crook, et al., [employer] of [place] Expert Consensus Statement on Reporting Chest CT Findings Related to COVID-19. Endorsed by the Society of [employer], the [employer], and [employer]. Published November 06, 2019. Electronically signed by: Familia Walton On 09/30/2020 21:02:36 PM
--- OUTSIDE RECORDS SUMMARY | 2020-09-30 21:13 | CCD ---
Author Author [facility] Organization [facility] Address Unknown Phone Unavailable Care Team Providers Care Sea Shell Gatherer Name Role Phone RAQUELDAMIAN Unavailable Unavailable Shalonda [...] Unavailable Shalonda PHIPPS MD Unavailable Unavailable Shalonda PHPIPS MD Unavailable Unavailable Shalonda PHIPPS MD Unavailable [...] is protected by Article 27-F of the [facility] Public Health law. If you continue you may have access to information: Regarding HIV / AIDS; Provided by facilities licensed or operated by the [facility] Office of Mental Health; or Provided by the [facility] Office for People With Developmental Disabilities. If such information is present, then the following [facility] mandated warning applies: This information has [...] law may result in a fine or fdc sentence or both. A general authorization for the release of medical or other information is NOT sufficient authorization for further disc losure. Allergies and Adverse Reactions Type Description Substance Reaction Status Data Source(s ) DRUG INGREDI BUPROPION BUPROPION Rash [facility] Drug Class SULFA ANTIBIOTICS SULFA ANTIBIOTICS Hives [facility] Family History Family Member Name Family Member Gender Family Member Status Date o f Status Description Data Source(s) Unknown Male Problem MEDENT ([facility]) Unknown Unknown Problem MEDENT ([facility]) Unknown Unknown Problem [facility] ([facility]) Unknown Unknown Problem MEDENT ([facility] Encounters Encounter Providers Location Date Indications Data Source(s ) Inpatient Attender: RACHEL Roberson DAdmitter: RACHEL PHIPPS MDReferrer: PROVIDER SYSTEM IN 09/26/2020 05:48:00 PM EST - 09/28/2020 02:37:00 PM EST Acute embolism and thrombosis of unspecified vein [facility] Acute embolism and thrombosis of unspeci fied vein Patient discharged. Emergency Attender: EVITA CONRAD MDConsultant: EMILIO MANDUJANO NOWN 09/24/2020 07:05:00 PM EST - 09/24/2020 11:01:00 PM EST [facility] Patient discharged. Outpatient Attender: SONAM Ramsayultant: EMILIO UNKNOWN 09/24/2020 03:58:00 PM EST - 09/24/2020 04:58:00 PM EST [facility] Unknown [address] [facility] [address] 09/04/2020 12:00:00 AM EST eCW1 ([facility]) Outpatient [address] [facility] [address] 09/04/2020 12:00:00 AM EST [facility]1 [facility] [place] [address] [facility] [place] [address] 09/02/2020 12:00:00 AM EST eCW1 ([facility]) Unknown [address] [facility] [address] 08/28/2020 12:00:00 AM EST eCW1 ([facility]) Unknown [address] [facility] [address] 08/11/2020 12:00:00 AM EST eCW1 [facility]) Outpatient [address] [facility] [address] 08/11/2020 12:00:00 AM EST eCW1 ([facility]) Unknown [address] [facility] [address] 07/24/2020 12:00:00 AM EST eCW1 ([facility]) Outpatient [address] [facility] [address] 07/24/2020 12:00:00 AM EST eCW1 ([facility]) Outpatient [address] [facility] [address] 07/20/2020 12:00:00 AM EST eCW1 ([facility]) Unknown [address] [facility] [place] [address] 07/20/2020 12:00:00 AM EST eCW1 ([facility]) Unknown [address] [facility] [address] 07/13/2020 12:00:00 AM EST eCW1 ([facility]) Unknown [address] [facility] [address] 07/06/2020 12:00:00 AM EST eCW1 ([facility]) Outpatient Attender: DAMIAN ARANDAAttender: SHAW PEDROZA MD 07/01/2020 10:56:00 AM EST - 07/01/2020 11:56:00 AM EST [facility] Outpatient Attender: DEWAYNE GARCÍA Physical Therapy 06/30/2020 1 2:30:00 PM EST MEDENT ([facility]) Unknown [address] [facility] [address] 06/30/2020 12:00:00 AM EST eCW1 ([facility]) Outpatient [address] [facility] [place] [address] 06/11/2020 12:00:00 AM EDT eCW1 ([facility]) Medications Medication Brand Name Start Date Product Form Dose Route Admi nistrative Instructions Pharmacy Instructions Status Indications Reaction Description Data Source(s) rivaroxaban 20 MG Oral Tablet Rivaroxaban 20 MG Oral T ablet (XARELTO) Rivaroxaban 20 MG Oral Tablet (XARELTO) 10/18/2020 12:00:00 AM EST 20 mg Oral aborted Take 1 tablet by mouth jocelin urrutia with dinner [facility] Losartan Potassium 50 MG Oral Tablet [place] Potassium 50 MG Oral Tablet (COZAAR) Losartan Potassium 50 MG Oral Tablet (COZAAR) 09/29/19 12:00:00 AM EST 50 mg Oral active Take 1 tablet by mouth daily [facility] Losartan Potassium 50 MG Oral Tablet [place] Potassium 50 MG Oral Tablet (COZAAR) Losartan Potassium 50 MG Oral Tablet (COZAAR) 09/29/19 12:00:00 AM EST 50 mg Oral aborted Take 1 tablet by mouth daily [facility] Losartan Potassium 50 MG Oral Tablet losartan (COZAAR) tablet 50 mg losartan (COZAAR) tablet 50 mg 09/28/2020 09:00:00 AM EST 50 mg Oral active 50 mg, Oral, Daily Standard, First dose on Mon09/28/20 at 0900, For 30 days
Check vital signs before administering
[facility] Medication administered onsite Docusate Sodium 100 MG Oral Capsule Docu sate Sodium 100 MG Oral Capsule (COLACE) Docusate Sodium 100 MG Oral Capsule (COLACE) 09/28/2020 12:00:00 AM EST 100 mg Oral active Take 1 capsule by mouth Two Times Daily for 10 days [facility] rivaroxaban 15 MG Oral Tablet Rivaroxaban 15 MG Oral T ablet (XARELTO) Rivaroxaban 15 MG Oral Tablet (XARELTO) 09/28/2020 12:00:00 AM EST 15 mg Oral aborted Take 1 tablet by mouth Tw o Times Daily [facility] Acetaminophen 325 MG Oral Tablet Acetaminophen 325 MG Oral T ablet 09/28/2020 12:00:00 AM EST 650 mg Oral active Take 2 tablets by mouth every 4 (four) hours as needed for up to 10 days [facility] Xarelto Starter Pack 15 & 20 MG Oral Tablet [facility] (Rivaroxaban) 43267-674-31 09/28/2020 12:00:00 AM EST Oral activ e Take 15 mg by mouth Two Times Daily for 21 days, THEN 20 mg every evening for 7 days.. [facility] rivaroxaban (XARELTO) tablet 15 mg 09/27/2020 10:30:00 [...] 1800, For 30 days [Order 2 End] [facility] Medication administered onsite Docusate Sodium 100 MG Oral Capsule docusate sodium (C OLACE) capsule 100 mg docusate sodium (COLACE) capsule 100 mg 09/27/2020 09:00:00 AM EST 100 mg Oral active 100 mg, Oral, 2 Times Daily, First dose on 09/27/20 at 0900, For 30 days [facility] Medication administered onsite Xarelto Starter Pack 15 & 20 MG Oral Tablet Therapy [facility] (Rivaroxaban) 65092-764-69 09/27/2020 12:00:00 AM EST Oral abort ed Take 15 mg by mouth Two Times Daily for 21 days, THEN 20 mg every evening for 7 days.. [facility] ondansetron (ZOFRAN) injection 4 mg 09/26/2020 11:06:35 [...] able to tolerate PO.
[Order 2 End] [facility] Medication administered onsite Acetaminophen 325 MG Oral [...] mg from all sources in 24 hours.
[facility] Medication administered onsite senna tablet 2 tablet [...] on the third day.
[Order 2 End] [facility] Medication administered onsite Bisacodyl 10 MG Rectal Suppository bisacodyl (DULCOLAX ) suppository 10 mg bisacodyl (DULCOLAX) suppository 10 mg 09/26/2020 11:05:32 PM EST 10 mg Rectal active 10 mg, Rectal, Every 72 hours PRN, Constipation, Starting 09/26/20 at 2305, For 30 days
Hold if patient has had BM within the past 2 days.
[facility] Medication administered onsite Medrol 4 MG Medrol 4 MG 09/04/2020 12:00:00 AM EST active Medrol 4 MG eCW1 ([facility]) Hydroxychloroquine Sulfate 200 MG Oral Tablet [Plaquen il] Plaquenil 200 MG Plaquenil 200 MG 09/04/2020 12:00:00 AM EST a ctive Plaquenil 200 MG eCW1 ([facility]) Medrol 4 MG Medrol 4 MG 09/04/2020 12:00:00 AM EST active Medrol 4 MG eCW1 ([facility]) Hydroxychloroquine Sulfate 200 MG Oral Tablet [Plaquen il] Plaquenil 200 MG Plaquenil 200 MG 09/04/2020 12:00:00 AM EST a ctive Plaquenil 200 MG eCW1 ([facility]) Medrol 4 MG Medrol 4 MG 09/04/2020 12:00:00 AM EST active Medrol 4 MG eCW1 ([facility]) Medrol 4 MG Medrol 4 MG 09/04/2020 12:00:00 AM EST active Medrol 4 MG eCW1 ([facility]) Hydroxychloroquine Sulfate 200 MG Oral Tablet [Plaquen il] Plaquenil 200 MG Plaquenil 200 MG 09/04/2020 12:00:00 AM EST a ctive Plaquenil 200 MG eCW1 ([facility]) Hydroxychloroquine Sulfate 200 MG Oral Tablet [Plaquen il] Plaquenil 200 MG Plaquenil 200 MG 09/04/2020 12:00:00 AM EST a ctive Plaquenil 200 MG eCW1 ([facility]) Medrol 4 MG Medrol 4 MG 07/24/2020 12:00:00 AM EST suspended Medrol 4 MG eCW1 ([facility]) Medrol 4 MG Medrol 4 MG 07/24/2020 12:00:00 AM EST suspended Medrol 4 MG eCW1 ([facility]) Medrol 4 MG Medrol 4 MG 07/24/2020 12:00:00 AM EST active Medrol 4 MG eCW1 ([facility]) Medrol 4 MG Medrol 4 MG 07/24/2020 12:00:00 AM EST suspended Medrol 4 MG eCW1 ([facility]) Medrol 4 MG Medrol 4 MG 07/24/2020 12:00:00 AM EST suspended Medrol 4 MG eCW1 ([facility]) Medrol 4 MG Medrol 4 MG 07/24/2020 12:00:00 AM EST active Medrol 4 MG eCW1 ([facility]) Medrol 4 MG Medrol 4 MG 07/24/2020 12:00:00 AM EST suspended Medrol 4 MG eCW1 ([facility]) Medrol 4 MG Medrol 4 MG 07/24/2020 12:00:00 AM EST active Medrol 4 MG eCW1 ([facility]) Medrol 4 MG Medrol 4 MG 07/24/2020 12:00:00 AM EST suspended Medrol 4 MG eCW1 ([facility]) meloxicam 15 MG Oral Tablet Meloxicam 15 MG Meloxicam 15 MG 07/06/2020 12:00:00 AM EST 1.0 {tablet} active Meloxicam 1 5 MG eCW1 ([facility]) meloxicam 15 MG Oral Tablet Meloxicam 15 MG Meloxicam 15 MG 07/06/2020 12:00:00 AM EST 1.0 {tablet} active Meloxicam 1 5 MG eCW1 ([facility]) sildenafil 100 MG Oral Tablet [Viagra] Viagra 100 MG Viagra 100 MG 06/11/2020 12:00:00 AM EDT 1.0 {tablet_as_needed} active Viagra 100 MG eCW1 ([facility]) sildenafil 100 MG Oral Tablet [Viagra] Viagra 100 MG Viagra 100 MG 06/11/2020 12:00:00 AM EDT 1.0 {tablet_as_needed} active Viagra 100 MG eCW1 ([facility]) sildenafil 100 MG Oral Tablet [Viagra] Viagra 100 MG Viagra 100 MG 06/11/2020 12:00:00 AM EDT 1.0 {tablet_as_needed} active Viagra 100 MG eCW1 ([facility]) sildenafil 100 MG Oral Tablet [Viagra] Viagra 100 MG Viagra 100 MG 06/11/2020 12:00:00 AM EDT 1.0 {tablet_as_needed} active Viagra 100 MG eCW1 ([facility]) sildenafil 100 MG Oral Tablet [Viagra] Viagra 100 MG Viagra 100 MG 06/11/2020 12:00:00 AM EDT 1.0 {tablet_as_needed} active Viagra 100 MG eCW1 ([facility]) sildenafil 100 MG Oral Tablet [Viagra] Viagra 100 MG Viagra 100 MG 06/11/2020 12:00:00 AM EDT 1.0 {tablet_as_needed} active Viagra 100 MG eCW1 ([facility]) sildenafil 100 MG Oral Tablet [Viagra] Viagra 100 MG Viagra 100 MG 06/11/2020 12:00:00 AM EDT 1.0 {tablet_as_needed} active Viagra 100 MG eCW1 ([facility]) sildenafil 100 MG Oral Tablet [Viagra] Viagra 100 MG Viagra 100 MG 06/11/2020 12:00:00 AM EDT 1.0 {tablet_as_needed} active Viagra 100 MG eCW1 ([facility]) sildenafil 100 MG Oral Tablet [Viagra] Viagra 100 MG Viagra 100 MG 06/11/2020 12:00:00 AM EDT 1.0 {tablet_as_needed} active Viagra 100 MG eCW1 ([facility]) sildenafil 100 MG Oral Tablet [Viagra] Viagra 100 MG Viagra 100 MG 06/11/2020 12:00:00 AM EDT 1.0 {tablet_as_needed} active Viagra 100 MG eCW1 ([facility]) sildenafil 100 MG Oral Tablet [Viagra] Viagra 100 MG Viagra 100 MG 06/11/2020 12:00:00 AM EDT 1.0 {tablet_as_needed} active Viagra 100 MG eCW1 ([facility]) sildenafil 100 MG Oral Tablet [Viagra] Viagra 100 MG Viagra 100 MG 06/11/2020 12:00:00 AM EDT 1.0 {tablet_as_needed} active Viagra 100 MG eCW1 ([facility]) sildenafil 100 MG Oral Tablet [Viagra] Viagra 100 MG Viagra 100 MG 06/11/2020 12:00:00 AM EDT 1.0 {tablet_as_needed} active Viagra 100 MG eCW1 ([facility]) sildenafil 100 MG Oral Tablet [Viagra] Viagra 100 MG Viagra 100 MG 06/11/2020 12:00:00 AM EDT 1.0 {tablet_as_needed} active Viagra 100 MG eCW1 ([facility]) 0.6 mg 05/18/2020 12:00:00 AM EDT tablet [...] type / Coverage type Policy ID Covered libertarian ID Covered libertarian's relationship to guy Policy Guy Plan Information [facility] [id number] SP [id number] [facility] HUMANA - O/P [id number] 18 [id number] U [id number] Self [id number] Self [id number] SELF PAY ONLY [id number] SP [id number] [facility] [id number] SP [id number] [facility] [id number] S [id number] [facility] [id number] SP [id number] [employer] Maintenance Organization (HMO) [id number] Self [id number] [employer] (HMO) [id number] Self [id number] [facility] [id number] Self [id number] [facility] [id number] SP [id number] Region 1 Prime Commercial Self Health [employer] Commercial Self ACTIVE DUTY [id number] SP [id number] Problems, Conditions, and Diagnoses Code Display Name Description Problem Type Effective Dates Data Source(s) M19.90 [id number] Inflammatory arthritis Problem 08/12/2020 12 :00:00 AM EST eCW1 ([facility]) M06.4 [id number] Inflammatory polyarthritis Problem 0 12:00:00 AM EST eCW1 ([facility]) M10.9 [id number] Gouty arthritis of both feet Problem 07/20/2020 12:00:00 AM EST eCW1 ([facility]) M72.2 [id number] Plantar fascial fibromatosis Problem 020 12:00:00 AM EST eCW1 ([facility]) I10 [id number] Essential hypertension Problem 07/20/2020 12 :00:00 AM EST eCW1 ([facility]) [id number] Pure hypercholesterolemia Pure hypercholesterolemia Pr oblem 06/30/2020 12:00:00 AM EST MEDENT ([facility]) [id number] Essential hypertension Essential hypertension Problem 06/30/2020 12:00:00 AM EST MEDENT ([facility]) 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 Problem 06/11/2020 12:00:00 AM EDT eCW1 ([facility]) I82.90 Acute embolism and thrombosis of unspeci fied vein Acute embolism and thrombosis of unspecified vein Diagnosis 09/26/2020 05:48:00 PM EST [facility] saddle PE, LLE DVT saddle PE, LLE DVT Diagnosis 05:48:00 PM [facility] [id number] CONTACT WITH AND SUSPECTED EXPOSURE TO C OVID-19 CONTACT WITH AND SUSPECTED EXPOSURE TO COVID-19 Diagnosis 09/24/2020 07:05:00 PM EST Health system I10 Essential (primary) hypertension Essential (primary) h ypertension Diagnosis 09/24/2020 07:05:00 PM [facility] I2692 Saddle embolus of pulmonary artery witho ut acute cor pulmonale Saddle embolus of pulmonary artery without acute cor pulmonale Diagnosis 09/24/2020 07:05:00 PM [facility] R0600 Dyspnea, unspecified Dyspnea, unspecified Diagnosis 09/24/2020 07:05:00 PM [facility] [id number] Nicotine dependence, cigarettes, uncompl icated Nicotine dependence, cigarettes, uncomplicated Diagnosis 09/24/2020 03:58:[address] [facility] I2699 Other pulmonary embolism without acute c or pulmonale Other pulmonary embolism without acute cor pulmonale Diagnosis 09/24/2020 03:58:00 PM [facility] R936 Abnormal findings on diagnostic imaging of limbs Abnormal findings on diagnostic imaging of limbs Diagnosis 07/01/2020 10:56:00 AM [facility] R2232 Localized swelling, mass and lump, left upper limb Localized swelling, mass and lump, left upper limb Diagnosis 07/01/2020 10:56:00 AM [facility] [id number] Pain in left toe(s) Pain in left toe(s) Diagnosis 1 08/31/2019 10:56:00 AM [facility] Surgeries/Procedures Procedure Description Date Indications Data Source(s) BLOOD COUNT COMPLETE AUTO&AUTO DIFRNTL WBC COUNT CBC AND DIFFER ENTIAL Routine 09/28/2020 4:06 AM EST 09/28/2020 04:06:00 AM [facility] PHOSPHORUS INORGANIC PHOSPHORUS LEVEL Routine 09/28/2020 4:[address] 09/28/2020 04:06:00 AM [facility] BASIC METABOLIC PANEL CALCIUM TOTAL BASIC METABOLIC PANEL Routi ne 09/28/2020 4:06 AM EST 09/28/2020 04:06:00 AM [facility] EKG 12-LEAD - CMAXX REPORT EKG 12-LEAD - CMAXX REPORT 09/27/2020 12:26 PM EST 09/27/2020 12:26:07 PM [facility] EKG 12-LEAD - CMAXX REPORT EKG 12-LEAD - CMAXX REPORT 09/27/2020 12:26 PM EST 09/27/2020 12:26:07 PM [facility] EKG 12-LEAD EKG 12-LEAD Routine 09/27/2020 12:26 PM EST 09/27/2020 12:26:07 PM [facility] TROPONIN QUANTITATIVE TROPONIN T Routine 09/27/2020 11:46 AM EST 09/27/2020 11:46:00 AM [facility] HEPARIN ASSAY ANTI-XA UNFRACTIONATED HEPARIN LEVEL Routine 09/27/2020 8:30 AM EST 09/27/2020 08:30:00 AM [facility] HEPARIN ASSAY ANTI-XA UNFRACTIONATED HEPARIN LEVEL Routine 09/27/2020 3:55 AM EST 09/27/2020 03:55:00 AM [facility] PROTHROMBIN TIME PROTIME INR Routine 09/27/2020 3:55 AM EST 09/27/2020 03:55:00 AM [facility] BLOOD COUNT COMPLETE AUTOMATED CBC Routine 09/27/2020 3:55 A M EST 09/27/2020 03:55:00 AM [facility] PHOSPHORUS INORGANIC PHOSPHORUS LEVEL Routine 09/27/2020 3:[address] 09/27/2020 03:55:00 AM [facility] MAGNESIUM MAGNESIUM LEVEL Routine 09/27/2020 3:55 AM EST 09/27/2020 03:55:00 AM [facility] ANGIOGRAPHY PULMONARY BILATERAL SLCTV RS&I IR PULMONARY ARTERIO GRAM Routine 09/26/2020 10:01 PM EST Clot 09/26/2020 10:01:23 PM EST [facility] COAGULATION TIME ACTIVATED POCT ISTAT ACT Routine 09/26/2020 9:54 PM EST 09/26/2020 09:54:00 PM [facility] COAGULATION TIME ACTIVATED POCT ISTAT ACT Routine 09/26/2020 8:37 PM EST 09/26/2020 08:37:00 PM [facility] PULMONARY ANGIOGRAM WITH LYSIS AND/OR MECHANICAL EMBOL ECTOMY PULMONARY ANGIOGRAM WITH LYSIS AND/OR MECHANICAL EMBOLECTOMY 8:03 PM EST PE 09/26/2020 08:03:00 PM EST - 09/26/2020 10:24:00 PM [facility] BLOOD TYPING ABO TYPE AND SCREEN STAT 09/26/2020 7:57 PM EST 09/26/2020 07:57:00 PM [facility] OPERATIVE AND PROCEDURE NOTE OPERATIVE AND PROCEDURE NOTE 09/26/2020 7:39 PM EST 09/26/2020 07:39:16 PM [facility] HEPARIN ASSAY ANTI-XA UNFRACTIONATED HEPARIN LEVEL Routine 09/26/2020 7:05 PM EST 09/26/2020 07:05:00 PM [facility] PROTHROMBIN TIME PROTIME INR Routine 09/26/2020 7:05 PM EST 09/26/2020 07:05:00 PM [facility] BLOOD COUNT COMPLETE AUTOMATED CBC Timed 09/26/2020 7:05 P M EST 09/26/2020 07:05:00 PM [facility] RESPIRATORY PATHOGEN PANEL RESPIRATORY PATHOGEN PANEL Routine 09/26/2020 7:03 PM EST 09/26/2020 07:03:00 PM [facility] COVID-19 PCR COVID-19 PCR Routine 09/26/2020 7:03 PM EST 09/26/2020 07:03:00 PM [facility] Results ID Date Data Source [id number] 09/28/2020 06:05:[address] [facility] Name Value Range Interpretation Code Description Data Princess rce(s) Supporting Document(s) Discharge Summary [facility] EYHNYz4xDyBGKwOg67/JAHgrNITnf6BuUAwgZGb3XFxkOTHeD8AqRAT1wH1fNQP0HJhUFuKhWqJwMeM8 lbm [file] Mp5zWCIXUh8+VVqnrSQwjGdzQWRTThXdDIpyWHrnNEUIAf1E ID Date Data Source [id number] 09/28/2020 07:55:[address] [facility] Name Value Range Interpretation Code Description Data Princess e(s) Supporting Document(s) [facility] DLWMJl4sNaYVRxHja0ClHsMeLQTvYM9ucll1B1J0kTShB9AtjFBaw9quB0EoQ3NbIZSiPFXHLD1YkLYk jb2 [file] b1+9+93bp+/f3n1+1+A8c300k/dP//T+s4/javascript web developer/8vcr6/1xdRO2y143/xHg1a9xZlbiahc+zrqJq3eh2+ /votkt99+SAu53784GeesEfeneoimo+/+frb37z/7I t/+bMkq82a//Jyg9sGVe63ro9t3Lp+/VIw5iqfeZyR/hendswZ7Y1s//4c0iy5F5r63eGq8/1UN37D5x 7osz//+O9/+Neffny1d//xn2/f/eGPf/z+L3/54fs//sPb59//+Icf/vj2r/+t2b/+9rgse8ckw5hkx/ 9u7UCOG6y/e/fV3+h+nz+6c+3ypz/54w5BnNqgeQ6r +E/fAR+2tPB5/fr/Atw/SA/o/8n3A4aRYc1LWfpya4PAS66H9Fod5ap1aeFXm25l/frt+pn8gdau+4YP P/z7Dy/99Xx44G4k4S++++Lz9x/mas7lrh/ff/NA2b4jLMzs/vR+YJZg5gwq+9n2xwQIs4DVt2tGFvUn dbcKQl1uNr/+9R/f/vL9X3/4Se6vT+WmPJ62i/oTX9 JOLazJ/HnuB/zNh7c//PjXH/7yv/+x1fY9PaiQz5+6P+/x+nnuB/vnD9++/dv/etX9D3/+7tbTw9ceL8 s+sniwf/74q3/++Hu+zw389Jfve30Y/Di699cXb3A1WDr5y/6YQpce38/kLASn/rxWB/vNLz/88uPb9/ /nh//426HzvLdr/fKrdx9+iMk6gY3+V87/+Zd//buf 9O1se7ke//En79d/gn72/f/6/ff/8Yfvf/bF97zXZi/w48+lz6yRhU/+c0934gAeel//+U+ftOvq/rNb Tnu//GCjD5de/Ksxt6fJS/cNH3/4/f/88Q+/l4Rxf1vdq50V/+wtMnIh9v0Pw9384e554k2z/+cPf/nb Dry64G5+5quv3n/98dtP+P26P4r//3uol4W6GNWv/c 33/88Pb+3tz//+1qiebTR/5otv7/zbH9Ml343Cg5w7l316hVO4SCbmxd2U76e4XRKqEnrhuz++/v7fff bZN7/9+oHacAQ7V6aw/vb/TaysM71WDE4jv5MnJVMqHcWxAO5zrxmeBWZeXO3ptdv9N4KjlGwjEHyPCF PaWg7ziVAqRC5YMFI6YVzmBWJcTMGdR7JnmL5lP17p aFIuBgSsKWMWNO0FrhP1SRC4LPS3RYBxLoQlXEPmCC83SVTuEDNVUb4ddbDyEjxLPuAcTT3hbjq1Q1N1 iNFnF261mBwailCqHK7Nv9CrnCHiKB0JcZRozSKrHCLmTRTaT4tme0PyVJopAPPZUz2gucMbXohLXpLj GA7mony8X0F0dNlemlNuHPZAIQqgFixpKS2vsNyhfr sxC3AilNIuIOStW7BhFKCyg06PKOWsHGaUTkCiBeOzGaJ3FYd6EMtfXwWhNAPsIEJgWGDxGZ7YnSOqUV IdYHOPCOksVngkCJCknR8ijZMWy2RmApPDZEySPmawKs8PLLIYTQD4FFloUHioBR9GsMQzCAS2JSrGZO ADZSrKEKamLbGng4E8NDHxQ0TcYKXboyRfEIPYOFev FxpeFV7cnQsyutzuU9HwgULrRWIOVOEyMSSqYISqBFOkC1Uzh3H6L3PoRSgIIYFJPPdDGJmaRrQ2h31a ayBTZXJpZXMpID4+UW6pr4XgFu7ERJAbMC0uxsy7DB3IeXJkWL1PZSkugqFgE9wevoUyVkSqPJVSKK9u P7FgcQ09UGT+AsEeMV6mrnj3azMePhKwYRFaEJJpIZ NgANatJGJrCVWdFTPcCYP3FLS8IEFnCkJlHSBbNpI8UbtbFDZiMWAvlzEAAKSfBQR8MaIaXtSnCBFhEM EzOYsaARYnBZP0ECtjOXFpECIxAI5nWjOnTWGrSMUlEBCwHbK9YsDiMpLOUKRtFYBaNGMvFxXiQZKdES MzODcdIPQdHSMfVFv5HTEeMXHjHV6kVtHfRQMsIKSy RCHoORDcOYBidqEIYYJnEBUnGUA7XQEcPBQcNKTlUSzfJCZjWXCpHXZ2MGFzQOKpXD6fRaFaJEGvZLZ1 RoLkCSPsYBQiviQNBCBdOGIdFPR3YPYkSWRiLDLgXZtoHQGnKVEfUeA7YXYhUUHrHY9vYiNhCNSrZOC6 HWRhCSFvNDNmgxEPDBOiIAVvUPc4ShLzJDJcQEToDN tzIXFjIBNyRTmyMIJcGENuRN6jJjEjXJRzLNStMTItKRVkWVUvrcTTAHKySXZjBRG2GnEhEWRgIVLrWC knVNGjIIZjTSJ7BQMnHHPsRR7rDdFkIYOjMxEbNKGuAJExSQHzgzEDNWWkFASqOPAoEUMzUJCcPCQpSY zpUCZpKZYbNtP5CYDsMGIgIS1xNcQsWNFpKHW2HOBp NQZfSKNavyMSQFHdZTXoUHChMSK2BFWnPSDxOQo4drVtgICfTjg5Dh4RhFzcODC9Gc8JryJuVIWvCJXY Nl0Zx007TNJxFZEJZic+XnlxoIXthRdpCOYGIzV4VUXXSORGQ9X= ID Date Data Source [id number] 09/28/2020 05:39:[address] [facility] Name Value Range Interpretation Code Description Data Princess rce(s) Supporting Document(s) Leukocytes [#/volume] in Blood by Automated count 5.4 10*3/uL 4-10 [facility] Erythrocytes [#/volume] in Blood by Automated count 4.27 10*6/uL 4.6- 6.1 L [facility] Hemoglobin [Mass/volume] in Blood 12.8 g/dL 13.5-18 L [facility] Hematocrit [Volume Fraction] of Blood by Automated count 37.0 % 4 1-53 L [facility] Erythrocyte mean corpuscular volume [Entitic volume] by Auto mated count 86.8 fL 80-96 [facility] Erythrocyte mean corpuscular hemoglobin [Entitic mass] by Automated count 29.9 pg 27-33 [facility] Erythrocyte mean corpuscular hemoglobin concentration [Mass/volume] by Autom[facility] 34.5 g/[facility] width [Ratio] by Automated count 13.1 % 11.5-14.5 [facility] Platelets [#/volume] in Blood by Automated count 125 10*3/uL 150-400 L [facility] Differential cell count method - Blood [facility] Neutrophils/100 leukocytes in Blood by Automated count 55 % [facility] Lymphocytes/100 leukocytes in Blood by Automated count 30 % [facility] Monocytes/100 leukocytes in Blood by Automated count 9 % [facility] Eosinophils/100 leukocytes in Blood by Automated count 5 % [facility] Basophils/100 leukocytes in Blood by Automated count 1 % [facility] Neutrophils [#/volume] in Blood by Automated count 3.03 10*3/uL 1.8-7 .0 [facility] Lymphocytes [#/volume] in Blood by Automated count 1.61 10*3/uL 1.2-4 .0 [facility] Monocytes [#/volume] in Blood by Automated count 0.49 10*3/uL 0-0.8 [facility] Eosinophils [#/volume] in Blood by Automated count 0.25 10*3/uL 0-0.5 [facility] Basophils [#/volume] in Blood by Automated count 0.03 10*3/uL 0-0.2 [facility] Nucleated erythrocytes/100 leukocytes [Ratio] in Blood by Automated count 0 /100{WBCs} 0-0 [facility] ID Date Data Source [id number] 09/28/2020 06:02:02 AM [facility] Hospital Name Value Range Interpretation Code Description Data Princess rce(s) Supporting Document(s) Bicarbonate [Moles/volume] in Serum 21 mmol/L 22-29 L [facility] Chloride [Moles/volume] in Serum or Plasma 104 mmol/L 98-107 [facility] Creatinine [Mass/volume] in Serum or Plasma 0.93 mg/dL 0.70-1.20 [facility] Glucose [Mass/volume] in Serum or Plasma 93 mg/dL 70-140 [facility] Potassium [Moles/volume] in Serum or Plasma 4.2 mmol/L 3.4-5.1 [facility] Hemolyzed Sodium [Moles/volume] in Serum or Plasma 137 mmol/L 136-145 [facility] Urea nitrogen [Mass/volume] in Serum or Plasma 12 mg/dL 6-20 [facility] Anion gap 3 in Serum or Plasma 12 mmol/L 8-15 [facility] Osmolality of Serum or Plasma by calculation 284 mosm/kg 275-300 [facility] Creatinine/Urea nitrogen [Mass Ratio] in Serum or Plasma 13 [facility] Calcium [Mass/volume] in Serum or Plasma 8.8 mg/dL 8.6-10.0 [facility] Glomerular filtration rate/1.73 sq M pre dicted among non-blacks [Volume Rate/Area] in Serum or Plasma by Creatinine-based formula (MDRD) >6 0 [facility] Glomerular filtration rate/1.73 sq M pre dicted among blacks [Volume Rate/Area] in Serum or Plasma by Creatinine-based formula (MDRD) >60 [facility] ID Date Data Source [id number] 09/28/2020 06:02:[address] [facility] Name Value Range Interpretation Code Description Data Princess rce(s) Supporting Document(s) Phosphate [Mass/volume] in Serum or Plasma 3.8 mg/dL 2.5-4.5 [facility] ID Date Data Source [id number] 09/27/2020 12:25:59 PM [facility] Value Range Interpretation Code Description Data Princess rce(s) Supporting Document(s) Troponin T.cardiac [Mass/volume] in Serum or Plasma 0.03 ng/mL <0.01 H [facility] ID Date Data Source [id number] 09/27/2020 09:10:41 AM [facility] Value Range Interpretation Code Description Data Princess rce(s) Supporting Document(s) Heparin unfractionated [Units/volume] in Platelet poor plasma by Chromogenic method 0.25 U/ml [facility] ID Date Data Source [id number] 09/27/2020 07:55:23 AM [facility] PULMONARY ARTERIOGRAMFINAL RESULTInte rpreted by:Rachel Phipps MD1. [...] exchanged over a wire for an 8 Afghan sheath. An inferior venacavogram was then performed. The 7 Afghan Crestone-Ruddy catheter was then used to selectively cannulate the main pulmonary artery. Pulmonary artery pressures were also measured. The 8 Afghan sheath was then exchanged over wire for a 24 Afghan coaxial sheath. This was placed in the [...] rce(s) Supporting Document(s) ID Date Data Source [id number] 09/27/2020 05:16:26 AM [facility] Value Range Interpretation Code Description Data Princess rce(s) Supporting Document(s) Leukocytes [#/volume] in Blood by Automated count 5.6 10*3/uL 4-10 [facility] Erythrocytes [#/volume] in Blood by Automated count 4.27 10*6/uL 4.6- 6.1 L [facility] Hemoglobin [Mass/volume] in Blood 12.4 g/dL 13.5-18 L [facility] Hematocrit [Volume Fraction] of Blood by Automated count 37.3 % 4 1-53 L [facility] Erythrocyte mean corpuscular volume [Entitic volume] by Auto mated count 87.3 fL 80-96 [facility] Erythrocyte mean corpuscular hemoglobin [Entitic mass] by Automated count 29.0 pg 27-33 [facility] Erythrocyte mean corpuscular hemoglobin concentration [Mass/volume] by Automated count 33.2 g/dL 32.0-36.0 [facility] Erythrocyte distribution width [Ratio] by Automated count 13.4 % 11.5-14.5 [facility] Platelets [#/volume] in Blood by Automated count 121 10*3/uL 150-400 L [facility] ID Date Data Source [id number] 09/27/2020 05:31:[address] [facility] Name Value Range Interpretation Code Description Data Princess rce(s) Supporting Document(s) Prothrombin time (PT) 14.7 s 12.5-14.9 [facility] INR in Platelet poor plasma by Coagulation assay 1.14 [facility] Routine intensity oral anticoagulation I NR is typically 2.0-3.0. Target INR must be clinically individualized. ID Date Data Source [id number] 09/27/2020 05:47:25 AM [facility] Value Range Interpretation Code Description Data Princess rce(s) Supporting Document(s) Heparin unfractionated [Units/volume] in Platelet poor plasma by Chromogenic method 1.52 U/ml [facility] al ConfirmedCalled to and read back byCristopher Burns RN ON 10G AT 0545 BY 2050 ID Date Data Source [id number] 09/27/2020 05:53:34 AM [facility] Value Range Interpretation Code Description Data Princess rce(s) Supporting Document(s) Phosphate [Mass/volume] in Serum or Plasma 4.2 mg/dL 2.5-4.5 [facility] ID Date Data Source [id number] 09/27/2020 05:53:34 AM [facility] Value Range Interpretation Code Description Data Princess rce(s) Supporting Document(s) Magnesium [Mass/volume] in Serum or Plasma 2.0 mg/dL 1.6-2.6 [facility] ID Date Data Source [id number] 09/26/2020 10:05:41 PM [facility] Value Range Interpretation Code Description Data Princess rce(s) Supporting Document(s) Kaolin activated time [Units/volume] in Blood 208 [facility] ID Date Data Source [id number] 09/26/2020 09:03:53 PM [facility] Value Range Interpretation Code Description Data Princess rce(s) Supporting Document(s) Kaolin activated time [Units/volume] in Blood 136 [facility] ID Date Data Source [id number] 09/26/2020 08:39:07 PM [facility] Value Range Interpretation Code Description Data Princess rce(s) Supporting Document(s) ABO and Rh group [Type] in Blood [facility] Blood group antibody screen [Presence] in Serum or Plasma [facility] Blood bank comment [facility] ID Date Data Source [id number] 09/26/2020 07:36:21 PM [facility] Value Range Interpretation Code Description Data Princess rce(s) Supporting Document(s) History and Physical [facility] HMTZKi1xNbTBOvCe24/BJYlqCNRaz2ChWGlyZVx2NQotESTzP4NmITX7lV4iJNJ5MYtFJdOrOvCrUfGa lbm [file] ICAgICAgICAgICAgICAgICAgICAgICAgICAgICAgICAgICAgICAgICAgICAgICAgICAgICAgICAgICAg ICAgICAgICAgICAgICAgICAgICAgICAgICAgICAgICAgICAgDQogICAgICAgICAgICAgICAgICAgICAg ICAgICAgICAgICAgICAgICAgICAgICAgICAgICAgIC AgICAgICAgICAgICAgICAgICAgICAgICAgICAgICAgICAgICAgICAgICAgICAgDQogICAgICAgICAgIC AgICAgICAgICAgICAgICAgICAgICAgICAgICAgICAgICAgICAgICAgICAgICAgICAgICAgICAgICAgIC AgICAgICAgICAgICAgICAgICAgICAgICAgICAgDQog ICAgICAgICAgICAgICAgICAgICAgICAgICAgICAgICAgICAgICAgICAgICAgICAgICAgICAgICAgICAg ICAgICAgICAgICAgICAgICAgICAgICAgICAgICAgICAgICAgICAgDQogICAgICAgICAgICAgICAgICAg ICAgICAgICAgICAgICAgICAgICAgICAgICAgICAgIC AgICAgICAgICAgICAgICAgICAgICAgICAgICAgICAgICAgICAgICAgICAgICAgICAgDQogICAgICAgIC AgICAgICAgICAgICAgICAgICAgICAgICAgICAgICAgICAgICAgICAgICAgICAgICAgICAgICAgICAgIC AgICAgICAgICAgICAgICAgICAgICAgICAgICAgICAg DQogICAgICAgICAgICAgICAgICAgICAgICAgICAgICAgICAgICAgICAgICAgICAgICAgICAgICAgICAg ICAgICAgICAgICAgICAgICAgICAgICAgICAgICAgICAgICAgICAgICAgDQogICAgICAgICAgICAgICAg ICAgICAgICAgICAgICAgICAgICAgICAgICAgICAgIC AgICAgICAgICAgICAgICAgICAgICAgICAgICAgICAgICAgICAgICAgICAgICAgICAgICAgDQogICAgIC AgICAgICAgICAgICAgICAgICAgICAgICAgICAgICAgICAgICAgICAgICAgICAgICAgICAgICAgICAgIC AgICAgICAgICAgICAgICAgICAgICAgICAgICAgICAg ICAgDQogICAgICAgICAgICAgICAgICAgICAgICAgICAgICAgICAgICAgICAgICAgICAgICAgICAgICAg ZBAyDCUiWQHqAMQoUSYyUHDsXLLyOCMuABBzAINlREKoZTIaLTEgIEAgNNOuSSp7L2kqACNuOZCjYZ2i EUd2Es9+PHiRAqBqUIK3bxUiuH6XJI5mt5YqNZxkMI Ytz3DpUKa6FF8SZFOfZFikEA3ZQGusxl3UXQZlDNWyfWDXb4tlRxTzNKV8AQErYbwfTH1KDJWzD8jliy TlCWHeBECLPMrgYJIBFHnzEXHSDQIxNEHwEmFaOyGzEOMqJD8BAYIqA286xwCtSW5BKt7BXtTeEY3jvw 9TVvWzHJGiDodQCca3TZkeIE7JdLUjtCMbERJnADGB HwGoV1wvw0YtXlWsHLUPOKuhHA6Rr5DzbCKbGJp+Wm8ETW2iy7OaQOfpEJDqQA2dir4BKVsAWeVkZ6Zy xLapAAxyLCKusDJIBKDvDDXnWAVLOMdrFD8eHM1RMWW9BEVhWGFjUgVhDKOxRqkoMJAMTNrGDbXiN1Jl l2EkPuY0FCXxDwBzDJimCACgGcI8GR61iGkhXF9IEG DuEKRvHO45GUQsFVPnWr2BRs4DDlVrNC9idb9QBqDoQRYvEpdGCql6PTawYY5ZrDHnZ7QomMQtc7fIPi VrQ6FUUQIoBQCwNa3OLNIfZpKuRBMiVDgwUF6zMGKbUPNDyMjtedY0BY2FMV3ofbKdDX2FZkFbEa0rPq 0OHtBtC7IcD8KmDORgLQICRUfyDW1IFEavZJ8lWO2B p1RInXTepG7lkd6NOUYjZABzXggrin4KYybpU3K8rBsoLNZaZtJbCYUGECzyBA4KGHYzCNF6NYPsAlAb WRJVQcAaS27nEO3WC0Kcq67bAnH7XWZjOlAySUazQX96jZihmdRrqTAhcAauQE7ITf3+DQplbmRvYmoN CmcdRPZTPdXwOyMCTnZfWVDiRWOwFREoMpU1MoJkUz 2ADPWoYVLiIXRbLbFqEYWsTLEzPRvqIMLdBWEpQpO9OCUjWVQlCO6HAxUdWOHrYeMkFOwfAHSqUMWgsv 4FCUIkYQCfKIN8VnQiTIExHCQwHAglDZDuKBC5YxTjUPXzOQImCW8XOaLkEXYgVNK4VmIqVVUyEVPmui 0ZABXhYKVqTxQcUPVbUMCqYGBdMAmeIXIuDFR1NsJy EEQoRKJsYY2OWsAjRIPeIRHfHUQqKXKbHTLiwq7IXZOiQKRtUFE1ULEjZTQkYUMxGFbjPGHwIPTcPQZ1 UIQzAXEhRS0RWoQdNLZcECP2MWKyMPYhQGSqbg7WWGGbZXRwQOptZLXaXOPlSUNxPJlrJEXuSUK0WTIi RMCfFLPjCM3YYpYaFIRzRPL4PWEtEQRxUVHpwi6SQX XeCYFgFrU4UyBkYGWqLTYlKZlqGGKmVTI6OvauNSIvWGAdGA9HPcZvIQXqCMcjLrxgVOHcERTgzp4FCB JqTFLeGhS8CFOvGQRnVOBhLHunAOOxUCC3LyN1WOUuRGGiXN2KQhFpBGRcLWy7FTkySUPpUWLyqz4IZR WzVWEtWRa5KXZaBDYuMLKqNScgSJRjQGR6KGo2UFNb ZXTlYL4NKgVcBXTjOZp7GwggGWHuDZRjzt1NTCStZTSpMAZzHOWsKKQtEOAiIKpaKIGqKEMgTfE5GUDi WJAxDD1QLnVaMCGhLxL7IYGzZJIjWBRhzc1AFJQeRTNaIyToOMUoVGHyANSnKDrhRDWbDMJoPzEsXBDt JCKgOJ4QHhIlHOEfVoX3OfziVXPdKERdqm1FSYEsKY ZlGfApBFUpKMLxOQAhUDmfKQQrAECmPET9GYGmTXSgCU0ULcIrKQGwLxV5NDNpDMOcUAJsmk6PTHFjFH RqRVR2LpPyODIyPPFcMCouGJIhYDJ4EfCpUUEiWHHlPI1EPyNuFHcsOYICGis3UDkjS1y7GZPxRv1CT5 Ojs3HaGqGzMIPFFBdrRN5yufWzBMOpJp4XL5uYKsvb OZhxXAVmWMZ5XQEnIMj0E5AkJMZnXUU1MPByU6EqXB9qBVB7LdF9JOCfQRGfNdMkFWt6GEB4GmN5Oxe1 HVVrQpPwNwRbJM1ENn7JEmJ3MMP2mZJsTc6EYvC5JbOWWmVqXL6CGBv= ID Date Data Source [id number] 09/26/2020 07:24:01 PM [facility] Hospital Name Value Range Interpretation Code Description Data Princess rce(s) Supporting Document(s) Leukocytes [#/volume] in Blood by Automated count 5.3 10*3/uL 4-10 [facility] Erythrocytes [#/volume] in Blood by Automated count 4.68 10*6/uL 4.6- 6.1 [facility] Hemoglobin [Mass/volume] in Blood 14.1 g/dL 13.5-18 [facility] Hematocrit [Volume Fraction] of Blood by Automated count 40.4 % 4 1-53 L [facility] Erythrocyte mean corpuscular volume [Entitic volume] by Auto mated count 86.2 fL 80-96 [facility] Erythrocyte mean corpuscular hemoglobin [Entitic mass] by Automated count 30.1 pg 27-33 [facility] Erythrocyte mean corpuscular hemoglobin concentration [Mass/volume] by Automated count 34.9 g/dL 32.0-36.0 [facility] distribution width [Ratio] by Automated count 13.6 % 11.5-14.5 [facility] Platelets [#/volume] in Blood by Automated count 118 10*3/uL 150-400 L [facility] ID Date Data Source [id number] 09/26/2020 07:36:[address] [facility] Name Value Range Interpretation Code Description Data Princess rce(s) Supporting Document(s) Heparin unfractionated [Units/volume] in Platelet poor plasma by Chromogenic method 0.39 U/ml [facility] al ID Date Data Source [id number] 09/26/2020 07:36:[address] [facility] Name Value Range Interpretation Code Description Data Princess rce(s) Supporting Document(s) Prothrombin time (PT) 13.6 s 12.5-14.9 [facility] INR in Platelet poor plasma by Coagulation assay 1.03 [facility] Routine intensity oral anticoagulation I NR is typically 2.0-3.0. Target INR must be clinically individualized. ID Date Data Source [id number] 09/26/2020 07:03:00 PM EST [facility] Name Value Range Interpretation Code Description Data Princess rce(s) Supporting Document(s) SARS-CoV-2 RNA 2019 nCoV Real-Time RT-PCR: NOT DETECTED [facility] This lab was ordered by [facility] and reported by [facility]. ID Date Data Source [id number] 09/26/2020 08:48:[address] 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 Service Cmnt XXX-Imp : NoneRespiratory P CR Panel : PCR ResultsMicroorganism XXX Cult : See Labs Tab for 2019 nCoV RT-PCR resultsHAdV DNA QI KALEN+non-probe : Not DetectedHCoV [id number] Nph QI KALEN+non-probe : Not DetectedHCoV MHP2CML Nph QI KALEN+non-probe : Not BpebotndSHmLNB93 RNA Nph QI KALEN+non-probe : Not AeffsdwsANeWOZ20 RNA Upper resp QI KALEN+probe : Not [...] DNA Nph Q KALEN+non-probe : Not DetectedB zivhuAK241 DNA Nph KALEN+non-probe : Not Detected Name Value Range Interpretation Code Description Data Princess rce(s) Supporting Document(s) ID Date Data Source [id number] 09/25/2020 01:08:00 PM [facility] [address] [place] [address] RESPIRATORY CARE REPORT ==== ---------NAME------- NUMBER SEX AGE ADMIT DISC. XRAY# F/C LUZ DIANA [id number] M 54 09/24/20 09/24/20 [id number] SB4 E/R DATE OF : 1965 M/R# [id number] #: [id number] TR-07 LOCATION: EMERGENCY DEPT EKG [id number] COMP LETE:09/25/20 01:01 T 67970 PHYSICIAN: SEA MABRY Name Value Range Interpretation Code Description Data Princess rce(s) Supporting Document(s) ID Date Data Source [id number] 09/25/2020 10:02:00 AM EST [facility] [address] [place] [address] PHONE: [phone] FAX: [phone] Name .................. : CHAD ORTIZ Acct Number.................. : [id number] ROOM. ................. : Number ................... : [id number] Stay type ............. : O/P Discharge Date......... ... : 09/24/20 Admit Date ......... : 09/24/20 Admit Phys .................... : HUGHES ISAA Date of ....... : 1965 Family Phys ................... : UNKNOWN Phone .................. : [phone] Age ................................ : 54 Film# .................. .:[id number] Sex ................................. : M Unsigned transcriptions are preliminary reports and do not represent a medical or legal document CT CTA CHEST NON-CORONARY W Yumiko 14400 COMPLETE:09/24/20 19:35 EMMANUEL 4169 (REASON FOR EXAM: [...] By Jose Christie M.D. , 09/25/20 10:02, [facility] [address] [place] [id number] PHONE: [phone] FAX: [phone] Name .................. : CHAD ORTIZ Acct Number.................. : [id number] ROOM. ............ ..... : MR Number ................... : [id number] Stay type ............. : O/P Discharge Date......... ... : 09/24/20 Admit Date ......... : 09/24/20 Admit Phys .................... : ELLEN ISDALE Date of ....... : 1965 Family Phys ................... : UNKNOWN Phone .................. : [phone] Age ................................ : 54 Film# .................. .:[id number] Sex ................................. : M Unsigned transcriptions are preliminary r eports and do not represent a medical or legal document CT CTA CHEST NON- CORONARY W C 66460 COMPLETE:09/24/20 19:35 EMMANUEL 4169 (REASON FOR EXAM: ELEVATED D-DIMER Transcribe Initials: DZ , Transcribe Date: 09/25/20 01:57, Dictation Date: Copy for: ELLEN MASTERS Copy for: 710 MED REC Page 2 of 2 Name Value Range Interpretation Code Description Data Princess rce(s) Supporting Document(s) ID Date Data Source [id number] 09/24/2020 07:05:00 PM EST [facility] 1 OrderSheet [facility] Emergency Department [address] [place] [address] Phone #: ext- [phone] 09/24/2020 19:05 Patient: DIANA BONILLA Sex: M : 1965 Age: 54yWEIGHT:106.5 kg (S)ALLERGIES: Chantix, Sulfa Antibiotics, WellbutrinCHIEF COMPLAINT: dyspneaDIAGNOSIS: Pulmonary embolismLAB ORDERSOrder Description Priority Entered Acknowledged [facility]edS[facility] STAT 19:19 09/24/2020 19:39 [...] as Evita Conrad MD; Irma Zayasefined by [facility]09/24/20) (Not FirstTest) (NotHospitalized) (Not) (NotResident inCongregate CareSetting) (NotEmployed inHealthcare Setting)DIAGNOSTIC STUDY ORDERSOrder Description Priority Entered Acknowledged InitialedMED ICATION/IV/DRIP/FLUID ORDERSOrder Description Priority Entered Acknowledged InitialedHeparin Drip IV : STAT 19:19 09/24/2020 Ack'd: 19:36 19:41 Shannon Zayas OrderSheet [facility] Emergency Department [address] [place] [address] Phone #: ext- [phone] 09/24/2020 19:05 Patient: [...] rce(s) Supporting Document(s) ID Date Data Source [id number] 09/24/2020 07:05:00 PM [facility] 1 Medication Reconciliation Report [facility] Emergency Department [address] [place] [address] Phone #: ext- [phone] 09/24/2020 19:05 Patient: DIANA BONILLA Sex: M : 1965 Age: 54yWeight: 106.5 kgHeight/Length: 74 in.BMI: 30.2ALLERGIES: Chantix, Sulfa Antibiotics, WellbutrinThe patient's Home Medications are listed below:THE FOLLOWING MEDICATIONS NEED TO BE RECONCILED: Lisinopril Oral 50mg, dailyThe source(s) of the original Home Medication information:patientThe following Medications were given to the patient in the Emergency Department:Heparin [IV Drip] Drip IV bolus 0, then 85433 unit 1000 unit/hr, administered: 19:41 09/24/2020The following Medications were prescribed to the patient:None. Name Value Range Interpretation Code Description Data Princess rce(s) Supporting Document(s) ID Date Data Source [id number] 09/24/2020 07:05:00 PM [facility] 1 Medication Administration Record [facility] Emergency Department [address] [place] [address] Phone #: ext [phone] 09/24/2020 19:05 Patient: DIANA BONILLA Sex: M : 1965 Age: 54yWeight: 106.5 kgHeight/Length: 74 inBMI: 30.2ALLERGIES: Chantix, Wellbutrin, Sulfa Antibiotics Date/Time Medication Administered Medication OrderedStart HEPARIN [IV DRIP] Heparin Drip IV : Bolus 5,34510:41 09/24/2020 Dose: 89572 unit Drip IV units, then 10 units/kg/hr (Irma Harvey, Rate: 1000 unit/hr x1, Verify Strength in Omnicell,---- Dispensed: 500 mL bag HIGH ALERT MEDICATION); StatContinued Upon Transfer Site: #2 left [id number] 09/24/2020Imra catalan, Name Value Range Interpretation Code Description Data Princess rce(s) Supporting Document(s) ID Date Data Source [id number] 09/24/2020 07:05:00 PM [facility] 1 General Instructions [facility] Emergency Department [address] [place] [address] Phone #: ext- [phone] 09/24/2020 19:05 Patient: DIANA BONILLA Sex: M : 1965 Age: 54yAcute pulmonary embolism (saddle embolims).(Electronically signed by Evita Conrad MD 09/25/2020 00:54) Name Value Range Interpretation Code Description Data Princess rce(s) Supporting Document(s) ID Date Data Source [id number] 09/24/2020 07:05:00 PM [facility] 1 Clinical Report - Nurses [facility] Emergency Department [address] [place] [address] Phone #: ext- [phone] 09/24/2020 19:05 Patient: DIANA BONILLA Sex: M : 1965 Age: 54yTRIAGEArrived by private vehicle. Historian: patient.Triage time: 19:09/24/2020. Acuity: LEVEL 3.Chief Complaint: SHORTNESS OF BREATH.Onset was gradual. Symptoms are constant and still present (3 months). 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 SEPSIS SCREEN NEGATIVE. No suspected or confirmedsigns of infection present. --19:18 09/24/20 Zev Mello RN19:09/24/20. BP: 153/96 (regular adult cuff) taken on the left arm, via an automated monitor, whilelying. MAP: 115. HR: 58 (regular, normal rat e and strong). RR: 19 (regular, unlabored and normal). S9pichslvzxr: 100%. Temp: 98 F (oral). Pain level [...] and wine. 2 Clinical Report - Nurses [facility] Emergency Department [address] [place] [address] Phone #: ext- [phone] 09/24/2020 19:05 Patient: DIANA BONILLA Sex: M [...] RN.NURSING PROGRESS NOTESCardiac rhythm: normal sinus rhythm. threat monitoring analyst, NIBP monitor and pulse oximeter placed onpatient; threat monitoring analyst- Lead II. EKG time: (19:09/24/2020). Patient gowned. Head of bed rxweqtqn21 degrees. Reassurance given to the patient. Call [...] --19:41 09/24/20 Irma Zayas 19:41 09/24/2020 Started 58407 unit of Heparin Drip IV in bag #1 500 mL; at 1000 unit/hr via site #2. via IV 3 Clinical Report - Nurses [facility] Emergency Department [address] [place] [address] Phone #: ext- [phone] 09/24/2020 19:05 Patient: [...] saturation: 100%. --20:02 09/24/20 Miriam Pina ER Aqgb8qgjg entry - 20:07 09/24/20. Reassurance given.Rounding: Pain: [...] saturation: 98%. --20:31 09/24/20 Miriam Pina ER Kfed9kvmi entry - 21:05 09/24/20. Reassurance given.Rounding: Pain: [...] 22. O2 saturation: 98%. --22:49 09/24/20 Myranda Zyaas2:59 09/24/2020 Heparin Drip IV via IV site #2 Continued: upon transfer at the rate of 1000 unit/hr. IV 4 Clinical Report - Nurses [facility] Department [address] [place] [address] Phone #: ext- [phone] 09/24/2020 19:05 Patient: [...] rce(s) Supporting Document(s) ID Date Data Source [id number] 09/24/2020 07:05:00 PM [facility] 1 Clinical Report - Physicians/Mid Levels [facility] Emergency Department [address] [place] [address] Phone #: ext- [phone] 09/24/2020 19:05 [id number] Sex: M : 1965 Age: 54y Arrived- [...] Wellbutrin.SOCIAL HISTORY 2 Clinical Report - Physicians/Mid [facility] Emergency Department [address] [place] [address] Phone #: ext- [phone] 09/24/2020 19:05 Patient: [...] LOT # _[id number] 09/24/20.KIM. KIT EXP DATE _29-47-53 09/24.KIM. NORMAL RANGE IS NOT DETECTEDNEGATIVE RESULTS [...] (Reference) 3 Clinical Report - Physicians/Mid Levels [facility] Emergency Department [address] [place] [address] Phone #: ext- [phone] 09/24/2020 19:05 Patient: DIANA BONILLA Sex: M [...] Male GFR Interprentation 20-49 yrs >60 mL/min Vjtshn07-65 yrs >56 mL/min Normal 60-69 yrs >49 mL/min Normal 70-79yrs>42 mL/min Normal 80 and above >35 mL/min Normal Female GFRInterpretation 20-39 yrs >60 mL/min Normal 40-49 yrs >58 mL/minNormal 50-59 yrs >51 mL/min Normal 60-69 yrs >45 mL/min Normal 4 Clinical Report - Physicians/Mid Levels [facility] Emergency Department [address] [place] [address] Phone #: ext- [phone] 09/24/2020 19:05 Patient: [...] Thrombosis, Pulmonary Embolus, Tissue heart valves, Acute IN Atrial Fibrillation, Valvular heart disease and recurrent Systemic Embolism. -International Normalized Ratio (INR): 2.5 - 3.5 for Mechanical Prosthetic valve. Magnesium: (MANSI: 09/24/2020 19:38) ( MsgRcvd 09/24/2020 20:11) Final results Test Result Flag Units (Reference) MAGNESIUM 2.2 MG/DL (1.7 - 2.2) Troponin-T: (AMNSI: 09/24/2020 19:38) ( MsgRcvd 09/24/2020 20:18) Final [...] after walking up the stairs. Ptcame to [place] [facility] for a CTA-chest. A saddle embolism was found and he was sent tot ED immediately. On evaluation, pt is non-toxic and conversive. I ordered labs including coagulationstudies. I ordered heparin bolus and iv drip. I immediately called [facility] for transfer. pt'svital signs are stable. I spoke to Dr. Hargrove at [facility]. He agreed to accept the patient. all labs arepending at this time. Will give him a courtesy call when labs are back to help him determine placement.covid-19 nasal swab ordered as well. labs resulted. coags grossly nl. covid swab is negative. I calledDr. Hargrove. He agreed to accept to [facility]. pt comfortable with the transer. cobra paperwork completed. Critical care performed. Time is exclusive of separately billable procedures. Time includes: direct patient care, patient reassessment, interpretation of data (laboratory data) and medical consultation- see progress notes. Procedures included in critical care time: peripheral IV placement. Patient/family counseled. Disposition: Benefits, risks and alternatives to donnelly sfer explained to patient. Transferred to [facility]. Condition: stable. 5 Clinical Report - Physicians/Mid Levels [facility] Emergency Department [address] [place] [address] Phone #: [phone] 09/24/2020 19:05 Patient: DIANA BONILLA Sex: M : 1965 Age: 54yCLINICAL IMPRESSION Acute pulmonary embolism (saddle embolims).(Electronically signed by Evita Conrad MD 09/25/2020 00:54) Name Value Range Interpretation Code Description Data Princess rce(s) Supporting Document(s) ID Date Data Source [id number] 09/24/2020 07:57:00 PM EST [facility] Name Value Range Interpretation Code Description Data Princess rce(s) Supporting Document(s) COVID19 Case rprt NOT DETECTED [facility] This lab was ordered by [facility] and reported by [facility]. ID Date Data Source [id number] 09/24/2020 08:38:00 PM EST [facility] NOT DETECTEDNOT DETECTED{ PROC EDURAL CONTROL VALID KIT LOT # _[id number] 09/24/20.KIM. KIT EXP DATE _09-96-15 09/24/20.KIM. NORMAL RANGE IS NOT DETECTEDNEGATIVE RESULTS [...] rce(s) Supporting Document(s) ID Date Data Source [id number] 09/24/2020 08:27:00 PM EST [facility] Name Value Range Interpretation Code Description Data Princess rce(s) Supporting Document(s) Prothrombin time (PT) 13.7 SECONDS 11.0 - 15.5 [facility] INR in Platelet poor plasma by Coagulation assay 1.00 0.93 - 1. 23 [facility] aPTT in Blood by Coagulation assay 25.5 SECONDS 24.8 - 36.7 [facility] \\BLDo\\INR INTERPRETATION\\BLDx\\ Therapeutic range for Coumadin and related oral anticoagulants. - International Normalized Ratio (INR): 2.0 - 3.0 for Venous Thrombosis, Pulmonary Embolus, Tissue heart valves, Acute IN Atrial Fibrillation, Valvular heart disease and recurrent Systemic Embolism. - International Normalized Ratio (INR): 2.5 - 3.5 for Mechanical Prosthetic valve. ID Date Data Source [id number] 09/24/2020 08:18:00 PM [facility] Name Value Range Interpretation Code Description Data Princess rce(s) Supporting Document(s) TROPONIN T <0.01 NG/ML 0.00 - 0.10 [facility] ospital TROPONIN T0.1 ng/ml Recommended as the c linical threshold value forTroponin T. ID Date Data Source [id number] 09/24/2020 08:11:00 PM [facility] Name Value Range Interpretation Code Description Data Princess rce(s) Supporting Document(s) Magnesium [Mass/volume] in Serum or Plasma 2.2 MG/DL 1.7 - 2.2 [facility] ID Date Data Source [id number] 09/24/2020 08:11:00 PM [facility] Name Value Range Interpretation Code Description Data Princess rce(s) Supporting Document(s) COMPREHENSIVE METABOLIC PANEL [facility] COMPREHENSIVE METABOLIC PANEL Sodium [Moles/volume] in Serum or Plasma 137 mEq/L 134 - 153 [facility] Potassium [Moles/volume] in Serum or Plasma 4.4 mEq/L 3.6 - 5.0 [facility] Chloride [Moles/volume] in Serum or Plasma 102 mEq/L 98 - 107 [facility] Carbon dioxide, total [Moles/volume] in Serum or Plasma 25 MEQ/L 22 - 30 [facility] Glucose [Mass/volume] in Serum or Plasma 86 MG/DL 70 - 99 [facility] BUN 15 MG/DL 7 - 21 [facility] al Creatinine [Mass/volume] in Serum or Plasma 1.0 MG/DL 0.7 - 1.5 [facility] BUN/CREAT 15 8 - 27 [facility] al Protein [Mass/volume] in Serum or Plasma 7.0 G/DL 6.3 - 8.2 [facility] Albumin [Mass/volume] in Serum or Plasma 4.3 G/DL 3.9 - 5.0 [facility] Globulin [Mass/volume] in Serum by calculation 2.7 GM/DL 2.4 - 3.2 [facility] A/G RATIO 1.6 0.8 - 2.0 [facility] Calcium [Mass/volume] in Serum or Plasma 9.0 MG/DL 8.4 - 10.2 [facility] Bilirubin.total [Mass/volume] in Serum or Plasma <0.7 MG/DL 0.2 - 1.3 [facility] Alkaline phosphatase [Enzymatic activity/volume] in Serum or Plasma 73 U/L 38 - 126 [facility] Aspartate aminotransferase [Enzymatic activity/volume] in Serum or Plasma 18 U/L 5 - 40 [facility] Alanine aminotransferase [Enzymatic activity/volume] in Seru m or Plasma 19 U/L 7 - 56 [facility] Anion gap 3 in Serum or Plasma 10.0 mmol/L 8.0 - 16.0 [facility] AGE 54 yrs [facility] al NON-AA GFR >60 mL/min [facility] ital AFR AMER GFR >60 mL/min [facility] Ho spital Male GFR In terprentation [...] >32 mL/min Normal ID Date Data Source [id number] 09/24/2020 08:05:00 PM EST [facility] Name Value Range Interpretation Code Description Data Princess rce(s) Supporting Document(s) CBC W/AUTOMATED DIFF [facility] COMPLETE BLOOD COUNT Leukocytes [#/volume] in Blood by Automated count 7.0 10^3/uL 4.2 - 1 1.0 [facility] Erythrocytes [#/volume] in Blood by Automated count 5.10 10^6/uL 4. 50 - 6.30 [facility] Hemoglobin [Mass/volume] in Blood 15.1 g/dL 14.0 - 16.0 [facility] Hematocrit [Volume Fraction] of Blood by Automated count 44.1 % 4 1.0 - 51.0 [facility] Erythrocyte mean corpuscular volume [Entitic volume] by Auto mated count 86.5 fL 80.0 - 94.0 [facility] Erythrocyte mean corpuscular hemoglobin [Entitic mass] by Automated count 29.6 pg 27.0 - 34.0 [facility] Erythrocyte mean corpuscular hemoglobin concentration [Mass/volume] by Automated count 34.2 g/dL 31.0 - 36.0 [facility] Erythrocyte distribution width [Ratio] by Automated count 12.8 % 11.5 - 14.8 [facility] Platelets [#/volume] in Blood by Automated count 130 10^3/uL 150 - 45 0 L [facility] Platelet mean volume [Entitic volume] in Blood by Automated count 11.0 fL 7.4 - 10.4 H [facility] Neutrophils/100 leukocytes in Blood by Automated count 57.1 % 37. 0 - 80.0 [facility] Lymphocytes/100 leukocytes in Blood by Manual count 30.5 % 25.0 - 40.0 [facility] Monocytes/100 leukocytes in Blood by Automated count 8.1 % 3.0 - 8.0 H [facility] Eosinophils/100 leukocytes in Blood by Automated count 3.6 % 0.0 - 7.0 [facility] Basophils/100 leukocytes in Blood by Automated count 0.6 % 0.0 - 2.0 [facility] %IG 0.1 % 0.0 - 0.0 H [facility] %NRBC 0.0 % 0.0 - 0.0 [facility] al Neutrophils [#/volume] in Blood by Automated count 4.02 10^3/uL 2.00 - 6.90 [facility] Lymphocytes [#/volume] in Blood by Automated count 2.15 10^3/uL 0.60 - 3.40 [facility] Monocytes [#/volume] in Blood by Automated count 0.57 10^3/uL 0.00 - 0.90 [facility] Eosinophils [#/volume] in Blood by Automated count 0.25 10^3/uL 0.00 - 0.70 [facility] Basophils [#/volume] in Blood by Automated count 0.04 10^3/uL 0.00 - 0.20 [facility] #IG 0.01 10^3/uL 0.00 - 0.10 [facility] H ospital #NRBC 0.00 10^3/uL 0.00 - 0.00 [facility] ospital MANUAL DIFF NOT INDICATED [facility] RBC MORPH NOT INDICATED [facility] spital ID Date Data Source [id number] 09/24/2020 06:02:00 PM EST [facility] Name Value Range Interpretation Code Description Data Princess rce(s) Supporting Document(s) COMPREHENSIVE METABOLIC PANEL [facility] COMPREHENSIVE METABOLIC PANEL Sodium [Moles/volume] in Serum or Plasma 138 mEq/L 134 - 153 [facility] Potassium [Moles/volume] in Serum or Plasma 4.9 mEq/L 3.6 - 5.0 [facility] Chloride [Moles/volume] in Serum or Plasma 103 mEq/L 98 - 107 [facility] Carbon dioxide, total [Moles/volume] in Serum or Plasma 22 MEQ/L 22 - 30 [facility] Glucose [Mass/volume] in Serum or Plasma 86 MG/DL 70 - 99 [facility] BUN 15 MG/DL 7 - 21 [facility] Creatinine [Mass/volume] in Serum or Plasma 1.0 MG/DL 0.7 - 1.5 [facility] BUN/CREAT 15 8 - 27 [facility] Protein [Mass/volume] in Serum or Plasma 7.5 G/DL 6.3 - 8.2 [facility] Albumin [Mass/volume] in Serum or Plasma 4.6 G/DL 3.9 - 5.0 [facility] Globulin [Mass/volume] in Serum by calculation 2.9 GM/DL 2.4 - 3.2 [facility] A/G RATIO 1.6 0.8 - 2.0 [facility] Calcium [Mass/volume] in Serum or Plasma 9.2 MG/DL 8.4 - 10.2 [facility] Bilirubin.total [Mass/volume] in Serum or Plasma <0.7 MG/DL 0.2 - 1.3 [facility] Alkaline phosphatase [Enzymatic activity/volume] in Serum or Plasma 80 U/L 38 - 126 [facility] Aspartate aminotransferase [Enzymatic activity/volume] in Serum or Plasma 23 U/L 5 - 40 [facility] Alanine aminotransferase [Enzymatic activity/volume] in Seru m or Plasma 22 U/L 7 - 56 [facility] Anion gap 3 in Serum or Plasma 13.0 mmol/L 8.0 - 16.0 [facility] AGE 54 yrs [facility] al NON-AA GFR >60 mL/min [facility] ital AFR AMER GFR >60 mL/min [facility] Ho spital Male GFR In terprentation [...] >32 mL/min Normal ID Date Data Source [id number] 08/18/2020 12:00:00 AM EST [facility] Name Value Range Interpretation Code Description Data Princess rce(s) Supporting Document(s) SARS-CoV-2 (COVID-19) RNA [Presence] in Respiratory specimen by KALEN with probe detection Not Detected [facility] This lab was ordered by [facility] and reported by [employer] ID Date Data Source CYCLIC CITRULLINATED PEPTIDE 07/24/2020 12:00:00 AM EST eCW1 ([facility]) Name Value Range Interpretation Code Description Data Princess rce(s) Supporting Document(s) 5 0-19 CYCLIC CITRULLINATED PEPTIDE e CW1 ([facility]) ID Date Data Source LYME WESTERN BLOT SERUM 07/24/2020 12:00:00 AM EST eCW1 ([facility]) Name Value Range Interpretation Code Description Data Princess rce(s) Supporting Document(s) LYME WESTERN BLOT SERUM eCW1 ( [facility]) ID Date Data Source ANGIOTENSIN 1 CONVERTING ENZYM 07/24/2020 12:00:00 AM EST eC W1 ([facility]) Name Value Range Interpretation Code Description Data Princess rce(s) Supporting Document(s) 32 14-82 ANGIOTENSIN 1 CONVERTING ENZYM eCW1 ([facility]) ID Date Data Source RHEUMATOID FACTOR QUANT 07/24/2020 12:00:00 AM EST eCW1 ([facility]) Name Value Range Interpretation Code Description Data Princess rce(s) Supporting Document(s) < 10.0 <15.0 RHEUMATOID FACTOR QUANT eCW1 ( [facility]) ID Date Data Source URIC ACID 07/24/2020 12:00:00 AM EST eCW1 ([facility]) Name Value Range Interpretation Code Description Data Princess rce(s) Supporting Document(s) 7.2 3.5-7.2 URIC ACID eCW1 ([facility]) ID Date Data Source ERYTHROCYTE SEDIMENTATION RATE 07/24/2020 12:00:00 AM EST eC W1 ([facility]) Name Value Range Interpretation Code Description Data Princess rce(s) Supporting Document(s) 5 0-20 ERYTHROCYTE SEDIMENTATION RATE eCW1 ([facility]) ID Date Data Source C REACTIVE PROTEIN QUANTITATIV (At [facility]) 07/24/2020 12:00 :00 AM EST eCW1 ([facility]) Name Value Range Interpretation Code Description Data Princess rce(s) Supporting Document(s) 0.30 0.00-0.30 C REACTIVE PROTEIN QUANTI TATIV eCW1 ([facility]) ID Date Data Source Comprehensive Metabolic Profile (CMP) 07/24/2020 12:00:00 AM EST eCW1 ([facility]) Name Value Range Interpretation Code Description Data Princess rce(s) Supporting Document(s) 91 70-100 GLUCOSE, FASTING eCW1 ([facility]) 13 7-18 BLOOD UREA NITROGEN eCW1 ([facility]) 0.99 0.70-1.30 CREATININE FOR GFR eCW1 ([facility]) > 60.0 >56 GLOMERULAR FILTRATION RATE eCW 1 ([facility]) 139 136-145 SODIUM LEVEL eCW1 ([facility]) 4.4 3.5-5.1 POTASSIUM SERUM eCW1 ([facility]) 108 98-107 CHLORIDE LEVEL eCW1 ([facility]) 28 21-32 CARBON DIOXIDE LEVEL eCW1 ([facility]) 9.5 8.5-10.1 CALCIUM LEVEL eCW1 ([facility]) 14 7-37 AST/SGOT eCW1 ([facility]) 73 45-117 ALKALINE PHOSPHATASE eCW1 ([facility]) 29 12-78 ALT/SGPT eCW1 ([facility]) 0.3 0.2-1.0 BILIRUBIN,TOTAL eCW1 ([facility]) 7.0 6.4-8.2 TOTAL PROTEIN eCW1 ([facility]) 4.0 3.2-5.2 ALBUMIN eCW1 ([facility]) 1.3 ALBUMIN/GLOBULIN RATIO eCW1 ([facility]) ID Date Data Source [id number] 07/02/2020 01:55:00 PM [facility] [address] [place] [address] PHONE: [phone] FAX: [phone] Name .................. : CHAD ORTIZ Acct Number.................. : [id number] ROOM. ................. : MR Number ................... : [id number] Stay type ............. : O/P Discharge Date......... ... : 07/01/20 Admit Date ......... : 07/01/20 Admit Phys .................... : RAQUEL GUERRERO Date of ....... : 1965 Family Phys ................... : UNKNOWN Phone .................. : [phone] Age ................................ : 54 Film# .................. .:[id number] Sex ................................. : M Unsigned transcriptions are preliminary reports and do not represent a medical or legal document MRI LOW EXT NO JT W/WO CON LT [id number] COMPLETE:07/01/20 12:05 [facility] [id number] (REASON FOR PROCESS: OSTEOMYELITIS SECOND DIGIT, MRI [...] for: RAQUEL LOPEZ via fax Copy for: [address] [place] [address] Page 1 of 1 Name Value Range Interpretation Code Description Data Princess rce(s) Supporting Document(s) ID Date Data Source [id number] 06/29/2020 12:00:00 AM EST [facility]y Imaging Damian Aranda Patient Name: DIANA BONILLA[address] [facility] 1965[facility] ADELINA Esparza [address]- Date of Exam: 06/29/2020PH#: Fax: [phone] EXAM: [...] by: Jamaal Moreno MD 07/01/2020 5:49 PM [place] [facility] [place]MarioV/Simone you for referring DIANA BONILLA to our office. Electronically Signed - MARIO 07/02/20 16:04 Name Value Range Interpretation Code Description Data Princess rce(s) Supporting Document(s) ID Date Data Source [id number] 06/26/2020 12:00:00 AM EST [facility] Name Value Range Interpretation Code Description Data Princess rce(s) Supporting Document(s) 2019-nCoV RNA XXX KALEN+probe-Imp [facility] This lab was ordered by [facility] and reported by [employer]. Procedure Social History Code Duration Value Status Description Data Source(s ) Alcohol intake 09/26/2020 12:00:00 AM EST Current drinker of al cohol (finding) completed Current drinker of alcohol (finding) [facility] Smoking 09/26/2020 12:00:00 AM EST Former smoker completed Former smoker [facility] Smoking 09/04/2020 12:00:00 AM EST Never Smoker completed Never S moker eCW1 ([facility]) Smoking 09/04/2020 12:00:00 AM EST Never Smoker completed Never S moker eCW1 ([facility]) Smoking 09/04/2020 12:00:00 AM EST Never Smoker completed Never S moker eCW1 ([facility]) Smoking 09/04/2020 12:00:00 AM EST Never Smoker completed Never S moker eCW1 ([facility]) Smoking 08/11/2020 12:00:00 AM EST Never Smoker completed Never S moker eCW1 ([facility]) Smoking 08/11/2020 12:00:00 AM EST Never Smoker completed Never S moker eCW1 ([facility]) Smoking 07/24/2020 12:00:00 AM EST Never Smoker completed Never S moker eCW1 ([facility]) Smoking 07/24/2020 12:00:00 AM EST Never Smoker completed Never S moker eCW1 ([facility]) Smoking 07/24/2020 12:00:00 AM EST Never Smoker completed Never S moker eCW1 ([facility]) Smoking 07/20/2020 12:00:00 AM EST Never Smoker completed Never S moker eCW1 ([facility]) Smoking 06/11/2020 12:00:00 AM EDT Never Smoker completed Never S moker eCW1 ([facility]) Smoking 06/11/2020 12:00:00 AM EDT Never Smoker completed Never S moker eCW1 ([facility]) Smoking 06/11/2020 12:00:00 AM EDT Never Smoker completed Never S moker eCW1 ([facility]) Smoking 06/11/2020 12:00:00 AM EDT Never Smoker completed Never S jaker eCW1 ([facility]) Vital Signs ID Date Data Source UNK Name Value Range Interpretation Code Description Data Source(s) Diastolic blood pressure 64 mm[Hg] 64 mm[Hg] eCW1 ([facility]) Systolic blood pressure 132 mm[Hg] 132 mm[Hg] e CW1 ([facility]) Body temperature 97.6 [degF] 97.6 [degF] eCW1 ( [facility]) Respiratory rate 18 /min 18 /min eCW1 ([facility]) Heart rate 67 /min 67 /min eCW1 ([facility]) Body mass index (BMI) [Ratio] 31.27 kg/m2 31.27 kg/m2 W1 ([facility]) Body height 74 [in_i] 74 [in_i] eCW1 ([facility]) Body weight 110.5 kg 110.5 kg W1 ([facility]) Body weight 243.6 [lb_av] 243.6 [lb_av] eCW1 ([facility]) Body height 74 [in_i] 74 [in_i] eCW1 ([facility]) Body weight 110.9 kg 110.9 kg W1 ([facility]) Body weight 244.6 [lb_av] 244.6 [lb_av] eCW1 ([facility]) Diastolic blood pressure 66 mm[Hg] 66 mm[Hg] eCW1 ([facility]) Systolic blood pressure 122 mm[Hg] 122 mm[Hg] e CW1 ([facility]) Body temperature 97.4 [degF] 97.4 [degF] eCW1 ( [facility]) Respiratory rate 18 /min 18 /min eCW1 ([facility]) Heart rate 66 /min 66 /min eCW1 ([facility]) Body mass index (BMI) [Ratio] 31.40 kg/m2 31.40 kg/m2 eCW1 ([facility]) Diastolic blood pressure 78 mm[Hg] 78 mm[Hg] eCW1 ([facility]) Systolic blood pressure 142 mm[Hg] 142 mm[Hg] e CW1 ([facility]) Body temperature 97.3 [degF] 97.3 [degF] eCW1 ( [facility]) Respiratory rate 18 /min 18 /min eCW1 ([facility]) Heart rate 67 /min 67 /min eCW1 ([facility]) Body mass index (BMI) [Ratio] 30.63 kg/m2 30.63 kg/m2 eCW1 ([facility]) Body height 74 [in_i] 74 [in_i] eCW1 ([facility]) Body weight 108.2 kg 108.2 kg eCW1 ([facility]) Body weight 238.6 [lb_av] 238.6 [lb_av] eCW1 ([facility]) Diastolic blood pressure 84 mm[Hg] 84 mm[Hg] eCW1 ([facility]) Systolic blood pressure 136 mm[Hg] 136 mm[Hg] e CW1 ([facility]) Body temperature 97.3 [degF] 97.3 [degF] eCW1 ( [facility]) Respiratory rate 18 /min 18 /min eCW1 ([facility]) Heart rate 70 /min 70 /min eCW1 ([facility]) Body mass index (BMI) [Ratio] 30.17 kg/m2 30.17 kg/m2 eCW1 ([facility]) Body height 74 [in_i] 74 [in_i] eCW1 ([facility]) Body weight 235 [lb_av] 235 [lb_av] eCW1 ([facility]) Body height 74 [in_i] 74 [in_i] MEDENT ([facility]) 6'2" Body temperature 96.9 [degF] 96.9 [degF] MEDENT ([facility] Body mass index (BMI) [Ratio] 30.2 kg/m2 30.2 k g/m2 [facility] ([facility]) Body weight 235.00 [lb_av] 235.00 [lb_av] MEDEN T ([facility]) Diastolic blood pressure 84 mm[Hg] 84 mm[Hg] eCW1 ([facility]) Systolic blood pressure 132 mm[Hg] 132 mm[Hg] e CW1 ([facility]) Body temperature 95.4 [degF] 95.4 [degF] eCW1 ( [facility]) Respiratory rate 18 /min 18 /min eCW1 ([facility]) Heart rate 78 /min 78 /min eCW1 ([facility]) Body mass index (BMI) [Ratio] 30.81 kg/m2 30.81 kg/m2 eCW1 ([facility]) Body height 74 [in_i] 74 [in_i] eCW1 ([facility]) Body weight 240 [lb_av] 240 [lb_av] eCW1 ([facility]) ID Date Data Source [id number] 09/28/2020 06:05:[address] [facility] Name Value Range Interpretation Code Description Data Source(s) WEIGHT RECORDED 235 lb 235 lb [facility] WEIGHT RECORDED 239.8 lb 239.8 lb [facility] WEIGHT RECORDED 235.6 lb 235.6 lb [facility] Body height Measured 74 in 74 in [facility] TRANSFER FROM [facility] Patient Treatment Plan of Care Planned Activity Planned Date Details Description Data Source (s) rivaroxaban 20 MG Oral Tablet 10/18/2020 12:00:00 AM [facility] Losartan Potassium 50 MG Oral Tablet 09/29/2020 12:00:00 AM [facility] Losartan Potassium 50 MG Oral Tablet 09/29/2020 12:00:00 AM [facility] Xarelto Starter Pack 15 & 20 MG Oral Tablet Therapy Pa ck (Rivaroxaban) 09/28/2020 12:00:[address] [facility] Docusate Sodium 100 MG Oral Capsule 09/28/2020 12:00:00 AM [facility] rivaroxaban 15 MG Oral Tablet 09/28/2020 12:00:00 AM [facility] Acetaminophen 325 MG Oral Tablet 09/28/2020 12:00:00 AM [facility] Xarelto Starter Pack 15 & 20 MG Oral Tablet Therapy Pa ck (Rivaroxaban) 09/27/2020 12:00:[address] [facility] ondansetron (ZOFRAN) injection 4 mg 09/26/2020 11:06:35 PM [facility] Acetaminophen 325 MG Oral Tablet 09/26/2020 11:06:34 PM [facility] senna tablet 2 tablet 09/26/2020 11:05:33 PM [facility] Bisacodyl 10 MG Rectal Suppository 09/26/2020 11:05:32 PM [facility] Hydroxychloroquine Sulfate 200 MG Oral Tablet [[place]] 09/04/2020 12:00:00 AM EST eCW1 ([facility]) Medrol 4 MG 09/04/2020 12:00:00 AM EST e CW1 ([facility]) Hydroxychloroquine Sulfate 200 MG Oral Tablet [[place]] 09/04/2020 12:00:00 AM EST eCW1 ([facility]) Medrol 4 MG 09/04/2020 12:00:00 AM EST e CW1 ([facility]) Hydroxychloroquine Sulfate 200 MG Oral Tablet [[place]] 09/04/2020 12:00:00 AM EST eCW1 ([facility]) Medrol 4 MG 09/04/2020 12:00:00 AM EST e CW1 ([facility]) Hydroxychloroquine Sulfate 200 MG Oral Tablet [[place]] 09/04/2020 12:00:00 AM EST eCW1 ([facility]) Medrol 4 MG 09/04/2020 12:00:00 AM EST e CW1 ([facility]) Medrol 4 MG 07/24/2020 12:00:00 AM EST e CW1 ([facility]) Medrol 4 MG 07/24/2020 12:00:00 AM EST e CW1 ([facility]) Medrol 4 MG 07/24/2020 12:00:00 AM EST e CW1 ([facility]) meloxicam 15 MG Oral Tablet 07/06/2020 12:00:00 AM EST eCW1 ([facility]) meloxicam 15 MG Oral Tablet 07/06/2020 12:00:00 AM EST eCW1 ([facility]) sildenafil 100 MG Oral Tablet [Viagra] 06/11/2020 12:00:00 AM EDT eCW1 ([facility]) sildenafil 100 MG Oral Tablet [Viagra] 06/11/2020 12:00:00 AM EDT eCW1 ([facility]) sildenafil 100 MG Oral Tablet [Viagra] 06/11/2020 12:00:00 AM EDT eCW1 ([facility]) sildenafil 100 MG Oral Tablet [Viagra] 06/11/2020 12:00:00 AM EDT eCW1 ([facility])
[2020-09-30] MEDS ORDERED: MAALOX 30 ML SUSP *UDC PO PRN (23:00)
[2020-09-30] MEDS ORDERED: ACETAMINOPHEN TAB 650MG DOSE (2X325MG) PO PRN (23:00)
[2020-09-30] MEDS ORDERED: MOM 30ML SUSPENSION UDC PO PRN (23:00)
--- NOTE | 2020-09-30 23:07 | HPEPDOC ---
[facility] Medical History & Physical Date of Admission Sep 30, 2020 Date of Service: Sep 30, 2020 History and Physical CHIEF COMPLAINT: chest pain HISTORY OF PRESENT ILLNESS: 54-year-old male with a history of hypertension and recently diagnosed saddle embolus on 09/25/20, status post embolectomy at [facility] on 09/27/20 (transfered due to R heart strain on Echo), presenting to the ER with complaint of atypical diffuse chest pain, worse on breathing. Patient has been treated with Xarelto 15 mg BID since diagnosis. Further on prior admission, patient was diagnosed with left lower extremity DVT. On arrival, CT angiography of the chest revealed bilateral pulmonary emboli without subtle evidence and these extremity venous duplex did not reveal DVT. Patient's troponin was elevated to 0.14 which is consistent with prior level on 07/26/21. Patient will be admitted for observation overnight given persistent atypical ch est pain. Patient will be monitored on telemetry for 24 hours. At this time, patient denies shortness of breath, palpitations, nausea, vomiting, diarrhea, subjective fevers or chills. COVID negative. On review of [facility] records, patient was bradycardic to 30s and 40s. Asymptomatic. Recommendation was made for cardio referral for holter. PAST MEDICAL HISTORY: 1. Hypertension 2. HLD 3. Prediabetes 4. History of tobacco use 5. Erectile dysfunction PAST SURGICAL HISTORY: 1. [place] teeth removal 2. Appendectomy 3. Tonsillectomy 4. Cyst removal of left finger 5. Saddle PE embolectomy on 09/27/20 at [facility] SOCIAL HISTORY: occasional etoh former smoker quit 9 years ago, 30 pack year hx denies illicits FAMILY HISTORY: Father: at 48 years old. Sudden , suspected to be from [place] Mother: alive at 74 years old. ALLERGIES: Please see below. REVIEW OF SYSTEMS: 10 point ROS completed, pertinent findings noted in HPI HOME MEDICATIONS: Please see below. PHYSICAL EXAMINATION: VITAL SIGNS: please see below General: NAD, comfortable HEENT: PERRLA, EOMI, sclerae clear Neck: supple, normal ROM, no JVD Respiratory: lungs CTAB, no wheeze, no rales, no crackles CVS: RRR, normal S1, S2, no murmurs Abdo: soft, no masses, no hepatosplenomegaly, BS+, no rebound tenderness Extremities: no edema, pulses 2+ MSK: no joint deformities, normal ROM Neuro: no focal neuro deficits, moving all 4 extremities, CN2-12 intact. Strength 5/5 in all 4 extremities. No nystagmus. Psych: calm, cooperative, AAO x 3 LABORATORY DATA: See below. IMAGING: CT angio chest (09/30/20): 1. Bilateral pulmonary emboli, as described above. 2. Patchy areas of ground-glass infiltration with associated interstitial thickening, predominantly in the right upper and lobes, nonspecific in appearance. Infection cannot be excluded. Imaging features can be seen with COVID-19 pneumonia, though are nonspecific and can occur with a variety of infectious and noninfectious processes. (Reference: Stephane) 3. Additional findings, as above. MICROBIOLOGY: Please see below. PLAN: Atypical chest pain likely / recently diagnose saddle PE s/p embolectom - repeat CT angio chest showing bilateral PEs without saddle - c/w AC with xarelto 15 mg po BID (total 21 days loading) - telemetry - cycle cardiac enzymes, EKGs R groin ecchymoses - RLE Dupplex showed no DVT - no induration to suggest hematoma DVT in L popliteal vein - on xarelto Reported bradycardia - 30s-40s at [facility] - presently in the high 50s, takes no preeti blocking agents - asymptomatic - monitor on tele - outpatient holter HTN - c/w losartan DVT ppx: on xarelto. Vital Signs Vital Signs Date Time Temp Pulse Resp B/P (MAP) Pulse Ox O2 Delivery O2 Flow Rate FiO2 09/30/20 22:00 58 17 122/77 (92) 97 Room Air 09/30/20 18:34 97.0 Laboratory Data Labs 24H Laboratory Tests 2 09/30/20 18:58: Immature Granulocyte % (Auto) 0.3, Neutrophils (%) (Auto) 57.1, Lymphocytes (%) (Auto) 28.4, Monocytes (%) (Auto) 9.3H, Eosinophils (%) (Auto) 4.1H, Basophils (%) (Auto) 0.8, Neutrophils # (Auto) 3.5, Lymphocytes # (Auto) 1.8, Monocytes # (Auto) 0.6, Eosinophils # (Auto) 0.3, Basophils # (Auto) 0.1, Nucleated Red Blood Cells % (auto) 0.0, Prothrombin Time 24.6H, Prothromb Time International Ratio 2.16, Activated Partial Thromboplast Time 29.1, D-Dimer, Quantitative 2177.05H, Anion Gap 7L, Glomerular Filtration Rate > 60.0, Calcium Level 8.9, Total Bilirubin 0.3, Direct Bilirubin < 0.1, Aspartate Amino Transf (AST/SGOT) 63H, Alanine Aminotransferase (ALT/SGPT) 180H, Alkaline Phosphatase 83, Total Creatine Kinase 58, Creatine Kinase MB < 1.0, Creatine Kinase MB Relative Index 1.72, Troponin I 0.14H, Total Protein 7.4, Albumin 4.2, Albumin/Globulin Ratio 1.3, Lipase 112 CBC/BMP Laboratory Tests 09/30/20 18:58 Microbiology Microbiology 09/30/20 Respiratory Virus Panel (PCR) ([facility]) - Final, Complete Home Medications Scheduled Docusate Sodium (Colace) 100 Mg Capsule, 100 MG PO BID Losartan Potassium (Losartan Potassium) 50 Mg Tablet, 50 MG PO DAILY Rivaroxaban (Xarelto) 15 Mg Tablet, 15 MG PO BID PATIENT IS TAKING STARTER PACK Allergies Coded Allergies: bupropion (Verified Allergy, Unknown, HIVES, FLUSHING, 07/01/20) varenicline (Verified Allergy, Unknown, HIVES, FLUSHING, 07/01/20) Sulfa (Sulfonamide Antibiotics) (Verified Adverse Reaction, Unknown, DIZZINESS, 07/01/20) A-FIB/CHADSVASC A-FIB History Current/History of A-Fib/PAF?: No Current PO Anticoag Therapy: Yes HAILEE MCDOWELL MD Sep 30, 2020 23:07
--- OUTSIDE RECORDS SUMMARY | 2020-09-30 23:22 | CCD ---
Author Author [facility] Organization [facility] Address Unknown Phone Unavailable Care Team Providers Care Lab Intern Name Role Phone RAQUELDAMIAN Unavailable Unavailable Shalonda PEDROZA MD Unavailable Unavailable Shalonda PEDROZA MD Unavailable Unavailable Shalonda PEDROZA MD Unavailable Unavailable Shalonda PEDROZA MD Unavailable Unavailable Shalonda PEDROZA MD Unavailable Unavailable Shalonda PEDROZA MD Unavailable Unavailable Shalonda PEDROZA MD Unavailable Unavailable Shalonda PEDROZA MD Unavailable Unavailable Shalonda PEDROZA MD Unavailable Unavailable Shalonda PEDROZA MD Unavailable Unavailable Shalonda EPDROZA MD Unavailable Unavailable Shalonda PEDROZA MD Unavailable [...] Unavailable Meng CONRAD MD Unavailable Unavailable Meng CNORAD MD Unavailable Unavailable Meng CONRAD MD Unavailable [...] is protected by Article 27-F of the [facility] Public Health law. If you continue you may have access to information: Regarding HIV / AIDS; Provided by facilities licensed or operated by the [facility] Office of Mental Health; or Provided by the [facility] Office for People With Developmental Disabilities. If such information is present, then the following [facility] mandated warning applies: This information has [...] law may result in a fine or halfway sentence or both. A general authorization for the release of medical or other information is NOT sufficient authorization for further disc losure. Allergies and Adverse Reactions Type Description Substance Reaction Status Data Source(s ) DRUG INGREDI BUPROPION BUPROPION Rash [facility] Drug Class SULFA ANTIBIOTICS SULFA ANTIBIOTICS Hives [facility] Family History Family Member Name Family Member Gender Family Member Status Date o f Status Description Data Source(s) Unknown Male Problem [facility] ([facility]) Unknown Unknown Problem [facility] ([facility] Unknown Unknown Problem [facility] ([facility] Unknown Unknown Problem [facility] ([facility] Encounters Encounter Providers Location Date Indications Data Source(s ) Outpatient 09/30/2020 10:52:00 PM EST [facility] david PE Inpatient Attender: RACHEL Roberson DAdmitter: RACHEL PHIPPS MDReferrer: PROVIDER SYSTEM IN 09/26/2020 05:48:00 PM EST - 09/28/2020 02:37:00 PM EST Acute embolism and thrombosis of unspecified vein [facility] Acute embolism and thrombosis of unspeci fied vein Patient discharged. Emergency Attender: EVITA CONRAD MDConsultant: EMILIO MANDUJANO NOWN 09/24/2020 07:05:00 PM EST - 09/24/2020 11:01:00 PM EST [facility] Patient discharged. Outpatient Attender: SONAM Ramsayultant: EMILIO UNKNOWN 09/24/2020 03:58:00 PM EST - 09/24/2020 04:58:00 PM EST [facility] [place] [address] [facility] [address] 09/04/2020 12:00:00 AM EST [facility] [place] [address] [facility] [place] [address] 09/04/2020 12:00:00 AM EST [facility] [place] [address] [facility] [address] 09/02/2020 12:00:00 AM EST eCW1 ([facility]) [place] [address] [facility] [place] [address] 08/28/2020 12:00:00 AM EST [facility]CW1 ([facility]) [place] [address] [facility] [place] [address] 08/11/2020 12:00:00 AM EST [facility]CW1 [facility] [place] [address] [facility] [address] 08/11/2020 12:00:00 AM EST eCW1 ([facility]) Unknown [address] [facility] [place] [address] 07/24/2020 12:00:00 AM EST eCW1 ([facility]) Outpatient [address] [facility] [place] [address] 07/24/2020 12:00:00 AM EST eCW1 ([facility]) Outpatient [address] [facility] [place] [address] 07/20/2020 12:00:00 AM EST eCW1 ([facility]) Unknown [address] [facility] [place] [address] 07/20/2020 12:00:00 AM EST eCW1 ([facility]) Unknown [address] [facility] [place] [address] 07/13/2020 12:00:00 AM EST eCW1 ([facility]) Unknown [address] [facility] [place] [address] 07/06/2020 12:00:00 AM EST eCW1 ([facility]) Outpatient Attender: DAMIAN ARANDAAttender: SHAW PEDROZA MD 07/01/2020 10:56:00 AM EST - 07/01/2020 11:56:00 AM EST [facility] Outpatient Attender: DEWAYNE GARCÍA Physical Therapy 06/30/2020 1 2:30:00 PM EST MEDENT ([facility]) Unknown [address] [facility] [place] [address] 06/30/2020 12:00:00 AM EST eCW1 ([facility]) Outpatient [address] [facility] [place] [address] 06/11/2020 12:00:00 AM EDT eCW1 ([facility]) Medications Medication Brand Name Start Date Product Form Dose Route Admi nistrative Instructions Pharmacy Instructions Status Indications Reaction Description Data Source(s) rivaroxaban 20 MG Oral Tablet Rivaroxaban 20 MG Oral T ablet (XARELTO) Rivaroxaban 20 MG Oral Tablet (XARELTO) 10/18/2020 12:00:00 AM EST 20 mg Oral aborted Take 1 tablet by mouth da renan with dinner [facility] Losartan Potassium 50 MG Oral Tablet [place] Potassium 50 MG Oral Tablet (COZAAR) Losartan Potassium 50 MG Oral Tablet (COZAAR) 09/29/19 12:00:00 AM EST 50 mg Oral active Take 1 tablet by mouth daily [facility] Losartan Potassium 50 MG Oral Tablet [place] Potassium 50 MG Oral Tablet (COZAAR) Losartan Potassium 50 MG Oral Tablet (COZAAR) 09/29/19 12:00:00 AM EST 50 mg Oral aborted Take 1 tablet by mouth daily [facility] Losartan Potassium 50 MG Oral Tablet losartan (COZAAR) tablet 50 mg losartan (COZAAR) tablet 50 mg 09/28/2020 09:00:00 AM EST 50 mg Oral active 50 mg, Oral, Daily Standard, First dose on Mon09/28/20 at 0900, For 30 days
Check vital signs before administering
[facility] Medication administered onsite Docusate Sodium 100 MG Oral Capsule Docu sate Sodium 100 MG Oral Capsule (COLACE) Docusate Sodium 100 MG Oral Capsule (COLACE) 09/28/2020 12:00:00 AM EST 100 mg Oral active Take 1 capsule by mouth Two Times Daily for 10 days [facility] rivaroxaban 15 MG Oral Tablet Rivaroxaban 15 MG Oral T ablet (XARELTO) Rivaroxaban 15 MG Oral Tablet (XARELTO) 09/28/2020 12:00:00 AM EST 15 mg Oral aborted Take 1 tablet by mouth Tw o Times Daily [facility] Acetaminophen 325 MG Oral Tablet Acetaminophen 325 MG Oral T ablet 09/28/2020 12:00:00 AM EST 650 mg Oral active Take 2 tablets by mouth every 4 (four) hours as needed for up to 10 days [facility] Xarelto Starter Pack 15 & 20 MG Oral Tablet Therapy [facility] (Rivaroxaban) 57417-252-78 09/28/2020 12:00:00 AM EST Oral activ e Take 15 mg by mouth Two Times Daily for 21 days, THEN 20 mg every evening for 7 days.. [facility] rivaroxaban (XARELTO) tablet 15 mg [...] 1800, For 30 days [Order 2 End] [facility] Medication administered onsite Docusate Sodium 100 MG Oral Capsule docusate sodium (C OLACE) capsule 100 mg docusate sodium (COLACE) capsule 100 mg 09/27/2020 09:00:00 AM EST 100 mg Oral active 100 mg, Oral, 2 Times Daily, First dose on 09/27/20 at 0900, For 30 days [facility] Medication administered onsite Xarelto Starter Pack 15 & 20 MG Oral Tablet Therapy [facility] (Rivaroxaban) 21212-148-41 09/27/2020 12:00:00 AM EST Oral abort ed Take 15 mg by mouth Two Times Daily for 21 days, THEN 20 mg every evening for 7 days.. [facility] ondansetron (ZOFRAN) injection 4 mg [...] able to tolerate PO.
[Order 2 End] [facility] Medication administered onsite Acetaminophen 325 [...] mg from all sources in 24 hours.
[facility] Medication administered onsite senna tablet [...] on the third day.
[Order 2 End] [facility] Medication administered onsite Bisacodyl 10 MG Rectal Suppository bisacodyl (DULCOLAX ) suppository 10 mg bisacodyl (DULCOLAX) suppository 10 mg 09/26/2020 11:05:32 PM EST 10 mg Rectal active 10 mg, Rectal, Every 72 hours PRN, Constipation, Starting 09/26/20 at 2305, For 30 days
Hold if patient has had BM within the past 2 days.
[facility] Medication administered onsite Medrol 4 MG Medrol 4 MG 09/04/2020 12:00:00 AM EST active Medrol 4 MG eCW1 ([facility]) Hydroxychloroquine Sulfate 200 MG Oral Tablet [Plaquen il] Plaquenil 200 MG Plaquenil 200 MG 09/04/2020 12:00:00 AM EST a ctive Plaquenil 200 MG eCW1 ([facility]) Medrol 4 MG Medrol 4 MG 09/04/2020 12:00:00 AM EST active Medrol 4 MG eCW1 ([facility]) Hydroxychloroquine Sulfate 200 MG Oral Tablet [Plaquen il] Plaquenil 200 MG Plaquenil 200 MG 09/04/2020 12:00:00 AM EST a ctive Plaquenil 200 MG eCW1 ([facility]) Medrol 4 MG Medrol 4 MG 09/04/2020 12:00:00 AM EST active Medrol 4 MG eCW1 ([facility]) Medrol 4 MG Medrol 4 MG 09/04/2020 12:00:00 AM EST active Medrol 4 MG eCW1 ([facility]) Hydroxychloroquine Sulfate 200 MG Oral Tablet [Plaquen il] Plaquenil 200 MG Plaquenil 200 MG 09/04/2020 12:00:00 AM EST a ctive Plaquenil 200 MG eCW1 ([facility]) Hydroxychloroquine Sulfate 200 MG Oral Tablet [Plaquen il] Plaquenil 200 MG Plaquenil 200 MG 09/04/2020 12:00:00 AM EST a ctive Plaquenil 200 MG eCW1 ([facility]) Medrol 4 MG Medrol 4 MG 07/24/2020 12:00:00 AM EST suspended Medrol 4 MG eCW1 ([facility]) Medrol 4 MG Medrol 4 MG 07/24/2020 12:00:00 AM EST suspended Medrol 4 MG eCW1 ([facility]) Medrol 4 MG Medrol 4 MG 07/24/2020 12:00:00 AM EST active Medrol 4 MG eCW1 ([facility]) Medrol 4 MG Medrol 4 MG 07/24/2020 12:00:00 AM EST suspended Medrol 4 MG eCW1 ([facility]) Medrol 4 MG Medrol 4 MG 07/24/2020 12:00:00 AM EST suspended Medrol 4 MG eCW1 ([facility]) Medrol 4 MG Medrol 4 MG 07/24/2020 12:00:00 AM EST active Medrol 4 MG eCW1 ([facility]) Medrol 4 MG Medrol 4 MG 07/24/2020 12:00:00 AM EST suspended Medrol 4 MG eCW1 ([facility]) Medrol 4 MG Medrol 4 MG 07/24/2020 12:00:00 AM EST active Medrol 4 MG eCW1 ([facility]) Medrol 4 MG Medrol 4 MG 07/24/2020 12:00:00 AM EST suspended Medrol 4 MG eCW1 ([facility]) meloxicam 15 MG Oral Tablet Meloxicam 15 MG Meloxicam 15 MG 07/06/2020 12:00:00 AM EST 1.0 {tablet} active Meloxicam 1 5 MG eCW1 ([facility]) meloxicam 15 MG Oral Tablet Meloxicam 15 MG Meloxicam 15 MG 07/06/2020 12:00:00 AM EST 1.0 {tablet} active Meloxicam 1 5 MG eCW1 ([facility]) sildenafil 100 MG Oral Tablet [Viagra] Viagra 100 MG Viagra 100 MG 06/11/2020 12:00:00 AM EDT 1.0 {tablet_as_needed} active Viagra 100 MG eCW1 ([facility]) sildenafil 100 MG Oral Tablet [Viagra] Viagra 100 MG Viagra 100 MG 06/11/2020 12:00:00 AM EDT 1.0 {tablet_as_needed} active Viagra 100 MG eCW1 ([facility]) sildenafil 100 MG Oral Tablet [Viagra] Viagra 100 MG Viagra 100 MG 06/11/2020 12:00:00 AM EDT 1.0 {tablet_as_needed} active Viagra 100 MG eCW1 ([facility]) sildenafil 100 MG Oral Tablet [Viagra] Viagra 100 MG Viagra 100 MG 06/11/2020 12:00:00 AM EDT 1.0 {tablet_as_needed} active Viagra 100 MG eCW1 ([facility]) sildenafil 100 MG Oral Tablet [Viagra] Viagra 100 MG Viagra 100 MG 06/11/2020 12:00:00 AM EDT 1.0 {tablet_as_needed} active Viagra 100 MG eCW1 ([facility]) sildenafil 100 MG Oral Tablet [Viagra] Viagra 100 MG Viagra 100 MG 06/11/2020 12:00:00 AM EDT 1.0 {tablet_as_needed} active Viagra 100 MG eCW1 ([facility]) sildenafil 100 MG Oral Tablet [Viagra] Viagra 100 MG Viagra 100 MG 06/11/2020 12:00:00 AM EDT 1.0 {tablet_as_needed} active Viagra 100 MG eCW1 ([facility]) sildenafil 100 MG Oral Tablet [Viagra] Viagra 100 MG Viagra 100 MG 06/11/2020 12:00:00 AM EDT 1.0 {tablet_as_needed} active Viagra 100 MG eCW1 ([facility]) sildenafil 100 MG Oral Tablet [Viagra] Viagra 100 MG Viagra 100 MG 06/11/2020 12:00:00 AM EDT 1.0 {tablet_as_needed} active Viagra 100 MG eCW1 ([facility]) sildenafil 100 MG Oral Tablet [Viagra] Viagra 100 MG Viagra 100 MG 06/11/2020 12:00:00 AM EDT 1.0 {tablet_as_needed} active Viagra 100 MG eCW1 ([facility]) sildenafil 100 MG Oral Tablet [Viagra] Viagra 100 MG Viagra 100 MG 06/11/2020 12:00:00 AM EDT 1.0 {tablet_as_needed} active Viagra 100 MG eCW1 ([facility]) sildenafil 100 MG Oral Tablet [Viagra] Viagra 100 MG Viagra 100 MG 06/11/2020 12:00:00 AM EDT 1.0 {tablet_as_needed} active Viagra 100 MG eCW1 ([facility]) sildenafil 100 MG Oral Tablet [Viagra] Viagra 100 MG Viagra 100 MG 06/11/2020 12:00:00 AM EDT 1.0 {tablet_as_needed} active Viagra 100 MG eCW1 ([facility]) sildenafil 100 MG Oral Tablet [Viagra] Viagra 100 MG Viagra 100 MG 06/11/2020 12:00:00 AM EDT 1.0 {tablet_as_needed} active Viagra 100 MG eCW1 ([facility]) 0.6 mg 05/18/2020 12:00:00 AM EDT [...] type / Coverage type Policy ID Covered democrat ID Covered democrat's relationship to guy Policy Guy Plan Information [facility] HUMAN [id number] SP [id number] Self [id number] [facility] HUMANA - O/P [id number] 18 [id number] U [id number] Self [id number] SELF PAY ONLY [id number] SP [id number] [facility] HUMAN [id number] SP [id number] HUMANA [facility] O [id number] S [id number] [facility] [id number] SP [id number] [employer] Health Maintenance Organization (HMO) [id number] Self [id number] [employer] (HMO) [id number] Self [id number] [facility] [id number] Self [id number] [facility] [id number] SP [id number] Region 1 Prime Commercial Self Health Net [facility] Commercial Self ACTIVE DUTY [id number] SP [id number] Problems, Conditions, and Diagnoses Code Display Name Description Problem Type Effective Dates Data Source(s) M19.90 [id number] Inflammatory arthritis Problem 08/12/2020 12 :00:00 AM EST eCW1 ([facility]) M06.4 [id number] Inflammatory polyarthritis Problem 0 12:00:00 AM EST eCW1 ([facility]) M10.9 [id number] Gouty arthritis of both feet Problem 07/20/2020 12:00:00 AM EST eCW1 ([facility]) M72.2 [id number] Plantar fascial fibromatosis Problem 020 12:00:00 AM EST eCW1 ([facility]) I10 [id number] Essential hypertension Problem 07/20/2020 12 :00:00 AM EST eCW1 ([facility]) [id number] Pure hypercholesterolemia Pure hypercholesterolemia Pr oblem 06/30/2020 12:00:00 AM EST MEDENT ([facility]) [id number] Essential hypertension Essential hypertension Problem 06/30/2020 12:00:00 AM EST MEDENT ([facility]) 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 [id number] CONTACT WITH AND SUSPECTED EXPOSURE TO C OVID-19 CONTACT WITH AND SUSPECTED EXPOSURE TO COVID-19 Diagnosis 09/24/2020 07:05:00 PM EST [facility] I10 Essential (primary) hypertension Essential (primary) h ypertension Diagnosis 09/24/2020 07:05:00 PM [facility] I2692 Saddle embolus of pulmonary artery witho ut acute cor pulmonale Saddle embolus of pulmonary artery without acute cor pulmonale Diagnosis 09/24/2020 07:05:00 PM [facility] R0600 Dyspnea, unspecified Dyspnea, unspecified Diagnosis 09/24/2020 07:05:00 PM [facility] [id number] Nicotine dependence, cigarettes, uncompl icated Nicotine dependence, cigarettes, uncomplicated Diagnosis 09/24/2020 03:58:00 PM [facility] I2699 Other pulmonary embolism without acute c or pulmonale Other pulmonary embolism without acute cor pulmonale Diagnosis 09/24/2020 03:58:00 PM [facility] R936 Abnormal findings on diagnostic imaging of limbs Abnormal findings on diagnostic imaging of limbs Diagnosis 07/01/2020 10:56:00 AM EST [facility] R2232 Localized swelling, mass and lump, left upper limb Localized swelling, mass and lump, left upper limb Diagnosis 07/01/2020 10:56:00 AM [facility] [id number] Pain in left toe(s) Pain in left toe(s) Diagnosis 1 08/31/2019 10:56:00 AM [facility] Surgeries/Procedures Procedure Description Date Indications Data Source(s) BLOOD COUNT COMPLETE AUTO&AUTO DIFRNTL WBC COUNT CBC AND DIFFER ENTIAL Routine 09/28/2020 4:06 AM EST 09/28/2020 04:06:[address] [facility] PHOSPHORUS INORGANIC PHOSPHORUS LEVEL Routine 09/28/2020 4:[address] 09/28/2020 04:06:[address] [facility] BASIC METABOLIC PANEL CALCIUM TOTAL BASIC METABOLIC PANEL Routi ne 09/28/2020 4:06 AM EST 09/28/2020 04:06:00 AM [facility] EKG 12-LEAD - CMAXX REPORT EKG 12-LEAD - CMAXX REPORT 09/27/2020 12:26 PM EST 09/27/2020 12:26:07 PM [facility] EKG 12-LEAD - CMAXX REPORT EKG 12-LEAD - CMAXX REPORT 09/27/2020 12:26 PM EST 09/27/2020 12:26:07 PM [facility] EKG 12-LEAD EKG 12-LEAD Routine 09/27/2020 12:26 PM EST 09/27/2020 12:26:[address] [facility] TROPONIN QUANTITATIVE TROPONIN T Routine 09/27/2020 11:46 AM EST 09/27/2020 11:46:[address] [facility] HEPARIN ASSAY ANTI-XA UNFRACTIONATED HEPARIN LEVEL Routine 09/27/2020 8:30 AM EST 09/27/2020 08:30:00 AM [facility] HEPARIN ASSAY ANTI-XA UNFRACTIONATED HEPARIN LEVEL Routine 09/27/2020 3:55 AM EST 09/27/2020 03:55:00 AM [facility] PROTHROMBIN TIME PROTIME INR Routine 09/27/2020 3:55 AM EST 09/27/2020 03:55:[address] [facility] BLOOD COUNT COMPLETE AUTOMATED CBC Routine 09/27/2020 3:55 A M EST 09/27/2020 03:55:[address] [facility] PHOSPHORUS INORGANIC PHOSPHORUS LEVEL Routine 09/27/2020 3:[address] 09/27/2020 03:55:[address] [facility] MAGNESIUM MAGNESIUM LEVEL Routine 09/27/2020 3:55 AM EST 09/27/2020 03:55:[address] [facility] ANGIOGRAPHY PULMONARY BILATERAL SLCTV RS&I IR PULMONARY ARTERIO GRAM Routine 09/26/2020 10:01 PM EST Clot 09/26/2020 10:01:23 PM EST Clot [facility] Clot COAGULATION TIME ACTIVATED POCT ISTAT ACT Routine 09/26/2020 9:54 PM EST 09/26/2020 09:54:[address] [facility] COAGULATION TIME ACTIVATED POCT ISTAT ACT Routine 09/26/2020 8:37 PM EST 09/26/2020 08:37:[address] [facility] PULMONARY ANGIOGRAM WITH LYSIS AND/OR MECHANICAL EMBOL ECTOMY PULMONARY ANGIOGRAM WITH LYSIS AND/OR MECHANICAL EMBOLECTOMY 8:03 PM EST PE 09/26/2020 08:03:00 PM EST - 09/26/2020 10:24:[address] [facility] BLOOD TYPING ABO TYPE AND SCREEN STAT 09/26/2020 7:57 PM EST 09/26/2020 07:57:[address] [facility] OPERATIVE AND PROCEDURE NOTE OPERATIVE AND PROCEDURE NOTE 09/26/2020 7:39 PM EST 09/26/2020 07:39:16 PM [facility] HEPARIN ASSAY ANTI-XA UNFRACTIONATED HEPARIN LEVEL Routine 09/26/2020 7:05 PM EST 09/26/2020 07:05:00 PM [facility] PROTHROMBIN TIME PROTIME INR Routine 09/26/2020 7:05 PM EST 09/26/2020 07:05:[address] [facility] BLOOD COUNT COMPLETE AUTOMATED CBC Timed 09/26/2020 7:05 P M EST 09/26/2020 07:05:[address] [facility] RESPIRATORY PATHOGEN PANEL RESPIRATORY PATHOGEN PANEL Routine 09/26/2020 7:03 PM EST 09/26/2020 07:03:00 PM EST [facility] COVID-19 PCR COVID-19 PCR Routine 09/26/2020 7:03 PM EST 09/26/2020 07:03:00 PM EST [facility] Results ID Date Data Source [id number] 09/28/2020 06:05:11 PM EST [facility] Name Value Range Interpretation Code Description Data Princess rce(s) Supporting Document(s) Discharge Summary [facility] WVESYm4mFdNVPaAu02/AVHngSAFzi5EmODwxLKz7QUnbWNGeM4ChJDM0qF5oPHZ3UXaGIdKwAyAsUnH6 lbm [file] AgICAgICAgICAgICAgICAgICAgICAgICAgICAgICAg ICAgICAgICAgICAgICAgICAgICAgICAgICAgICAgICAgICAgICANCiAgICAgICAgICAgICAgICAgICAg ICAgICAgICAgICAgICAgICAgICAgICAgICAgICAgICAgICAgICAgICAgICAgICAgICAgICAgICAgICAg ICAgICAgICAgICAgICAgICAgICANCiAgICAgICAgIC AgICAgICAgICAgICAgICAgICAgICAgICAgICAgICAgICAgICAgICAgICAgICAgICAgICAgICAgICAgIC AgICAgICAgICAgICAgICAgICAgICAgICAgICAgICANCiAgICAgICAgICAgICAgICAgICAgICAgICAgIC AgICAgICAgICAgICAgICAgICAgICAgICAgICAgICAg ICAgICAgICAgICAgICAgICAgICAgICAgICAgICAgICAgICAgICAgICANCiAgICAgICAgICAgICAgICAg ICAgICAgICAgICAgICAgICAgICAgICAgICAgICAgICAgICAgICAgICAgICAgICAgICAgICAgICAgICAg ICAgICAgICAgICAgICAgICAgICAgICANCiAgICAgIC AgICAgICAgICAgICAgICAgICAgICAgICAgICAgICAgICAgICAgICAgICAgICAgICAgICAgICAgICAgIC AgICAgICAgICAgICAgICAgICAgICAgICAgICAgICAgICANCiAgICAgICAgICAgICAgICAgICAgICAgIC AgICAgICAgICAgICAgICAgICAgICAgICAgICAgICAg ICAgICAgICAgICAgICAgICAgICAgICAgICAgICAgICAgICAgICAgICAgICANCiAgICAgICAgICAgICAg ICAgICAgICAgICAgICAgICAgICAgICAgICAgICAgICAgICAgICAgICAgICAgICAgICAgICAgICAgICAg ICAgICAgICAgICAgICAgICAgICAgICAgICANCiAgIC AgICAgICAgICAgICAgICAgICAgICAgICAgICAgICAgICAgICAgICAgICAgICAgICAgICAgICAgICAgIC AgICAgICAgICAgICAgICAgICAgICAgICAgICAgICAgICAgICANCiAgICAgICAgICAgICAgICAgICAgIC AgICAgICAgICAgICAgICAgICAgICAgICAgICAgICAg ICAgICAgICAgICAgICAgICAgICAgICAgICAgICAgICAgICAgICAgICAgICAgICANCjw/oDHhK0ymxZQh hfG2H2yaOs0SUz1OSO7sa4KlNTAzZBgssfArQugYJzNjIHPjGieAXcx3STjkWY8NcCQaV8RgZ1ZcIXoi YQ5BXAYhJIIjvKDeBQXmMGVmOmC1QKRhIXlgLE8GlQ OeMYyhSKHjIFUvPwSnWMQzIZZqTQVyUJIkQSDHLGStQNSnYnHkCWytKF8Ik2BgsBZ2ZGa+Wn7ZEO5vf0 EhRUyeIXXcJR8xqg6NOGpIKsWnD6KtjtP0BDW6CDPgFf6PMTYwSOXihIQyIwUwJYOBVhLoY3VjqH15SX ENCj4+WFxwfdOcIywXWwH6XENud6UrJOx7PR3WLLBp CNf6tSNdXMgqL2ukqctnRAV7fU0raoxkFqydFQUlCQZEQApaGFIiVSNfKV3LHUS3RWKmHYUpVdBfNCLq EWouWLXFOAlMJdZfF9Qxk9RcZpK7TSUuXsXaCWdmYHXbUzD3VD54xXadKL9MFWBdUWDsXR91AOO7MAXo Ao5RMi5KMgVzAC8mbn8DPkcdKIOqFyjHBoh7OZctYX 8RyMSmQ8AjaEKhg4pAEkHgI6WYPSXjGYVcXj9ICIScJjSwBHTqSTzoKG9ySRLlIVEAlLuiwdT9AH2COQ 0ffbXpFS2IRfZpLs2rAd4OYoToG6GpS3TaOZWnOTRLHKidIS3CNFioJL1cLQ0Tc2TQhKPlzA7yul8ZWL WbGYKzNwyifl6WWygoT0N0kRdaKGXbMhIdYTUJQBuv JE8NOXGgPER4ESYbMPUtEALXNpYbJ62pTL0NJ3Vwn42oRnX0NVZjRoSzITrhXE80oXffpjQdvYHkeWfi TW8DTi4+ZBkagqXcWsgVCkqmSDMIIaHcEjiVIhDsKDSwOKPxEQInLtZ6QdZdSg9TOFYfEFWdGLTyKnYt CYJgZSKgTRsrUSTcOKD8CIR4TYDpKXViSN0DWhZjGT GcXWLbESbrUMWaTVHdsk1JPJVlOIScQTR5QsYsOPIyFKMmFSdoBUYaTOJnKxYyJFQmTWLuCL3GSzAkNP FvLTK8STWfUYWlHUIhbi4OMLStJVHzWaBpWoTmQTSkXEBoMIexCICoYTL9SMD4OUHaKLVqVB6REbYdSF IpBCH3ADawXFPkORCxin5KIJHdLMAyDDEpTsWmCUGq RXRhQVazEBNsIED1QNw4SFGpSHJkHS2TYbClENPbYFUsRUHkNMZwSFFmqm5SMQXnXOZnXsPvBHVkTWTw YTFuHAdlSURmHOA2LDN1NWHiWIUnRG1COeLdOFTcQCjsBLbzAFIuJVAell8IYKWjNZFcZAJ0RRCkSWPx OQMgZTnlXLDtNJJ0LhO5NAJdYPIhOS5FHsBnCMMqON u9ZjWbRHZeQXXewl7WNGJaNXZrDGqmWGUbONJrHCAbJGcpAQMsRNCfOFM7OGNtYIFnVM9XFsHjHOFoNl VkNlJmEWCbGIRjjw6MJKNeACJzPNM1AcEjSFXcGBVzDPtfTLWaQNKkQSQ6YDWcOTGmRF4JAyUkWFCdRd V0THCnMRJzDGGosw9SUTMzDINgFzT8RMKdYBJiOGEy MSbdBFGpOZSzCsL7VUXqZMJiLF6TJfKbNFTuGuV0BJvmOKVrCKVtdt6OVZKyYFMvHup1EtChIDNrZBEt EPjdNLXfGFJ6TwK6QGMdCCGeIJ0RYjJbMKWxNtq0HvxmYXOvIVTxtu3VVFNwUKEvQDOdKPWgRWJbNZFw GFnwZOKkRRM6Hbs2TYVkQZLjNL3WTmHdBDYaRvc9Bv GeOUKiCDRugk1VPPGmJDZyWLw9AKFsEPBgNWCjJFqvCJVvNYWwENMrLRUbLZWvKQ9JAiSfPBZlENB4SD JoYTRnPOOljy3LFMPaXCM9LHU2UjGmYLEnDHNyWDc8flWtfKRjEIk3OF2WF1PzokNdBnbMOe2Pl827MV W2UAPhMq1TH6ztWl5sOFRjFXPLKo8TDEv5VdtxSov3 KDtcLFlbLuRwG8F6RQEmBsZoDLX5DsczRsQ+ODupO2QkHuUoOPWuCBU4KQYbPue1SAK0UVOxChWlCOTg Rj9mXZFUGi4+SAtqzIKhnEccWZYYLfQtFMpyOLgpPOHATu0O ID Date Data Source [id number] 09/28/2020 07:55:[address] [facility] Name Value Range Interpretation Code Description Data Princess rce(s) Supporting Document(s) [facility] ZILFKd4sTqMXBrDhk1XaEcVeWDPmMV9yxbc2Q2M0hIIfP7LnyPXej2hqN1AfK8HbZQOaKUPBZT6UeUTu jb2 [file] b1+9+93bp+/f3n1+1+O0r251k/dP//T+s4/scientific informatics analyst/8vcr6/4amAF7l735/tHo6a7wFcaaaac+ttdFm7er0+ /votkt99+NOv73637YrgkKfgrrxnik+/+frb37z/7I t/+pYqu77h//Ccc2wEHn12sc8n5Wt+/OSk5reufJvC/nwpazjW2J4g//4q2wr2T4y69aWf7/9PB87F3q 7osz//+O9/+Xsgfsz3x//xn2/f/eGPf/z+L3/54fs//sPb59//+Icf/vj2r/+t2b/+3fowj7ohp4dol/ 1t7LKIC3i/e/fV3+h+nz+6c+3ypz/02j9NiEwhoN6s +E/fAR+2tPB5/fr/Atw/SA/o/6h3G9bYAd2EFvveu2EYN37S6Nhl0os2qvPXc43k/frt+cm2ftox+4YP P/z7Dy/86Wq69G5c9F++++Lz9x/alw2pnr/ff/VO3f8iOQhm/vR+XLAx2dma+1f4xqRGc9XWt8xMFaEe ihfPLh6aSc/+9R/f/vL9X3/4Se6vT+EdIA54q/oTX9 JOLazJ/HnuB/zNh7c//PjXH/7yv/+m2vH7SddHw6+6P+/x+nnuB/vnD9++/dv/etX9D3/+4fuYv6pmI2 s+sniwf/74q3/++Hu+rk047Gote21X/Us196kDp3K7YFq7j/7APoko00/kLASn/rxWB/vNLz/88uPb9/ /nh//426HzvLdr/fKrdx9+vJq9wK7+V87/+Zd//buf 6L5uf7oc//En79d/gn72/f/6/ff/8Yfvf/bT64cJUm/w48+ui9fMbA/+y0055mQcif//+U+ftOvq/rNb Tnu//QDdM1eg/Iyek4cBF/cNH3/4/f/88Q+/l4Mxi3hec68P/+guHlQp4x1Je5636o277a4n/+cPf/nb Fbu80A5+5quv3n/98dtP+P26P4r//5jbj7M1NYSe/c 33/88Pb+3tz//+1qiebTR/5otv7/vdX9Sk313Fb8p9t088uML4JHmgrk4X30m5SXHeKqodtw++/v7fff bZN7/9+rQqmAC4R1hv/vb/EmfiJ89LCE4px9MwXHTaFvWuCP2kqxjlRREcAN6oeeb7F0LhpXpmHUyLZD LeTr8nzUQeQR2PCQX7ZOkjYOBgEAXaG5YzmT4nX65s nFAkSzWcIEJIKB1UhoF0XCH9SFW3HREjPxRyVMCqZP76EFTfEQIQGl5sqqFtGakUPjHdFV8jdwb8G9A6 qWVaR792jRyqxyPqNS4Yx6HugONgYV5BvHHleGGhUSLoSUKcC6cua6KnWUccWRCFUc7vmoBbUvyBLbPc PW3hafw9R6T7vHrkjcUiZGEMEGxkSzwvWR8qhRztoa wnS0AngTXhZFZlQ4YlQSPus18NRZYvLIqNDkEcXoVxBwT6UWv6YVkzAlMdZDEsAFLgHVKoEM6MfZAbNQ KeOIMEIFwfLniqNTIzcD3niRSVw5UrMwFXKCaPWewpLv6VTTQQGQN8UKahUHxlEF8AhCNwYBU0PQeTYW IXWPhKWWagDwRgh5P8LTCvX0ZrEHPmpgJqHVKZNNva JatqMR1dfQehuyppY8TtyMBtQVCXGJDkUIMcRXYnXMGfM0Gcy1Q8R7ZkIOmKDTYZSSsNPGleReM3e84p ayBTZXJpZXMpID4+TO1om9RlLb8RPEHuNJ0zyra6YO6PiSOfMR6EHLccfrKxD9qgdaNlOcZcSAYIUZ1l W9XxxS26PAJ+PjFyTE9yosm3mfGdPzPiLCSnTYTxGP ToLZzxVXXcVHWlCDKsIPH6MTG7UCJpPwWuFBUzWpD8FdeoCJMqFWOlktMRDUSuUSF4MxCjSwIxZRFsFT ExFYwlNWNhFEN1FTygPGEsAKWdCN9rXjSdUECcILJpTIGnHnW0AuKdEfQGTEByPYZtPCEeVnGnJMAkXQ XvTZfxIPBoFVOzYMa1PCYvAIFdTE4kHtZdGVDoZDQp PRNdFASyPFYrkwGJDKFqTEOqJMC7OESdOZYmKDOkRQofQVAqEOIuUCO3PTMbYTLyZD8pOuRwMDKlTXC0 SaFlOAQsKAZfjgCUWHBfGRXpHMM7XVVgYPKpDLZuGRhqGHVbCXQwXmR3LSDhWPRwOJ8kAsAcPGMpUMZ0 LCMbQODhHRXissRMTNUkAHXxEYt6QwJiYZElARInML pwTKVxXITwRGvyQOUmQFVtCY5cYiKhKRAgXWEaYHYzCHKwRTNkblVFEFHpGDLrUGH4TjUoJXJoZOIkDR fyJKKjSBOzBJB2TVDjRTIeHJ8mHgBqMACxAdIxOEUjMALsSHVkloOEGPEoZYNsDOOaPIErNAItYLPuBR fkBFGjQAKaXaY2HXSbAHBfWS0mUwByWYNyUYD0STZo DCItLUXpvcTPWLPlBRFvJTTmWDQ0SAXyKDAyNWr4ycDolJLnEuj3Bt3JcGkvKQU0Xq6NrgHhNNMoUKSA Zp3Zb171BGOjAGKYCsi+GvwbfPOekCheESJBLpD9YJHXXQTDO5F= ID Date Data Source [id number] 09/28/2020 05:39:45 AM [facility] Name Value Range Interpretation Code Description Data Princess rce(s) Supporting Document(s) Leukocytes [#/volume] in Blood by Automated count 5.4 10*3/uL 4-10 [facility] Erythrocytes [#/volume] in Blood by Automated count 4.27 10*6/uL 4.6- 6.1 L [facility] Hemoglobin [Mass/volume] in Blood 12.8 g/dL 13.5-18 L [facility] Hematocrit [Volume Fraction] of Blood by Automated count 37.0 % 4 1-53 L [facility] Erythrocyte mean corpuscular volume [Entitic volume] by Auto mated count 86.8 fL 80-96 [facility] Erythrocyte mean corpuscular hemoglobin [Entitic mass] by Automated count 29.9 pg 27-33 [facility] Erythrocyte mean corpuscular hemoglobin concentration [Mass/volume] by Automated count 34.5 g/dL 32.0-36.0 [facility] E[facility] distribution width [Ratio] by Automated count 13.1 % 11.5-14.5 [facility] Platelets [#/volume] in Blood by Automated count 125 10*3/uL 150-400 L [facility] Differential cell count method - Blood [facility] Neutrophils/100 leukocytes in Blood by Automated count 55 % [facility] Lymphocytes/100 leukocytes in Blood by Automated count 30 % [facility] Monocytes/100 leukocytes in Blood by Automated count 9 % [facility] Eosinophils/100 leukocytes in Blood by Automated count 5 % [facility] Basophils/100 leukocytes in Blood by Automated count 1 % [facility] Neutrophils [#/volume] in Blood by Automated count 3.03 10*3/uL 1.8-7 .0 [facility] Lymphocytes [#/volume] in Blood by Automated count 1.61 10*3/uL 1.2-4 .0 [facility] Monocytes [#/volume] in Blood by Automated count 0.49 10*3/uL 0-0.8 [facility] Eosinophils [#/volume] in Blood by Automated count 0.25 10*3/uL 0-0.5 [facility] Basophils [#/volume] in Blood by Automated count 0.03 10*3/uL 0-0.2 [facility] Nucleated erythrocytes/100 leukocytes [Ratio] in Blood by Automated count 0 /100{WBCs} 0-0 [facility] ID Date Data Source [id number] 09/28/2020 06:02:02 AM EST [facility] Name Value Range Interpretation Code Description Data Princess rce(s) Supporting Document(s) Bicarbonate [Moles/volume] in Serum 21 mmol/L 22-29 L [facility] Chloride [Moles/volume] in Serum or Plasma 104 mmol/L 98-107 [facility] Creatinine [Mass/volume] in Serum or Plasma 0.93 mg/dL 0.70-1.20 [facility] Glucose [Mass/volume] in Serum or Plasma 93 mg/dL 70-140 [facility] Potassium [Moles/volume] in Serum or Plasma 4.2 mmol/L 3.4-5.1 [facility] Hemolyzed Sodium [Moles/volume] in Serum or Plasma 137 mmol/L 136-145 [facility] Urea nitrogen [Mass/volume] in Serum or Plasma 12 mg/dL 6-20 [facility] Anion gap 3 in Serum or Plasma 12 mmol/L 8-15 [facility] Osmolality of Serum or Plasma by calculation 284 mosm/kg 275-300 [facility] Creatinine/Urea nitrogen [Mass Ratio] in Serum or Plasma 13 [facility] Calcium [Mass/volume] in Serum or Plasma 8.8 mg/dL 8.6-10.0 [facility] Glomerular filtration rate/1.73 sq M pre dicted among non-blacks [Volume Rate/Area] in Serum or Plasma by Creatinine-based formula (MDRD) >6 0 [facility] Glomerular filtration rate/1.73 sq M pre dicted among blacks [Volume Rate/Area] in Serum or Plasma by Creatinine-based formula (MDRD) >60 [facility] ID Date Data Source [id number] 09/28/2020 06:02:[address] [facility] Value Range Interpretation Code Description Data Princess rce(s) Supporting Document(s) Phosphate [Mass/volume] in Serum or Plasma 3.8 mg/dL 2.5-4.5 [facility] ID Date Data Source [id number] 09/27/2020 12:25:[address] [facility] Value Range Interpretation Code Description Data Princess rce(s) Supporting Document(s) Troponin T.cardiac [Mass/volume] in Serum or Plasma 0.03 ng/mL <0.01 H [facility] ID Date Data Source [id number] 09/27/2020 09:10:41 AM EST [facility] Name Value Range Interpretation Code Description Data Princess rce(s) Supporting Document(s) Heparin unfractionated [Units/volume] in Platelet poor plasma by Chromogenic method 0.25 U/ml [facility] al ID Date Data Source [id number] 09/27/2020 07:55:[address] [facility] IR PULMONARY ARTERIOGRAMFINAL RESULTInte rpreted by:Rachel Phipps MD1. [...] exchanged over a wire for an 8 Luxembourger sheath. An inferior venacavogram was then performed. The 7 [place]ger [place] catheter was then used to selectively cannulate the main pulmonary artery. Pulmonary artery pressures were also measured. The 8 Luxembourger sheath was then exchanged over wire for a 24 Luxembourger coaxial sheath. This was placed in the [...] rce(s) Supporting Document(s) ID Date Data Source [id number] 09/27/2020 05:16:[address] [facility] Value Range Interpretation Code Description Data Princess rce(s) Supporting Document(s) Leukocytes [#/volume] in Blood by Automated count 5.6 10*3/uL 4-10 [facility] Erythrocytes [#/volume] in Blood by Automated count 4.27 10*6/uL 4.6- 6.1 L [facility] Hemoglobin [Mass/volume] in Blood 12.4 g/dL 13.5-18 L [facility] Hematocrit [Volume Fraction] of Blood by Automated count 37.3 % 4 1-53 L [facility] Erythrocyte mean corpuscular volume [Entitic volume] by Auto mated count 87.3 fL 80-96 [facility] Erythrocyte mean corpuscular hemoglobin [Entitic mass] by Automated count 29.0 pg 27-33 [facility] Erythrocyte mean corpuscular hemoglobin concentration [Mass/volume] by Automated count 33.2 g/dL 32.0-36.0 [facility] E[facility]throcyte distribution width [Ratio] by Automated count 13.4 % 11.5-14.5 [facility] Platelets [#/volume] in Blood by Automated count 121 10*3/uL 150-400 L [facility] ID Date Data Source [id number] 09/27/2020 05:31:[address] [facility] Value Range Interpretation Code Description Data Princess rce(s) Supporting Document(s) Prothrombin time (PT) 14.7 s 12.5-14.9 [facility] INR in Platelet poor plasma by Coagulation assay 1.14 [facility] Routine intensity oral anticoagulation I NR is typically 2.0-3.0. Target INR must be clinically individualized. ID Date Data Source [id number] 09/27/2020 05:47:[address] [facility] Value Range Interpretation Code Description Data Princess rce(s) Supporting Document(s) Heparin unfractionated [Units/volume] in Platelet poor plasma by Chromogenic method 1.52 U/ml [facility] al ConfirmedCalled to and read back byCristopher Burns RN ON 10G AT 0545 2050 ID Date Data Source [id number] 09/27/2020 05:53:[address] [facility] Value Range Interpretation Code Description Data Princess rce(s) Supporting Document(s) Phosphate [Mass/volume] in Serum or Plasma 4.2 mg/dL 2.5-4.5 [facility] ID Date Data Source [id number] 09/27/2020 05:53:[address] [facility] Value Range Interpretation Code Description Data Princess rce(s) Supporting Document(s) Magnesium [Mass/volume] in Serum or Plasma 2.0 mg/dL 1.6-2.6 [facility] ID Date Data Source [id number] 09/26/2020 10:05:[address] [facility] Value Range Interpretation Code Description Data Princess rce(s) Supporting Document(s) Kaolin activated time [Units/volume] in Blood 208 [facility] ID Date Data Source [id number] 09/26/2020 09:03:[address] [facility] Value Range Interpretation Code Description Data Princess rce(s) Supporting Document(s) Kaolin activated time [Units/volume] in Blood 136 [facility] ID Date Data Source [id number] 09/26/2020 08:39:[address] [facility] Value Range Interpretation Code Description Data Princess rce(s) Supporting Document(s) ABO and Rh group [Type] in Blood [facility] Blood group antibody screen [Presence] in Serum or Plasma [facility] Blood bank comment [facility] ID Date Data Source [id number] 09/26/2020 07:36:[address] [facility] Value Range Interpretation Code Description Data Princess rce(s) Supporting Document(s) History and Physical [facility] YXGONe8jYnBXDfRh41/VGFzvXQPar4NnFTxdXKg9LTscOGFxV0BaANY8nO1vYOZ0XOrCOwCrDwQaVzMi lbm [file] VMXaZzGqYfYrRD6JYs6NYwU4HVC6wTWsWz2DJcD1ZtBHFoRrQB5FSAz= ID Date Data Source [id number] 09/26/2020 07:24:[address] [facility] Name Value Range Interpretation Code Description Data Princess e(s) Supporting Document(s) Leukocytes [#/volume] in Blood by Automated count 5.3 10*3/uL 4-10 [facility] Erythrocytes [#/volume] in Blood by Automated count 4.68 10*6/uL 4.6- 6.1 [facility] Hemoglobin [Mass/volume] in Blood 14.1 g/dL 13.5-18 [facility] Hematocrit [Volume Fraction] of Blood by Automated count 40.4 % 4 1-53 L [facility] Erythrocyte mean corpuscular volume [Entitic volume] by Auto mated count 86.2 fL 80-96 [facility] Erythrocyte mean corpuscular hemoglobin [Entitic mass] by Automated count 30.1 pg 27-33 [facility] Erythrocyte mean corpuscular hemoglobin concentration [Mass/volume] by Automated count 34.9 g/dL 32.0-36.0 [facility] Erythrocyte distribution width [Ratio] by Automated count 13.6 % 11.5-14.5 [facility] Platelets [#/volume] in Blood by Automated count 118 10*3/uL 150-400 L [facility] ID Date Data Source [id number] 09/26/2020 07:36:07 PM EST [facility] Name Value Range Interpretation Code Description Data Princess rce(s) Supporting Document(s) Heparin unfractionated [Units/volume] in Platelet poor plasma by Chromogenic method 0.39 U/ml [facility] ID Date Data Source [id number] 09/26/2020 07:36:07 PM EST [facility] Name Value Range Interpretation Code Description Data Princess rce(s) Supporting Document(s) Prothrombin time (PT) 13.6 s 12.5-14.9 [facility] INR in Platelet poor plasma by Coagulation assay 1.03 [facility] Routine intensity oral anticoagulation I NR is typically 2.0-3.0. Target INR must be clinically individualized. ID Date Data Source [id number] 09/26/2020 07:03:00 PM EST [facility] Name Value Range Interpretation Code Description Data Princess rce(s) Supporting Document(s) SARS-CoV-2 RNA 2019 nCoV Real-Time RT-PCR: NOT DETECTED [facility] This lab was ordered by [facility] and reported by [facility]. 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 [facility] Patient has symptoms related to [facility] When did you start to experience these symptoms [Date and time] [Phen X] [facility] Patient was hospitalized because of this condition [facility] patient was admitted to ICU for [facility] Patient resides in a congregate care setting [facility] status [facility] ID Date Data Source [id number] 09/26/2020 08:48:13 PM EST [facility] Service Cmnt XXX-Imp : NoneRespiratory P CR Panel : PCR ResultsMicroorganism XXX Cult : See Labs Tab for 2019 nCoV RT-PCR resultsHAdV DNA QI KALEN+non-probe : Not DetectedHCoV 229ERNA Nph QI KALEN+non-probe : Not DetectedHCoV HIG0IZH Nph QI KALEN+non-probe : Not BqmichhwEVzEVZ19 RNA Nph QI KALEN+non-probe : Not TzidtmafMRsXRY13 RNA Upper resp QI KALEN+probe : Not [...] DNA Nph Q KALEN+non-probe : Not DetectedB oopnpVA373 DNA Nph KALEN+non-probe : Not Detected Name Value Range Interpretation Code Description Data Princess rce(s) Supporting Document(s) ID Date Data Source [id number] 09/25/2020 01:08:00 [place] [address] RESPIRATORY CARE REPORT ==== ---------NAME------- NUMBER SEX AGE ADMIT DISC. XRAY# F/C LUZ ORTIZ [id number] M 54 09/24/20 09/24/20 [id number] SB4 E/R DATE OF : 1965 M/R# [id number] #: [phone] TR-07 LOCATION: EMERGENCY DEPT [facility] [address] COMP LETE:09/25/20 01:01 T 69228 PHYSICIAN: SEA CONRAD NOR Name Value Range Interpretation Code Description Data Princess rce(s) Supporting Document(s) ID Date Data Source [id number] 09/25/2020 10:02:00 AM EST [facility] [address] [place] [address] PHONE: [phone] FAX: [phone] Name .................. : CHAD DIANA Acct Number.................. : [id number] ROOM. ................. : Number ................... : [id number] Stay type ............. : O/P Discharge Date......... ... : 09/24/20 Admit Date ......... : 09/24/20 Admit Phys .................... : HUGHES ISAA Date of ....... : 1965 Family Phys ................... : UNKNOWN Phone .................. : [phone] Age ................................ : 54 Film# .................. .:[id number] Sex ................................. : M Unsigned transcriptions are preliminary reports and do not represent a medical or legal document CT CTA CHEST NON-CORONARY Estefany Calderon [address] COMPLETE:09/24/20 19:35 EMMANUEL 4169 (REASON FOR EXAM: [...] By Jose Christie M.D. , 09/25/20 10:02, [facility] [address] [place] [address] PHONE: [phone] FAX: [phone] Name .................. : CHAD ORTIZ Acct Number.................. : [id number] ROOM. ............ ..... : MR Number ................... : [id number] Stay type ............. : O/P Discharge Date......... ... : 09/24/20 Admit Date ......... : 09/24/20 Admit Phys .................... : ELLEN GOLDEN Date of ....... : 1965 Family Phys ................... : UNKNOWN Phone .................. : [phone] Age ................................ : 54 Film# .................. .:[id number] Sex ................................. : M Unsigned transcriptions are preliminary r eports and do not represent a medical or legal document CT CTA CHEST NON- CORONARY W C 34795 COMPLETE:09/24/20 19:35 EMMANUEL 4169 (REASON FOR EXAM: ELEVATED D-DIMER Transcribe Initials: ISELA , Transcribe Date: 09/25/20 01:57, Dictation Date: Copy for: ELLEN MASTERS Copy for: 710 MED REC Page 2 of 2 Name Value Range Interpretation Code Description Data Princess rce(s) Supporting Document(s) ID Date Data Source [id number] 09/24/2020 07:05:00 PM EST [facility] 1 OrderSheet [facility] Emergency Department [address] [place] [address] Phone #: ext- [phone] 09/24/2020 19:05 Patient: DIANA BONILLA Sex: M : 1965 Age: 54yWEIGHT:106.5 kg (S)ALLERGIES: Chantix, Sulfa Antibiotics, WellbutrinCHIEF COMPLAINT: dyspneaDIAGNOSIS: Pulmonary embolismLAB ORDERSOrder Description Priority Entered Acknowledged InitialedCBC w Diff STAT 19:19 09/24/2020 19:39 Melissa Zayas Norma MD; KatelynCMP STAT 19:19 09/24/2020 19:39 Melissa Zayas Norma MD; KatelynPT/INR STAT 19:19 09/24/2020 19:39 Melissa Zayas Norma MD; KatelynPT/PTT STAT 19:19 09/24/2020 19:39 Melissa Zayas Norma MD; KatelynMagnesium STAT 19:19 09/24/2020 19:39 Melissa Zayas Norma MD; KatelynTropo romina-T STAT 19:19 09/24/2020 19:39 Melissa Zayas Norma MD; KatjaymienCOVID-19 CAH (Not STAT 19:53 09/24/2020 Ack'd: 19:55 19:58 Marquez,Symptomatic as Evita Conrad MD; Irma Zayasefined by CDC)(09/24/20) (Not FirstTest) (NotHospitalized) (Not) (NotResident inCongregate CareSetting) (NotEmployed inHealthcare Setting)DIAGNOSTIC STUDY ORDERSOrder Description Priority Entered Acknowledged InitialedMED ICATION/IV/DRIP/FLUID ORDERSOrder Description Priority Entered Acknowledged InitialedHeparin Drip IV : STAT 19:19 09/24/2020 Ack'd: 19:36 19:41 Marquez, 2 OrderSheet [facility] Emergency Department [address] [place] [address] Phone #: ext- [phone] 09/24/2020 19:05 Patient: DIANA BONILLA Sex: M : 1965 Age: 54yBolus 5,000 units, Evita Conrad MD; Irma Zayas 10 units/kg/hr(NOW x1, VerifyStrength inOmnicell, HIGHALERTMEDICATION)GENERAL ORDERSOrder Description Priority Entered Acknowledged InitialedEKG 19:19 09/24/2020 19:27 Melissa Zayas Norma MD; Irma[Electronically signed by Irma Zayas (23:01 09/24/2020)][Electronically signed by Evita Conrad MD (00:54 09/25/2020)][Electronically locked by Irma Zayas (23:01 09/24/2020)] Name Value Range Interpretation Code Description Data Princess rce(s) Supporting Document(s) ID Date Data Source [id number] 09/24/2020 07:05:00 PM [place] [address] Medication Reconciliation Report [facility] Emergency Department [address] [place] [address] Phone #: ext- [phone] 09/24/2020 19:05 Patient: DIANA BONILLA Sex: M : 1965 Age: 54yWeight: 106.5 kgHeight/Length: 74 in.BMI: 30.2ALLERGIES: Chantix, Sulfa Antibiotics, WellbutrinThe patient's Home Medications are listed below:THE FOLLOWING MEDICATIONS NEED TO BE RECONCILED: Lisinopril Oral 50mg, dailyThe source(s) of the original Home Medication information:patientThe following Medications were given to the patient in the Emergency Department:Heparin [IV Drip] Drip IV bolus 0, then 89603 unit 1000 unit/hr, administered: 19:41 09/24/2020The following Medications were prescribed to the patient:None. Name Value Range Interpretation Code Description Data Princess rce(s) Supporting Document(s) ID Date Data Source [id number] 09/24/2020 07:05:00 PM [place] [address] Medication Administration Record [facility] Emergency Department [address] [place] [address] Phone #: ext- [phone] 09/24/2020 19:05 Patient: DIANA BONILLA Sex: M : 1965 Age: 54yWeight: 106.5 kgHeight/Length: 74 inBMI: 30.2ALLERGIES: Chantix, Wellbutrin, Sulfa Antibiotics Date/Time Medication Administered Medication OrderedStart HEPARIN [IV DRIP] Heparin Drip IV : Bolus 5,43314:41 09/24/2020 Dose: 57408 unit Drip IV units, then 10 units/kg/hr (Irma Harvey, Rate: 1000 unit/hr x1, Verify Strength in Omnicell,---- Dispensed: 500 mL bag HIGH ALERT MEDICATION); StatContinued Upon Transfer Site: #2 left :59 1BIrma catalan, Name Value Range Interpretation Code Description Data Princess rce(s) Supporting Document(s) ID Date Data Source [id number] 09/24/2020 07:05:00 PM [facility] 1 General Instructions [facility] Emergency Department [address] [place] [address] Phone #: ext- [phone] 09/24/2020 19:05 Patient: DIANA BONILLA Sex: M : 1965 Age: 54yAcute pulmonary embolism (saddle embolims).(Electronically signed by Evtia Conrad MD 09/25/2020 00:54) Name Value Range Interpretation Code Description Data Princess rce(s) Supporting Document(s) ID Date Data Source [id number] 09/24/2020 07:05:00 PM EST [facility] 1 Clinical Report - Nurses [facility] Emergency Department [address] [place] [address] Phone #: ext- [phone] 09/24/2020 19:05 Patient: DIANA BONILLA Sex: M : 1965 Age: 54yTRIAGEArrived by private vehicle. Historian: patient.Triage time: 19:09/24/2020. Acuity: LEVEL 3.Chief Complaint: SHORTNESS OF BREATH.Onset was gradual. Symptoms are constant and still present (3 months). ( ongoing however this weekendwent ice fishing and could barely walk off the ice without becoming short of breath).Treatment [employer]:Seen within the last 24 hours in a clinic; CT done.SEPSIS SCREEN: SIRS SCREEN NEGATIVE. SEPSIS SCREEN NEGATIVE. No suspected or confirmedsigns of infection present. --19:18 09/24/20 eZv Mello RN19:09/24/20. BP: 153/96 (regular adult cuff) taken on the left arm, via an automated monitor, whilelying. MAP: 115. HR: 58 (regular, normal rat e and strong). RR: 19 (regular, unlabored and normal). A1enqlksdssy: 100%. Temp: 98 F (oral). Pain level now: 0/10. --19:18 09/24/20 Zev Mello RN.Weight: 106.5 kg stated. Height/Length: 74 inches Per Patient. BMI: 30.2. --19:16 09/24/20 Zev Mello RN.MedicationsLisinopril Oral 50mg, daily. --19:13 09/24/20 Zev Mello RN.AllergiesSulfa Antibiotics. Side-Effect(dizziness, hives) --19:13 09/24/20 Zev Mello RNWellbutrin. --19:13 09/24/20 Zev Mello RNChantix. --19:14 2/11/21 Zev Mello RN.PROBLEMS:Hypertension. --19:14 09/24/20 Zev Mello RN.Medication/allergy information source: the patient. --19:18 09/24/20 Zev Mello RN.HistoryPAST MEDICAL HX: Immunizations: up-to-date.SURGERY HX: No history of previous surgery.SOCIAL HX: Former smoker, end date 2012. Occasional alcohol use; consumes five beers and wine. 2 Clinical Report - Nurses [facility] Emergency Department [address] [place] [address] Phone #: ext- [phone] 09/24/2020 19:05 Patient: DIANA BONILLA Sex: M [...] states feels the same. --19:18 09/24/20 Zev Riaz, RN.PHYSICAL ASSESSMENTAmbulatory to room.GENERAL / NEURO / [...] RN.NURSING PROGRESS NOTESCardiac rhythm: normal sinus rhythm. 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 EKG time: (19:06 09/24/2020). Patient gowned. Head of bed dufbtado82 degrees. Reassurance given to the patient. Call [...] --19:41 09/24/20 Irma Zayas 19:41 09/24/2020 Started 99548 unit of Heparin Drip IV in bag #1 500 mL; at 1000 unit/hr via site #2. via IV 3 Clinical Report - Nurses [facility] Emergency Department [address] [place] [address] Phone #: ext- [phone] 09/24/2020 19:05 Patient: DIANA BONILLA Sex: M [...] 14. O2 saturation: 100%. --20:02 09/24/20 Miriam Pina, [facility] entry - 20:07 09/24/20. Reassurance given.Rounding: Pain: denies pain. Position: states comfortable. Personal care / toileting: denies toileting needs.Proximity of possessions / care items: call light within easy reach. Plug ins: assured IV pump plugged in;checked status of equipment in use; located all cords, tubes, and lines to prevent fall hazard. --20: Myranda Zayas0:31 09/24/20. BP: 134/87. MAP: 102. HR: 60. RR: 18. O2 saturation: 98%. --20:31 09/24/20 Miriam Pina, [employer] entry - 21:05 09/24/20. Reassurance given.Rounding: Pain: [...] pain level. Position: states comfortable. --22:46 09/24/20 Myranda Zayas2:00 09/24/20. BP: 130/83. MAP: 98. HR: 61. RR: 19. O2 saturation: 97%. --22:48 09/24/20 Myranda Zayas2:30 09/24/20. BP: 149/90. MAP: 109. HR: 68. RR: 22. O2 saturation: 98%. --22:49 09/24/20 Myranda Zayas2:59 09/24/2020 Heparin Drip IV via IV site #2 Continued: upon transfer at the rate of 1000 unit/hr. IV 4 Clinical Report - Nurses [facility] Emergency Department [address] [place] [address] Phone #: ext- [phone] 09/24/2020 19:05 Patient: [...] signs of infection or infiltration. --23:00 09/24/20 Imra Zayas 23:00 09/24/2020 Site #[address] upon transfer; patent, no pain and no signs of infection or infiltration. --23:00 09/24/20 Irma Zayas Departure time: 23:00 09/24/2020. --23:00 09/24/20 Irma Zayas.Locked/Released at 09/24/2020 23:01 by Irma Zayas Name Value Range Interpretation Code Description Data Princess rce(s) Supporting Document(s) ID Date Data Source [id number] 09/24/2020 07:05:00 PM [facility] 1 Clinical Report - Physicians/Mid Levels [facility] Emergency Department [address] [place] [address] Phone #: ext- [phone] 09/24/2020 19:05 Patient: DIANA BONILLA Sex: M : 1965 Age: 54y Arrived- [...] Wellbutrin.SOCIAL HISTORY 2 Clinical Report - Physicians/Mid Levels [facility] Emergency Department [address] [place] [address] Phone #: ext- [phone] 09/24/2020 19:05 Patient: [...] LOT # _[id number] 09/24/20.KIM. KIT EXP DATE _[id number] 09/24.2037.KIM. NORMAL RANGE IS NOT DETECTEDNEGATIVE RESULTS SHOULD [...] Units (Reference) 3 Clinical Report - Physicians/[facility] Emergency Department [address] [place] [address] Phone #: ext- [phone] 09/24/2020 19:05 Patient: [...] Male GFR Interprentation 20-49 yrs >60 mL/min Ywoqax18-51 yrs >56 mL/min Normal 60-69 yrs >49 mL/min Normal 70-79yrs>42 mL/min Normal 80 and above >35 mL/min Normal Female GFRInterpretation 20-39 yrs >60 mL/min Normal 40-49 yrs >58 mL/minNormal 50-59 yrs >51 mL/min Normal 60-69 yrs >45 mL/min Normal 4 Clinical Report - Physicians/Mid Levels [facility] Emergency Department [address] [place] [address] Phone #: ext- [phone] 09/24/2020 19:05 Patient: [...] Thrombosis, Pulmonary Embolus, Tissue heart valves, Acute [place] Atrial Fibrillation, Valvular heart disease and recurrent Systemic Embolism. -International Normalized Ratio (INR): 2.5 - 3.5 for Mechanical Prosthetic valve. Magnesium: (MANSI: 09/24/2020 19:38) ( NygRcvd 09/24/2020 20:11) Final results Test Result Flag [...] [facility] embolism PE. pt has been short of breath for weeks butbecame worse recently. he states he nearly passed out several days ago after walking up the stairs. Ptcame to [place] [facility]ology for a CTA-chest. A saddle embolism was found and he was sent tot ED immediately. On evaluation, pt is non-toxic and conversive. I ordered labs including coagulationstudies. I ordered heparin bolus and iv drip. I immediately called [facility] for transfer. pt'svital signs are stable. I spoke to Dr. Hargrove at [facility]. He agreed to accept the patient. all labs arepending at this time. Will give him a courtesy call when labs are back to help him determine placement.covid-19 nasal swab ordered as well. labs resulted. coags grossly nl. covid swab is negative. I calledDr. Hargrove. He agreed to accept to [facility]. pt comfortable with the transer. cobra paperwork completed. Critical care performed. Time is exclusive of separately billable procedures. Time includes: direct patient care, patient reassessment, interpretation of data (laboratory data) and medical consultation- see progress notes. Procedures included in critical care time: peripheral IV placement. Patient/family counseled. Disposition: Benefits, risks and alternatives to donnelly sfer explained to patient. Transferred to [facility]. Condition: stable. 5 Clinical Report - Physicians/Mid Levels [facility] Emergency Department [address] [place] [address] Phone #: ext- [phone] 09/24/2020 19:05 Patient: DIANA BONILLA Sex: M : 1965 Age: 54yCLINICAL IMPRESSION Acute pulmonary embolism (saddle embolims).(Electronically signed by Evita Conrad MD 09/25/2020 00:54) Name Value Range Interpretation Code Description Data Princess rce(s) Supporting Document(s) ID Date Data Source [id number] 09/24/2020 07:57:00 PM EST [facility] Name Value Range Interpretation Code Description Data Princess rce(s) Supporting Document(s) COVID19 Case rprt NOT DETECTED [facility] This lab was ordered by [facility] and reported by [facility]. ID Date Data Source [id number] 09/24/2020 08:38:00 PM EST [facility] NOT DETECTEDNOT DETECTED{ PROC EDURAL CONTROL VALID KIT LOT # _[id number] 09/24/20.KIM. KIT EXP DATE _32-65-35 09/24/20.KIM. NORMAL RANGE IS NOT DETECTEDNEGATIVE RESULTS [...] rce(s) Supporting Document(s) ID Date Data Source [id number] 09/24/2020 08:27:00 PM [facility] Name Value Range Interpretation Code Description Data Princess rce(s) Supporting Document(s) Prothrombin time (PT) 13.7 SECONDS 11.0 - 15.5 [facility] INR in Platelet poor plasma by Coagulation assay 1.00 0.93 - 1. 23 [facility] aPTT in Blood by Coagulation assay 25.5 SECONDS 24.8 - 36.7 [facility] \\BLDo\\INR INTERPRETATION\\BLDx\\ Therapeutic range for Coumadin and related oral anticoagulants. - International Normalized Ratio (INR): 2.0 - 3.0 for Venous Thrombosis, Pulmonary Embolus, Tissue heart valves, Acute [place] Atrial Fibrillation, Valvular heart disease and recurrent Systemic Embolism. - International Normalized Ratio (INR): 2.5 - 3.5 for Mechanical Prosthetic valve. ID Date Data Source [id number] 09/24/2020 08:18:00 PM [facility] Name Value Range Interpretation Code Description Data Princess rce(s) Supporting Document(s) TROPONIN T <0.01 NG/ML 0.00 - 0.10 [facility] ospital TROPONIN T0.1 ng/ml Recommended as the c linical threshold value forTroponin T. ID Date Data Source [id number] 09/24/2020 08:11:00 PM [facility] Name Value Range Interpretation Code Description Data Princess rce(s) Supporting Document(s) Magnesium [Mass/volume] in Serum or Plasma 2.2 MG/DL 1.7 - 2.2 [facility] ID Date Data Source [id number] 09/24/2020 08:11:00 PM [facility] Name Value Range Interpretation Code Description Data Princess rce(s) Supporting Document(s) COMPREHENSIVE METABOLIC PANEL [facility] COMPREHENSIVE METABOLIC PANEL Sodium [Moles/volume] in Serum or Plasma 137 mEq/L 134 - 153 [facility] Potassium [Moles/volume] in Serum or Plasma 4.4 mEq/L 3.6 - 5.0 [facility] Chloride [Moles/volume] in Serum or Plasma 102 mEq/L 98 - 107 [facility] Carbon dioxide, total [Moles/volume] in Serum or Plasma 25 MEQ/L 22 - 30 [facility] Glucose [Mass/volume] in Serum or Plasma 86 MG/DL 70 - 99 [facility] BUN 15 MG/DL 7 - 21 [facility] Creatinine [Mass/volume] in Serum or Plasma 1.0 MG/DL 0.7 - 1.5 [facility] BUN/CREAT 15 8 - 27 [facility] Protein [Mass/volume] in Serum or Plasma 7.0 G/DL 6.3 - 8.2 [facility] Albumin [Mass/volume] in Serum or Plasma 4.3 G/DL 3.9 - 5.0 [facility] Globulin [Mass/volume] in Serum by calculation 2.7 GM/DL 2.4 - 3.2 [facility] A/G RATIO 1.6 0.8 - 2.0 [facility] Calcium [Mass/volume] in Serum or Plasma 9.0 MG/DL 8.4 - 10.2 [facility] Bilirubin.total [Mass/volume] in Serum or Plasma <0.7 MG/DL 0.2 - 1.3 [facility] Alkaline phosphatase [Enzymatic activity/volume] in Serum or Plasma 73 U/L 38 - 126 [facility] Aspartate aminotransferase [Enzymatic activity/volume] in Serum or Plasma 18 U/L 5 - 40 [facility] Alanine aminotransferase [Enzymatic activity/volume] in Seru m or Plasma 19 U/L 7 - 56 [facility] Anion gap 3 in Serum or Plasma 10.0 mmol/L 8.0 - 16.0 [facility] AGE 54 yrs [facility] NON-AA GFR >60 mL/min [facility] ital AFR AMER GFR >60 mL/min [facility] spital Male GFR In terprentation [...] >32 mL/min Normal ID Date Data Source [id number] 09/24/2020 08:05:00 PM EST [facility] Name Value Range Interpretation Code Description Data Princess rce(s) Supporting Document(s) CBC W/AUTOMATED DIFF [facility] COMPLETE BLOOD COUNT Leukocytes [#/volume] in Blood by Automated count 7.0 10^3/uL 4.2 - 1 1.0 [facility] Erythrocytes [#/volume] in Blood by Automated count 5.10 10^6/uL 4. 50 - 6.30 [facility] Hemoglobin [Mass/volume] in Blood 15.1 g/dL 14.0 - 16.0 [facility] Hematocrit [Volume Fraction] of Blood by Automated count 44.1 % 4 1.0 - 51.0 [facility] Erythrocyte mean corpuscular volume [Entitic volume] by Auto mated count 86.5 fL 80.0 - 94.0 [facility] Erythrocyte mean corpuscular hemoglobin [Entitic mass] by Automated count 29.6 pg 27.0 - 34.0 [facility] Erythrocyte mean corpuscular hemoglobin concentration [Mass/volume] by Automated count 34.2 g/dL 31.0 - 36.0 [facility] Erythrocyte distribution width [Ratio] by Automated count 12.8 % 11.5 - 14.8 [facility] Platelets [#/volume] in Blood by Automated count 130 10^3/uL 150 - 45 0 L [facility] Platelet mean volume [Entitic volume] in Blood by Automated count 11.0 fL 7.4 - 10.4 H [facility] Neutrophils/100 leukocytes in Blood by Automated count 57.1 % 37. 0 - 80.0 [facility] Lymphocytes/100 leukocytes in Blood by Manual count 30.5 % 25.0 - 40.0 [facility] Monocytes/100 leukocytes in Blood by Automated count 8.1 % 3.0 - 8.0 H [facility] Eosinophils/100 leukocytes in Blood by Automated count 3.6 % 0.0 - 7.0 [facility] Basophils/100 leukocytes in Blood by Automated count 0.6 % 0.0 - 2.0 [facility] %IG 0.1 % 0.0 - 0.0 H [facility] al %NRBC 0.0 % 0.0 - 0.0 [facility] al Neutrophils [#/volume] in Blood by Automated count 4.02 10^3/uL 2.00 - 6.90 [facility] Lymphocytes [#/volume] in Blood by Automated count 2.15 10^3/uL 0.60 - 3.40 [facility] Monocytes [#/volume] in Blood by Automated count 0.57 10^3/uL 0.00 - 0.90 [facility] Eosinophils [#/volume] in Blood by Automated count 0.25 10^3/uL 0.00 - 0.70 [facility] Basophils [#/volume] in Blood by Automated count 0.04 10^3/uL 0.00 - 0.20 [facility] #IG 0.01 10^3/uL 0.00 - 0.10 [facility] ospital #NRBC 0.00 10^3/uL 0.00 - 0.00 [facility] ospital MANUAL DIFF NOT INDICATED [facility] RBC MORPH NOT INDICATED [facility] spital ID Date Data Source [id number] 09/24/2020 06:02:00 PM EST [facility] Name Value Range Interpretation Code Description Data Princess rce(s) Supporting Document(s) COMPREHENSIVE METABOLIC PANEL [facility] COMPREHENSIVE METABOLIC PANEL Sodium [Moles/volume] in Serum or Plasma 138 mEq/L 134 - 153 [facility] Potassium [Moles/volume] in Serum or Plasma 4.9 mEq/L 3.6 - 5.0 [facility] Chloride [Moles/volume] in Serum or Plasma 103 mEq/L 98 - 107 [facility] Carbon dioxide, total [Moles/volume] in Serum or Plasma 22 MEQ/L 22 - 30 [facility] Glucose [Mass/volume] in Serum or Plasma 86 MG/DL 70 - 99 [facility] BUN 15 MG/DL 7 - 21 [facility] Creatinine [Mass/volume] in Serum or Plasma 1.0 MG/DL 0.7 - 1.5 [facility] BUN/CREAT 15 8 - 27 [facility] al Protein [Mass/volume] in Serum or Plasma 7.5 G/DL 6.3 - 8.2 [facility] Albumin [Mass/volume] in Serum or Plasma 4.6 G/DL 3.9 - 5.0 [facility] Globulin [Mass/volume] in Serum by calculation 2.9 GM/DL 2.4 - 3.2 [facility] A/G RATIO 1.6 0.8 - 2.0 [facility] Calcium [Mass/volume] in Serum or Plasma 9.2 MG/DL 8.4 - 10.2 [facility] Bilirubin.total [Mass/volume] in Serum or Plasma <0.7 MG/DL 0.2 - 1.3 [facility] Alkaline phosphatase [Enzymatic activity/volume] in Serum or Plasma 80 U/L 38 - 126 [facility] Aspartate aminotransferase [Enzymatic activity/volume] in Serum or Plasma 23 U/L 5 - 40 [facility] Alanine aminotransferase [Enzymatic activity/volume] in Seru m or Plasma 22 U/L 7 - 56 [facility] Anion gap 3 in Serum or Plasma 13.0 mmol/L 8.0 - 16.0 [facility] AGE 54 yrs [facility] al NON-AA GFR >60 mL/min [facility] ital AFR AMER GFR >60 mL/min [facility] spital Male GFR In terprentation [...] >32 mL/min Normal ID Date Data Source [id number] 08/18/2020 12:00:00 AM EST [facility] Name Value Range Interpretation Code Description Data Princess rce(s) Supporting Document(s) SARS-CoV-2 (COVID-19) RNA [Presence] in Respiratory specimen by KALEN with probe detection Not Detected [facility] This lab was ordered by [facility] and reported by [employer] ID Date Data Source CYCLIC CITRULLINATED PEPTIDE 07/24/2020 12:00:00 AM EST eCW1 ([facility]) Name Value Range Interpretation Code Description Data Princess rce(s) Supporting Document(s) 5 0-19 CYCLIC CITRULLINATED PEPTIDE e CW1 ([facility]) ID Date Data Source LYME WESTERN BLOT SERUM 07/24/2020 12:00:00 AM EST eCW1 ([facility]) Name Value Range Interpretation Code Description Data Princess rce(s) Supporting Document(s) LYME WESTERN BLOT SERUM eCW1 ( [facility]) ID Date Data Source ANGIOTENSIN 1 CONVERTING ENZYM 07/24/2020 12:00:00 AM EST eC W1 ([facility]) Name Value Range Interpretation Code Description Data Princess rce(s) Supporting Document(s) 32 14-82 ANGIOTENSIN 1 CONVERTING ENZYM eCW1 ([facility]) ID Date Data Source RHEUMATOID FACTOR QUANT 07/24/2020 12:00:00 AM EST eCW1 ([facility]) Name Value Range Interpretation Code Description Data Princess rce(s) Supporting Document(s) < 10.0 <15.0 RHEUMATOID FACTOR QUANT eCW1 ( [facility]) ID Date Data Source URIC ACID 07/24/2020 12:00:00 AM EST eCW1 ([facility]) Name Value Range Interpretation Code Description Data Princess rce(s) Supporting Document(s) 7.2 3.5-7.2 URIC ACID eCW1 ([facility]) ID Date Data Source ERYTHROCYTE SEDIMENTATION RATE 07/24/2020 12:00:00 AM EST eC W1 ([facility]) Name Value Range Interpretation Code Description Data Princess rce(s) Supporting Document(s) 5 0-20 ERYTHROCYTE SEDIMENTATION RATE eCW1 ([facility]) ID Date Data Source C REACTIVE PROTEIN QUANTITATIV (At [facility]) 07/24/2020 12:00 :00 AM EST eCW1 ([facility]) Name Value Range Interpretation Code Description Data Princess rce(s) Supporting Document(s) 0.30 0.00-0.30 C REACTIVE PROTEIN QUANTI TATIV eCW1 ([facility]) ID Date Data Source Comprehensive Metabolic Profile (CMP) 07/24/2020 12:00:00 AM EST eCW1 ([facility]) Name Value Range Interpretation Code Description Data Princess rce(s) Supporting Document(s) 91 70-100 GLUCOSE, FASTING eCW1 ([facility]) 13 7-18 BLOOD UREA NITROGEN eCW1 ([facility]) 0.99 0.70-1.30 CREATININE FOR GFR eCW1 ([facility]) > 60.0 >56 GLOMERULAR FILTRATION RATE eCW 1 ([facility]) 139 136-145 SODIUM LEVEL eCW1 ([facility]) 4.4 3.5-5.1 POTASSIUM SERUM eCW1 ([facility]) 108 98-107 CHLORIDE LEVEL eCW1 ([facility]) 28 21-32 CARBON DIOXIDE LEVEL eCW1 ([facility]) 9.5 8.5-10.1 CALCIUM LEVEL eCW1 ([facility]) 14 7-37 AST/SGOT eCW1 ([facility]) 73 45-117 ALKALINE PHOSPHATASE eCW1 ([facility]) 29 12-78 ALT/SGPT eCW1 ([facility]) 0.3 0.2-1.0 BILIRUBIN,TOTAL eCW1 ([facility]) 7.0 6.4-8.2 TOTAL PROTEIN eCW1 ([facility]) 4.0 3.2-5.2 ALBUMIN eCW1 ([facility]) 1.3 ALBUMIN/GLOBULIN RATIO eCW1 ([facility]) ID Date Data Source [id number] 07/02/2020 01:55:00 PM [facility] [address] [place] [address] PHONE: [phone] FAX: [phone] Name .................. : CHAD ORTIZ Acct Number.................. : [id number] ROOM. ................. : MR Number ................... : [id number] Stay type ............. : O/P Discharge Date......... ... : 07/01/20 Admit Date ......... : 07/01/20 Admit Phys .................... : RAQUEL GUERRERO Date of ....... : 1965 Family Phys ................... : UNKNOWN Phone .................. : [phone] Age ................................ : 54 Film# .................. .:[id number] Sex ................................. : M Unsigned transcriptions are preliminary reports and do not represent a medical or legal document MRI LOW EXT NO JT W/[place] [id number] COMPLETE:07/01/20 12:05 [facility] [id number] (REASON FOR PROCESS: OSTEOMYELITIS SECOND DIGIT, MRI [...] for: RAQUEL LOPEZ via fax Copy for: [address] [place] [address] REC Page 1 of 1 Name Value Range Interpretation Code Description Data Princess rce(s) Supporting Document(s) ID Date Data Source [id number] 06/29/2020 12:00:00 AM EST [facility] ology Imaging Damian Aranda Patient Name: DIANA BONILLA[address] [facility] Date of : 1965[facility] ADELINA Esparza [address]- Date of Exam: 06/29/2020PH#: Fax: [phone] EXAM: [...] by: Jamaal Moreno MD 07/01/2020 5:49 PM [place]Derrick/Simone you for referring DIANA BONILLA to our office. Electronically Signed - ELANA 07/02/20 16:04 Name Value Range Interpretation Code Description Data Princess rce(s) Supporting Document(s) ID Date Data Source [id number] 06/26/2020 12:00:00 AM EST [facility] Name Value Range Interpretation Code Description Data Princess rce(s) Supporting Document(s) 2019-nCoV RNA XXX KALEN+probe-Imp [facility] This lab was ordered by [facility] and reported by [employer]. Procedure Social History Code Duration Value Status Description Data Source(s ) Alcohol intake 09/26/2020 12:00:00 AM EST Current drinker of al cohol (finding) completed Current drinker of alcohol (finding) [facility] Smoking 09/26/2020 12:00:00 AM EST Former smoker completed Former smoker [facility] Smoking 09/04/2020 12:00:00 AM EST Never Smoker completed Never S moker eCW1 ([facility]) Smoking 09/04/2020 12:00:00 AM EST Never Smoker completed Never S moker eCW1 ([facility]) Smoking 09/04/2020 12:00:00 AM EST Never Smoker completed Never S moker eCW1 ([facility]) Smoking 09/04/2020 12:00:00 AM EST Never Smoker completed Never S moker eCW1 ([facility]) Smoking 08/11/2020 12:00:00 AM EST Never Smoker completed Never S moker eCW1 ([facility]) Smoking 08/11/2020 12:00:00 AM EST Never Smoker completed Never S moker eCW1 ([facility]) Smoking 07/24/2020 12:00:00 AM EST Never Smoker completed Never S moker eCW1 ([facility]) Smoking 07/24/2020 12:00:00 AM EST Never Smoker completed Never S moker eCW1 ([facility]) Smoking 07/24/2020 12:00:00 AM EST Never Smoker completed Never S moker eCW1 ([facility]) Smoking 07/20/2020 12:00:00 AM EST Never Smoker completed Never S moker eCW1 ([facility]) Smoking 06/11/2020 12:00:00 AM EDT Never Smoker completed Never S moker eCW1 ([facility]) Smoking 06/11/2020 12:00:00 AM EDT Never Smoker completed Never S moker eCW1 ([facility]) Smoking 06/11/2020 12:00:00 AM EDT Never Smoker completed Never S moker eCW1 ([facility]) Smoking 06/11/2020 12:00:00 AM EDT Never Smoker completed Never S moharsha eCW1 ([facility]) Vital Signs ID Date Data Source UNK Name Value Range Interpretation Code Description Data Source(s) Diastolic blood pressure 64 mm[Hg] 64 mm[Hg] eCW1 ([facility]) Systolic blood pressure 132 mm[Hg] 132 mm[Hg] e CW1 ([facility]) Body temperature 97.6 [degF] 97.6 [degF] eCW1 ( [facility]) Respiratory rate 18 /min 18 /min eCW1 ([facility] Heart rate 67 /min 67 /min eCW1 ([facility]) Body mass index (BMI) [Ratio] 31.27 kg/m2 31.27 kg/m2 eCW1 ([facility]) Body height 74 [in_i] 74 [in_i] eCW1 ([facility]) Body weight 110.5 kg 110.5 kg eCW1 ([facility]) Body weight 243.6 [lb_av] 243.6 [lb_av] eCW1 ([facility]) Body height 74 [in_i] 74 [in_i] eCW1 ([facility]) Body weight 110.9 kg 110.9 kg eCW1 ([facility]) Body weight 244.6 [lb_av] 244.6 [lb_av] eCW1 ([facility]) Diastolic blood pressure 66 mm[Hg] 66 mm[Hg] eCW1 ([facility]) Systolic blood pressure 122 mm[Hg] 122 mm[Hg] e CW1 ([facility]) Body temperature 97.4 [degF] 97.4 [degF] eCW1 ( [facility]) Respiratory rate 18 /min 18 /min eCW[facility] Heart rate 66 /min 66 /min eCW1 ([facility]) Body mass index (BMI) [Ratio] 31.40 kg/m2 31.40 kg/m2 eCW1 ([facility]) Diastolic blood pressure 78 mm[Hg] 78 mm[Hg] eCW1 ([facility]) Systolic blood pressure 142 mm[Hg] 142 mm[Hg] e CW1 ([facility]) Body temperature 97.3 [degF] 97.3 [degF] eCW1 ( [facility]) Respiratory rate 18 /min 18 /min eCW1 ([facility]) Heart rate 67 /min 67 /min eCW1 ([facility]) Body mass index (BMI) [Ratio] 30.63 kg/m2 30.63 kg/m2 eCW1 ([facility]) Body height 74 [in_i] 74 [in_i] eCW1 ([facility]) Body weight 108.2 kg 108.2 kg eCW1 ([facility]) Body weight 238.6 [lb_av] 238.6 [lb_av] eCW1 ([facility]) Diastolic blood pressure 84 mm[Hg] 84 mm[Hg] eCW1 ([facility]) Systolic blood pressure 136 mm[Hg] 136 mm[Hg] e CW1 ([facility]) Body temperature 97.3 [degF] 97.3 [degF] eCW1 ( [facility]) Respiratory rate 18 /min 18 /min eCW1 ([facility]) Heart rate 70 /min 70 /min eCW1 ([facility]) Body mass index (BMI) [Ratio] 30.17 kg/m2 30.17 kg/m2 eCW1 ([facility]) Body height 74 [in_i] 74 [in_i] eCW1 ([facility]) Body weight 235 [lb_av] 235 [lb_av] eCW1 ([facility]) Body height 74 [in_i] 74 [in_i] MEDENT ([facility]) 6'2" Body temperature 96.9 [degF] 96.9 [degF] MEDENT ([facility]) Body mass index (BMI) [Ratio] 30.2 kg/m2 30.2 k g/m2 MEDENT ([facility]) Body weight 235.00 [lb_av] 235.00 [lb_av] MEDEN T ([facility]) Diastolic blood pressure 84 mm[Hg] 84 mm[Hg] eCW1 ([facility]) Systolic blood pressure 132 mm[Hg] 132 mm[Hg] e CW1 ([facility]) Body temperature 95.4 [degF] 95.4 [degF] eCW1 ( [facility]) Respiratory rate 18 /min 18 /min eCW1 ([facility]) Heart rate 78 /min 78 /min eCW1 ([facility]) Body mass index (BMI) [Ratio] 30.81 kg/m2 30.81 kg/m2 eCW1 ([facility]) Body height 74 [in_i] 74 [in_i] eCW1 ([facility]) Body weight 240 [lb_av] 240 [lb_av] eCW1 ([facility]) ID Date Data Source [id number] 09/30/2020 10:52:[address] [facility] Name Value Range Interpretation Code Description Data Source(s) TRANSFER FROM [facility] ID Date Data Source [id number] 09/28/2020 06:05:[address] [facility] Name Value Range Interpretation Code Description Data Source(s) WEIGHT RECORDED 235 lb 235 lb [facility] WEIGHT RECORDED 239.8 lb 239.8 lb [facility] WEIGHT RECORDED 235.6 lb 235.6 lb [facility] Body height Measured 74 in 74 in [facility] TRANSFER FROM [facility] Patient Treatment Plan of Care Planned Activity Planned Date Details Description Data Source (s) rivaroxaban 20 MG Oral Tablet 10/18/2020 12:00:[address] [facility] Losartan Potassium 50 MG Oral Tablet 09/29/2020 12:00:[address] [facility] Losartan Potassium 50 MG Oral Tablet 09/29/2020 12:00:[address] [facility] Xarelto Starter Pack 15 & 20 MG Oral Tablet Therapy Pa ck (Rivaroxaban) 09/28/2020 12:00:[address] [facility] Docusate Sodium 100 MG Oral Capsule 09/28/2020 12:00:[address] [facility] rivaroxaban 15 MG Oral Tablet 09/28/2020 12:00:[address] [facility] Acetaminophen 325 MG Oral Tablet 09/28/2020 12:00:[address] [facility] Xarelto Starter Pack 15 & 20 MG Oral Tablet Therapy Pa ck (Rivaroxaban) 09/27/2020 12:00:[address] [facility] ondansetron (ZOFRAN) injection 4 mg 09/26/2020 11:06:[address] [facility] Acetaminophen 325 MG Oral Tablet 09/26/2020 11:06:[address] [facility] senna tablet 2 tablet 09/26/2020 11:05:[address] [facility] Bisacodyl 10 MG Rectal Suppository 09/26/2020 11:05:[address] [facility] Hydroxychloroquine Sulfate 200 MG Oral Tablet [[place]] 09/04/2020 12:00:00 AM EST eCW1 ([facility]) Medrol 4 MG 09/04/2020 12:00:00 AM EST e CW1 ([facility]) Hydroxychloroquine Sulfate 200 MG Oral Tablet [[place]] 09/04/2020 12:00:00 AM EST eCW1 ([facility]) Medrol 4 MG 09/04/2020 12:00:00 AM EST e CW1 ([facility]) Hydroxychloroquine Sulfate 200 MG Oral Tablet [[place]] 09/04/2020 12:00:00 AM EST eCW1 ([facility]) Medrol 4 MG 09/04/2020 12:00:00 AM EST e CW1 ([facility]) Hydroxychloroquine Sulfate 200 MG Oral Tablet [[place]] 09/04/2020 12:00:00 AM EST eCW1 ([facility]) Medrol 4 MG 09/04/2020 12:00:00 AM EST e CW1 ([facility]) Medrol 4 MG 07/24/2020 12:00:00 AM EST e CW1 ([facility]) Medrol 4 MG 07/24/2020 12:00:00 AM EST e CW1 ([facility]) Medrol 4 MG 07/24/2020 12:00:00 AM EST e CW1 ([facility]) meloxicam 15 MG Oral Tablet 07/06/2020 12:00:00 AM EST eCW1 ([facility]) meloxicam 15 MG Oral Tablet 07/06/2020 12:00:00 AM EST eCW1 ([facility]) sildenafil 100 MG Oral Tablet [Viagra] 06/11/2020 12:00:00 AM EDT eCW1 ([facility]) sildenafil 100 MG Oral Tablet [Viagra] 06/11/2020 12:00:00 AM EDT eCW1 ([facility]) sildenafil 100 MG Oral Tablet [Viagra] 06/11/2020 12:00:00 AM EDT eCW1 ([facility]) sildenafil 100 MG Oral Tablet [Viagra] 06/11/2020 12:00:00 AM EDT eCW1 ([facility])
[2020-09-30 23:52] VITALS: BP 160/83
[2020-10-01 03:00] VITALS: O2SAT 96
[2020-10-01 04:49] LABS: BASO % 0.7 % (0.0-1.0); EOS # 0.3 10^3/uL (0.0-0.5); EOS % 5.7 % (0.0-3.0); HEMATOCRIT 37.2 % (42.0-52.0); HEMOGLOBIN 12.3 g/dl (13.5-17.5); LYMPH # 1.7 10^3/uL (1.5-5.0); MEAN CORPUSCULAR HEMOGLOBIN 28.7 pg (27.0-33.0); MEAN CORPUSCULAR HGB CONC 33.1 g/dl (32.0-36.5); MEAN CORPUSCULAR VOLUME 86.7 fl (80.0-96.0); MONO # 0.5 10^3/uL (0.0-0.8); MONO % 9.8 % (2.0-8.0); NEUTROPHILS # 2.8 10^3/uL (1.5-8.5); NEUTROPHILS % 51.6 % (36.0-66.0); PLATELET COUNT, AUTOMATED 168 10^3/uL (150-450); RED BLOOD COUNT 4.29 10^6/uL (4.30-6.10); WHITE BLOOD COUNT 5.4 10^3/uL (4.0-10.0)
[2020-10-01 05:33] LABS: ALBUMIN 3.4 GM/DL (3.2-5.2); ALT/SGPT 132 U/L (12-78); BILIRUBIN,TOTAL 0.3 MG/DL (0.2-1.0); BLOOD UREA NITROGEN 13 MG/DL (7-18); CALCIUM LEVEL 8.9 MG/DL (8.5-10.1); CARBON DIOXIDE LEVEL 26 MEQ/L (21-32); CHLORIDE LEVEL 106 MEQ/L (98-107); CREATININE FOR GFR 1.02 MG/DL (0.70-1.30); GLOMERULAR FILTRATION RATE > 60.0 (>56); GLUCOSE, FASTING 94 MG/DL (70-100); SODIUM LEVEL 140 MEQ/L (136-145); TOTAL PROTEIN 5.9 GM/DL (6.4-8.2)
[2020-10-01 06:00] VITALS: BP 110/79
[2020-10-01 08:42] VITALS: BP 114/71
[2020-10-01] MEDS ORDERED: DOCUSATE SODIUM 100MG CAPSULE PO SCH (09:00)
[2020-10-01] MEDS ORDERED: RIVAROXABAN 15 MG TAB (XARELTO) PO SCH (09:00)
[2020-10-01] MEDS ORDERED: LOSARTAN 50MG TABLET PO SCH (09:00)
[2020-10-01 09:45] LABS: C REACTIVE PROTEIN QUANTITATIV < 0.30 MG/DL (0.00-0.30); FERRITIN 210 NG/ML (26-388); LDH LACTATE DEHYDROGENASE 205 U/L (87-241)
[2020-10-01 09:57] LABS: ERYTHROCYTE SEDIMENTATION RATE 10 mm/hr (0-20)
--- NOTE | 2020-10-01 12:33 | IPN ---
PROGRESS NOTE DATE: 10/01/20 SUBJECTIVE: Patient complains of pleuritic chest pain, no shortness of breath, as he walks more than 3 times around the nursing floor. No dizziness or lightheadedness. Afebrile. No chills. No dysgeusia or anosmia. No nausea, vomiting, abdominal pain. He complains of alopecia. PHYSICAL EXAMINATION ON DISCHARGE: Temperature 97.9, pulse 60, respiratory 17, blood pressure 114/71, 98% on room air. General: Awake, alert, oriented times 3 in no respiratory distress. No cyanosis, icterus, jaundice. No use of respiratory accessory muscles. Speaks in full sentences. No pallor. Neck: No JVD, thyromegaly or cervical lymphadenopathy. Lungs: Diminished, but clear to auscultation, no wheezes, rhonchi or rales. Heart: S1 and S2, sinus rhythm. Abdomen: Soft, nontender, nondistended, positive bowel sounds times 4 quadrants. Extremities: No cyanosis, clubbing or pitting edema. LABORATORY DATA: White count 5.4, hemoglobin 12, hematocrit 37, platelet count 168. Sodium 140, potassium 4, chloride 106, bicarb 26, BUN 13, creatinine 1.02, glucose 94. Coronavirus negative. CRP less than 0.3. INR 2.16. D-dimer 2177. IMAGING STUDIES: CT chest: Bilateral pulmonary embolism, non-occlusive central pulmonary emboli predominantly in the left main pulmonary artery and proximal lobar and segmental branch of the right lower lobe, left upper lobe, left lower lobe and lingula, scattered subsegmental pulmonary emboli, mild peribronchial thickening suggestive of airway inflammation with patchy areas of ground glass inflammation associated with coarse interstitial thickening predominantly in the right upper lobe with no consolidation, nonspecific infectious and non-infectious processes. ASSESSMENT AND PLAN: This is a 54-year-old male with history of DVT, PE, saddle embolus status post embolectomy at [facility] due to pulmonary hypertension, right sided heart strain on echo on 09/27/20. Since then patient presented with pleuritic chest pain. EKG showed no acute ischemia. 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 Repeat CT shows bilateral pulmonary emboli with ground glass infiltration. Coronavirus was negative. 1. Pleuritic chest pain: Acute coronary syndrome has been ruled out. 2. Bilateral PE with history of saddle embolus and embolectomy, history of DVT: Patient may be discharged home today. YULIA
[2020-10-01 12:52] VITALS: O2SAT 97
--- NOTE | 2020-10-01 15:55 | ECGEPIP ---
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
--- NOTE | 2020-10-01 16:00 | ECGEPIP ---
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1965 Requested By: HAILEE MCDOWELL Order Number: [id number] Reading MD: Francisco Corrales Measurements Intervals [place] Rate: 48 P: 16 [place]: 182 QRS: -14 QRSD: 96 T: 15 QT: 472 QTc: 421 Interpretive Statements Sinus bradycardia Incomplete right bundle branch block Anteroseptal NC, age indeterminate Nonspecific ST-T wave abnormalities Compared to prior tracing of 09/30/2020, atrial fibrillation has resolved, there is an axis shift from prior left axis deviation to normal, and there is improved anterior R wave progression Electronically Signed on 10-01-2020 16:00:18 EST by Francisco Corrales
--- NOTE | 2020-10-01 16:01 | ECGEPIP ---
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
--- NOTE | 2020-10-01 16:05 | ECGEPIP ---
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
--- NOTE | 2020-10-02 08:11 | ECGEPIP ---
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
== END 2020-10-01 13:47 | disposition home or self-care (01) ==
LOC: M ED 18:34 → M ED INP 18:35 → ENRESERV 23:30 → M MSPAV 10-01 00:45
PROVIDERS: ADMIT Family Medicine; ATTEND General Practice
DX: R07.1 Chest pain on breathing (principal); Z86.711 Personal history of pulmonary embolism; I10 Essential (primary) hypertension; E78.49 Other hyperlipidemia; R73.03 Prediabetes; N52.9 Male erectile dysfunction, unspecified; Z87.891 Personal history of nicotine dependence; Z79.899 Other long term (current) drug therapy; Z79.01 Long term (current) use of anticoagulants; Z88.8 Allergy status to other drugs, medicaments and biological substances; Z88.2 Allergy status to sulfonamides
CPT/HCPCS: 36415; 71045; 71275; 80048; 80053; 80076; 82550; 82553; 82728; 83615; 83690; 83735; 84145; 84484; 85025; 85379; 85384; 85610; 85652; 85730; 86140; 87798; 93005; 93041; 93971; 94760; 99285; Q9967

== ENCOUNTER → 2020-10-28 | Outpatient (CLI) | payer OTHER ==
[~2020-10-28] MED LIST changes: +COLA100C5 PO; +ISOVUE-370 76% 100ML VIAL As Ordered ONE; +XARE15TA PO
--- NOTE | 2020-10-30 07:19 | REP ---
INDICATION: ACCUTE DEEP VEIN THROMBOSIS LT UPPER EXT. COMPARISON: None TECHNIQUE: Axial contrast-enhanced images from the lung bases to the pubic symphysis using 100 cc Isovue 370 intravenous contrast material with images obtained at maximal arterial enhancement. Multiplanar MIP reformations along with volume rendered CT aortogram created post processing. This CT examination was performed using the following dose reduction techniques: Automated exposure control, adjustment of mA and/or kv according to the patient's size, and the use of iterative reconstruction technique. FINDINGS: The abdominal aorta along with major branch vessels including celiac axis, superior mesenteric artery, bilateral solitary renal arteries, inferior mesenteric artery and iliac arteries are all normal. No significant atherosclerotic changes. No evidence for stenosis or occlusion. No aortic aneurysm or dissection. Liver, spleen, pancreas, gallbladder, bilateral adrenal glands and kidneys are normal. The enteric system is without obstruction or acute inflammatory process. Diffuse colonic and sigmoid diverticulosis noted without acute diverticulitis. Normal terminal ileum and appendix identified in the right lower quadrant. Pelvis demonstrates normal bladder and moderate prostatomegaly. No ascites. No free air. No intraperitoneal or retroperitoneal adenopathy. Abdominal aorta and vasculature appear normal. Musculoskeletal structures are intact and without acute osseous abnormality. Lung bases are clear. IMPRESSION: No acute abdominopelvic pathology appreciated. Normal abdominal aorta and branch vessels. Diverticulosis without acute diverticulitis. Prostatomegaly. <Electronically signed by Mihai Granado > 10/30/20 [id number]
== END ==
LOC: M RAD 15:26
PROVIDERS: ATTEND Surgery
DX: I82.A12 Acute embolism and thrombosis of left axillary vein (principal); N40.0 Benign prostatic hyperplasia without lower urinary tract symptoms
CPT/HCPCS: 74174; Q9967

== ENCOUNTER → 2021-01-29 | Outpatient (REF) | payer OTHER ==
[~2021-01-29] MED LIST changes: -ISOVUE-370 76% 100ML VIAL As Ordered ONE
== END ==
LOC: M SFHCRHEU 09:18
PROVIDERS: ATTEND Internal Medicine Rheumatology
DX: M06.4 Inflammatory polyarthropathy (principal)

== ENCOUNTER → 2021-11-09 | Outpatient (CLI) | payer OTHER ==
[~2021-11-09] MED LIST changes: -DOXY100C; +DOXY100C3; -LISI-898 PO; +LISI5TAB11 PO; +LOSA25TA13 PO; -LOSA25TA14 PO; +LOSA50TA28 PO; -LOSA50TA88 PO
[2021-11-09 13:43] LABS: BASO % 0.6 % (0.0-1.0); EOS # 0.2 10^3/uL (0.0-0.5); EOS % 4.7 % (0.0-3.0); HEMATOCRIT 42.1 % (42.0-52.0); HEMOGLOBIN 14.8 g/dl (13.5-17.5); LYMPH # 1.4 10^3/uL (1.5-5.0); LYMPH % 28.4 % (24.0-44.0); MEAN CORPUSCULAR HEMOGLOBIN 30.4 pg (27.0-33.0); MEAN CORPUSCULAR HGB CONC 35.2 g/dl (32.0-36.5); MEAN CORPUSCULAR VOLUME 86.4 fl (80.0-96.0); MONO # 0.5 10^3/uL (0.0-0.8); MONO % 10.4 % (2.0-8.0); NEUTROPHILS # 2.7 10^3/uL (1.5-8.5); NEUTROPHILS % 55.7 % (36.0-66.0); PLATELET COUNT, AUTOMATED 171 10^3/uL (150-450); RED BLOOD COUNT 4.87 10^6/uL (4.30-6.10); WHITE BLOOD COUNT 4.9 10^3/uL (4.0-10.0)
[2021-11-09 14:11] LABS: ALT/SGPT 31 U/L (12-78); BILIRUBIN,TOTAL 0.4 MG/DL (0.2-1.0); BLOOD UREA NITROGEN 11 MG/DL (7-18); CALCIUM LEVEL 9.1 MG/DL (8.5-10.1); CARBON DIOXIDE LEVEL 29 MEQ/L (21-32); CHLORIDE LEVEL 108 MEQ/L (98-107); CREATININE FOR GFR 0.96 MG/DL (0.70-1.30); GLOMERULAR FILTRATION RATE > 60.0 (>56); GLUCOSE, FASTING 95 MG/DL (70-100); POTASSIUM SERUM 4.6 MEQ/L (3.5-5.1); SODIUM LEVEL 142 MEQ/L (136-145); TOTAL PROTEIN 6.9 GM/DL (6.4-8.2)
== END ==
LOC: M PLALAB 09:13
PROVIDERS: ATTEND Internal Medicine Hematology
DX: I82.90 Acute embolism and thrombosis of unspecified vein (principal)

== ENCOUNTER → 2021-12-08 | Outpatient (CLI) | payer OTHER | LOC: M RAD 15:21 | PROVIDERS: ATTEND Internal Medicine Pulmonary Disease | DX: Z87.891 Personal history of nicotine dependence (principal) ==

== ENCOUNTER → 2022-02-18 | Outpatient (CLI) | payer OTHER ==
[~2022-02-18] MED LIST changes: +PROHANCE 279.3MG/ML 15ML VIAL ONE; +PROHANCE 279.3MG/ML 5ML VIAL ONE
== END ==
LOC: M PLAIMG 08:09
PROVIDERS: ATTEND Family Medicine
DX: R22.41 Localized swelling, mass and lump, right lower limb (principal)
CPT/HCPCS: 73723; A9576

== ENCOUNTER → 2022-08-26 | Outpatient (CLI) | payer OTHER ==
[~2022-08-26] MED LIST changes: -PROHANCE 279.3MG/ML 15ML VIAL ONE; -PROHANCE 279.3MG/ML 5ML VIAL ONE
== END ==
LOC: M PLARAD 08:10
PROVIDERS: ATTEND Family Medicine
DX: M54.9 Dorsalgia, unspecified (principal)

== ENCOUNTER → 2023-02-16 | Outpatient (CLI) | payer OTHER | LOC: M RAD 16:33 | PROVIDERS: ATTEND Family Medicine | DX: H53.9 Unspecified visual disturbance (principal); Z86.73 Personal history of transient ischemic attack (TIA), and cerebral infarction without residual deficits; Z86.718 Personal history of other venous thrombosis and embolism; Z86.711 Personal history of pulmonary embolism ==

== ENCOUNTER → 2023-02-22 | Outpatient (CLI) | payer OTHER | LOC: M RAD 15:27 | PROVIDERS: ATTEND Internal Medicine Pulmonary Disease | DX: Z87.891 Personal history of nicotine dependence (principal) ==

== ENCOUNTER → 2024-07-23 | Outpatient (CLI) | payer OTHER | LOC: M RAD 16:02 | PROVIDERS: ATTEND Physician Assistant | DX: Z87.891 Personal history of nicotine dependence (principal) ==

== ENCOUNTER → 2025-08-12 | Outpatient (CLI) | payer OTHER ==
[~2025-08-12] MED LIST changes: +ALLO100T; +ASPI81TA26; -COLC0.6T47 PO; +COLC0.6T53 PO; +EZET10TA57; +HYDR12.510; -HYDR12CA; +LOSA100T8; +XARE20TA
== END ==
LOC: M RAD 16:38
PROVIDERS: ATTEND Physician Assistant
DX: Z87.891 Personal history of nicotine dependence (principal)